=== PATIENT | female | born 1960 | race Caucasian/White ===

== ENCOUNTER 2016-05-20 11:42 | Emergency (ER) | payer OTHER ==
[~2016-05-20 11:42] MED LIST: ADVAIR DISKUS1 UNIT INH; ALBUTEROL0.09 MG/A1 PO; AMARYL1 MG PO; ASPIRIN EC81 M1 PO; AUGMENTIN 875 M1 TAB PO; AUGMENTIN 875-1 EACH PO; AUGMENTIN 875875 MG PO; BRILINTA90 M1 PO; CIPRO500 M1 PO; CLONAZEPAM0.5 M2 PO; COZAAR50 M1 PO; CRESTOR20 MG PO; CRESTOR40 M2 PO; DIABETIC TUSSI118 ML PO; FLEXERIL10 MG PO; GLIMEPIRIDE4 MG PO; GLUCOPHAGE1000 MG PO; GOOD SENSE ASPI81 M1 PO; GUAIFENESIN ER600 MG PO; HEPARIN-1/25000 UNI1 IV; IMDUR30 MG PO; ISOSORBIDE MONO30 M1 PO; KEFLEX500 M1 PO; KLONOPIN0.5 MG PO; LANTUS100 U/ML SC; LASIX20 MG PO; LEVAQUIN500 MG PO; LEVEMIR100 UNIT/1 SC; METOPROLOL TART25 M1 PO; NITROSTAT0.3 M1 SL; NORVASC 5MG TAB5 MG PO; NORVASC10 M1 PO; NOVOLOG100 U/ML SC; NOVOLOG100 UNIT/2 SC; OMEPRAZOLE20 M2 PO; PERCOCET 325 MG1 TA2 PO; PLAVIX 75MG TAB75 MG PO; PREDNISONE 20MG20 MG PO; PREDNISONE10 M2 PO; PREDNISONE10 MG PO; PROTONIX 40MG T40 MG PO; PROTONIX40 M3 PO; ROBITUSSIN W/CO10 ML PO; TRAMADOL HCL50 M1 PO; TRILIPIX135 M1 PO; ZITHROMAX Z-PA250 M1 PO
[2016-05-20 12:45] LABS: ABSOLUTE BASOPHIL COUNT 0 /CUMM (0.0-0.2); ABSOLUTE EOSINOPHIL COUNT 0.4 /CUMM (0.0-0.7); ABSOLUTE GRANULOCYTE CT 7.3 /CUMM (1.4-6.5); ABSOLUTE LYMPH COUNT 1.8 /CUMM (1.2-3.4); ABSOLUTE MONOCYTE COUNT 0.7 /CUMM (0.10-0.60); BASOPHIL % 0 % (0.0-2.0); GRANULOCYTE % 72.1 % (42.2-75.2); HEMATOCRIT 35.7 % (37-47); MEAN CORPUSCULAR HGB 27.9 PG (27.0-31.0); MEAN CORPUSCULAR HGB CONC 33.6 G/DL (33.0-37.0); MEAN CORPUSCULAR VOLUME 82.9 FL (81.0-99.0); MEAN PLATELET VOLUME 9.8 FL (7.4-10.4); PLATELET COUNT 238 /CUMM (130-400); RBC DISTRIBUTION WIDTH 13.9 % (11.5-14.5); RED BLOOD CELL CT 4.31 /CUMM (4.20-5.40); WHITE BLOOD CELL COUNT 10.2 /CUMM (4.8-10.8)
--- NOTE | 2016-05-20 12:50 | RADIOLOGY REPORT ---
EXAMINATION: XR CHEST CLINICAL INFORMATION: Cough COMPARISON: 05/05/2016 TECHNIQUE: PA and lateral views of the chest were obtained. FINDINGS: The cardiomediastinal silhouette is within normal limits. There is no focal consolidation. Hazy airspace disease is noted within the medial right base, unchanged compared to 05/05/2016. No pleural effusions or pneumothorax. Osseous structures are intact. IMPRESSION: Hazy airspace opacity in the medial right lung base is not significantly changed and likely represents atelectasis/scarring. Clinical correlation is recommended to exclude pneumonia. No focal consolidation.
--- NOTE | 2016-05-20 13:09 | ED DYSPNEA/ASTHMA COMPLAINT ---
History of Present Illness General Chief Complaint: Dyspnea (COPD, CHF, Other) Stated Complaint: SIB MD MONTES FOR SOB/COUGH Source: patient, old records Exam Limitations: no limitations Vital Signs & Intake/Output Vital Signs & Intake/Output Vital Signs Date Time Temp Pulse Resp B/P Pulse O2 O2 Flow FiO2 Ox Delivery Rate 05/20 1352 94 05/20 1343 96 05/20 1338 98.3 66 20 121/58 93 Room Air 05/20 1147 97.3 72 18 135/59 94 Room Air Allergies Coded Allergies: No Known Allergies (02/07/16) Reconcile Medications Albuterol Sulfate (Albuterol Sulfate Hfa) 0.09 MG/Actuation LUIZ 2 PUF PO Q4 HRS NEEDED PRN ASTHMA Amlodipine Besylate (Norvasc) 10 MG TABLET 10 MG PO DAILY HIGH BLOOD PRESSURE Aspirin (Ecotrin) 81 MG ECT 1 TAB PO DAILY HEART/BLOOD (Reported) Clonazepam 0.5 MG TAB 1 TAB PO DAILY PRN ANXIETY (Reported) FENOFIBRIC ACID (CHOLINE) (Trilipix) 45 MG CAPSULE.DR 1 TAB PO AT NIGHT HIGH CHOLESTEROL (Reported) Fluconazole (Diflucan) 150 MG TABLET 1 TAB PO ONCE CANDIDIASIS Fluticasone-Salmeterol (Advair 500-50 Diskus) 1 UNIT UNIT 1 PUF INH BID COPD Guaifenesin (Guaifenesin ER) 600 MG TAB.ER.12H 600 MG PO BID COUGH Insulin Aspart (Novolog) 100 UNIT/1 ML VIAL 0 UNITS SC TIDAC/HS DIABETES MELLITUS BEFORE MEALS Blood Insulin Sugar Units <80 0 81-150 20 151-200 22 201-250 24 251-300 26 301-350 28 351-400 30 >400 32 units and Call Doctor AT BEDTIME Blood Insulin Sugar Units <80 0 81-100 0 101-200 0 201-250 0 251-300 4 301-350 5 351-400 6 >400 Call Doctor Insulin Glargine,Hum.rec.anlog (Lantus Solostar) 100 UNIT/ML (3 ML) INSULN.PEN 80 UNIT SC BID DIABETES (Reported) Isosorbide Mononitrate (Imdur) [address] 1 TAB PO DAILY HEART (Reported) Levofloxacin (Levaquin) 750 MG TABLET 1 TAB PO DAILY BRONCIHTIS Losartan (Cozaar) 50 MG TAB 1 TAB PO DAILY HTN (Reported) Methylprednisolone. (Medrol) 4 MG TAB.DS.PK 1 DP PO AD BRONCHITIS 6 on day 1 then reduce by one tablet daily until gone Metoprolol Tartrate (Lopressor) 25 MG TABLET 1 TAB PO BID BP (Reported) Nitroglycerin (Nitrostat) 0.3 MG TAB.SUBL 0.4 MG SL Q 5 MINUTES X 3 DOSE PRN CHEST PAIN Omeprazole 20 MG CAPSULE.DR 40 MG PO BID GERD OXYCODONE HCL/ACETAMINOPHEN (Percocet 5-325 MG Tablet) 325 MG/5 MG TAB 1 TAB PO 4XDP PRN PAIN (Reported) Pantoprazole Sodium (Protonix) 40 MG TAB 40 MG PO BID GI (Reported) Robitussin AC (Guaifenesin-Codeine Syrup) 200 MG-20 MG/10 ML LIQUID 10 ML PO Q6HR PRN COUGH Rosuvastatin Calcium (Crestor) 40 MG TAB 40 MG PO DAILY HIGH CHOLESTEROL ( Reported) Ticagrelor (Brilinta) 90 MG TABLET 1 TAB PO BID HEART ATTACK (Reported) Triage Note: SENT IN BY DR. ISBELL FOR YELLOW PRODUCTIVE COUGH GOING. +WHEEZING ON 2 WEEKS. PT STATES 4 DAYS OF PAIN WITH URINATION AND CONSTANT BACK PAIN. Triage Nurses Notes Reviewed? yes Onset: Gradual Duration: week(s): (2), constant Timing: recent history Severity: mild, moderate Prior Episodes/Possible Cause: occasional episodes Associated Symptoms: cough, URINARY FREQUENCY HPI: 55-year-old female with history of COPD diabetes presents to emergency room complaining of a productive cough yellow sputum and shortness of breath wheezing for the past 2 weeks. She denies recent antibiotic or prednisone use. No fever no chills S pain she is also complaining of urinary urgency frequency and believes she has a UTI. She states that she tried using a nebulizer machine for the first time at home however states it made her nauseous she's been using her breathing treatments otherwise without improvement. 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 No abdominal pain nausea vomiting or diarrhea Past History Travel History Traveled to [place] past 21 day No Medical History Any Pertinent Medical History? 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 No Review of Systems Review of Systems Constitutional: Reports: see HPI. All Other Systems: Reviewed and Negative Comments Review of systems: See HPI, All other systems negative. Constitutional, no chills no fever, no malaise HEENT: No visual changes no sore throat no congestion Cardiovascular: No chest pain , no palpitation Skin, no jaundice no rashes, no change in skin Respiratory: dyspnea cough sputum no hemoptysis GI: No nausea no vomiting, no diarrhea, : dysuria No hematuria, frequency, Muscle skeletal: No joint pain, no back pain, no neck pain, Neurologic: No numbness no headache Psych: No stress Heme/endocrine: No bruising no bleeding Immunology: No lymphadenopathy, Physical Exam Physical Exam General Appearance: well developed/nourished, alert, awake Respiratory: chest non-tender, wheezing Comments: Well-developed well-nourished person in no acute distress HEENT: Normal EENT exam; PERRL, EOMI, . HEAD is atraumatic. moist mucous membranes. Neck: Supple, no lymphadenopathy, normal range of motion without pain or tenderness Back: Nontender, no CVA tenderness. Full range of motion Cardiovascular: Regular rate and rhythms no murmurs rubs or gallops Respiratory: Chest nontender.There were no bony deformities, no asymmetry. No respiratory distress. Patient speaking in full complete sentences. Wheezing bilaterally no rhonchi no rales Abdomen: Soft, nontender nondistended, no appreciable organomegaly. Normal bowel sounds. No rebound/guarding, No appreciable enlargement of the abdominal aorta, No ascites. Extremity: No edema, full range of motion of extremities Neuro: Alert oriented x3, motor sensory normal, There were no obvious focal neurologic abnormalities. Skin: No appreciable rash on exposed skin, skin is warm and dry. Psych: Mood and affect is normal, memory and judgment is normal. Core Measures ACS in differential dx? No Severe Sepsis Present: No Septic Shock Present: No Progress Differential Diagnosis: asthma, AMI, bronchitis, costochondritis, CHF, musculoskeletal pain, pericarditis, pulmonary embolism, pneumonia, pneumothorax, unstable angina, UTI, DKA, HHS Plan of Care: Orders Procedure Date/time Status Add-on Test (ER Only) 05/20 1346 Active CULTURE,URINE 05/20 1330 Active URINALYSIS 05/20 1326 Complete Add-on Test (ER Only) 05/20 1308 Active SERUM OSMOLALITY 05/20 1238 Complete ACETONE 05/20 1238 Complete COMPREHENSIVE METABOLIC PANEL 05/20 1203 Complete CBC WITHOUT DIFFERENTIAL 05/20 1203 Complete Laboratory Tests 05/20/16 1330: Urine Color YEL, Urine Clarity HAZY H, Urine pH 6.0, Ur Specific [place] >= 1.030, Urine Protein 100 H, Urine Ketones NEG, Urine Nitrite NEG, Urine Bilirubin NEG, Urine Urobilinogen 0.2, Ur Leukocyte Esterase SMALL H, Ur Microscopic SEDIMENT EXAMINED, Urine RBC 5-10 H, Urine WBC 15-25 H, Ur Epithelial Cells PACKD H, Urine Mucus MOD H, Urine Hemoglobin SMALL H, Urine Glucose >=1000 H 05/20/16 1238: Anion Gap 16, Estimated GFR 36 L, BUN/Creatinine Ratio 21.3, Glucose 407 H, Serum Osmolality 315 H, Calcium 9.2, Total Bilirubin 0.4, AST 24, ALT 28, Alkaline Phosphatase 74, Total Protein 6.7, Albumin 3.7, Globulin 3.0, Albumin/ Globulin Ratio 1.2, CBC w Diff NO MAN DIFF REQ, RBC 4.31, MCV 82.9, MCH 27.9, RDW 13.9, MPV 9.8, Gran % 72.1, Lymphocytes % 17.5 L, Monocytes % 6.4, Eosinophils % 4.0, Basophils % 0 L, Absolute Granulocytes 7.3 H, Absolute Lymphocytes 1.8, Absolute Monocytes 0.7 H, Absolute Eosinophils 0.4, Absolute Basophils 0, PUBS MCHC 33.6, Acetone Level NEGATIVE Microbiology 05/20 1330 URINE ROUT: Urine Culture - RECD I discussed the patient at length all of her lab results x-ray findings that were ordered in triage. The patient states that she just ate breakfast old records reviewed show the patient's blood sugars chronically elevated in the 300s to 400s at baseline which I discussed with her the harms and risks of. The patient states she's been compliant with taking her NovoLog and Lantus at home. Breathing treatment ordered patient ID with azithromycin 500 and prednisone here we'll continue to monitor Patient ambulatory 93-94%. Patient feels improved after breathing treatment. I discussed with her need for For close follow-up with her primary care physician this week and to return if symptoms worsen. I answered all of her questions she feels comfortable with plan I discussed with the patient at length all of their results, need for close follow up with their primary care physician. This week. I answered all of their questions, they feel comfortable with the plan and follow-up care. I discussed the medications that they will receive with the patient. I gave them signs and symptoms that could indicate an adverse reaction. I have advised them to limit their activities until they can see how they respond to the medication. (LONA TROY) Diagnostic Imaging: Viewed by Me: Radiology Read. Discussed w/RAD: Radiology Read. Radiology Impression: PATIENT: EDUARD ALBERT PRESENT AGE: 55 PATIENT ACCOUNT NO: [id number] : 60 LOCATION: [facility] ORDERING PHYSICIAN: CHITO BETANCUR DO SERVICE DATE: 05/20/16 EXAM TYPE: RAD - XRY-CHEST XRAY, PA AND LATERAL EXAMINATION: XR CHEST CLINICAL INFORMATION: Cough COMPARISON: 05/05/2016 TECHNIQUE: PA and lateral views of the chest were obtained. FINDINGS: The cardiomediastinal silhouette is within normal limits. There is no focal consolidation. Hazy airspace disease is noted within the medial right base, unchanged compared to 05/05/2016. No pleural effusions or pneumothorax. Osseous structures are intact. IMPRESSION: Hazy airspace opacity in the medial right lung base is not significantly changed and likely represents atelectasis/scarring. Clinical correlation is recommended to exclude pneumonia. No focal consolidation. DICTATED BY: ASHLYN QIU DO DATE/TIME DICTATED:04/24 SLAB LIFTING ENGINEER:HELGA DATE/TIME TRANSCRIBED:05/20/161241 CONFIDENTIAL, DO NOT COPY WITHOUT APPROPRIATE AUTHORIZATION. <Electronically signed in Other Vendor System> SIGNED BY: ASHLYN QIU DO 05/20/16 1250 Initial ED EKG: none Departure Departure Time of Disposition: 1413 Disposition: HOME OR SELF CARE Condition: Stable Clinical Impression Primary Impression: Bronchitis Secondary Impressions: Hyperglycemia, UTI (urinary tract infection) Referrals: XIOMY KAT (PCP/Family) Additional Instructions: Follow-up with your primary care physician this week. Levaquin as directed. Medrol Dosepak Robitussin with codeine for cough use caution as this may make you drowsy no driving while taking. Diflucan as directed these prescriptions were sent to your pharmacy As discussed her blood sugars were elevated today continue to check them regularly at home and take your insulin as directed however return immediately if they are persistently elevated despite taking your insulin Continue using her breathing treatments at home Return at anytime sooner if symptoms worsen or you have any other concerns Departure Forms: Customer Survey General Discharge Information Prescriptions: Current Visit Scripts Levofloxacin (Levaquin) 1 TAB PO DAILY #7 TAB Methylprednisolone. (Medrol) 1 DP PO AD #1 DP 6 on day 1 then reduce by one tablet daily until gone Robitussin AC (Guaifenesin-Codeine Syrup) 10 ML PO Q6HR PRN COUGH #200 ML Fluconazole (Diflucan) 1 TAB PO ONCE #1 TAB Critical Care Note Critical Care Note Critical Care Time: non-applicable
[2016-05-20 13:38] VITALS: BP 121/58
[2016-05-20] MEDS ORDERED: LANTUS SOL100 UNIT/1 SC (14:04)
[2016-05-20] MEDS ORDERED: GUAIFENESIN-COD10 ML PO (14:16)
[2016-05-20] MEDS ORDERED: DIFLUCAN150 M1 PO (14:16)
[2016-05-20] MEDS ORDERED: LEVAQUIN750 M1 PO (14:16)
[2016-05-20] MEDS ORDERED: MEDROL4 M2 PO (14:16)
== END 2016-05-20 14:25 ==
LOC: ERH 11:42
PROVIDERS: Emergency Medicine
DX: J40 Bronchitis, not specified as acute or chronic (principal); N39.0 Urinary tract infection, site not specified; E11.65 Type 2 diabetes mellitus with hyperglycemia; Z87.891 Personal history of nicotine dependence; Z79.4 Long term (current) use of insulin
CPT/HCPCS: 1263; 81001; 87086

== ENCOUNTER 2016-08-07 10:33 | Emergency (ER) | payer OTHER ==
[~2016-08-07] VITALS: Ht 157.5 cm; Wt 104.3 kg
[~2016-08-07 10:33] MED LIST changes: +DIFLUCAN150 M1 PO; +GUAIFENESIN-COD10 ML PO; +LANTUS SOL100 UNIT/1 SC; +LEVAQUIN750 M1 PO; +MEDROL4 M2 PO
[2016-08-07 10:47] VITALS: BP 162/75
[2016-08-07] MEDS ORDERED: PROAIR HFA8.5 GM INH (11:41)
[2016-08-07] MEDS ORDERED: SYMBICORT 16010.2 GM INH (11:42)
[2016-08-07] MEDS ORDERED: IBUPROFEN600 M1 PO (12:01)
[2016-08-07] MEDS ORDERED: PERCOCET 5-3251 EACH PO (12:01)
--- NOTE | 2016-08-07 12:02 | ED UPPER/LOWER EXTREMITY COMPL ---
History of Present Illness General Chief Complaint: Lower Extremity Injury Stated Complaint: RT LEG PAIN Source: patient Exam Limitations: no limitations Vital Signs & Intake/Output Vital Signs & Intake/Output Vital Signs Date Time Temp Pulse Resp B/P Pulse O2 O2 Flow FiO2 Ox Delivery Rate 08/07 1047 98.1 75 18 162/75 95 Room Air Room Air Allergies Coded Allergies: No Known Allergies (02/07/16) Reconcile Medications Albuterol Sulfate (Proair Hfa) 90 MCG HFA.AER.AD 2 PUF INH Q4-6 PRN PRN ASTHMA (Reported) Amlodipine Besylate (Norvasc) 10 MG TABLET 10 MG PO DAILY HIGH BLOOD PRESSURE Aspirin (Ecotrin*) 81 MG TABLET.DR 1 TAB PO DAILY HEART HEALTH (Reported) Budesonide/Formoterol Fumarate (Symbicort 160-4.5 Mcg Inhaler) 160 MCG-4.5 MCG/ ACTUATION HFA.AER.AD 2 PUF INH BID BREATHING PROBLEMS (Reported) Clonazepam 0.5 MG TABLET 1 TAB PO QPM SLEEP (Reported) Fenofibric Acid (Trilipix) 135 MG CAPSULE.DR 1 CAP PO QPM CHOLESTEROL ( Reported) Ibuprofen 600 MG TABLET 1 TAB PO TID PRN calf pain with food Insulin Aspart (Novolog) 100 UNIT/1 ML VIAL 0 UNITS SC TIDAC/HS DIABETES MELLITUS BEFORE MEALS Blood Insulin Sugar Units <80 0 81-150 20 151-200 22 201-250 24 251-300 26 301-350 28 351-400 30 >400 32 units and Call Doctor AT BEDTIME Blood Insulin Sugar Units <80 0 81-100 0 101-200 0 201-250 0 251-300 4 301-350 5 351-400 6 >400 Call Doctor Insulin Glargine,Hum.rec.anlog (Lantus Solostar) 100 UNIT/ML (3 ML) INSULN.PEN 80 UNIT SC BID DIABETES (Reported) Isosorbide Mononitrate (Isosorbide Mononitrate ER) 30 MG TAB.ER.24H 1 TAB PO DAILY HEART (Reported) Losartan Potassium (Cozaar) 50 MG TABLET 1 TAB PO DAILY HTN (Reported) Metoprolol Tartrate 25 MG TABLET 1 TAB PO BID BP (Reported) Nitroglycerin (Nitrostat) 0.3 MG TAB.SUBL 0.4 MG SL Q 5 MINUTES X 3 DOSE PRN CHEST PAIN Oxycodone HCl/Acetaminophen (Percocet 5-325 MG Tablet) 5 MG-325 MG TABLET 1 TAB PO BID calf pain Pantoprazole Sodium (Protonix) 40 MG TABLET.DR 1 TAB PO BID GI (Reported) Rosuvastatin Calcium (Crestor) 40 MG TABLET 1 TAB PO DAILY CHOLESTEROL ( Reported) Ticagrelor (Brilinta) 90 MG TABLET 1 TAB PO BID HEART (Reported) Core Measure Meds Pre-Hospital Brilinta Triage Note: TRIAGE: 56 Y/O FEMALE PRESENTS WITH FAMILY C/O RIGHT LEG PAIN. WENT TO PCP ON TUESDAY TO RULE OUT A CLOT, WAS DIAGNOSED WITH A RUPTURED CYST. "I HAVE AN EXTREMELY LOT AMOUNT OF PAIN IN MY RIGHT LEG. IT FEELS LIKE MY LEG IS GOING TO BLOW UP." Triage Nurses Notes Reviewed? yes HPI: Ms. Mckoy is a 56-year-old female with past medical history of hypertension, diabetes, CAD w/ [address] on Brilinta, prev [place], sleep apnea, gastritis, and anxiety presenting to ED for R leg pain. Patient states the pain has been ongoing for the past month that has worsened over the past few days. She states the pain acutely worsened on and she called her primary care doctor who sent her in for bilateral lower extremity DVT ultrasound to assess for possible blood clot. Patient was then told she had a ruptured Mantilla's cyst. She was unsure what to do with it and the pain has since worsened. She feels that her leg weighs 100 pounds and she is dragging it when she ambulates. She has not taken anything at home for the pain including NSAIDs or Tylenol. (IVONE BARRIOS,JENNY) Past History Travel History Traveled to [place] past 21 day No Medical History Any Pertinent Medical History? 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 No (JENNY WISEMAN MD) Review of Systems Review of Systems Constitutional: Reports: no symptoms. EENTM: Reports: no symptoms. Respiratory: Reports: no symptoms. Cardiovascular: Reports: no symptoms. Gastrointestinal/Abdominal: Reports: no symptoms. Genitourinary: Reports: no symptoms. Musculoskeletal: Reports: muscle pain. Skin: Reports: no symptoms. Neurological/Psychological: Reports: no symptoms. Hematologic/Endocrine: Reports: no symptoms. Immunological: Reports: no symptoms. All Other Systems: Reviewed and Negative (JENNY WISEMAN MD) Physical Exam Physical Exam General Appearance: well developed/nourished, no apparent distress, alert, awake Head: atraumatic, normal appearance Eyes: Bilateral: normal appearance, PERRL, EOMI. Neck: normal inspection, supple, full range of motion Cardiovascular/Respiratory: normal breath sounds, normal peripheral pulses, regular rate/rhythm, no respiratory distress Gastrointestinal: soft, nontender Back: normal inspection, normal range of motion Shoulder Left: normal range of motion, normal inspection Shoulder Right: normal range of motion, normal inspection Leg Right: normal range of motion, normal inspection, pain, TTP when squeezing calf on R, TTP in posterior popliteal Neurologic/Tendon: normal sensation, normal motor functions, normal tendon functions, no pulse deficit, CN 2-12 intact. Normal sensation, motor function of bilateral lower extremities (JENNY WISEMAN MD) Progress Differential Diagnosis: cellulitis, compartment syndrome, DVT, gout, sprain, ruptured Mantilla's cyst Plan of Care: Patient is a well-appearing 56-year-old female multiple medical problems presenting to the emergency department for right lower extremity pain. Already had a bilateral DVT ultrasound performed on 08/04 the day the pain worsened significantly. Ultrasound was ordered by patient's primary care doctor. Ultrasound was negative for DVTs bilaterally. However, it did show a ruptured Mantilla's cyst on the right hand side. Patient states pain has been ongoing since. She is not using anything at home for the pain. There is no evidence of erythema, warmth or swelling to suggest an infectious process such as cellulitis. Bilateral compartments are soft therefore is unlikely that the patient has unilateral compartment syndrome from the Mantilla's cyst rupture. No traumatic injuries this just fracture or sprain. Printed copy of the patient's ultrasound which revealed the Mantilla's cyst rupture. The patient's right lower extremity is bandaged from mid calf to mid thigh with an Gigi wrap. Recommended the patient elevate rest and ice her leg over the next few days and use NSAIDs for pain relief. Prescriptions for motrin 800mg and percocet 5/325 #10 no refills for pain. Patient is able to ambulate from the emergency department without difficulty. Will follow up with her PMD. (JENNY WISEMAN MD) Departure Departure Time of Disposition: 1156 Disposition: HOME OR SELF CARE Condition: Stable Clinical Impression Primary Impression: Ruptured Bakers cyst Secondary Impressions: Right calf pain Referrals: XIOMY KAT (PCP/Family) Additional Instructions: Please make sure you rest elevate and ice her leg. You can take 600 mg of Motrin every 8 hours for the pain for the next 2-3 days. If breakthrough pain, and prescribed Percocet. I would recommend elevating her leg above the level of the heart as well as keeping it wrapped somewhat tightly an Gigi wrap to assist in bringing back the extra fluid that is causing her pain in the calf. If you have worsening pain, numbness tingling or unable to walk, please return to the emergency department for evaluation. Departure Forms: Customer Survey General Discharge Information Prescriptions: Current Visit Scripts Ibuprofen 1 TAB PO TID PRN calf pain #30 TAB with food Oxycodone HCl/Acetaminophen (Percocet 5-325 MG Tablet) 1 TAB PO BID #10 TAB (JENNY WISEMAN MD) PA/PROCESS CONTROL SUPERVISOR Co-Sign Statement Statement: ED Attending supervision documentation- [] I saw and evaluated the patient. I have also reviewed all the pertinent lab results and diagnostic results. I agree with the findings and the plan of care as documented in the PA's/PROCESS CONTROL SUPERVISOR's documentation. x I have reviewed the ED Record and agree with the PA's/PROCESS CONTROL SUPERVISOR's documentation. [] Additions or exceptions (if any) to the PAs/PROCESS CONTROL SUPERVISOR's note and plan are summarized below: [] (NAY BARRIOS,TIMOTHY)
== END 2016-08-07 11:57 ==
LOC: ERH 10:33
DX: M66.0 Rupture of popliteal cyst (principal)

== ENCOUNTER 2016-09-10 19:12 | Inpatient (IN) | payer OTHER ==
[~2016-09-10] VITALS: Ht 157.5 cm; Wt 101.2 kg
[~2016-09-10 19:12] MED LIST changes: +IBUPROFEN600 M1 PO; +PERCOCET 5-3251 EACH PO; +PROAIR HFA8.5 GM INH; +SYMBICORT 16010.2 GM INH
--- NOTE | 2016-09-10 19:31 | ED GENERAL ADULT ---
History of Present Illness General Chief Complaint: General Adult Stated Complaint: PT HAVING PROBLEM BREATHING AND FOOT PAIN LT 93 Source: patient Exam Limitations: no limitations Vital Signs & Intake/Output Vital Signs & Intake/Output Vital Signs Date Time Temp Pulse Resp B/P B/P Pulse O2 O2 Flow FiO2 Mean Ox Delivery Rate 09/11 0210 98.1 85 20 167/80 95 Room Air 09/11 0158 96 Nasal 2.0L Cannula 09/10 2343 86 20 176/80 95 Nasal 4.0L Cannula 09/10 2258 98.4 84 18 193/76 93 Nasal 4.0L Cannula 09/10 2124 98.2 09/10 2013 96 09/10 1920 98.4 90 20 184/76 92 Room Air ED Intake and Output 09/11 0000 09/10 1200 Intake Total Output Total Balance Patient 215 lb Weight Weight Reported by Patient Measurement Method Allergies Coded Allergies: tramadol (NAUSEA 09/10/16) Reconcile Medications Albuterol Sulfate (Proair Hfa) 90 MCG HFA.AER.AD 2 PUF INH Q4-6 PRN PRN ASTHMA (Reported) Amlodipine Besylate (Norvasc) 10 MG TABLET 10 MG PO DAILY HIGH BLOOD PRESSURE Aspirin (Ecotrin*) 81 MG TABLET.DR 1 TAB PO DAILY HEART HEALTH (Reported) Budesonide/Formoterol Fumarate (Symbicort 160-4.5 Mcg Inhaler) 160 MCG-4.5 MCG/ ACTUATION HFA.AER.AD 2 PUF INH BID BREATHING PROBLEMS (Reported) Clonazepam 0.5 MG TABLET 1 TAB PO QPM SLEEP (Reported) Fenofibric Acid (Trilipix) 135 MG CAPSULE.DR 1 CAP PO QPM CHOLESTEROL ( Reported) Insulin Regular, Human (Humulin R U-500 Kwikpen) 500/ML (3) INSULN.PEN 300 UNITS SC DAILY DM (Reported) Isosorbide Mononitrate (Isosorbide Mononitrate ER) 30 MG TAB.ER.24H 1 TAB PO DAILY HEART (Reported) Losartan Potassium (Cozaar) 50 MG TABLET 1 TAB PO DAILY HTN (Reported) Metoprolol Tartrate 25 MG TABLET 1 TAB PO BID BP (Reported) Nitroglycerin (Nitrostat) 0.3 MG TAB.SUBL 0.4 MG SL Q 5 MINUTES X 3 DOSE PRN CHEST PAIN Pantoprazole Sodium (Protonix) 40 MG TABLET.DR 1 TAB PO BID GI (Reported) Rosuvastatin Calcium (Crestor) 40 MG TABLET 1 TAB PO DAILY CHOLESTEROL ( Reported) Ticagrelor (Brilinta) 60 MG TABLET 1 TAB PO BID HEART/BLOOD (Reported) Triage Note: PT TO ED COMPLAINING OF "BREATHING ATTACKS" REPORTS SOB ON EXERTION STARTING YESTERDAY. DENIES CP, NO COUGH. +CHILLS, UNSURE OF FEVERS. PT ALSO C/O L FOOT PAIN "AFTER FALLING ON DECK OF CARDS." O2 SAT 92% ON RA IN TRIAGE, PT USED NEBULIZER AND "THE INHALERS" AT HOME AT 1330. Triage Nurses Notes Reviewed? yes Onset: Gradual Duration: day(s): Timing: recent history Injury Environment: home Severity: moderate Modifying Factors: Improves With: rest. Associated Symptoms: cough, wheeze HPI: 56-year-old woman with a history of diabetes and asthma/COPD presents with 2 day history of cough and wheeze. She states, "I can't even walk across the kitchen without getting short of breath." She notes wheezing that is not better with her albuterol nebulizer treatments. She has no sputum, fever, chest pain, nausea vomiting diarrhea. She also notes left foot pain after a fall several days ago. She also notes that she is on day 8 of Augmentin for a left ear infection Past History Travel History Traveled to [place] past 21 day No Medical History Any Pertinent Medical History? 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 No Review of Systems Review of Systems Constitutional: Reports: no symptoms. EENTM: Reports: no symptoms. Respiratory: Reports: no symptoms. Cardiovascular: Reports: no symptoms. GI: Reports: no symptoms. Genitourinary: Reports: no symptoms. Musculoskeletal: Reports: no symptoms. Skin: Reports: no symptoms. Neurological/Psychological: Reports: no symptoms. Hematologic/Endocrine: Reports: no symptoms. Immunologic/Allergic: Reports: no symptoms. All Other Systems: Reviewed and Negative Physical Exam Physical Exam General Appearance: well developed/nourished, mild distress Head: atraumatic Eyes: Bilateral: normal appearance. Ears, Nose, Throat: normal pharynx, LEFT tm IS DULL WITHOUT ERYTHEMA OR BULGING. Neck: normal inspection, supple, full range of motion Respiratory: normal breath sounds Cardiovascular: regular rate/rhythm Gastrointestinal: normal bowel sounds, soft, non-tender, no organomegaly Back: normal inspection Extremities: normal inspection Neurologic/Psych: no motor/sensory deficits, awake, alert, oriented x 3 Skin: intact, normal color, warm/dry Core Measures ACS in differential dx? No CVA/TIA Diagnosis: No Severe Sepsis Present: No Septic Shock Present: No Progress Differential Diagnoses I considered the following diagnoses in my evaluation of the patient: Asthma versus bronchitis versus pneumonia versus other Plan of Care: Orders Procedure Date/time Status Heart Healthy Diet 09/11 B Active URINALYSIS 09/11 0202 Active Vital Signs 09/11 156 Active Teach/Educate 09/11 156 Active Pain Treatment and Response 09/11 156 Active Nutritional Intake, Monitor 09/11 156 Active Isolation 09/11 156 Active Intake & Output 09/11 015 Active Patient Care Conference 09/11 156 Active Activity/Ambulation 09/11 156 Active Pathway - chart 09/11 015 Active House Staff 09/11 015 Active Patient Data 09/11 015 Active STREP PNEUMO URINARY ANTIGEN 09/11 015 Active LEGIONELLA URINARY ANTIGEN 09/11 015 Active Code Status 09/11 015 Active Intake & Output 09/11 0009 Active TRC EVALUATION (GEN) 09/11 UNK Active AEROSOL (GEN) 09/11 UNK Active VTE Mechanical Prophylaxis 09/11 UNK Active FingerStick- Glucose 09/11 UNK Active Patient Data 09/10 2333 Active Saline Lock 09/10 2252 Active Misc Message 09/10 2252 Active ED Holding Orders 09/10 2252 Active Admit to inpatient 09/10 2252 Active Vital Signs 09/10 2252 Active Code Status 09/10 2252 Complete BLOOD CULTURE 09/11 1951 Active TROPONIN LEVEL 09/10 1950 Complete D-DIMER 09/10 1950 Complete COMPREHENSIVE METABOLIC PANEL 09/10 1950 Complete CBC WITHOUT DIFFERENTIAL 09/10 1950 Complete B-TYPE NATRIURETIC PEP (BNP) 09/10 1950 Complete EKG 09/10 1950 Active Current Medications Sig/Rubin Start time Last Medication Dose Stop Time Status Admin Clonazepam 0.5 MG QPM 09/11 2200 AC (KlonoPIN) 09/18 2158 Atorvastatin Calcium 80 MG 1700 09/11 1700 AC (Lipitor) Amlodipine Besylate 10 MG DAILY 09/11 1000 AC (Norvasc) Aspirin Buffered 81 MG DAILY 09/11 1000 AC (Ecotrin) Azithromycin 500 MG DAILY 09/11 1000 AC (Zithromax) Sodium Chloride 250 ML (Normal Saline 0.9%) Budesonide/ 2 PUF BID 09/11 1000 AC Formoterol Fumarate (Symbicort) Ceftriaxone Sodium 1,000 MG DAILY 09/11 1000 AC (Rocephin) Fenofibrate 145 MG DAILY 09/11 1000 AC (Tricor) Isosorbide 30 MG DAILY 09/11 1000 AC Mononitrate (Imdur) Metoprolol Tartrate 25 MG BID 09/11 1000 AC (Lopressor) Ticagrelor 60 MG BID 09/11 1000 AC (BRILINTA) Insulin Aspart 0 TIDAC 09/11 0800 AC (NovoLOG) Heparin Sodium 5,000 UNIT Q8 09/11 0600 AC 09/11 (Porcine) 0541 Acetaminophen 650 MG Q6P PRN 09/11 0200 AC (Tylenol) Acetaminophen 1,000 MG Q12P PRN 09/11 0200 AC (Ofirmev) Albuterol Sulfate 2 PUF Q4-6 PRN PRN 09/11 0200 AC (Ventolin) Sodium Chloride 1,000 ML BOLUS ONE 09/10 224 CAN (Normal Saline 0.9%) 09/10 2344 Laboratory Tests 09/10/16 2030: Anion Gap 12, Estimated GFR 36 L, BUN/Creatinine Ratio 22.0, Glucose 108 H, Calcium 9.4, Total Bilirubin 0.5, AST 27, ALT 52, Alkaline Phosphatase 71, Troponin I < 0.01, Mca-F-Nbsypkflalz Pept 727 H, Total Protein 6.9, Albumin 4.0 , Globulin 2.9, Albumin/Globulin Ratio 1.4, D-Dimer 774 H, CBC w Diff NO MAN DIFF REQ, RBC 3.56 L, MCV 84.6, MCH 28.4, RDW 14.4, MPV 10.4, Gran % 63.7, Lymphocytes % 27.5, Monocytes % 5.4, Eosinophils % 2.9, Basophils % 0.5, Absolute Granulocytes 5.9, Absolute Lymphocytes 2.5, Absolute Monocytes 0.5, Absolute Eosinophils 0.3, Absolute Basophils 0, PUBS MCHC 33.6 Microbiology 09/12 155 URINE ROUT: Legionella Antigen - COLB 09/12 155 URINE ROUT: Streptococcus pneumoniae Antigen (M - COLB 09/11 2227 BLOOD: Blood Culture - RECD 09/10 2029 BLOOD: Blood Culture - RECD Diagnostic Imaging: Viewed by Me: Radiology Read. Discussed w/RAD: Radiology Read. Radiology Impression: left foot... no fx. CXR Impression: atelectasis vs early infection Initial ED EKG: normal axis, normal intervals, normal p-waves, normal QRS complex, normal sinus rhythm Comments: PATIENT: EDUARD ALBERT PRESENT AGE: 56 PATIENT ACCOUNT NO: [id number] : 60 LOCATION: [facility], [place] ORDERING PHYSICIAN: AMISH PACK MD SERVICE DATE: 09/10/16 EXAM TYPE: RAD - XRY-PORTABLE CHEST XRAY EXAMINATION: XR PORTABLE CHEST CLINICAL INFORMATION: Dyspnea. COMPARISON: Chest x-ray 05/20/2016. TECHNIQUE: Portable frontal view of the chest was obtained. FINDINGS: Limited exam secondary to patient body habitus and low lung volumes. Bibasilar opacities may reflect atelectasis. Superimposed infection cannot be excluded. Cardiomediastinal contours are stable. No large effusions or pneumothoraces. No acute osseous abnormality. No soft tissue abnormalities are identified. IMPRESSION: Significantly limited exam secondary to patient body habitus and low lung volumes. Bibasilar opacities may reflect subsegmental atelectasis although superimposed infection cannot be excluded in the appropriate clinical setting. Consider correlation with PA and lateral chest x-ray. DICTATED BY: CHANG KIMBALL MD DATE/TIME DICTATED:09/10/162025 WHIZZER HAND:HELGA DATE/TIME TRANSCRIBED:09/10/162025 CONFIDENTIAL, DO NOT COPY WITHOUT APPROPRIATE AUTHORIZATION. <Electronically signed in Other Vendor System> SIGNED BY: CHANG KIMBALL MD 09/10/162030 Departure Departure Disposition: HOME OR SELF CARE Condition: Stable Clinical Impression Primary Impression: Asthma exacerbation Referrals: XIOMY KAT (PCP/Family) Departure Forms: Customer Survey General Discharge Information Critical Care Note Critical Care Note Critical Care Time: non-applicable
[2016-09-10] MEDS ORDERED: HUMULIN R500 UNIT/2 SC (19:35)
[2016-09-10] MEDS ORDERED: BRILINTA60 MG PO (19:37)
--- NOTE | 2016-09-10 20:29 | RADIOLOGY REPORT ---
EXAMINATION: XR FOOT, LEFT CLINICAL INFORMATION: Left foot pain following fall. COMPARISON: None. TECHNIQUE: AP, lateral, and oblique views of the left foot. FINDINGS: The bones and soft tissues appear unremarkable. No acute fracture or dislocation of the left foot is identified. Joint spaces appear grossly preserved.. Alignment is anatomic. Joint spaces are maintained. IMPRESSION: No acute fracture or dislocation of the left foot
--- NOTE | 2016-09-10 20:31 | RADIOLOGY REPORT ---
EXAMINATION: XR PORTABLE CHEST CLINICAL INFORMATION: Dyspnea. COMPARISON: Chest x-ray 05/20/2016. TECHNIQUE: Portable frontal view of the chest was obtained. FINDINGS: Limited exam secondary to patient body habitus and low lung volumes. Bibasilar opacities may reflect atelectasis. Superimposed infection cannot be excluded. Cardiomediastinal contours are stable. No large effusions or pneumothoraces. No acute osseous abnormality. No soft tissue abnormalities are identified. IMPRESSION: Significantly limited exam secondary to patient body habitus and low lung volumes. Bibasilar opacities may reflect subsegmental atelectasis although superimposed infection cannot be excluded in the appropriate clinical setting. Consider correlation with PA and lateral chest x-ray.
[2016-09-10 21:07] LABS: ABSOLUTE BASOPHIL COUNT 0 /CUMM (0.0-0.2); ABSOLUTE EOSINOPHIL COUNT 0.3 /CUMM (0.0-0.7); ABSOLUTE GRANULOCYTE CT 5.9 /CUMM (1.4-6.5); ABSOLUTE LYMPH COUNT 2.5 /CUMM (1.2-3.4); ABSOLUTE MONOCYTE COUNT 0.5 /CUMM (0.10-0.60); BASOPHIL % 0.5 % (0.0-2.0); EOSINOPHIL % 2.9 % (0-5); GRANULOCYTE % 63.7 % (42.2-75.2); HEMATOCRIT 30.1 % (37-47); MEAN CORPUSCULAR HGB 28.4 PG (27.0-31.0); MEAN CORPUSCULAR HGB CONC 33.6 G/DL (33.0-37.0); MEAN CORPUSCULAR VOLUME 84.6 FL (81.0-99.0); MEAN PLATELET VOLUME 10.4 FL (7.4-10.4); PLATELET COUNT 232 /CUMM (130-400); RBC DISTRIBUTION WIDTH 14.4 % (11.5-14.5); RED BLOOD CELL CT 3.56 /CUMM (4.20-5.40); WHITE BLOOD CELL COUNT 9.3 /CUMM (4.8-10.8)
--- NOTE | 2016-09-10 22:56 | CT SCAN REPORT ---
EXAMINATION: CT ANGIOGRAM OF THE CHEST WITH AND WITHOUT CONTRAST (CT PULMONARY ANGIOGRAM FOR PE) CLINICAL INFORMATION: : dyspnea, +dimer
COMPARISON: Chest x-ray 09/10/2016. CT chest 06/22/2016 TECHNIQUE: Prior to contrast administration, noncontrast localization images were obtained. Subsequently, multidetector volumetric imaging was performed from the thoracic inlet to below the diaphragms following the administration of 95 mL Optiray 320 intravenous contrast. No contrast reaction reported. Sagittal, coronal, and MIP oblique sagittal reformatted images were obtained on the CT workstation, uploaded to PACS, and reviewed. Total exam dose-length product 510.24 mGy-cm. FINDINGS: QUALITY OF STUDY/CONTRAST BOLUS: Satisfactory PULMONARY ARTERIES: No central or segmental pulmonary emboli. THORACIC AORTA: No aneurysm or dissection. LUNG: Infiltrate at right lung base with air bronchograms. Patchy alveolar opacity and linear atelectasis at the left lung base. PLEURA: Bilateral pleural effusions. Small moderate in volume on the right and small on the left, both layering dependently MEDIASTINUM: Mediastinal and hilar lymphadenopathy. Enlarged lymph nodes in the subcarina, pretracheal retrovascular space and AP window and bilateral candido. Enlarged lymph nodes are new since the exam of 06/22/2016 and may be reactive to the airspace disease. CHEST WALL/AXILLA: No axillary or internal mammary lymphadenopathy. OSSEOUS STRUCTURES: Multilevel degenerative change of the spine with bridging osteophytes. UPPER ABDOMEN: Unremarkable. No reflux of contrast into the hepatic veins to suggest elevated right heart pressures. IMPRESSION: 1. No evidence of pulmonary embolism. 2. Right lower lobe infiltrate with patchy airspace disease left lung base and bilateral pleural effusions. 3. Mediastinal lymphadenopathy which could be reactive to the airspace disease. VTE: negative
--- NOTE | 2016-09-10 23:33 | History & Physical ---
CHRISTIN PALMER MD 09/10/16 2013: General Information and HPI MD Statement: I have seen and personally examined TESSA MCKOY and documented this H&P. The patient is a 56 year old F who presented with a patient stated chief complaint of shortness of breath. Source of Information: patient, old records Exam Limitations: poor historian History of Present Illness: Ms. Mckoy is a 56 year old female with PMH obstructive sleep apnea on CPAP, asthma, coronary artery diease status post RCA stenting x 2 (2010, 2014 ), peripheral vascular disease status post right lower extremity stenting, hypertension, hyperlipidemia, type two diabetes mellitus with retinopathy and chronic kidney disease stage III who presents to [place] with chief complaint of shortness of breath. This shortness of breath began yesterday, started abruptly and required the patient to use her nebulizer frequently before she felt comfortable. She was able to fall asleep comfortably with her CPAP, however when she woke up this morning she noted she was acutely short of breath. On ambulating from her bedroom to the kitchen, she became so dyspneic that she almost past out and her heart felt like it was "pounding out of her chest". Associated symptoms included chills for one week, wheezing, left foot pain after a mechanical fall and recent sinusitus/left ear infection for which she complete three 7-day courses of augmentin (she is on her last day of the third course). There is also note of slight discharge and patient believes she has vaginal candidiasis secondary to recent antibiotic usage. Patient denies fever, cough, sore throat, vision changes, chest pain, sputum production, abdominal pain, nausea, vomiting or diarrhea. Social history is negative for current tobacco, alcohol or illicit drug use. However, patient did have prior 40 year history of cigarette abuse. She lives at home with her daughter and her daughter's four children. Tessa follows with Dr. Holden MD in [place] for endocrinology, Dr. Adrianna MD for cardiology , Dr. Harpreet MD for ENT and Dr. Joseph/MD Randy for her asthma. Patient had pulmonary function testing done on July 19, 2008 that showed restrictive ventilatory defect and a superimposed obstructive component. Latest echo in February 07, 2016 showed normal ejection fracture >65, mild aortic stenosis and no pulmonary hypertension. Allergies/Medications Allergies: Coded Allergies: tramadol (NAUSEA 09/10/16) Home Med list Albuterol Sulfate (Proair Hfa) 90 MCG HFA.AER.AD 2 PUF INH Q4-6 PRN PRN ASTHMA (Reported) Amlodipine Besylate (Norvasc) 10 MG TABLET 10 MG PO DAILY HIGH BLOOD PRESSURE Aspirin (Ecotrin*) 81 MG TABLET.DR 1 TAB PO DAILY HEART HEALTH (Reported) Budesonide/Formoterol Fumarate (Symbicort 160-4.5 Mcg Inhaler) 160 MCG-4.5 MCG/ ACTUATION HFA.AER.AD 2 PUF INH BID BREATHING PROBLEMS (Reported) Clonazepam 0.5 MG TABLET 1 TAB PO QPM SLEEP (Reported) Fenofibric Acid (Trilipix) 135 MG CAPSULE.DR 1 CAP PO QPM CHOLESTEROL ( Reported) Insulin Regular, Human (Humulin R U-500 Kwikpen) 500/ML (3) INSULN.PEN 300 UNITS SC DAILY DM (Reported) Isosorbide Mononitrate (Isosorbide Mononitrate ER) 30 MG TAB.ER.24H 1 TAB PO DAILY HEART (Reported) Losartan Potassium (Cozaar) 50 MG TABLET 1 TAB PO DAILY HTN (Reported) Metoprolol Tartrate 25 MG TABLET 1 TAB PO BID BP (Reported) Nitroglycerin (Nitrostat) 0.3 MG TAB.SUBL 0.4 MG SL Q 5 MINUTES X 3 DOSE PRN CHEST PAIN Pantoprazole Sodium (Protonix) 40 MG TABLET.DR 1 TAB PO BID GI (Reported) Rosuvastatin Calcium (Crestor) 40 MG TABLET 1 TAB PO DAILY CHOLESTEROL ( Reported) Ticagrelor (Brilinta) 60 MG TABLET 1 TAB PO BID HEART/BLOOD (Reported) Compliance With Home Meds: FAIR Past History Travel History Traveled to [place] past 21 day No Medical History Neurological: NONE EENT: NONE Cardiovascular: CAD, hypertension, hyperlipidemia, myocardial infarction, ND W STENTS Respiratory: pneumonia, Sleep apnoea Gastrointestinal: MILD GASTRITIS Hepatic: NONE Renal: NONE Musculoskeletal: NONE Psychiatric: anxiety Endocrine: diabetes Blood Disorders: NONE Cancer(s): NONE 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 Home Who Do You Live With? child Services at Home: None Primary Language: Austrian Smoking Status: Former Smoker ETOH Use: denies use Illicit Drug Use: denies illicit drug use Functional Ability ADLs Independent: dressing, eating, toileting, bathing. Ambulation: independent IADLs Independent: shopping, housework, finances, food prep, telephone, transportation , medication admin. Sexual History Sexually Active No Review of Systems Review of Systems Constitutional: Reports: chills, malaise, weakness. Denies: fever. EENTM: Reports: see HPI. Denies: blurred vision, visual changes, hearing changes, nasal congestion, throat pain. Cardiovascular: Reports: palpitations. Denies: chest pain, syncope. Respiratory: Reports: short of breath, wheezing. Denies: cough, sputum production. GI: Denies: abdominal pain, bloating, nausea, vomiting. Genitourinary: Reports: see HPI, discharge. Musculoskeletal: Denies: back pain. Skin: Denies: lesions. Neurological/Psychological: Denies: confusion, headache, numbness. Hematologic/Endocrine: Denies: bruising. Immunologic/Allergic: Denies: splenectomy. All Other Systems: Reviewed and Negative Exam & Diagnostic Data Last 24 Hrs of Vital Signs/I&O Vital Signs Date Time Temp Pulse Resp B/P B/P Pulse O2 O2 Flow FiO2 Mean Ox Delivery Rate 09/11 0210 98.1 85 20 167/80 95 Room Air 09/11 0158 96 Nasal 2.0L Cannula 09/10 2343 86 20 176/80 95 Nasal 4.0L Cannula 09/10 2258 98.4 84 18 193/76 93 Nasal 4.0L Cannula 09/10 2124 98.2 09/10 2013 96 09/10 1920 98.4 90 20 184/76 92 Room Air Intake & Output 09/11 0800 09/11 0000 09/10 1600 Intake Total Output Total Balance Patient 215 lb 215 lb Weight Weight Reported by Patient Reported by Patient Measurement Method Physical Exam General Appearance Alert, Oriented X3, Cooperative, No Acute Distress Skin No Rashes, No Significant Lesion Skin Temp/Moisture Exam: Warm/Dry HEENT Atraumatic, PERRLA, EOMI, Mucous Membr. moist/pink Neck Supple Lymphatic Cervical nl Cardiovascular Regular Rate, Normal S1, Normal S2 Lungs Decreased breath sounds bilateral bases, no added sounds Abdomen Normal Bowel Sounds, Soft, No Tenderness Neurological Normal Speech, Strength at 5/5 X4 Ext, Normal Tone Extremities No Clubbing, No Cyanosis, No Edema, No Tenderness/Swelling Vascular Pulses Symmetrical Last 24 Hrs of Labs/Maximo: Laboratory Tests 09/10/16 2030: Anion Gap 12, Estimated GFR 36 L, BUN/Creatinine Ratio 22.0, Glucose 108 H, Calcium 9.4, Total Bilirubin 0.5, AST 27, ALT 52, Alkaline Phosphatase 71, Troponin I < 0.01, Nze-P-Hthrnbkotwh Pept 727 H, Total Protein 6.9, Albumin 4.0 , Globulin 2.9, Albumin/Globulin Ratio 1.4, D-Dimer 774 H, CBC w Diff NO MAN DIFF REQ, RBC 3.56 L, MCV 84.6, MCH 28.4, RDW 14.4, MPV 10.4, Gran % 63.7, Lymphocytes % 27.5, Monocytes % 5.4, Eosinophils % 2.9, Basophils % 0.5, Absolute Granulocytes 5.9, Absolute Lymphocytes 2.5, Absolute Monocytes 0.5, Absolute Eosinophils 0.3, Absolute Basophils 0, PUBS MCHC 33.6 Microbiology 09/12 155 URINE ROUT: Legionella Antigen - ORD 09/12 155 URINE ROUT: Streptococcus pneumoniae Antigen (M - ORD 09/108 BLOOD: Blood Culture - RECD 09/10 2029 BLOOD: Blood Culture - RECD Diagnostic Data EKG Results NSR, HR 83 bpm, QTC 447. CXR Results IMPRESSION: Significantly limited exam secondary to patient body habitus and low lung volumes. Bibasilar opacities may reflect subsegmental atelectasis although superimposed infection cannot be excluded in the appropriate clinical setting. Consider correlation with PA and lateral chest x-ray. Other Results Chest CTA: IMPRESSION: 1. No evidence of pulmonary embolism. 2. Right lower lobe infiltrate with patchy airspace disease left lung base and bilateral pleural effusions. 3. Mediastinal lymphadenopathy which could be reactive to the airspace disease. VTE: negative Foot XRay: IMPRESSION: No acute fracture or dislocation of the left foot Assessment/Plan Assessment: Ms. Mckoy is a 56 year old female with PMH HTN, HLD, GERD, T2DM with diabetic retinopathy, asthma, PATRICIA on CPAP, CAD sp RCA stenting x 2, peripheral vascular disease status post right lower extremity stenting and anxiety who presents with chief complaint of shortness of breath. This began suddenly yesterday, slightly improved with several nebulizer treatments, but worsened this morning upon waking. On ambulation from her bedroom to the kitchen, patient became so short of breath that she felt faint and almost passed out. Associated symptoms include wheezing, pounding chest, chills and recent sinus infection/ left otitis media for which she has been on augmentin for three 7-day courses. In the ED: Vital signs showed T 98.4, HR 90, RR 18, BP 184/76 and O2 saturation of 92% on room air. Labs were significant for WBC 9.3, H&H 10.1/30.1, MCN normal , Plt 232, Na 140, K 4.4, Cl 105, HCO3 23, BUN/cre 33/1.5, Glu 108, trop <0.01, proBNP 727 and DDimer 774. CXR showed biabilar opacities. Left foot Xray showed no fracture or dislocation. Chest CTA showed no pulmonary embolism, right lower lobe infiltrate, bilateral pleural effusions, left lung base patchy airspace disease and mediastinal lymphadenopathy. Patient is admitted to the general medicine floor and the following is the management: 1. Acute respiratory distress secondary to right lower lobe community acquired pneumonia * Patient given 125 mg IV solumedrol in the ED, willc urrently hold off steroids as no signs of wheezing on physical exam * IV ceftriaxone and azithromycin daily * Follow blood cultures, lower respiratory culture, UA, urine legionella/strep antigens * Continue supplemental O2 via nasal cannula with goal O2 >90-92% * TRC eval and nebs * Incentive spirometry * Continue symbicort 2 puf BID * Patient is requesting pulm consult with Dr. Randy MD in AM 2. Vaginal candidiasis * Oral diflucan 150 mg once 3. HTN, HLD, CAD s/p stenting * Monitor vital signs Q shift * Continue norvasc 10 mg PO daily, ASA 81 mg PO daily, tricor 145 mg PO daily, Imdur 30 mg PO daily, lopressor 25 mg PO BID, lipitor 80 mg PO 1700 and brilinta 60 mg PO BID 4. T2DM * Accuchecks TIDAC/HS * NSS TIDAC 5. PATRICIA * Continue CPAP at bedtime 6. Chronic renal insufficiency * Patient has received IV contrast for chest CTA * Consider IVF if BP trends down towards normal * Hold losartan for now FULL CODE DVTP: Heparin SC Heart Healthy Diet Mild pain pathway As Ranked By This Provider Problem List: 1. Asthma 2. Hyperlipidemia 3. Hypertension 4. Diabetes mellitus 5. GERD (gastroesophageal reflux disease) 6. PATRICIA (obstructive sleep apnea) 7. Chronic renal insufficiency 8. Accident due to mechanical fall without injury 9. Pneumonia Core Measures/Miscellaneous Acute Coronary Syndrome ACS Diagnosis: No Cerebrovascular Accident CVA/TIA Diagnosis: No Congestive Heart Failure CHF Diagnosis: No Venous Thromboembolism VTE Risk Factors: Acute medical illness, Age > 40, Obesity No [facility] VTE prophylaxis d/t: No contraindications No VTE Pharm Prophylaxis d/t: No contraindications VTE Diagnosis: No VTE Type: NONE VTE Confirmed by (Test): NONE Severe Sepsis Severe Sepsis Present: No Septic Shock Septic Shock Present: No Miscellaneous Documentation Attending Case Discussed With: MINDY CASILLAS MD Primary Care Physician: XIOMY KAT Patient sees these Specialists 1. Dr. Holden MD in [place] for endocrinology 2. Dr. Adrianna MD for cardiology 3. Dr. Harpreet MD for ENT 4. Dr. Joseph/MD Randy for her asthma Level of Patient Care: General Medicine TITO SHI 09/11/16 0102: Resident Review Statement Resident Statement: examined this patient, discussed with internet marketing intern, agreed with internet marketing intern Other Findings: Patient is 56 year old female with past medical history significant for coronary artery disease status post stent placement in 2010 and 2014, peripheral vascular disease status post right lower extremity stenting, insulin- dependent diabetes mellitus, diabetic retinopathy, obstructive sleep apnea on CPAP, hypertension, hyperlipidemia, CAD status 3, asthma and recent otitis media on Augmentin came with chief complaint of wheezing and shortness of breath since yesterday. She admits that her breathing was very labored and she was not able to walk. Steps without getting short of breath. Today when she was out for shopping she was very dizzy and felt like that she will pass out. She had mechanical fall/drip over in her living room today and hurt her left ankle. She denied cough, fever, chest pain, nausea, vomiting, diarrhea, any urinary complaints. Her vital signs on admission were temperature 98.4, pulse 90, respiratory rate 20, blood pressure 184/76 and she was saturating 92% on room air. Labs were significant for WBC count 9.3, hemoglobin 10.1, hematocrit 30.1, platelet count 232, sodium 140, potassium 4.4, creatinine 1.5, d-dimer 774 Foot x-ray was negative for any fracture CTA was done which is negative for any evidence of pulmonary embolism but showed right lower lobe infiltrate with patchy airspace disease left lung base and bilateral pleural effusions Physical examination Alert and oriented 3 in minimal respiratory distress Head atraumatic Neck supple Chest mild expiratory wheezes Heart S1-S2 normal with 2 x 6 systolic murmur Abdomen protuberant, soft with no organomegaly Extremities no cyanosis with trace edema no joint tenderness or erythema No neurological deficit noted Assessment and plan Patient is 60 old obese female with past medical history significant for CAD, asthma/COPD, obstructive sleep apnea, diabetes mellitus, hypertension and hyperlipidemia recently treated for otitis media came with worsening shortness of breath would be due to community-acquired pneumonia and pulmonary embolism was ruled out We will admit patient on general medical floor and will address following problems 1. Worsening shortness of breath. Be due to community-acquired pneumonia 2. History of CAD 3. History of hypertension 4. History of diabetes mellitus 5. History of hyperlipidemia on Plan We'll admit patient on general medical floor and we will provide her with supplemental oxygen to keep her oxygen saturation more than 90% We will start patient on ceftriaxone and azithromycin for community-acquired pneumonia We will watch patient off of steroids We will repeat basic electrolyte panel in a.m. Accu-Cheks 3 times a day/patches We will give patient insulin according to sliding scale We will continue all her medications except losartan as she had contrast and she had underlying CK D. We will watch creatinine TRC and nebulizations Patient is full code Pharmacological DVT prophylaxis Heart healthy diet SONJANIAJASPREET 09/11/16 0628: Attending MD Review Statement Attending Statement Attending MD Statement: examined this patient, discuss w/resident/PA/CONVEYOR LINE BAKERY WORKER, agreed w/resident/PA/CONVEYOR LINE BAKERY WORKER, reviewed EMR data (avail), reviewed images, amended to note Attending Assessment/Plan: Cc: Acute worsening of shortness of breath PMH: COPD/asthma, HTN, HLD, DM, GERD, CAD S/P stent, PATRICIA on CPAP, retinopathy Patient came to ER for 2 day history of acute worsening of shortness of breath associated with wheezing, denies any cough or expectoration, had chills at home but denies fever. When her dyspnea was worse that she could not even walk to the kitchen she came to ER. She also complains of foot pain after falling on the deck of cards. So far she is on her third course of Augmentin for her left ear infection and sinusitis. She also complains of burning in urination and called it "fungal" secondary to prolonged course of antibiotic asking for Diflucan. Vitals: Afebrile, HR 80s, RR 20s, blood pressure mildly hypertensive, saturating well on 4 L nasal cannula. On exam: A O 3, cooperative, no acute distress, neck supple, JVD normal, no lymphadenopathy, mucosa moist, no focal neurological deficit, no dependent edema , no obvious skin rashes or inflammation CVS: S1-S2, RRR. RS: Clear to auscultate bilaterally, no wheezing, no crackles. Abdomen: Soft, NT, ND, bowel sounds present. Labs: CBC unremarkable except anemia hemoglobin of 10.1, BUN 33, creatinine 1.5, bicarbonate 23, AG 12, LFT unremarkable, troponin less than 0.01, proBNP 727, d- dimer 774 CXR: Significantly limited exam secondary to patient body habitus and low lung volumes. Bibasilar opacities may reflect subsegmental atelectasis although superimposed infection cannot be excluded in the appropriate clinical setting. Consider correlation with PA and lateral chest x-ray. X-ray foot left No acute fracture or dislocation of the left foot CTA chest 1. No evidence of pulmonary embolism. 2. Right lower lobe infiltrate with patchy airspace disease left lung base and bilateral pleural effusions. 3. Mediastinal lymphadenopathy which could be reactive to the airspace disease. A and P Patient presents with worsening of shortness of breath, wheezing, chills, not improving with nebulization treatment at home, getting dyspneic even with minimal walking. Patient denied any fever, cough or expectoration. Does not have any significant leukocytosis but CT suggestive of pneumonia with mediastinal lymphadenopathy. Given her multiple comorbidities including diabetes, hypertension, COPD, CAD it is appropriate to treat with IV antibiotics for short duration. Does not have any active wheezing on auscultation and will not require IV steroids for now + Community-acquired pneumonia + Acute hypoxic respiratory failure secondary to pneumonia + CKD + Ruled out PE + COPD/asthma, HTN, HLD, DM, GERD, CAD S/P stent, PATRICIA on CPAP - Admit to general medicine - Continue O2 by nasal cannula, to maintain saturation around 90-94% gradually taper off oxygen - Scheduled and when necessary albuterol nebulization, TRC, incentive spirometry - IV ceftriaxone and azithromycin for 5 days - Urine Legionella and strep antigen - Continue nighttime CPAP - Hold her losartan - Watchful for kidney function as patient received contrast with elevated creatinine and cannot tolerated IV hydration secondary to high blood pressure - Adequate pain control, DVT prophylaxis, continue rest of her home medications except losartan.
[2016-09-11 02:10] VITALS: BP 167/80
--- NOTE | 2016-09-11 06:29 | Admission Certification ---
Admission Certification Certification Statement - As attending physician, I certify that at the time of - admission, based on clinical presentation, severity of - symptoms, need for further diagnostic testing and - therapeutic interventions, and risk of adverse outcomes - without in-hospital treatment, in my clinical assessment, - this patient requires an acute hospital stay for a minimum - of two nights or longer. I have also considered psychsocial - factors such as support system, advanced age, financial - issues, cognitive issues, and failed out-patient treatments, - past re-admission history, safety of patient, and lack of - compliance as applicable. Specific rationale supporting this admission is: acute respiratory failure secondary to community-acquired pneumonia
[2016-09-11 07:20] VITALS: BP 164/68
--- NOTE | 2016-09-11 07:37 | PN- Housestaff ---
TITO SHI 09/11/16 0736: Subjective Follow-up For: Community-acquired pneumonia Complaints: no complaints Subjective: She was seen and examined this morning. She was lying comfortably in bed without significant hypoxia/dyspnea. Her vital signs remained stable temperature 97.8, pulse 89, respiratory rate 20, blood pressure 164/68 and she is saturating 94% on room air Review of Systems Constitutional: Denies: chills, diaphoresis. Cardiovascular: Denies: chest pain. Respiratory: Reports: short of breath. Gastrointestinal: Denies: constipation, diarrhea. Genitourinary: Denies: dysuria, frequency. Objective Last 24 Hrs of Vital Signs/I&O Vital Signs Date Time Temp Pulse Resp B/P B/P Pulse O2 O2 Flow FiO2 Mean Ox Delivery Rate 09/11 07 97.8 89 20 164/68 94 Room Air 09/11 0210 98.1 85 20 167/80 95 Room Air 09/11 0158 96 Nasal 2.0L Cannula 09/10 2343 86 20 176/80 95 Nasal 4.0L Cannula 09/10 2258 98.4 84 18 193/76 93 Nasal 4.0L Cannula 09/10 2124 98.2 09/10 2013 96 05 1920 98.4 90 20 184/76 92 Room Air Intake & Output 09/11 1600 09/11 0800 09/11 0000 Intake Total 120 Output Total Balance 120 Intake, Oral 120 Patient 215 lb 215 lb Weight Weight Reported by Patient Reported by Patient Measurement Method Physical Exam General Appearance: Alert, Oriented X3, Cooperative Cardiovascular: Regular Rate, Normal S1, Normal S2 Lungs: bilateral mild expiratory wheezes Abdomen: Soft Current Medications: Current Medications Sig/Rubin Start time Last Medication Dose Route Stop Time Status Admin Acetaminophen 650 MG Q6P PRN 09/11 0200 AC PO Acetaminophen 1,000 MG Q12P PRN 09/11 0200 AC IV Albuterol Sulfate 3 ML Q6P PRN 09/11 0645 AC INH Albuterol Sulfate 2 PUF Q4-6 PRN PRN 09/11 0200 AC INH Albuterol Sulfate 0 .STK-MED ONE 09/11 2251 DC INH Albuterol Sulfate 3 ML ONCE ONE 09/11 1999 DC 09/10 INH 09/10 Amlodipine Besylate 10 MG DAILY 09/11 1000 AC PO Amoxicillin/ 0 .STK-MED ONE 09/11 2311 DC Clavulanate Potassium PO Amoxicillin/ 1,000 MG ONCE ONE 09/10 2144 DC 09/10 Clavulanate Potassium PO 09/10 Aspirin Buffered 81 MG DAILY 09/11 1000 AC PO Atorvastatin Calcium 80 MG 1700 09/11 1700 AC PO Azithromycin 500 MG DAILY 09/11 1000 AC Sodium Chloride 250 ML IV Budesonide/ 2 PUF BID 09/11 1000 AC Formoterol Fumarate INH Ceftriaxone Sodium 1,000 MG DAILY 09/11 1000 AC IV Clonazepam 0.5 MG QPM 09/11 2200 AC PO 09/18 215 Fenofibrate 145 MG DAILY 09/11 1000 AC PO Fluconazole 150 MG ONCE ONE 09/115 DC 09/11 PO 09/12 215 0540 Heparin Sodium 5,000 UNIT Q8 09/11 0600 AC 09/11 (Porcine) SC 0541 Insulin Aspart 0 TIDAC 09/11 0800 AC SC Ipratropium [place] 2.5 ML ONCE ONE 09/11 1999 DC 09/10 INH 09/10 Isosorbide 30 MG DAILY 09/11 1000 AC Mononitrate PO Lorazepam 0.5 MG ONE ONE 09/10 2314 DC 09/10 PO 09/11 2315 231 Lorazepam 0 .STK-MED ONE 09/10 2310 DC PO Methylprednisolone 0 .STK-MED ONE 09/11 2027 DC .ROUTE Methylprednisolone 125 MG ONCE ONE 09/11 1999 DC 09/10 IV 09/10 Metoprolol Tartrate 25 MG BID 09/11 1000 AC PO Sodium Chloride 1,000 ML BOLUS ONE 09/105 CAN IV 09/104 Ticagrelor 60 MG BID 09/11 1000 AC PO Last 24 Hrs of Lab/Maximo Results Last 24 Hrs of Labs/Mics: Laboratory Tests 09/10/16 2030: Anion Gap 12, Estimated GFR 36 L, BUN/Creatinine Ratio 22.0, Glucose 108 H, Calcium 9.4, Total Bilirubin 0.5, AST 27, ALT 52, Alkaline Phosphatase 71, Troponin I < 0.01, Jpf-A-Rufvgzxidit Pept 727 H, Total Protein 6.9, Albumin 4.0 , Globulin 2.9, Albumin/Globulin Ratio 1.4, D-Dimer 774 H, CBC w Diff NO MAN DIFF REQ, RBC 3.56 L, MCV 84.6, MCH 28.4, RDW 14.4, MPV 10.4, Gran % 63.7, Lymphocytes % 27.5, Monocytes % 5.4, Eosinophils % 2.9, Basophils % 0.5, Absolute Granulocytes 5.9, Absolute Lymphocytes 2.5, Absolute Monocytes 0.5, Absolute Eosinophils 0.3, Absolute Basophils 0, PUBS MCHC 33.6 Microbiology 09/12 155 URINE ROUT: Legionella Antigen - COLB 09/12 155 URINE ROUT: Streptococcus pneumoniae Antigen (M - COLB 09/11 2227 BLOOD: Blood Culture - RECD 09/10 2029 BLOOD: Blood Culture - RECD Assessment/Plan Assessment: Ms. Mckoy is a 56 year old female with PMH HTN, HLD, GERD, T2DM with diabetic retinopathy, asthma, PATRICIA on CPAP, CAD sp RCA stenting x 2, peripheral vascular disease status post right lower extremity stenting and anxiety who presents with chief complaint of shortness of breath. This began suddenly yesterday, slightly improved with several nebulizer treatments, but worsened this morning upon waking. On ambulation from her bedroom to the kitchen, patient became so short of breath that she felt faint and almost passed out. Associated symptoms include wheezing, pounding chest, chills and recent sinus infection/ left otitis media for which she has been on augmentin for three 7-day courses. In the ED: Vital signs showed T 98.4, HR 90, RR 18, BP 184/76 and O2 saturation of 92% on room air. Labs were significant for WBC 9.3, H&H 10.1/30.1, MCN normal , Plt 232, Na 140, K 4.4, Cl 105, HCO3 23, BUN/cre 33/1.5, Glu 108, trop <0.01, proBNP 727 and DDimer 774. CXR showed biabilar opacities. Left foot Xray showed no fracture or dislocation. Chest CTA showed no pulmonary embolism, right lower lobe infiltrate, bilateral pleural effusions, left lung base patchy airspace disease and mediastinal lymphadenopathy. Patient is admitted to the general medicine floor and the following is the management: 1. Acute respiratory distress secondary to right lower lobe community acquired pneumonia * Patient given 125 mg IV solumedrol in the ED, willc urrently hold off steroids as no signs of wheezing on physical exam * IV ceftriaxone and azithromycin daily * Follow blood cultures, lower respiratory culture, UA, urine legionella/strep antigens * Continue supplemental O2 via nasal cannula with goal O2 >90-92% * TRC eval and nebs * Incentive spirometry * Continue symbicort 2 puf BID * Patient is requesting pulm consult with Dr. Randy MD in AM 2. Vaginal candidiasis * Oral diflucan 150 mg once 3. HTN, HLD, CAD s/p stenting * Monitor vital signs Q shift * Continue norvasc 10 mg PO daily, ASA 81 mg PO daily, tricor 145 mg PO daily, Imdur 30 mg PO daily, lopressor 25 mg PO BID, lipitor 80 mg PO 1700 and brilinta 60 mg PO BID 4. T2DM * Accuchecks TIDAC/HS * NSS TIDAC 5. PATRICIA * Continue CPAP at bedtime 6. Chronic renal insufficiency * Patient has received IV contrast for chest CTA * Consider IVF if BP trends down towards normal * Hold losartan for now FULL CODE DVTP: Heparin SC Heart Healthy Diet Mild pain pathway Problem List: 1. Pneumonia Pain Ratin Pain Location: not applicable Pain Goal: Remain pain free Pain Plan: tylenol Tomorrow's Labs & Rationales: cbc bep CRISTHIAN BARRIOS,THOR 09/11/16 1314: Attending MD Review Statement Attending Statement Attending MD Statement: examined this patient, discuss w/resident/PA/RETAIL SPECIAL EVENT ASSOCIATE, agreed w/resident/PA/RETAIL SPECIAL EVENT ASSOCIATE, discussed with family, reviewed EMR data (avail), discussed with nursing, amended to note Attending Assessment/Plan: Patient seen and examined. Case discussed with family at bedside. Complains of shortness of breath. She reports progressive dyspnea on exertion going on for the past few months. Symptoms got worse following a fall 2 days ago. Denies chest pain. She does admit to palpitations when her dyspnea on exertion comes on. On examination she is not in acute respiratory distress. She is requiring oxygen supplementation at 2 L/m at present. She has no jugular venous distention. Heart sounds are regular. She she has no audible wheeze and breath sounds are diminished at the bases bilaterally with mild crepitus. She has no peripheral edema. Problems: 1. Progressive dyspnea on exertion 2. Bilateral pleural effusions with bilateral pulmonary infiltrates and mediastinal adenopathy. 3. Coronary artery disease status post non-ST elevation [place] last year. Patient reports having negative cardiac cath last year. 4. Obstructive sleep apnea. Plan: -Patient symptoms as well as physical exam findings and imaging raise concern for cardiac etiology to her symptoms. -She has no evidence of bronchospasm at present. -Continue bronchodilator neuro/Symbicort therapy for her baseline asthma. -No indication for systemic steroids at present. -Obtain echocardiogram and cardiology consultation. -Consider transfer to the telemetry service pending evaluation by the cardiology service. -Place order for CPAP therapy at nighttime while on admission. -Continue antibiotic therapy for now as recommended by the pulmonology service.
--- NOTE | 2016-09-11 09:27 | Cons- Pulmonary ---
General Information and HPI Consulting Request Date of Consult: 09/11/16 Requested By: corinne Reason for Consult: Shortness of breath History of Present Illness: Patient 56-year-old with history of diabetes coronary artery disease obstructive sleep apnea on CPAP obstructive lung disease admitted with increased shortness of breath. Of note her BNP was elevated and CAT scan shows bilateral effusions right greater than left with associated basilar density. She has been afebrile and has a normal white count. She has chronic kidney disease secondary to diabetes and was administered IV contrast to exclude pulmonary embolism. She has no sputum production denies hemoptysis Allergies/Medications Allergies: Coded Allergies: tramadol (NAUSEA 09/10/16) Home Med List: Albuterol Sulfate (Proair Hfa) 90 MCG HFA.AER.AD 2 PUF INH Q4-6 PRN PRN ASTHMA (Reported) Amlodipine Besylate (Norvasc) 10 MG TABLET 10 MG PO DAILY HIGH BLOOD PRESSURE Aspirin (Ecotrin*) 81 MG TABLET.DR 1 TAB PO DAILY HEART HEALTH (Reported) Budesonide/Formoterol Fumarate (Symbicort 160-4.5 Mcg Inhaler) 160 MCG-4.5 MCG/ ACTUATION HFA.AER.AD 2 PUF INH BID BREATHING PROBLEMS (Reported) Clonazepam 0.5 MG TABLET 1 TAB PO QPM SLEEP (Reported) Fenofibric Acid (Trilipix) 135 MG CAPSULE.DR 1 CAP PO QPM CHOLESTEROL ( Reported) Insulin Regular, Human (Humulin R U-500 Kwikpen) 500/ML (3) INSULN.PEN 300 UNITS SC DAILY DM (Reported) Isosorbide Mononitrate (Isosorbide Mononitrate ER) 30 MG TAB.ER.24H 1 TAB PO DAILY HEART (Reported) Losartan Potassium (Cozaar) 50 MG TABLET 1 TAB PO DAILY HTN (Reported) Metoprolol Tartrate 25 MG TABLET 1 TAB PO BID BP (Reported) Nitroglycerin (Nitrostat) 0.3 MG TAB.SUBL 0.4 MG SL Q 5 MINUTES X 3 DOSE PRN CHEST PAIN Pantoprazole Sodium (Protonix) 40 MG TABLET.DR 1 TAB PO BID GI (Reported) Rosuvastatin Calcium (Crestor) 40 MG TABLET 1 TAB PO DAILY CHOLESTEROL ( Reported) Ticagrelor (Brilinta) 60 MG TABLET 1 TAB PO BID HEART/BLOOD (Reported) Review of Systems Review of Systems Constitutional: Denies: chills, fever. Cardiovascular: Reports: chest pain. Respiratory: Reports: cough, orthopnea, short of breath. Denies: hemoptysis, sputum production. GI: Denies: abdominal pain, diarrhea, melena. 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 Home Who Do You Live With? child Services at Home: None Primary Language: Tajik Smoking Status: Former Smoker ETOH Use: denies use Illicit Drug Use: denies illicit drug use Functional Ability ADLs Independent: dressing, eating, toileting, bathing. Ambulation: independent IADLs Independent: shopping, housework, finances, food prep, telephone, transportation , medication admin. Exam & Diagnostic Data Last 24 Hrs of Vital Signs/I&O Vital Signs Date Time Temp Pulse Resp B/P B/P Pulse O2 O2 Flow FiO2 Mean Ox Delivery Rate 09/11 0720 97.8 89 20 164/68 94 Room Air 09/11 0210 98.1 85 20 167/80 95 Room Air 09/11 0158 96 Nasal 2.0L Cannula 09/10 2343 86 20 176/80 95 Nasal 4.0L Cannula 09/10 2258 98.4 84 18 193/76 93 Nasal 4.0L Cannula 09/10 2124 98.2 09/10 2013 96 09/10 1920 98.4 90 20 184/76 92 Room Air Intake & Output 09/11 1600 09/11 0800 05 0000 Intake Total 120 Output Total Balance 120 Intake, Oral 120 Patient 215 lb 215 lb Weight Weight Reported by Patient Reported by Patient Measurement Method Room oximetry 94% HEENT exam shows no adenopathy exam for chest shows decreased breath sounds at the bases and crackles there are no wheezes heard cardiac exam shows regular S1 and S2 abdomen is soft obese nontender there's no significant edema Last 48 Hrs of Labs/Maximo: Laboratory Tests 05/06/17 0900: Urine Color Pending, Urine Clarity Pending, Urine pH Pending, Ur Specific [place] Pending, Urine Protein Pending, Urine Ketones Pending, Urine Nitrite Pending, Urine Bilirubin Pending, Urine Urobilinogen Pending, Ur Leukocyte Esterase Pending, Ur Microscopic Pending, Urine Hemoglobin Pending, Urine Glucose Pending 09/10/16 2030: Anion Gap 12, Estimated GFR 36 L, BUN/Creatinine Ratio 22.0, Glucose 108 H, Calcium 9.4, Total Bilirubin 0.5, AST 27, ALT 52, Alkaline Phosphatase 71, Troponin I < 0.01, Mlc-M-Vfoavwmrzsf Pept 727 H, Total Protein 6.9, Albumin 4.0 , Globulin 2.9, Albumin/Globulin Ratio 1.4, D-Dimer 774 H, CBC w Diff NO MAN DIFF REQ, RBC 3.56 L, MCV 84.6, MCH 28.4, RDW 14.4, MPV 10.4, Gran % 63.7, Lymphocytes % 27.5, Monocytes % 5.4, Eosinophils % 2.9, Basophils % 0.5, Absolute Granulocytes 5.9, Absolute Lymphocytes 2.5, Absolute Monocytes 0.5, Absolute Eosinophils 0.3, Absolute Basophils 0, PUBS MCHC 33.6 Assessment/Plan Impression/Plan: 56-year-old with Complicated past medical history admitted with increased shortness of breath the finding of bilateral right greater than left pleural effusions elevated BNP worsening renal failure raises the spectrum that this is more a picture of congestive heart failure then community-acquired pneumonia in view of absent fever and normal white count. Recommendations: Closely monitor renal function after administered IV contrast. Cardiology evaluation for possible congestive heart failure. Can continue antibiotics until cardiac status has been clarified. Consult Acknowledgment - Thank you for your consult request.
[2016-09-11 15:22] VITALS: BP 160/70
--- NOTE | 2016-09-11 16:34 | Cons- Cardiology ---
General Information and HPI Consulting Request Date of Consult: 09/11/16 Requested By: MINDY CASILLAS MD Reason for Consult: Possible CHF History of Present Illness: 56-year-old female with history of CAD, obstructive sleep apnea, hypertension, peripheral arterial disease, followed in the office by Dr. Rodas. She presents with sudden onset of shortness of breath. Just notes recent cough and chills. No chest pain. No palpitations. No diaphoresis. No syncope. She is being treated for pneumonia. I am consulted for possible congestive heart failure. Allergies/Medications Allergies: Coded Allergies: tramadol (NAUSEA 09/10/16) Home Med List: Albuterol Sulfate (Proair Hfa) 90 MCG HFA.AER.AD 2 PUF INH Q4-6 PRN PRN ASTHMA (Reported) Amlodipine Besylate (Norvasc) 10 MG TABLET 10 MG PO DAILY HIGH BLOOD PRESSURE Apixaban (Eliquis) 5 MG TABLET 5 MG PO BID Afib Aspirin (Ecotrin*) 81 MG TABLET.DR 1 TAB PO DAILY HEART HEALTH (Reported) Azithromycin 250 MG TABLET 250 MG PO DAILY bronchitis Stop after last dose on 09/18/16. Budesonide/Formoterol Fumarate (Symbicort 160-4.5 Mcg Inhaler) 160 MCG-4.5 MCG/ ACTUATION HFA.AER.AD 2 PUF INH BID BREATHING PROBLEMS (Reported) Clonazepam 0.5 MG TABLET 1 TAB PO QPM SLEEP (Reported) Diltiazem HCl (Cardizem Cd) 240 MG CAP.ER.24H 180 MG PO DAILY HEART Fenofibric Acid (Trilipix) 135 MG CAPSULE.DR 1 CAP PO QPM CHOLESTEROL ( Reported) Furosemide (Lasix) 20 MG TABLET 1 TAB PO DAILY CHF Insulin Regular, Human (Humulin R U-500 Kwikpen) 500/ML (3) INSULN.PEN 300 UNITS SC DAILY DM (Reported) Isosorbide Mononitrate (Isosorbide Mononitrate ER) 30 MG TAB.ER.24H 1 TAB PO DAILY HEART (Reported) Losartan Potassium (Cozaar) 50 MG TABLET 1 TAB PO DAILY HTN (Reported) Metoprolol Tartrate 25 MG TABLET 1 TAB PO BID BP (Reported) Nitroglycerin (Nitrostat) 0.3 MG TAB.SUBL 0.4 MG SL Q 5 MINUTES X 3 DOSE PRN CHEST PAIN Pantoprazole Sodium (Protonix) 40 MG TABLET. 1 TAB PO BID GI (Reported) Rosuvastatin Calcium (Crestor) 40 MG TABLET 1 TAB PO DAILY CHOLESTEROL ( Reported) Ticagrelor (Brilinta) 60 MG TABLET 1 TAB PO BID HEART/BLOOD (Reported) Review of Systems Review of Systems: No tremor. No melena. No palpitations. All other systems were reviewed, and were noted to be negative. 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 Home Who Do You Live With? child Services at Home: None Primary Language: Polish Smoking Status: Former Smoker ETOH Use: denies use Illicit Drug Use: denies illicit drug use Functional Ability ADLs Independent: dressing, eating, toileting, bathing. Ambulation: independent IADLs Independent: shopping, housework, finances, food prep, telephone, transportation , medication admin. Exam & Diagnostic Data Vital Signs and I&O Vital Signs Date Time Temp Pulse Resp B/P B/P Pulse O2 O2 Flow FiO2 Mean Ox Delivery Rate 09/11 1522 98.4 74 18 160/70 94 Nasal 2.0L Cannula 09/11 1139 Nasal 2.0L Cannula 09/11 1130 95 Nasal 2.0L Cannula 09/11 0800 94 Nasal 2.0L Cannula 09/11 0720 97.8 89 20 164/68 94 Room Air 09/11 0210 98.1 85 20 167/80 95 Room Air 09/11 0158 96 Nasal 2.0L Cannula 09/10 2343 86 20 176/80 95 Nasal 4.0L Cannula 09/10 2258 98.4 84 18 193/76 93 Nasal 4.0L Cannula 09/10 2124 98.2 09/10 2013 96 09/10 1920 98.4 90 20 184/76 92 Room Air Intake & Output 09/11 1600 09/11 0800 09/11 0000 09/10 1600 09/10 0800 09/10 0000 Intake Total 1150 120 Output Total 550 Balance 600 120 Intake, IV 250 Intake, Oral 900 120 Number 0 Bowel Movements Output, Urine 550 Patient 215 lb 215 lb Weight Weight Reported by Patient Reported by Patient Measurement Method Physical Exam: Gen: The patient is in no acute distress HEENT: Normal nose, ears, and oropharynx. Pupils equal bilaterally. Conjunctiva normal. Neck: Supple with no JVD, no masses, and no thyromegaly Lungs: Decreased breath sounds with scattered rhonchi with normal respiratory effort Heart: RRR, S1, S2, 1/6 systolic murmur. No peripheral edema, 2+ pulses in the lower extremities bilaterally Abdomen: Soft, nontender, no masses. No hepatomegaly. No splenomegaly Extremities: No clubbing or cyanosis. Normal muscle strength in the upper and lower extremities Skin: Normal skin turgor with no skin ulcers or lesions noted. Neuro: Cranial nerves intact. Sensation intact Psych: Alert and oriented 3 with appropriate affect Labs/Maximo Results: Laboratory Tests 09/11 09/10 0900 2029 Chemistry Sodium (137 - 145 mmol/L) 140 Potassium (3.5 - 5.1 mmol/L) 4.4 Chloride (98 - 107 mmol/L) 105 Carbon Dioxide (22 - 30 mmol/L) 23 Anion Gap (5 - 16) 12 BUN (7 - 17 mg/dL) 33 H Creatinine (0.5 - 1.0 mg/dL) 1.5 H Estimated GFR (>60 ml/min) 36 L BUN/Creatinine Ratio (7 - 25 %) 22.0 Glucose (65 - 99 mg/dL) 108 H Calcium (8.4 - 10.2 mg/dL) 9.4 Total Bilirubin (0.2 - 1.3 mg/dL) 0.5 AST (14 - 36 U/L) 27 ALT (9 - 52 U/L) 52 Alkaline Phosphatase (<127 U/L) 71 Troponin I (< 0.11 ng/ml) < 0.01 Akr-W-Sloavqkbstq Pept (<125 pg/mL) 727 H Total Protein (6.3 - 8.2 g/dL) 6.9 Albumin (3.5 - 5.0 g/dL) 4.0 Globulin (1.9 - 4.2 gm/dL) 2.9 Albumin/Globulin Ratio (1.1 - 2.2 %) 1.4 Coagulation D-Dimer (70 - 232 ng/ml) 774 H Hematology CBC w Diff NO MAN DIFF REQ WBC (4.8 - 10.8 /CUMM) 9.3 RBC (4.20 - 5.40 /CUMM) 3.56 L Hgb (12.0 - 16.0 G/DL) 10.1 L Hct (37 - 47 %) 30.1 L MCV (81.0 - 99.0 FL) 84.6 MCH (27.0 - 31.0 PG) 28.4 RDW (11.5 - 14.5 %) 14.4 Plt Count (130 - 400 /CUMM) 232 MPV (7.4 - 10.4 FL) 10.4 Gran % (42.2 - 75.2 %) 63.7 Lymphocytes % (20.5 - 51.1 %) 27.5 Monocytes % (1.7 - 9.3 %) 5.4 Eosinophils % (0 - 5 %) 2.9 Basophils % (0.0 - 2.0 %) 0.5 Absolute Granulocytes (1.4 - 6.5 /CUMM) 5.9 Absolute Lymphocytes (1.2 - 3.4 /CUMM) 2.5 Absolute Monocytes (0.10 - 0.60 /CUMM) 0.5 Absolute Eosinophils (0.0 - 0.7 /CUMM) 0.3 Absolute Basophils (0.0 - 0.2 /CUMM) 0 PUBS MCHC (33.0 - 37.0 G/DL) 33.6 Urines Urine Color (YEL,AMB,STR) YEL Urine Clarity (CLEAR) HAZY H Urine pH (5.0 - 8.0) 5.5 Ur Specific [place] (1.001 - 1.035) 1.025 Urine Protein (NEG,<30 MG/DL) >=300 H Urine Ketones (NEG) NEG Urine Nitrite (NEG) NEG Urine Bilirubin (NEG) NEG Urine Urobilinogen (0.1 - 1.0 EU/dl) 0.2 Ur Leukocyte Esterase (NEG) SMALL H Ur Microscopic SEDIMENT EXAMINED Urine RBC (0 - 5 /HPF) RARE Urine WBC (0 - 2 /HPF) > 75 H Ur Epithelial Cells (NONE,FEW) MANY H Micro UA Comment BUDDING YEAST H Urine Hemoglobin (NEG) SMALL H Urine Glucose (N MG/DL) 500 H Diagnostic Data EKG Results EKG tracing is independently reviewed, and reveals normal sinus rhythm at [address] CXR Results Significantly limited exam secondary to patient body habitus and low lung volumes. Bibasilar opacities may reflect subsegmental atelectasis although superimposed infection cannot be excluded in the appropriate clinical setting. Consider correlation with PA and lateral chest x-ray. Assessment/Plan Assessment/Plan Assessment: 1. Community acquired pneumonia 2. Coronary artery disease 3. Possible acute diastolic heart failure 4. Chronic renal insufficiency Plan: * Would diurese with Lasix 20 mg IV every 12 hours * Monitor input and output with daily weights * Check basic metabolic profile daily * Check second troponin Consult Acknowledgment - Thank you for your consult request.
[2016-09-11 23:53] VITALS: BP 159/58
[2016-09-12 06:53] VITALS: BP 158/60
[2016-09-12 07:50] LABS: ABSOLUTE BASOPHIL COUNT 0 /CUMM (0.0-0.2); ABSOLUTE EOSINOPHIL COUNT 0 /CUMM (0.0-0.7); ABSOLUTE GRANULOCYTE CT 8.5 /CUMM (1.4-6.5); ABSOLUTE LYMPH COUNT 2.1 /CUMM (1.2-3.4); ABSOLUTE MONOCYTE COUNT 0.6 /CUMM (0.10-0.60); BASOPHIL % 0.2 % (0.0-2.0); EOSINOPHIL % 0.2 % (0-5); GRANULOCYTE % 75.4 % (42.2-75.2); HEMATOCRIT 30.1 % (37-47); MEAN CORPUSCULAR HGB 28.2 PG (27.0-31.0); MEAN CORPUSCULAR VOLUME 85.4 FL (81.0-99.0); PLATELET COUNT 216 /CUMM (130-400); RED BLOOD CELL CT 3.53 /CUMM (4.20-5.40); WHITE BLOOD CELL COUNT 11.3 /CUMM (4.8-10.8)
--- NOTE | 2016-09-12 09:15 | Event Note ---
Event Note Event Note: Around 9:15 am pt c/o 02/15 left sided chest pain. HR around 130, Sattin 90% on NC. She has significant coronary hx including stent placement. - Ordered Trop, EKG and resumed her home SL nitro. Gave her ASA and BB STAT. 9:30 am EKG showed significant EKG changes from previously including svt, and ST depressions in lateral leads and in I, II. 9:45 am Attending Yuval boswell and Dr. Syl chakraborty 10:00 am Pt is being transferred to [facility] for closer monitoring and possible Cardizem drip.
--- NOTE | 2016-09-12 10:13 | PN- Pulmonary ---
Subjective HPI/Critical Care Issues: Patient developed left-sided chest pain associated with marked EKG abnormalities indicative of suspected SVT with marked ST segment depressions. Of note patient is developed worsening acute kidney injury now with associated hyperkalemia. Objective Current Medications: Current Medications Sig/Rubin Start time Last Medication Dose Route Stop Time Status Admin Acetaminophen 650 MG Q6P PRN 09/11 0200 AC 09/12 PO 0235 Acetaminophen 1,000 MG Q12P PRN 09/11 0200 AC IV Albuterol Sulfate 3 ML BID 09/11 2200 AC 09/12 INH 0758 Albuterol Sulfate 3 ML Q6P PRN 09/11 0645 AC INH Albuterol Sulfate 2 PUF Q4-6 PRN PRN 09/11 0200 AC INH Amlodipine Besylate 10 MG DAILY 09/11 1000 AC 09/12 PO 0918 Aspirin Buffered 81 MG DAILY 09/11 1000 AC 09/12 PO 0918 Atorvastatin Calcium 80 MG 1700 / 1700 AC 09/11 PO 1735 Azithromycin 250 MG DAILY 09/12 1000 AC PO Azithromycin 500 MG DAILY 09/11 1000 DC 09/12 Sodium Chloride 250 ML IV 0919 Budesonide/ 2 PUF BID 09/11 1000 AC 09/12 Formoterol Fumarate INH 0919 Ceftriaxone Sodium 1,000 MG DAILY 09/11 1000 AC 09/12 IV 0919 Clonazepam 0.5 MG QPM 09/11 2200 AC 09/11 PO 09/18 Fenofibrate 145 MG DAILY 09/11 1000 AC 09/12 PO 0917 Furosemide 40 MG 7:30 AM, & 4:30 PM 09/12 1630 AC PO Furosemide 40 MG .STK-MED ONE 09/12 2027 DC IV 09/11 2028 Furosemide 20 MG Q12 09/11 1815 DC 09/12 IV 0918 Heparin Sodium 5,000 UNIT Q8 09/11 0600 AC 09/12 (Porcine) SC 0556 Insulin Aspart 0 TIDAC/HS 09/11 2154 AC 09/12 SC 0917 Insulin Aspart 0 TIDAC 09/11 0800 DC 09/11 SC 1735 Ipratropium [place] 2.5 ML BID 09/11 2200 AC 09/11 INH 1930 Isosorbide 30 MG DAILY 09/11 1000 AC 09/12 Mononitrate PO 0918 Melatonin 5 MG ONCE ONE 09/12 0015 DC 09/12 PO 09/12 0016 0023 Metoprolol Tartrate 25 MG BID 09/11 1000 AC 09/12 PO 0918 Morphine Sulfate 2 MG Q3P PRN 09/12 0945 AC 09/12 IV 0953 Nitroglycerin 0.4 MG Q 5 MINUTES X 3 DO.. 09/12 914 09/12 SL 0944 Patient Medication 1 UNIT ONE NR 09/11 1815 DC Teaching ED 09/11 1830 Ticagrelor 60 MG BID 09/11 1000 09/12 PO 0918 Vital Signs & I&O Last 24 Hrs of Vitals and I&O: Vital Signs Date Time Temp Pulse Resp B/P B/P Pulse O2 O2 Flow FiO2 Mean Ox Delivery Rate 09/12 917 158/60 09/12 917 158/60 09/12 917 158/60 09/12 08 90 Nasal 3.0L Cannula 09/12 0800 90 Nasal 2.0L Cannula 09/12 0653 99.0 85 20 158/60 91 Nasal 2.0L Cannula 09/12 0049 89 96 05/ 0000 94 CPAP 3.0L 09/11 2353 97.8 91 20 159/58 94 CPAP 09/11 2235 90 95 05/06 2228 74 160/70 05/06 1600 97 Nasal 2.0L Cannula 09/11 1522 98.4 74 18 160/70 94 Nasal 2.0L Cannula 09/11 1139 Nasal 2.0L Cannula 09/11 1130 95 Nasal 2.0L Cannula Intake & Output 09/12 1600 09/12 0800 05/ 0000 Intake Total 240 480 Output Total Balance 240 480 Intake, Oral 240 480 Oxygen saturation 3 L 90% exam for chest shows diminished breath sounds at the bases there are no wheezes cardiac exam shows a rapid regular S1 and S2 without murmurs or rubs., Exam is soft nontender Impression/Plan Impression/Plan Impression/Plan: 56-year-old with Complicated past medical history admitted with increased shortness of breath the finding of bilateral right greater than left pleural effusions elevated BNP worsening renal failure raises the spectrum that this is more a picture of congestive heart failure then community-acquired pneumonia in view of absent fever and normal white count. Patient appears to have SVT with marked ST segment depression and chest pain. Further decisions to be made by cardiology. Would continue current pulmonary regimen. Recommendations: Closely monitor renal function after administered IV contrast. We will obtain renal consult in view of worsening acute kidney injury in the setting of diabetes contrast administration and hyperkalemia Cardiology evaluation for management of chest pain ischemic changes on EKG and SVT.. Can continue antibiotics until cardiac status has been clarified. Maintain saturations of 92 % or greater repeat chest x-ray treatment of hyperkalemia to be addressed by primary care team
--- NOTE | 2016-09-12 10:31 | PN- Housestaff ---
See Addendum Subjective Follow-up For: CHEST PAIN SOB Subjective: saw pt at bedside this AM. She has received a nebulizer treatment. She complained of "20 out of 10 "chest pain. Her face was red. She had labored breathing. Stat vitals showed blood pressure elevated in the 180s systolic to diastolic of around 50, pulse ox 90 on 4 L O2, and heart rate around 140-150. Stat EKG, troponin, nitroglycerin, aspirin ordered. See event note for details. Patient transferred to telemetry for further monitoring Review of Systems Constitutional: Denies: chills, diaphoresis, malaise. EENTM: Denies: blurred vision, eye pain. Cardiovascular: Reports: chest pain, edema, orthopena, palpitations. Respiratory: Reports: orthopnea, short of breath, sputum production. Gastrointestinal: Reports: no symptoms. Genitourinary: Reports: no symptoms. Musculoskeletal: Reports: no symptoms. Skin: Reports: no symptoms. Objective Last 24 Hrs of Vital Signs/I&O Vital Signs Date Time Temp Pulse Resp B/P B/P Pulse O2 O2 Flow FiO2 Mean Ox Delivery Rate 09/12 0918 158/60 09/12 0918 158/60 09/12 0918 158/60 09/12 0800 90 Nasal 3.0L Cannula 09/12 0800 90 Nasal 2.0L Cannula 09/12 0653 99.0 85 20 158/60 91 Nasal 2.0L Cannula 09/12 0049 89 96 05/ 0000 94 CPAP 3.0L 09/11 2353 97.8 91 20 159/58 94 CPAP / 2235 90 95 / 2228 74 160/70 / 1600 97 Nasal 2.0L Cannula 09/11 1522 98.4 74 18 160/70 94 Nasal 2.0L Cannula 09/11 1139 Nasal 2.0L Cannula 09/11 1130 95 Nasal 2.0L Cannula Intake & Output 09/12 1600 09/12 0800 09/12 0000 Intake Total 240 480 Output Total Balance 240 480 Intake, Oral 240 480 Physical Exam General Appearance: Alert, Oriented X3, Moderate Distress HEENT: Atraumatic, PERRLA, EOMI Neck: Supple Cardiovascular: tachy up to 150; cannot appreciate or distinguish regarding regular or irregular Lungs: PT wheezing Abdomen: Soft, No Tenderness Neurological: Normal Speech Last 24 Hrs of Lab/Maximo Results Last 24 Hrs of Labs/Mics: Laboratory Tests 09/12/16 0936: Troponin I 0.04 09/12/16 0621: Anion Gap 11, Estimated GFR 33 L, BUN/Creatinine Ratio 25.6 H, CBC w Diff NO MAN DIFF REQ, RBC 3.53 L, MCV 85.4, MCH 28.2, RDW 15.0 H, MPV 11.0 H, Gran % 75.4 H, Lymphocytes % 18.7 L, Monocytes % 5.5, Eosinophils % 0.2, Basophils % 0.2, Absolute Granulocytes 8.5 H, Absolute Lymphocytes 2.1, Absolute Monocytes 0.6, Absolute Eosinophils 0, Absolute Basophils 0, PUBS MCHC 33.0 09/11/162020: Troponin I 0.02 Assessment/Plan Assessment: This is a 56-year-old female past medical history significant for hypertension, hyperlipidemia, GERD, type 2 diabetes with retinopathy, asthma, PATRICIA and CPAP, CAD status post RCA stenting 2 in 2010 and 2014, PVD status post right lower extremity stent, anxiety presents with chief complaint of SOB. Has been worked up for shortness of breath in context of pneumonia versus CHF. CXR showed biabilar opacities. Left foot Xray showed no fracture or dislocation. Chest CTA showed no pulmonary embolism, right lower lobe infiltrate, bilateral pleural effusions, left lung base patchy airspace disease and mediastinal lymphadenopathy. PLAN Chest pain: Patient had episode of "20 out of 10" chest pain this AM. She does have history of RCA stenting 2 and 2010 and 2014. Additionally, she has PVD with lower extremity stenting. This a.m. she was given her regular blood pressure medications and aspirin in addition to her home nitroglycerin. EKG revealed SVT with diffuse ST depressions in 1, 2, and lateral leads. Patient transferred to telemetry for further monitoring. the patient had received a nebulized albuterol treatment about 20 minutes prior to her chest pain. * Stat cardiology consult with Dr. Streeter * Follow-up EKG and troponin at 9 AM, 5 PM and subsequently 1 AM on 09/13/2016 * IV morphine 2mg Q3P chest pain. Change schedule accordingly. Acute respiratory distress: There is question regarding etiology of her hypoxic respiratory failure. Patient does have a PATRICIA on CPAP. However she says her symptoms acutely worsened. She described could be secondary to an infiltrate seen on CT versus new diagnosis of CHF. She does have elevated BNP, orthopnea, and bilateral pleural effusions. She is getting IV ceftriaxone and azithromycin for treatment of possible lower lobe pneumonia. * Patient given 125 mg IV solumedrol in the ED, will currently hold off steroids as no signs of wheezing on physical exam * IV ceftriaxone and PO azithromycin daily * Follow blood cultures, lower respiratory culture, UA, urine legionella/strep antigens * Continue supplemental O2 via nasal cannula with goal O2 >90-92% * TRC eval and nebs * Incentive spirometry * Continue symbicort 2 puf BID * Patient is requesting pulm consult with Dr. Randy MD in AM--Follow up Dr. Joseph note on 09/12/2016 * Holding her Lasix dose this a.m. given her acute episode of chest pain. We will likely have to restart it. However, note worsening renal function secondary to possible contrast-induced nephropathy in addition to her CK D stage III. * Patient's symptoms occurred after albuterol nebulizer treatment. Consider holding the nebs. Vaginal candidiasis * Oral diflucan 150 mg once HTN, HLD, CAD s/p stenting * Monitor vital signs Q shift * Continue norvasc 10 mg PO daily, ASA 81 mg PO daily, tricor 145 mg PO daily, Imdur 30 mg PO daily, lopressor 25 mg PO BID, lipitor 80 mg PO 1700 and brilinta 60 mg PO BID T2DM * Accuchecks TIDAC/HS * NSS TIDAC PATRICIA * Continue CPAP at bedtime Chronic renal insufficiency: This AM she has K 5.6 * Patient has received IV contrast for chest CTA, Cr 1.5. * Consider IVF if BP trends down towards normal * Holding losartan for now. * Holding her Lasix this AM. FULL CODE DVTP: Heparin SC Heart Healthy Diet Mild pain pathway Problem List: 1. Asthma 2. COPD 3. Chest pain 4. Diabetes mellitus Pain Ratin Pain Location: chest Pain Goal: Remain pain free Pain Plan: morphine Tomorrow's Labs & Rationales: cbc bep trop bnp
[2016-09-12 10:35] VITALS: BP 182/60
--- NOTE | 2016-09-12 10:48 | Event Note ---
Event Note Event Note: The patient was transferred from to [facility] because of tachycardia after Albuterol treatment, was found to be in 160s, posible SVT vs A fib. EKG showed ST depressions in lateral leads. She was placed on the monitor with heart rate in 140s. She was evaluated by Dr. Streeter and me on tele and found to be in A fib. Reported chest pain, sub sternal, 5/10, radiating to both shoulders. 5 mg of IV cardizem was pushed with the heart rate coming down to 120s and the chest pain getting better as well. Will be started on Cardizem drip at 5mg/hr and titrating up to heart rate of < 100. Trops were sent on floor, will follow. Will get a repat EKG once HR < 100. 1:30 PM: So far Ms. Mckoy has recieved a total of 4 IV pushes of 5 mg IV Cardizem, and is currently at 10 mg/hr of Cardizem drip with the heart rate in 110s now. Will go up to 15 mg/hr now and try to bring the heart rate < 100. Will also start IV heparin drip for anticoagulation. Guaiac negative. The patient is getting an ECHO right now, will follow.
[2016-09-12 13:00] VITALS: BP 160/70
--- NOTE | 2016-09-12 13:05 | PN- Cardiology ---
Subjective Subjective: Received an albuterol treatment this morning, and she subsequently developed a sensation of racing heart with chest tightness. EKG was performed which revealed atrial fibrillation with ventricular rate in the 160s. She was transferred to telemetry, and treated with boluses of IV diltiazem followed by a diltiazem drip. Her chest discomfort was 10 out of 10 at the time of the initial episode, and this discomfort has now resolved. No diaphoresis. No lightheadedness or dizziness. No nausea or vomiting. Objective Vital Signs and I&Os Vital Signs Date Time Temp Pulse Resp B/P B/P Pulse O2 O2 Flow FiO2 Mean Ox Delivery Rate 09/12 1216 111 09/12 1129 120 09/12 1041 125 182/60 09/12 1035 142 22 182/60 93 Nasal 4.0L Cannula 09/12 0918 158/60 09/12 0918 158/60 09/12 0918 158/60 09/12 0800 90 Nasal 3.0L Cannula 09/12 0800 90 Nasal 2.0L Cannula 09/12 0653 99.0 85 20 158/60 91 Nasal 2.0L Cannula 09/12 0049 89 96 05/07 0000 94 CPAP 3.0L / 2353 97.8 91 20 159/58 94 CPAP / 2235 90 95 05/06 2228 74 160/70 05/06 1600 97 Nasal 2.0L Cannula 09/11 1522 98.4 74 18 160/70 94 Nasal 2.0L Cannula Intake & Output 09/12 1600 / 0800 05/07 0000 05/ 1600 / 0800 05/06 0000 Intake Total 548 800 5008 120 Output Total 550 Balance 240 480 600 120 Intake, IV 250 Intake, Oral 240 480 900 120 Number 0 Bowel Movements Output, Urine 550 Patient 215 lb 215 lb Weight Weight Reported by Patient Reported by Patient Measurement Method Physical Exam: Gen: The patient is in no acute distress HEENT: Normal nose, ears, and oropharynx. Pupils equal bilaterally. Conjunctiva normal. Neck: Supple with no JVD, no masses, and no thyromegaly Lungs: Decreased breath sounds with scattered rhonchi with normal respiratory effort Heart: Irregularly irregular, S1, S2, 1/6 systolic murmur. No peripheral edema, 2+ pulses in the lower extremities bilaterally Abdomen: Soft, nontender, no masses. No hepatomegaly. No splenomegaly Extremities: No clubbing or cyanosis. Normal muscle strength in the upper and lower extremities Skin: Normal skin turgor with no skin ulcers or lesions noted. Neuro: Cranial nerves intact. Sensation intact Current Medications: Current Medications Sig/Rubin Start time Last Medication Dose Route Stop Time Status Admin Acetaminophen 650 MG .STK-MED ONE 09/12 0236 DC PO 09/12 0237 Acetaminophen 650 MG Q6P PRN 09/11 0200 AC 09/12 PO 1240 Acetaminophen 1,000 MG Q12P PRN 09/11 0200 AC IV Albuterol Sulfate 3 ML BID 09/11 2200 AC 09/12 INH 0758 Albuterol Sulfate 3 ML Q6P PRN 09/11 0645 AC INH Albuterol Sulfate 2 PUF Q4-6 PRN PRN 09/11 0200 AC INH Amlodipine Besylate 10 MG DAILY 09/11 1000 AC 09/12 PO 0918 Aspirin Buffered 81 MG DAILY 09/11 1000 AC 09/12 PO 0918 Atorvastatin Calcium 80 MG 1700 09/11 1700 AC 09/11 PO 1735 Azithromycin 250 MG DAILY 09/12 1000 AC PO Azithromycin 500 MG DAILY 09/11 1000 DC 09/11 Sodium Chloride 250 ML IV 1142 Budesonide/ 2 PUF BID 09/11 1000 AC 09/12 Formoterol Fumarate INH 0919 Ceftriaxone Sodium 1,000 MG DAILY 09/11 1000 AC 09/12 IV 0919 Clonazepam 0.5 MG QPM 09/11 2200 AC 09/11 PO 09/18 2158 2024 Diltiazem HCl 5 MG ONCE ONE 09/12 1300 AC IV PUSH 09/12 1301 Diltiazem HCl 5 MG ONCE ONE 09/12 1215 DC 09/12 IV PUSH 09/12 1216 1216 Diltiazem HCl 5 MG ONCE ONE 09/12 1100 DC 09/12 IV PUSH 09/12 1101 1129 Diltiazem HCl 125 MG Q24H 09/12 1045 AC 09/12 Sodium Chloride 100 ML IV 1048 Diltiazem HCl 125 MG Q8H 09/12 1030 DC Sodium Chloride 100 ML IV Diltiazem HCl 5 MG STAT STA 09/12 1027 DC 09/12 IV PUSH 09/12 1028 1041 Fenofibrate 145 MG DAILY 09/11 1000 AC 09/12 PO 0917 Furosemide 40 MG 7:30 AM, & 4:30 PM 09/12 1630 CAN PO Furosemide 40 MG .STK-MED ONE 09/12 2027 DC IV 09/11 2028 Furosemide 20 MG Q12 09/11 181 MI 09/11 IV 2027 Heparin Sodium 5,000 UNIT Q8 09/11 0600 09/12 (Porcine) SC 0556 Insulin Aspart 10 UNITS ONCE ONE 09/12 1245 DC 09/12 SC 09/12 1246 1253 Insulin Aspart 0 TIDAC/HS 09/11 2155 AC 09/12 SC 0917 Insulin Aspart 0 TIDAC 09/11 0800 DC 09/11 SC 1735 Ipratropium [place] 2.5 ML BID 09/11 2200 AC 09/11 INH 1930 Isosorbide 30 MG DAILY 09/11 1000 AC 09/12 Mononitrate PO 0918 Melatonin 5 MG ONCE ONE 09/12 0015 DC 09/12 PO 09/12 0016 0023 Metoprolol Tartrate 25 MG BID 09/11 1000 AC 09/12 PO 0918 Morphine Sulfate 2 MG Q3P PRN 09/12 0945 09/12 IV 0953 Nitroglycerin 0.4 MG Q 5 MINUTES X 3 DO.. 09/12 0915 09/12 SL 0944 Patient Medication 1 UNIT ONE NR 09/11 181 MI Teaching ED 09/11 1830 Ticagrelor 60 MG BID 09/11 1000 AC 09/12 PO 0918 Results Last 48 Hrs of Labs/Mics: Laboratory Tests 09/12/16 0936: Troponin I 0.04 09/12/16 0621: Anion Gap 11, Estimated GFR 33 L, BUN/Creatinine Ratio 25.6 H, CBC w Diff NO MAN DIFF REQ, RBC 3.53 L, MCV 85.4, MCH 28.2, RDW 15.0 H, MPV 11.0 H, Gran % 75.4 H, Lymphocytes % 18.7 L, Monocytes % 5.5, Eosinophils % 0.2, Basophils % 0.2, Absolute Granulocytes 8.5 H, Absolute Lymphocytes 2.1, Absolute Monocytes 0.6, Absolute Eosinophils 0, Absolute Basophils 0, PUBS MCHC 33.0 09/11/162020: Troponin I 0.02 09/11/16 0900: Urine Color YEL, Urine Clarity HAZY H, Urine pH 5.5, Ur Specific [place] 1.025, Urine Protein >=300 H, Urine Ketones NEG, Urine Nitrite NEG, Urine Bilirubin NEG, Urine Urobilinogen 0.2, Ur Leukocyte Esterase SMALL H, Ur Microscopic SEDIMENT EXAMINED, Urine RBC RARE, Urine WBC > 75 H, Ur Epithelial Cells MANY H, Micro UA Comment [place] H, Urine Hemoglobin SMALL H, Urine Glucose 500 H 09/10/16 2030: Anion Gap 12, Estimated GFR 36 L, BUN/Creatinine Ratio 22.0, Glucose 108 H, Calcium 9.4, Total Bilirubin 0.5, AST 27, ALT 52, Alkaline Phosphatase 71, Troponin I < 0.01, [id number] Pept 727 H, Total Protein 6.9, Albumin 4.0 , Globulin 2.9, Albumin/Globulin Ratio 1.4, D-Dimer 774 H, CBC w Diff NO MAN DIFF REQ, RBC 3.56 L, MCV 84.6, MCH 28.4, RDW 14.4, MPV 10.4, Gran % 63.7, Lymphocytes % 27.5, Monocytes % 5.4, Eosinophils % 2.9, Basophils % 0.5, Absolute Granulocytes 5.9, Absolute Lymphocytes 2.5, Absolute Monocytes 0.5, Absolute Eosinophils 0.3, Absolute Basophils 0, PUBS MCHC 33.6 Microbiology 09/11 899 URINE ROUT: Legionella Antigen - COMP 09/11 899 URINE ROUT: Streptococcus pneumoniae Antigen (M - COMP Recent Imaging Studies: EKG tracing reveals atrial fibrillation with rapid ventricular rate and ST depression Assessment/Plan Assessment/Plan 1. CAD 2. Hypertension 3. Continue acquired pneumonia 4. COPD exacerbation 5. Atrial fibrillation with rapid ventricular rate 6. Chest discomfort and ST depression, secondary to atrial fibrillation with rapid ventricular rate 7. Acute diastolic heart failure Plan: * Titrate diltiazem drip to ventricular rate less than 100 * IV heparin per protocol for new-onset atrial fibrillation * Echocardiogram * Continue IV Lasix * Monitor input and output with daily weights Continue telemetry? Yes
--- NOTE | 2016-09-12 14:20 | Event Note ---
Event Note Event Note: Guiac test done bfore starting IV Heparin was NEGATIVE.
--- NOTE | 2016-09-12 15:33 | RADIOLOGY REPORT ---
EXAMINATION: XR PORTABLE CHEST CLINICAL INFORMATION: Chest pain, pneumonia COMPARISON: Reason 2017 chest x-ray dated 09/10/2016 TECHNIQUE: Portable frontal view of the chest was obtained. FINDINGS: Enlargement of the cardiac silhouette. The mediastinal silhouette is normal. There is right paracardiac pulmonary airspace disease, which can correlate with the right lower lobe opacities seen on the comparison CT scan. Platelike atelectatic changes of the left mid lung also seen. Blunting of the left lateral costophrenic angle could correlate with the pleural effusions seen on the comparison CT scan. No pneumothorax. IMPRESSION: 1. Cardiomegaly. 2. Right lower lobe airspace disease, likely pneumonia. 3. Left upper lobe platelike atelectasis.
[2016-09-12 16:45] VITALS: BP 144/80
--- NOTE | 2016-09-12 19:53 | ECHOCARDIOGRAM REPORT ---
EDUARD ALBERT Age: 56 : 1960 Gender: F Exam Date: 09/12/2016 13:21 Exam Location: [place] Ht (in): 62 Wt (lb): 215 BSA: 2.12 BP: 158 / 60 Ordering Physician: NARESH PAEZ MD Referring Physician: Keon Rodas MD Technologist: Kerrie Carias [facility] Room Number: 180-01 Indications: AFIB/FLUTTER Rhythm: Sinus Technical Quality: Fair, Technically difficult study FINDINGS Left Ventricle Normal size left ventricle. No obvious regional wall motion abnormalities. Left ventricular wall thickness mildly increased. Normal left ventricular ejection fraction estimated at 55-60%. Right Ventricle Right ventricle not well visualized, grossly normal. Right Atrium Normal right atrial size. Left Atrium Mild left atrial dilatation. Mitral Valve Mitral valve thickened. Mild mitral regurgitation. Aortic Valve Trileaflet aortic valve. Diffuse thickening of the aortic valve cusps with reduced excursion. Mild aortic stenosis. Trace aortic regurgitation. Tricuspid Valve Tricuspid valve not well visualized, grossly normal. Mild-to- moderate tricuspid regurgitation. Right ventricular systolic pressure estimated at 26 mmHg. Pulmonic Valve Pulmonic valve not well visualized, grossly normal. Pericardium Small pericardial effusion. Great Vessels Normal size aortic root and proximal ascending aorta. CONCLUSIONS 1. This was a technically difficult examination. 2. Mild aortic stenosis is present with minimal aortic insufficiency. 3. Mitral leaflet thickening is present with mild mitral insufficiency and mild left atrial enlargement. 4. A very small pericardial effusion is present. 5. The left ventricular chamber size and systolic function appear normal with mild concentric hypertrophy present. 6. MIld to moderate tricuspid insufficiency is present with no evidence of pulmonary hypertension. Keon Rodas M.D. (Electronically Signed) Final Date: 12 Sep 2016 19:53 MEASUREMENTS (Male / Female) Normal Values 2D ECHO LV Diastolic Diameter PLAX 4.2 cm 4.2 - 5.9 / 3.9 - 5.3 cm LV Systolic Diameter PLAX 2.5 cm 2.1 - 4.0 cm LV Fractional Shortening PLAX 40.5 % 25 - 46 % LV Ejection Fraction 2D Teich 71.6 % IVS Diastolic Thickness 1.4 cm LVPW Diastolic Thickness 1.4 cm LV Relative Wall Thickness 0.7 RV Internal Dim ED PLAX 3.4 cm 1.9 - 3.8 cm LVOT Diameter 1.8 cm Aortic Root Diameter 2.3 cm LA Systolic Diameter LX 4.0 cm 3.0 - 4.0 / 2.7 - 3.8 cm LA Volume 43.0 cm 18 - 58 / 22 - 52 cm Ascending Aorta Diameter 2.8 cm DOPPLER AV Peak Velocity 238.0 cm/s AV Peak Gradient 22.7 mmHg AV Mean Velocity 163.0 cm/s AV Mean Gradient 12.0 mmHg AV Velocity Time Integral 48.7 cm LVOT Peak Velocity 122.0 cm/s LVOT Peak Gradient 6.0 mmHg LVOT Mean Velocity 86.7 cm/s LVOT Mean Gradient 3.0 mmHg LVOT Velocity Time Integral 24.5 cm LVOT Stroke Volume 62.3 cm AV Area Cont Eq vti 1.3 cm AV Area Cont Eq pk 1.3 cm MV Peak Velocity 163.0 cm/s MV Peak Gradient 10.6 mmHg MV Mean Velocity 66.9 cm/s MV Mean Gradient 3.0 mmHg Mitral E Point Velocity 125.0 cm/s MV PHT Velocity 167.0 cm/s MV Deceleration [place] 878.0 cm/s MV Pressure Half Time 57.1 ms MV Area PHT 3.9 cm MV Deceleration Time 190.0 ms TR Peak Velocity 265.0 cm/s TR Peak Gradient 28.1 mmHg Right Atrial Pressure 5.0 mmHg Pulmonary Artery Systolic Pressu 33.1 mmHg Right Ventricular Systolic Press 33.1 mmHg PV Peak Velocity 121.0 cm/s PV Peak Gradient 5.9 mmHg PV Mean Velocity 72.1 cm/s PV Mean Gradient 3.0 mmHg PV Velocity Time Integral 22.1 cm LV E' Lateral Velocity 12.6 cm/s Mitral E to LV E' Lateral Ratio 9.9 LV E' Septal Velocity 7.9 cm/s Mitral E to LV E' Septal Ratio 15.8
[2016-09-12 22:57] VITALS: BP 140/70
[2016-09-12 23:20] LABS: PTT 44 SEC (25-37)
--- NOTE | 2016-09-13 07:29 | PN- Housestaff ---
LOVE BARRIOS,EMY 09/13/16 0729: Subjective Follow-up For: Respiratory failure secondary to pneumonia, atrial fibrillation Complaints: no complaints Tele-Events Since Last Visit: Atrial fibrillation, heart rate ranging from 72-94. Subjective: Patient examined, followed up by me today. She is resting comfortably in bed, not in distress, still utilizing additional oxygen via nasal cannula, does not have any complaints, vitals stable, telemetry events noted as above, no overnight issues. Review of Systems Constitutional: Reports: no symptoms. Objective Last 24 Hrs of Vital Signs/I&O Vital Signs Date Time Temp Pulse Resp B/P B/P Pulse O2 O2 Flow FiO2 Mean Ox Delivery Rate 09/13 1904 93 Nasal 2.0L Cannula 09/13 1805 140/76 09/13 1751 97 Nasal 2.0L Cannula 09/13 1601 97.4 75 20 143/70 95 Nasal Cannula 09/13 1113 93 Room Air 09/13 0910 96 Nasal 2.0L Cannula 09/13 0759 97.6 95 20 146/60 92 09/13 0038 88 98 / 0000 95 Nasal 4.0L Cannula 09/12 2257 99.2 92 22 140/70 93 Nasal Cannula 09/12 2042 92 Nasal 2.0L Cannula Intake & Output 09/13 1600 08 0800 05/08 0000 Intake Total 1200 669.6 925 Output Total 800 425 Balance 400 669.6 500 Intake, IV 800 269.6 325 Intake, Oral 400 400 600 Output, Urine 800 425 Patient 105.404 kg 105.404 kg Weight Weight Standing Scale Measurement Method Physical Exam General Appearance: Alert, Oriented X3, Cooperative, No Acute Distress, using additional oxygen via nasal cannula Other Physical Findings: HEENT: Atraumatic, PERRLA, EOMI Neck: Supple Cardiovascular: Irregular heart rate around 70 Lungs: Bilateral diminished breath sounds with some wheezing Abdomen: Soft, No Tenderness Neurological: Normal Speech, grossly intact Current Medications: Current Medications Sig/Rubin Start time Last Medication Dose Route Stop Time Status Admin Acetaminophen 650 MG .STK-MED ONE 09/14 943 DC PO 09/13 944 Acetaminophen 650 MG .STK-MED ONE 09/12 2041 DC PO 09/12 2042 Acetaminophen 650 MG Q6P PRN 09/11 0200 AC 09/13 PO 43 Acetaminophen 1,000 MG Q12P PRN 09/11 0200 AC IV Albuterol Sulfate 3 ML BID 09/11 2200 AC 09/13 INH 1903 Albuterol Sulfate 3 ML Q6P PRN 09/11 0645 AC INH Albuterol Sulfate 2 PUF Q4-6 PRN PRN 09/11 0200 AC INH Amlodipine Besylate 10 MG DAILY 09/11 1000 AC 09/13 PO 0929 Aspirin Buffered 81 MG DAILY 09/11 1000 AC 09/13 PO 0929 Atorvastatin Calcium 80 MG 1700 05/06 1700 AC 09/13 PO 1651 Azithromycin 250 MG DAILY 09/12 1000 AC 09/13 PO 0929 Budesonide/ 2 PUF BID 09/11 1000 AC 09/13 Formoterol Fumarate INH 0933 Ceftriaxone Sodium 1,000 MG DAILY 09/11 1000 AC 09/13 IV 0928 Clonazepam 0.5 MG QPM 09/11 2200 AC 09/12 PO 09/18 2159 2311 Diltiazem HCl 60 MG Q6 09/13 1800 AC 09/13 PO 1805 Diltiazem HCl 125 MG Q10H 09/13 1530 DC Sodium Chloride 100 ML IV 09/13 1900 Diltiazem HCl 125 MG Q10H 09/13 0100 DC 09/13 Sodium Chloride 100 ML IV 09/13 1330 0640 Diltiazem HCl 125 MG Q24H / 1045 DC 09/12 Sodium Chloride 100 ML IV 2010 Fenofibrate 145 MG DAILY 09/11 1000 AC 09/13 PO 0929 Furosemide 20 MG Q12 / 1315 AC 09/13 IV 0929 Heparin Sodium 4,200 UNIT ONCE ONE 09/13 1104 DC 09/13 (Porcine) IV 09/13 1105 1236 Heparin Sodium 7,300 UNIT ONCE ONE 09/13 0000 DC 09/13 (Porcine) IV / 0001 0803 Heparin Sodium 25,000 UNIT Q24H / 1315 AC 09/13 (Porcine) IV 0800 Sodium Chloride 500 ML Insulin Aspart 0 TIDAC/HS 09/11 2155 AC 09/13 SC 1651 Ipratropium [place] 2.5 ML BID 09/11 2200 AC 09/13 INH 1903 Isosorbide 30 MG DAILY 09/11 1000 AC 09/13 Mononitrate PO 0929 Metoprolol Tartrate 25 MG BID 09/11 1000 AC 09/13 PO 0929 Morphine Sulfate 2 MG Q3P PRN 09/12 0845 09/12 IV 0953 Nitroglycerin 0.4 MG Q 5 MINUTES X 3 DO.. 09/12 0915 09/12 SL 0944 Ticagrelor 60 MG BID 09/11 1000 09/13 PO 0930 Last 24 Hrs of Lab/Maximo Results Last 24 Hrs of Labs/Mics: Laboratory Tests 09/13/16 1850: APTT 72 H 09/13/16 0700: Anion Gap 11, Estimated GFR 42 L, BUN/Creatinine Ratio 29.2 H, Troponin I 0.71 *H, Hhu-K-Lypbwybiklo Pept 2660 H 09/13/16 0700: Sodium Cancelled, Potassium Cancelled, Chloride Cancelled, Carbon Dioxide Cancelled, Anion Gap Cancelled, BUN Cancelled, Creatinine Cancelled, BUN/ Creatinine Ratio Cancelled, Rqv-E-Sejlwbnulfr Pept Cancelled, APTT 56 H, CBC w Diff NO MAN DIFF REQ, RBC 3.47 L, MCV 84.7, MCH 28.2, RDW 14.8 H, MPV 10.7 H, Gran % 68.5, Lymphocytes % 19.4 L, Monocytes % 6.6, Eosinophils % 5.1 H, Basophils % 0.4, Absolute Granulocytes 5.5, Absolute Lymphocytes 1.6, Absolute Monocytes 0.5, Absolute Eosinophils 0.4, Absolute Basophils 0, PUBS MCHC 33.2 09/13/16 0140: Troponin I 1.10 *H 09/12/16 2154: APTT 44 H Assessment/Plan Assessment: Ms Mckoy is a 56-year-old female past medical history significant for hypertension, hyperlipidemia, GERD, type 2 diabetes with retinopathy, asthma, PATRICIA and CPAP, CAD status post RCA stenting 2 in 2010 and 2014, PVD status post right lower extremity stent, anxiety who presented with chief complaint of SOB. CXR showed biabilar opacities. Left foot Xray showed no fracture or dislocation. Chest CTA showed no pulmonary embolism, right lower lobe infiltrate, bilateral pleural effusions, left lung base patchy airspace disease and mediastinal lymphadenopathy. She was initially being managed in the general medicine floor and later transferred to telemetry on Tuesday, currently for the following issues: #Atrial fibrillation with rapid ventricular rate, now controlled Patient's heart rate increased up to 170s on Tuesday, rapid response was called, was found to be in atrial fibrillation, transferred to telemetry floor, IV Cardizem boluses were given, and later IV Cardizem drip was initiated. Her heart rate was under control overnight, and Cardizem drip has thus been stopped per cardiology consult, and converted to oral Cardizem. Cardiology consult appreciated. -ACS ruled out with serial troponins and ECG -Anti-coagulation: On IV heparin currently. #Acute respiratory failure, secondary to pneumonia There is question regarding etiology of her hypoxic respiratory failure. Patient does have h/o PATRICIA on CPAP. However she says her symptoms have acutely worsened. She described could be secondary to an infiltrate seen on CT versus new diagnosis of CHF. She does have elevated BNP, orthopnea, and bilateral pleural effusions. She is getting IV ceftriaxone and azithromycin for treatment of possible lower lobe pneumonia. * Patient given 125 mg IV solumedrol in the ED, will currently hold off steroids as no signs of wheezing on physical exam * Pulm consult appreciated. * IV ceftriaxone and PO azithromycin daily, need to taper * Follow blood cultures, lower respiratory culture, (urine legionella/strep antigens negative) * Continue supplemental O2 via nasal cannula with goal O2 >90-92% * Continue TRC eval and nebs * Continue Incentive spirometry * Continue symbicort 2 puffs BID * Patient's symptoms occurred after albuterol nebulizer treatment. Consider holding the nebs. Asymptomatic pyuria * Patient does not have any symptoms of urinary tract infection although her urinalysis is suggestive of one. Will not pursue treating a symptomatic pyuria at this point of time. Right-sided ruptured Mantilla's cyst * Patient was supposed to follow up with orthopedics today if she was not admitted for ruptured Mantilla's cyst on the right side. * Orthopedic consultation has been placed for tomorrow as nonurgent follow-up for right-sided ruptured Mantilla's cyst. Vaginal candidiasis, treated with Oral diflucan 150 mg HTN, HLD, CAD s/p stenting * Monitor vital signs Q shift * Continue norvasc 10 mg PO daily, ASA 81 mg PO daily, tricor 145 mg PO daily, Imdur 30 mg PO daily, lopressor 25 mg PO BID, lipitor 80 mg PO 1700 and brilinta 60 mg PO BID T2DM * Accuchecks TIDAC/HS * NSS TIDAC PATRICIA * Continue CPAP at bedtime Chronic renal insufficiency: This AM she has K 4.7 * Patient has received IV contrast for chest CTA, Cr 1.3 (better today) * Consider IVF if BP trends down towards normal * Holding losartan for now. * Worsening renal function secondary to possible contrast-induced nephropathy in addition to her CK D stage III. FULL CODE DVTP: Heparin IV Heart Healthy Diet Mild pain pathway Problem List: 1. Atrial fibrillation 2. Acute respiratory failure 3. Ruptured Bakers cyst 4. HTN (hypertension) 5. HLD (hyperlipidemia) 6. CAD (coronary artery disease) 7. Diabetes mellitus 8. PATRICIA (obstructive sleep apnea) 9. CKD (chronic kidney disease) Pain Ratin Pain Location: - Pain Goal: Pain 4 or less Pain Plan: prn Tomorrow's Labs & Rationales: CBC, BEP to f/u on response to abx JULIUS ARCE MD 09/13/16 2227: Attending MD Review Statement Attending Statement Attending MD Statement: examined this patient, discuss w/resident/[facility], agreed w/resident/[facility], reviewed EMR data (avail), discussed with nursing, discussed with case mgmt, amended to note Attending Assessment/Plan: The patient was seen and discussed with house staff. Appreciate Cardiology and Pulmonary follow-up. Continue treatment as planned. Continue Cardizem.
[2016-09-13 07:55] LABS: ABSOLUTE BASOPHIL COUNT 0 /CUMM (0.0-0.2); ABSOLUTE EOSINOPHIL COUNT 0.4 /CUMM (0.0-0.7); ABSOLUTE GRANULOCYTE CT 5.5 /CUMM (1.4-6.5); ABSOLUTE LYMPH COUNT 1.6 /CUMM (1.2-3.4); ABSOLUTE MONOCYTE COUNT 0.5 /CUMM (0.10-0.60); BASOPHIL % 0.4 % (0.0-2.0); EOSINOPHIL % 5.1 % (0-5); GRANULOCYTE % 68.5 % (42.2-75.2); HEMATOCRIT 29.4 % (37-47); MEAN CORPUSCULAR HGB 28.2 PG (27.0-31.0); MEAN CORPUSCULAR HGB CONC 33.2 G/DL (33.0-37.0); MEAN CORPUSCULAR VOLUME 84.7 FL (81.0-99.0); MEAN PLATELET VOLUME 10.7 FL (7.4-10.4); PLATELET COUNT 190 /CUMM (130-400); RBC DISTRIBUTION WIDTH 14.8 % (11.5-14.5); RED BLOOD CELL CT 3.47 /CUMM (4.20-5.40)
[2016-09-13 07:59] VITALS: BP 146/60
[2016-09-13 08:16] LABS: PTT 56 SEC (25-37)
--- NOTE | 2016-09-13 10:55 | PN- Cardiology ---
Subjective Subjective: Shortness of breath is improving. She remains in atrial fibrillation with rate under control with Cardizem drip. Chest discomfort has resolved. No diaphoresis. No palpitations. No dizziness. Objective Vital Signs and I&Os Vital Signs Date Time Temp Pulse Resp B/P B/P Pulse O2 O2 Flow FiO2 Mean Ox Delivery Rate 09/13 0810 96 Nasal 2.0L Cannula 09/13 0759 97.6 95 20 146/60 92 09/13 0038 88 98 09/13 0000 95 Nasal 4.0L Cannula 09/12 2257 99.2 92 22 140/70 93 Nasal Cannula 09/12 2042 92 Nasal 2.0L Cannula 09/12 1645 99.0 100 22 144/80 92 Nasal 4.0L Cannula 09/12 1600 92 Nasal 4.0L Cannula 09/12 1300 102 160/70 09/12 1258 102 160/70 09/12 1216 111 09/12 1129 120 Intake & Output 09/13 1600 09/13 0800 05/ 0000 09/12 1600 09/12 0800 09/12 0000 Intake Total 669.6 925 430 240 480 Output Total 800 425 400 Balance -800 669.6 500 30 240 480 Intake, IV 269.6 325 30 Intake, Oral 400 600 400 240 480 Output, Urine 800 425 400 Patient 232 lb Weight Weight Standing Scale Measurement Method Physical Exam: Gen: The patient is in no acute distress HEENT: Normal nose, ears, and oropharynx. Pupils equal bilaterally. Conjunctiva normal. Neck: Supple with no JVD, no masses, and no thyromegaly Lungs: Decreased breath sounds with scattered rhonchi with normal respiratory effort Heart: Irregularly irregular, S1, S2, 1/6 systolic murmur. No peripheral edema, 2+ pulses in the lower extremities bilaterally Abdomen: Soft, nontender, no masses. No hepatomegaly. No splenomegaly Extremities: No clubbing or cyanosis. Normal muscle strength in the upper and lower extremities Skin: Normal skin turgor with no skin ulcers or lesions noted. Neuro: Cranial nerves intact. Sensation intact Current Medications: Current Medications Sig/Rubin Start time Last Medication Dose Route Stop Time Status Admin Acetaminophen 650 MG .STK-MED ONE 09/12 2041 DC PO 09/12 2042 Acetaminophen 650 MG .STK-MED ONE 09/12 1240 DC PO 09/12 1241 Acetaminophen 650 MG Q6P PRN 09/11 0200 AC 09/13 PO 0943 Acetaminophen 1,000 MG Q12P PRN 09/11 0200 AC IV Albuterol Sulfate 3 ML BID 09/11 2200 AC 09/12 INH 2036 Albuterol Sulfate 3 ML Q6P PRN 09/11 0645 AC INH Albuterol Sulfate 2 PUF Q4-6 PRN PRN 09/11 0200 AC INH Amlodipine Besylate 10 MG DAILY 09/11 1000 AC 09/13 PO 0929 Aspirin Buffered 81 MG DAILY 09/11 1000 AC 09/13 PO 0929 Atorvastatin Calcium 80 MG 1700 09/11 1700 AC 09/12 PO 1755 Azithromycin 250 MG DAILY 09/12 1000 AC 09/13 PO 0929 Budesonide/ 2 PUF BID 09/11 1000 AC 09/13 Formoterol Fumarate INH 0933 Ceftriaxone Sodium 1,000 MG DAILY 09/11 1000 AC 09/13 IV 0928 Clonazepam 0.5 MG QPM 09/11 2200 AC 09/12 PO 09/18 2159 2311 Diltiazem HCl 125 MG Q10H 09/13 0100 AC 09/13 Sodium Chloride 100 ML IV 0640 Diltiazem HCl 5 MG ONCE ONE 09/12 1300 DC 09/12 IV PUSH 09/12 1301 1258 Diltiazem HCl 5 MG ONCE ONE 09/12 1215 DC 09/12 IV PUSH 09/12 1216 1216 Diltiazem HCl 5 MG ONCE ONE 09/12 1100 DC 09/12 IV PUSH 09/12 1101 1129 Diltiazem HCl 125 MG Q24H 09/12 1045 DC 09/12 Sodium Chloride 100 ML IV 2010 Fenofibrate 145 MG DAILY 09/11 1000 AC 09/13 PO 0929 Furosemide 20 MG Q12 09/12 1315 AC 09/13 IV 0929 Heparin Sodium 7,300 UNIT ONCE ONE 09/13 0000 DC 09/13 (Porcine) IV 09/13 0001 0803 Heparin Sodium 25,000 UNIT Q24H / 1315 AC 09/13 (Porcine) IV 0800 Sodium Chloride 500 ML Heparin Sodium 5,000 UNIT Q8 / 0600 DC 09/12 (Porcine) SC 0556 Insulin Aspart 10 UNITS ONCE ONE 09/12 1245 DC 09/12 SC 09/12 1246 1253 Insulin Aspart 0 TIDAC/HS 09/11 2154 09/13 SC 0930 Ipratropium [place] 2.5 ML BID 09/11 2199 AC 09/12 INH 2037 Isosorbide 30 MG DAILY 09/11 999 AC 09/13 Mononitrate PO 09 Metoprolol Tartrate 25 MG BID 09/11 1000 09/13 PO 0929 Morphine Sulfate 2 MG Q3P PRN 09/12 0945 09/12 IV 0953 Nitroglycerin 0.4 MG Q 5 MINUTES X 3 DO.. 09/12 914 09/12 SL 0944 Sodium Polystyrene 60 ML ONCE ONE 09/12 1714 DC 09/12 Sulfonate PO 09/12 171 1809 Ticagrelor 60 MG BID 09/11 999 09/13 PO 0930 Results Last 48 Hrs of Labs/Mics: Laboratory Tests 09/13/16 0700: Anion Gap 11, Estimated GFR 42 L, BUN/Creatinine Ratio 29.2 H, Troponin I 0.71 *H, Skw-J-Bitotpxxvdk Pept 2660 H 09/13/16 0700: Sodium Cancelled, Potassium Cancelled, Chloride Cancelled, Carbon Dioxide Cancelled, Anion Gap Cancelled, BUN Cancelled, Creatinine Cancelled, BUN/ Creatinine Ratio Cancelled, Tgx-P-Tjsktmtsvdv Pept Cancelled, APTT 56 H, CBC w Diff NO MAN DIFF REQ, RBC 3.47 L, MCV 84.7, MCH 28.2, RDW 14.8 H, MPV 10.7 H, Gran % 68.5, Lymphocytes % 19.4 L, Monocytes % 6.6, Eosinophils % 5.1 H, Basophils % 0.4, Absolute Granulocytes 5.5, Absolute Lymphocytes 1.6, Absolute Monocytes 0.5, Absolute Eosinophils 0.4, Absolute Basophils 0, PUBS MCHC 33.2 09/13/16 0140: Troponin I 1.10 *H 09/12/164: APTT 44 H 09/12/16 0952: Troponin I Cancelled 09/12/16 0936: Troponin I 0.04 09/12/16 0621: Anion Gap 11, Estimated GFR 33 L, BUN/Creatinine Ratio 25.6 H, CBC w Diff NO MAN DIFF REQ, RBC 3.53 L, MCV 85.4, MCH 28.2, RDW 15.0 H, MPV 11.0 H, Gran % 75.4 H, Lymphocytes % 18.7 L, Monocytes % 5.5, Eosinophils % 0.2, Basophils % 0.2, Absolute Granulocytes 8.5 H, Absolute Lymphocytes 2.1, Absolute Monocytes 0.6, Absolute Eosinophils 0, Absolute Basophils 0, PUBS MCHC 33.0 09/11/162020: Troponin I 0.02 Recent Imaging Studies: Chest x-ray: 1. Cardiomegaly. 2. Right lower lobe airspace disease, likely pneumonia. 3. Left upper lobe platelike atelectasis. Assessment/Plan Assessment/Plan 1. CAD 2. Hypertension 3. Continue acquired pneumonia 4. COPD exacerbation 5. Atrial fibrillation with rapid ventricular rate 6. Chest discomfort and ST depression, secondary to atrial fibrillation with rapid ventricular rate 7. Acute diastolic heart failure 8. Positive troponin, likely secondary to tachycardia. Plan: * Continue IV Lasix * Start by mouth diltiazem 60 mg every 6 hours, and discontinue diltiazem drip one hour after initial oral dose * Continue IV heparin. We will plan on changing to Eliquis prior to discharge. * Nuclear stress test once stable for evaluation of positive troponin Continue telemetry? Yes
--- NOTE | 2016-09-13 11:16 | PN- Pulmonary ---
Subjective HPI/Critical Care Issues: pt seen and examined on tele doing much better from respiraotry perspective discomfort at known site of ruptured nuno's cyst Objective Current Medications: Current Medications Sig/Rubin Start time Last Medication Dose Route Stop Time Status Admin Acetaminophen 650 MG .STK-MED ONE 09/122 DC PO 09/12 204 Acetaminophen 650 MG .STK-MED ONE 09/12 1240 DC PO 09/12 1241 Acetaminophen 650 MG Q6P PRN 09/11 0200 AC 09/13 PO 0943 Acetaminophen 1,000 MG Q12P PRN 09/11 0200 AC IV Albuterol Sulfate 3 ML BID 09/11 2200 AC 09/13 INH 1106 Albuterol Sulfate 3 ML Q6P PRN 09/11 0645 AC INH Albuterol Sulfate 2 PUF Q4-6 PRN PRN 09/11 0200 AC INH Amlodipine Besylate 10 MG DAILY 09/11 1000 AC 09/13 PO 0929 Aspirin Buffered 81 MG DAILY 09/11 1000 AC 09/13 PO 0929 Atorvastatin Calcium 80 MG 1700 09/11 1700 AC 09/12 PO 1755 Azithromycin 250 MG DAILY 09/12 1000 AC 09/13 PO 0929 Budesonide/ 2 PUF BID 09/11 1000 AC 09/13 Formoterol Fumarate INH 0933 Ceftriaxone Sodium 1,000 MG DAILY 09/11 1000 AC 09/13 IV 0928 Clonazepam 0.5 MG QPM 09/11 2200 AC 09/12 PO 09/18 2159 2311 Diltiazem HCl 125 MG Q10H 09/13 0100 r 09/13 Sodium Chloride 100 ML IV 09/13 1330 0640 Diltiazem HCl 5 MG ONCE ONE 09/12 1300 DC 09/12 IV PUSH 09/12 1301 1258 Diltiazem HCl 5 MG ONCE ONE 09/12 1215 DC 09/12 IV PUSH 09/12 1216 1216 Diltiazem HCl 125 MG Q24H 09/12 1045 DC 09/12 Sodium Chloride 100 ML IV 2009 Fenofibrate 145 MG DAILY 09/11 1000 AC 09/13 PO 0929 Furosemide 20 MG Q12 09/12 1315 AC 09/13 IV 0929 Heparin Sodium 7,300 UNIT ONCE ONE 09/13 0000 DC 09/13 (Porcine) IV 09/13 0001 0803 Heparin Sodium 25,000 UNIT Q24H 05/07 1315 AC 09/13 (Porcine) IV 0800 Sodium Chloride 500 ML Heparin Sodium 5,000 UNIT Q8 09/11 0600 DC 09/12 (Porcine) SC 0556 Insulin Aspart 10 UNITS ONCE ONE 09/12 1245 DC 09/12 SC 09/12 1246 1253 Insulin Aspart 0 TIDAC/HS 09/11 2155 AC 09/13 SC 0930 Ipratropium [place] 2.5 ML BID 09/11 2200 AC 09/13 INH 1106 Isosorbide 30 MG DAILY 09/11 1000 09/13 Mononitrate PO 0929 Metoprolol Tartrate 25 MG BID 09/11 1000 AC 09/13 PO 0929 Morphine Sulfate 2 MG Q3P PRN 09/12 0945 09/12 IV 0953 Nitroglycerin 0.4 MG Q 5 MINUTES X 3 DO.. 09/12 0915 09/12 SL 0944 Sodium Polystyrene 60 ML ONCE ONE 09/12 1715 DC 09/12 Sulfonate PO 09/12 1716 1809 Ticagrelor 60 MG BID 09/11 1000 09/13 PO 0930 Vital Signs & I&O Last 24 Hrs of Vitals and I&O: Vital Signs Date Time Temp Pulse Resp B/P B/P Pulse O2 O2 Flow FiO2 Mean Ox Delivery Rate 09/13 0910 96 Nasal 2.0L Cannula 09/13 0759 97.6 95 20 146/60 92 09/13 0038 88 98 09/13 0000 95 Nasal 4.0L Cannula 09/12 2257 99.2 92 22 140/70 93 Nasal Cannula 09/12 2042 92 Nasal 2.0L Cannula 09/12 1645 99.0 100 22 144/80 92 Nasal 4.0L Cannula 09/12 1600 92 Nasal 4.0L Cannula 09/12 1300 102 160/70 09/12 1258 102 160/70 09/12 1216 111 09/12 1129 120 Intake & Output 09/13 1600 09/13 0800 09/13 0000 Intake Total 669.6 925 Output Total 800 425 Balance -800 669.6 500 Intake, IV 269.6 325 Intake, Oral 400 600 Output, Urine 800 425 Patient 232 lb Weight Weight Standing Scale Measurement Method Exam Other Physical Findings: gen awake and alert heent ncat cvs s1, s2 lungs rare rhonchi abd soft bs+ ext without edema Results Last 24 Hrs of Lab Results: Laboratory Tests 09/13/16 0700: Anion Gap 11, Estimated GFR 42 L, BUN/Creatinine Ratio 29.2 H, Troponin I 0.71 *H, Hwt-B-Sdkdbkkrryy Pept 2660 H 09/13/16 0700: Sodium Cancelled, Potassium Cancelled, Chloride Cancelled, Carbon Dioxide Cancelled, Anion Gap Cancelled, BUN Cancelled, Creatinine Cancelled, BUN/ Creatinine Ratio Cancelled, Vwr-J-Svdxsnomzle Pept Cancelled, APTT 56 H, CBC w Diff NO MAN DIFF REQ, RBC 3.47 L, MCV 84.7, MCH 28.2, RDW 14.8 H, MPV 10.7 H, Gran % 68.5, Lymphocytes % 19.4 L, Monocytes % 6.6, Eosinophils % 5.1 H, Basophils % 0.4, Absolute Granulocytes 5.5, Absolute Lymphocytes 1.6, Absolute Monocytes 0.5, Absolute Eosinophils 0.4, Absolute Basophils 0, PUBS MCHC 33.2 09/13/16 0140: Troponin I 1.10 *H 09/12/16 2154: APTT 44 H Impression/Plan Impression/Plan Impression/Plan: Impression 56 year old woman * community acquired RLL pneumonia * a.fib with RVR - acute diastolic heart failure * ruptured nuno's cyst Plan - complete course of abx - cardiology f/u - rate control - anti-coagulation - trc/nebs - orthopedics consultation (pt had apt today) for her ruptured bakers cyst that is causing pain
[2016-09-13 16:01] VITALS: BP 143/70
[2016-09-13 19:15] LABS: PTT 72 SEC (25-37)
--- NOTE | 2016-09-14 05:55 | PN- Housestaff ---
See Addendum Subjective Follow-up For: Respiratory failure secondary to pneumonia, atrial fibrillation Tele-Events Since Last Visit: NSR-SB with HR 59-75 Subjective: Patient seen and examined at bedside. Resting comfortably in bed with no new complaints. She reports improvement in her breathing. Would like to be seen by ortho for the ruptured bakers cyst but currently has no pain or limitation with ROM. Denies any chest pain, palpitations, lightheadedness, dizziness, abdominal pain, n/v/c/d. No acute events reported overnight. Review of Systems Constitutional: Reports: see HPI. Objective Last 24 Hrs of Vital Signs/I&O Vital Signs Date Time Temp Pulse Resp B/P B/P Pulse O2 O2 Flow FiO2 Mean Ox Delivery Rate 09/14 0652 67 144/64 09/14 0049 65 94 09/14 0048 99.1 78 20 93 Nasal Cannula 09/14 0000 Nasal 2.0L Cannula 09/13 2329 77 152/60 09/13 2208 88 158/68 09/13 1904 93 Nasal 2.0L Cannula 09/13 1805 140/76 09/13 1751 97 Nasal 2.0L Cannula 09/13 1601 97.4 75 20 143/70 95 Nasal Cannula 09/13 1113 93 Room Air 09/13 0910 96 Nasal 2.0L Cannula 09/13 0759 97.6 95 20 146/60 92 Intake & Output 09/14 0800 / 0000 09/13 1600 Intake Total 903.2 1200 Output Total 300 800 Balance 603.2 400 Intake, IV 303.2 800 Intake, Oral 600 400 Output, Urine 300 800 Patient 105.404 kg Weight Physical Exam General Appearance: Alert, Cooperative, No Acute Distress Other Physical Findings: HEENT: Atraumatic, PERRLA, EOMI Neck: Supple Cardiovascular: Irregular heart rate around 70 Lungs: Bilateral diminished breath sounds with some wheezing Abdomen: Soft, No Tenderness Neurological: Normal Speech, grossly intact Current Medications: Current Medications Sig/Rubin Start time Last Medication Dose Route Stop Time Status Admin Acetaminophen 650 MG .STK-MED ONE 09/14 943 DC PO 09/13 944 Acetaminophen 650 MG Q6P PRN 09/11 199 AC 09/13 PO 232 Acetaminophen 1,000 MG Q12P PRN 09/11 199 AC IV Albuterol Sulfate 3 ML BID 09/11 2199 AC 09/13 INH 1903 Albuterol Sulfate 3 ML Q6P PRN 09/11 0645 AC INH Albuterol Sulfate 2 PUF Q4-6 PRN PRN 09/11 0200 AC INH Amlodipine Besylate 10 MG DAILY 09/11 1000 AC 09/13 PO 0929 Aspirin Buffered 81 MG DAILY 09/11 1000 AC 09/13 PO 0929 Atorvastatin Calcium 80 MG 1700 05/ 1700 AC 09/13 PO 1651 Azithromycin 250 MG DAILY 09/12 1000 AC 09/13 PO 0929 Budesonide/ 2 PUF BID 09/11 1000 AC 09/13 Formoterol Fumarate INH 2207 Ceftriaxone Sodium 1,000 MG DAILY 09/11 1000 AC 09/13 IV 0928 Clonazepam 0.5 MG QPM 09/11 2200 AC 09/13 PO 09/18 215 2208 Diltiazem HCl 60 MG Q6 09/13 1800 AC 09/14 PO 0652 Diltiazem HCl 125 MG Q10H 09/13 1530 DC Sodium Chloride 100 ML IV 09/13 1900 Diltiazem HCl 125 MG Q10H 09/13 0100 DC 08 Sodium Chloride 100 ML IV 09/13 1330 0640 Fenofibrate 145 MG DAILY 09/11 1000 AC 09/13 PO 0929 Furosemide 20 MG Q12 09/12 1315 AC 09/13 IV 2207 Heparin Sodium 4,200 UNIT ONCE ONE 09/13 1104 DC 09/13 (Porcine) IV 09/13 1105 1236 Heparin Sodium 25,000 UNIT Q24H 09/12 1315 AC 09/13 (Porcine) IV 0800 Sodium Chloride 500 ML Insulin Aspart 6 UNITS ONCE ONE 09/14 0415 DC 09/14 ME 09/14 0416 0425 Insulin Aspart 6 UNITS ONCE ONE 09/14 0045 DC 09/14 SC 09/14 0046 0116 Insulin Aspart 0 TIDAC/HS 09/11 2155 AC 09/13 SC 2208 Ipratropium [place] 2.5 ML BID 09/11 2200 AC 09/13 INH 1903 Isosorbide 30 MG DAILY 09/11 1000 AC 09/13 Mononitrate PO 0929 Metoprolol Tartrate 25 MG BID 09/11 1000 AC 09/13 PO 2208 Morphine Sulfate 2 MG Q3P PRN 09/12 0945 AC 05 IV 0953 Nitroglycerin 0.4 MG Q 5 MINUTES X 3 DO.. 09/12 0915 AC 09/12 SL 0944 Ticagrelor 60 MG BID 09/11 1000 AC 09/13 PO 2208 Last 24 Hrs of Lab/Maximo Results Last 24 Hrs of Labs/Mics: Laboratory Tests 09/13/16 1850: APTT 72 H Assessment/Plan Assessment: Ms Mckoy is a 56-year-old female past medical history significant for hypertension, hyperlipidemia, GERD, type 2 diabetes with retinopathy, asthma, PATRICIA and CPAP, CAD status post RCA stenting 2 in 2010 and 2014, PVD status post right lower extremity stent, anxiety who presented with chief complaint of SOB. CXR showed biabilar opacities. Left foot Xray showed no fracture or dislocation. Chest CTA showed no pulmonary embolism, right lower lobe infiltrate, bilateral pleural effusions, left lung base patchy airspace disease and mediastinal lymphadenopathy. She was initially being managed in the general medicine floor and later transferred to telemetry on Tuesday, currently for the following issues: #Atrial fibrillation with rapid ventricular rate, now controlled * Start Eliquis 5 mg PO BID (Discontinue heparin) * Change diltiazem to Cardizem CD 240 mg daily (hold until after nuclear stress test tomorrow) #Acute respiratory failure, secondary to pneumonia There is question regarding etiology of her hypoxic respiratory failure. Patient does have h/o PATRICIA on CPAP. However she says her symptoms have acutely worsened. She described could be secondary to an infiltrate seen on CT versus new diagnosis of CHF. She does have elevated BNP, orthopnea, and bilateral pleural effusions. She is getting IV ceftriaxone and azithromycin for treatment of possible lower lobe pneumonia. * IV ceftriaxone and PO azithromycin daily * Switch IV Lasix to 20mg to PO BID (decrease to 20mg PO QD on discharge) * Follow blood cultures, lower respiratory culture, (urine legionella/strep antigens negative) * Continue supplemental O2 via nasal cannula with goal O2 >90-92% * Continue TRC eval and nebs * Continue Incentive spirometry * Continue symbicort 2 puffs BID * Patient's symptoms occurred after albuterol nebulizer treatment. Consider holding the nebs. # Asymptomatic pyuria * Patient does not have any symptoms of urinary tract infection although her urinalysis is suggestive of one. Will not pursue treating a symptomatic pyuria at this point of time. # Right-sided ruptured Mantilla's cyst * Patient was supposed to follow up with orthopedics today if she was not admitted for ruptured Mantilla's cyst on the right side. * Orthopedic consultation has been placed for right-sided ruptured Mantilla's cyst - recommended outpatient follow-up as pt is currently asx # Vaginal candidiasis, treated with Oral diflucan 150 mg # HTN, HLD, CAD s/p stenting * Monitor vital signs Q shift * Continue norvasc 10 mg PO daily, ASA 81 mg PO daily, tricor 145 mg PO daily, Imdur 30 mg PO daily, lopressor 25 mg PO BID, lipitor 80 mg PO 1700 and brilinta 60 mg PO BID * Lasix as above # T2DM * Accuchecks TIDAC/HS * NSS TIDAC # PATRICIA * Continue CPAP at bedtime # Chronic renal insufficiency: Worsening renal function secondary to possible contrast-induced nephropathy in addition to her CK D stage III. * Check BEP daily, trend Cr * Holding losartan for now. FULL CODE DVTP: Heparin IV Heart Healthy Diet Mild pain pathway Problem List: 1. Depression 2. COPD 3. Asthma 4. Diabetes mellitus 5. PATRICIA (obstructive sleep apnea) 6. CKD (chronic kidney disease) 7. CAD (coronary artery disease) 8. HLD (hyperlipidemia) 9. HTN (hypertension) 10. Ruptured Bakers cyst 11. Acute respiratory failure 12. Atrial fibrillation Pain Ratin Pain Location: 0 Pain Goal: Remain pain free Pain Plan: Mild pathway Tomorrow's Labs & Rationales: CBC, BEP to f/u on response to abx Pain Plan: Mild pathway Tomorrow's Labs & Rationales: CBC, BEP to f/u on response to abx
[2016-09-14 08:00] VITALS: BP 138/64
[2016-09-14 09:24] LABS: ABSOLUTE BASOPHIL COUNT 0 /CUMM (0.0-0.2); ABSOLUTE EOSINOPHIL COUNT 0.6 /CUMM (0.0-0.7); ABSOLUTE GRANULOCYTE CT 6.1 /CUMM (1.4-6.5); ABSOLUTE LYMPH COUNT 1.5 /CUMM (1.2-3.4); ABSOLUTE MONOCYTE COUNT 0.5 /CUMM (0.10-0.60); BASOPHIL % 0.4 % (0.0-2.0); EOSINOPHIL % 6.6 % (0-5); GRANULOCYTE % 69.9 % (42.2-75.2); HEMATOCRIT 30.4 % (37-47); MEAN CORPUSCULAR HGB CONC 33.3 G/DL (33.0-37.0); MEAN CORPUSCULAR VOLUME 83.9 FL (81.0-99.0); MEAN PLATELET VOLUME 10.2 FL (7.4-10.4); PLATELET COUNT 208 /CUMM (130-400); RBC DISTRIBUTION WIDTH 14.1 % (11.5-14.5); RED BLOOD CELL CT 3.62 /CUMM (4.20-5.40); WHITE BLOOD CELL COUNT 8.7 /CUMM (4.8-10.8)
[2016-09-14 09:37] LABS: PTT 57 SEC (25-37)
--- NOTE | 2016-09-14 10:25 | PN- Pulmonary ---
Subjective HPI/Critical Care Issues: pt seen and examined doing better from respiratory perspective awaiting ortho evaluation comfortable has not been out of bed yet Objective Current Medications: Current Medications Sig/Rubin Start time Last Medication Dose Route Stop Time Status Admin Acetaminophen 650 MG .STK-MED ONE 09/13 2327 DC PO 09/13 2328 Acetaminophen 650 MG Q6P PRN / 0200 AC 05 PO 2329 Acetaminophen 1,000 MG Q12P PRN 09/11 0200 AC IV Albuterol Sulfate 3 ML BID 09/11 2200 AC 09/14 INH 0907 Albuterol Sulfate 3 ML Q6P PRN / 0645 AC INH Albuterol Sulfate 2 PUF Q4-6 PRN PRN 09/11 0200 AC INH Amlodipine Besylate 10 MG DAILY 09/11 1000 AC 09/14 PO 0917 Aspirin Buffered 81 MG DAILY / 1000 AC 09/14 PO 0917 Atorvastatin Calcium 80 MG 1700 05/06 1700 AC 05 PO 1651 Azithromycin 250 MG DAILY 09/12 1000 AC 09/14 PO 0917 Budesonide/ 2 PUF BID 09/11 1000 AC 09/14 Formoterol Fumarate INH 0917 Ceftriaxone Sodium 1,000 MG DAILY / 1000 AC 09/14 IV 0917 Clonazepam 0.5 MG QPM / 2200 AC 09/13 PO 09/18 2159 2208 Diltiazem HCl 60 MG Q6 / 1800 AC 09/14 PO 0652 Diltiazem HCl 125 MG Q10H / 1530 DC Sodium Chloride 100 ML IV 09/13 1900 Diltiazem HCl 125 MG Q10H / 0100 DC / Sodium Chloride 100 ML IV 09/13 1330 0640 Fenofibrate 145 MG DAILY / 1000 AC 05/ PO 0917 Furosemide 20 MG Q12 / 1315 AC 05 IV 0919 Heparin Sodium 4,200 UNIT ONCE ONE 09/13 1104 DC 09/13 (Porcine) IV 09/13 1105 1236 Heparin Sodium 25,000 UNIT Q24H / 1315 AC 05 (Porcine) IV 0800 Sodium Chloride 500 ML Insulin Aspart 6 UNITS ONCE ONE 09/14 0415 DC 09/14 SC 09/14 0416 0425 Insulin Aspart 6 UNITS ONCE ONE 09/14 0045 DC 09/14 NH 09/14 0046 0116 Insulin Aspart 0 TIDAC/HS 09/11 2155 09/14 SC 0914 Ipratropium [place] 2.5 ML BID 09/11 2200 09/14 INH 0907 Isosorbide 30 MG DAILY 09/11 1000 09/14 Mononitrate PO 09 Metoprolol Tartrate 25 MG BID 09/11 1000 09/14 PO 0918 Morphine Sulfate 2 MG Q3P PRN 09/12 944 09/12 IV 0953 Nitroglycerin 0.4 MG Q 5 MINUTES X 3 DO.. 09/12 914 09/12 SL 0944 Ticagrelor 60 MG BID 09/11 999 09/14 PO 0917 Vital Signs & I&O Last 24 Hrs of Vitals and I&O: Vital Signs Date Time Temp Pulse Resp B/P B/P Pulse O2 O2 Flow FiO2 Mean Ox Delivery Rate 09/14 917 98.4 74 20 138/64 09/14 916 98.4 74 20 138/64 09/14 916 98.4 74 20 138/64 09/14 0807 94 Room Air Room Air 09/14 08 98.4 74 20 138/64 91 Room Air 09/14 0652 67 144/64 09/14 0049 65 94 09/14 0048 99.1 78 20 93 Nasal Cannula 09/14 0000 Nasal 2.0L Cannula 09/13 2329 77 152/60 09/13 2208 88 158/68 09/13 1904 93 Nasal 2.0L Cannula 09/13 1805 140/76 09/13 1751 97 Nasal 2.0L Cannula 09/13 1601 97.4 75 20 143/70 95 Nasal Cannula 09/13 1113 93 Room Air Intake & Output 09/14 1600 09/14 0800 09/14 0000 Intake Total 543.2 903.2 Output Total 300 Balance 543.2 603.2 Intake, IV 303.2 303.2 Intake, Oral 240 600 Output, Urine 300 Exam Other Physical Findings: gen awake and alert heent ncat cvs s1, s2 lungs rare rhonchi abd soft bs+ ext without edema Results Last 24 Hrs of Lab Results: Laboratory Tests 09/14/16913: Anion Gap 12, Estimated GFR 39 L, BUN/Creatinine Ratio 27.1 H, APTT 57 H, CBC w Diff NO MAN DIFF REQ, RBC 3.62 L, MCV 83.9, MCH 28.0, RDW 14.1, MPV 10.2, Gran % 69.9, Lymphocytes % 17.4 L, Monocytes % 5.7, Eosinophils % 6.6 H, Basophils % 0.4, Absolute Granulocytes 6.1, Absolute Lymphocytes 1.5, Absolute Monocytes 0.5, Absolute Eosinophils 0.6, Absolute Basophils 0, PUBS MCHC 33.3 09/13/16 1850: APTT 72 H Impression/Plan Impression/Plan Impression/Plan: Impression 56 year old woman * community acquired RLL pneumonia * a.fib with RVR - acute diastolic heart failure * ruptured nuno's cyst Plan - complete course of abx - cardiology f/u - rate control - anti-coagulation - trc/nebs - orthopedics consultation for her ruptured bakers cyst that is causing pain - oob as tolerated, ambulated, consider PT
--- NOTE | 2016-09-14 12:34 | PN- Cardiology ---
Subjective Subjective: Feeling well. No chest pain. No shortness of breath. No diaphoresis. She converted to sinus rhythm overnight. No palpitations. No diaphoresis. Objective Vital Signs and I&Os Vital Signs Date Time Temp Pulse Resp B/P B/P Pulse O2 O2 Flow FiO2 Mean Ox Delivery Rate 09/14 1213 98.4 74 20 160/60 / 0918 98.4 74 20 138/64 / 0917 98.4 74 20 138/64 09/14 0917 98.4 74 20 138/64 09/14 0907 94 Room Air Room Air 09/14 0800 98.4 74 20 138/64 91 Room Air 09/14 0652 67 144/64 09/14 0049 65 94 09/14 0048 99.1 78 20 93 Nasal Cannula 09/14 0000 Nasal 2.0L Cannula 09/13 2329 77 152/60 09/13 2208 88 158/68 09/13 1904 93 Nasal 2.0L Cannula 09/13 1805 140/76 09/13 1751 97 Nasal 2.0L Cannula 09/13 1601 97.4 75 20 143/70 95 Nasal Cannula Intake & Output 09/14 1600 / 0800 / 0000 05/ 1600 / 0800 05/ 0000 Intake Total 543.2 903.2 1200 669.6 925 Output Total 300 800 425 Balance 543.2 603.2 400 669.6 500 Intake, IV 303.2 303.2 800 269.6 325 Intake, Oral 240 600 400 400 600 Output, Urine 300 800 425 Patient 232 lb 232 lb Weight Weight Standing Scale Measurement Method Physical Exam: Gen: The patient is in no acute distress HEENT: Normal nose, ears, and oropharynx. Pupils equal bilaterally. Conjunctiva normal. Neck: Supple with no JVD, no masses, and no thyromegaly Lungs: Decreased breath sounds with scattered rhonchi with normal respiratory effort Heart: Irregularly irregular, S1, S2, 1/6 systolic murmur. No peripheral edema, 2+ pulses in the lower extremities bilaterally Abdomen: Soft, nontender, no masses. No hepatomegaly. No splenomegaly Extremities: No clubbing or cyanosis. Normal muscle strength in the upper and lower extremities Skin: Normal skin turgor with no skin ulcers or lesions noted. Current Medications: Current Medications Sig/Rubin Start time Last Medication Dose Route Stop Time Status Admin Acetaminophen 650 MG .STK-MED ONE 09/13 232 DC PO 09/13 2328 Acetaminophen 650 MG Q6P PRN 09/11 0200 AC 09/13 PO 2329 Acetaminophen 1,000 MG Q12P PRN 09/11 0200 AC IV Albuterol Sulfate 3 ML BID 09/11 2200 AC 09/14 INH 0907 Albuterol Sulfate 3 ML Q6P PRN 09/11 0645 AC INH Albuterol Sulfate 2 PUF Q4-6 PRN PRN 09/11 0200 AC INH Amlodipine Besylate 10 MG DAILY 09/11 1000 AC 09/14 PO 0917 Aspirin Buffered 81 MG DAILY 09/11 1000 AC 09/14 PO 0917 Atorvastatin Calcium 80 MG 1700 09/11 1700 AC 09/13 PO 1651 Azithromycin 250 MG DAILY 09/12 1000 AC 09/14 PO 0917 Budesonide/ 2 PUF BID 09/11 1000 AC 09/14 Formoterol Fumarate INH 0917 Ceftriaxone Sodium 1,000 MG DAILY 09/11 1000 AC 09/14 IV 0917 Clonazepam 0.5 MG QPM 09/11 2200 AC 09/13 PO 09/18 2159 2208 Diltiazem HCl 60 MG Q6 / 1800 AC 09/14 PO 1213 Diltiazem HCl 125 MG Q10H 09/13 1530 DC Sodium Chloride 100 ML IV 09/13 1900 Diltiazem HCl 125 MG Q10H / 0100 DC /08 Sodium Chloride 100 ML IV / 1330 0640 Fenofibrate 145 MG DAILY 09/11 1000 AC 09/14 PO 0917 Furosemide 20 MG Q12 09/12 1315 AC 05 IV 0919 Heparin Sodium 25,000 UNIT Q24H / 1315 AC 09/13 (Porcine) IV 0800 Sodium Chloride 500 ML Insulin Aspart 6 UNITS ONCE ONE 09/14 0415 DC 09/14 SC 09/14 0416 0425 Insulin Aspart 6 UNITS ONCE ONE 09/14 0045 DC 09/14 SC 09/14 0046 0116 Insulin Aspart 0 TIDAC/HS 09/11 2155 AC 09/14 SC 1208 Ipratropium [place] 2.5 ML BID 09/11 2200 AC 09/14 INH 0907 Isosorbide 30 MG DAILY 09/11 1000 AC 09/14 Mononitrate PO 0917 Metoprolol Tartrate 25 MG BID 09/11 1000 09/14 PO 0918 Morphine Sulfate 2 MG Q3P PRN 09/12 944 09/12 IV 0953 Nitroglycerin 0.4 MG Q 5 MINUTES X 3 DO.. 09/12 914 09/12 SL 0944 Ticagrelor 60 MG BID 09/11 999 09/14 PO 0917 Results Last 48 Hrs of Labs/Mics: Laboratory Tests 09/14/16 0914: Anion Gap 12, Estimated GFR 39 L, BUN/Creatinine Ratio 27.1 H, APTT 57 H, CBC w Diff NO MAN DIFF REQ, RBC 3.62 L, MCV 83.9, MCH 28.0, RDW 14.1, MPV 10.2, Gran % 69.9, Lymphocytes % 17.4 L, Monocytes % 5.7, Eosinophils % 6.6 H, Basophils % 0.4, Absolute Granulocytes 6.1, Absolute Lymphocytes 1.5, Absolute Monocytes 0.5, Absolute Eosinophils 0.6, Absolute Basophils 0, PUBS MCHC 33.3 09/13/16 1850: APTT 72 H 09/13/16 0700: Anion Gap 11, Estimated GFR 42 L, BUN/Creatinine Ratio 29.2 H, Troponin I 0.71 *H, [id number] Pept 2660 H 09/13/16 0700: Sodium Cancelled, Potassium Cancelled, Chloride Cancelled, Carbon Dioxide Cancelled, Anion Gap Cancelled, BUN Cancelled, Creatinine Cancelled, BUN/ Creatinine Ratio Cancelled, [id number] Pept Cancelled, APTT 56 H, CBC w Diff NO MAN DIFF REQ, RBC 3.47 L, MCV 84.7, MCH 28.2, RDW 14.8 H, MPV 10.7 H, Gran % 68.5, Lymphocytes % 19.4 L, Monocytes % 6.6, Eosinophils % 5.1 H, Basophils % 0.4, Absolute Granulocytes 5.5, Absolute Lymphocytes 1.6, Absolute Monocytes 0.5, Absolute Eosinophils 0.4, Absolute Basophils 0, PUBS MCHC 33.2 09/13/16 0140: Troponin I 1.10 *H 09/12/16 2154: APTT 44 H Assessment/Plan Assessment/Plan 1. CAD 2. Hypertension 3. Continue acquired pneumonia 4. COPD exacerbation 5. Atrial fibrillation with rapid ventricular rate 6. Chest discomfort and ST depression, secondary to atrial fibrillation with rapid ventricular rate 7. Acute diastolic heart failure 8. Positive troponin, likely secondary to tachycardia. Plan: * Start Eliquis 5 mg by mouth twice a day * Discontinue heparin when first dose of Eliquis is given * Change Lasix to 20 mg by mouth twice a day in the hospital, and decreased to 20 mg by mouth daily on discharge * Change diltiazem to Cardizem CD 240 mg daily * Nuclear stress test tomorrow for evaluation of positive troponin. * Hold tomorrow's dose of diltiazem CD until after stress test * If significant ischemia seen on stress test, then cardiac catheterization may need to be considered. * If no ischemia on stress test, will consider stopping Brilinta while on Eliquis Continue telemetry? Yes
[2016-09-14 15:49] VITALS: BP 130/50
[2016-09-14 22:00] VITALS: BP 140/60
--- NOTE | 2016-09-15 05:57 | PN- Housestaff ---
CHRISTOS BARRIOS,RYAN 09/15/16 0557: Subjective Follow-up For: Respiratory failure secondary to pneumonia Atrial fibrillation Tele-Events Since Last Visit: NSR with HR 56-69 1 episode of bradycardia at 44 @ 0355AM Subjective: Patient seen and examined at bedside. She demands to be seen by ortho for the ruptured mantilla's cyst in her RLE although she currently has no pain or issues with ambulation. She is otherwise clinically stable with O2 sat in a normal range on RA this morning. Denies any dyspnea, chest pain, palpitations, lightheadedness, dizziness, abdominal pain, n/v/c/d. No acute events reported overnight. Review of Systems Constitutional: Reports: see HPI. Objective Last 24 Hrs of Vital Signs/I&O Vital Signs Date Time Temp Pulse Resp B/P B/P Pulse O2 O2 Flow FiO2 Mean Ox Delivery Rate 09/15 0133 65 95 09/15 0000 CPAP 09/14 2200 97.6 62 20 140/60 95 CPAP 09/14 2139 72 140/60 09/14 1549 98.5 72 18 130/50 93 Room Air 09/14 1213 98.4 74 20 160/60 09/14 0918 98.4 74 20 138/64 09/14 0917 98.4 74 20 138/64 09/14 0917 98.4 74 20 138/64 09/14 0907 94 Room Air Room Air 09/14 0800 95 Nasal 2.0L Cannula 09/14 08 98.4 74 20 138/64 91 Room Air Intake & Output 09/15 0800 09/15 0000 09/14 1600 Intake Total 200 710 Output Total Balance 200 710 Intake, IV 210 Intake, Oral 200 500 Patient 102.285 kg Weight Weight Chair scale Measurement Method Physical Exam General Appearance: Alert, Oriented X3, Cooperative, No Acute Distress Other Physical Findings: HEENT: Atraumatic, PERRLA, EOMI Neck: Supple Cardiovascular: Irregular heart rate around 70 Lungs: Bilateral diminished breath sounds with some wheezing Abdomen: Soft, No Tenderness Neurological: Normal Speech, grossly intact Current Medications: Current Medications Sig/Rubin Start time Last Medication Dose Route Stop Time Status Admin Acetaminophen 650 MG .STK-MED ONE 09/14 2156 DC PO 09/14 2157 Acetaminophen 650 MG Q6P PRN 09/110 AC 09/14 PO 2200 Acetaminophen 1,000 MG Q12P PRN 09/11 0200 AC IV Albuterol Sulfate 3 ML BID 09/11 2200 AC 09/14 INH 2028 Albuterol Sulfate 3 ML Q6P PRN 09/11 0645 AC INH Albuterol Sulfate 2 PUF Q4-6 PRN PRN 09/11 0200 AC INH Amlodipine Besylate 10 MG DAILY 09/11 1000 AC 09/14 PO 0917 Apixaban 5 MG BID 09/14 1247 AC 09/14 PO 2139 Aspirin Buffered 81 MG DAILY 09/11 1000 AC 09/14 PO 0917 Atorvastatin Calcium 80 MG 1700 09/11 1700 AC 09/14 PO 1753 Azithromycin 250 MG DAILY 09/12 1000 AC 09/14 PO 0917 Budesonide/ 2 PUF BID 09/11 1000 AC 09/14 Formoterol Fumarate INH 2139 Ceftriaxone Sodium 1,000 MG DAILY 09/11 1000 AC 09/14 IV 0917 Clonazepam 0.5 MG QPM 09/11 2200 AC 09/14 PO 09/18 215 2138 Diltiazem HCl 240 MG DAILY 09/16 1000 AC PO Diltiazem HCl 240 MG 1300 09/15 1300 AC PO 09/15 1301 Diltiazem HCl 120 MG ONCE ONE 09/14 1300 DC 09/14 PO 09/14 1301 1420 Diltiazem HCl 60 MG Q6 09/13 1800 DC 09/14 PO 1213 Fenofibrate 145 MG DAILY 09/11 1000 AC 09/14 PO 0917 Furosemide 40 MG .STK-MED ONE 09/14 1751 DC IV 09/14 1752 Furosemide 20 MG 7:30 AM, & 4:30 PM 09/14 1630 AC 09/14 PO 1753 Furosemide 20 MG Q12 09/12 1315 DC 05 IV 0919 Heparin Sodium 25,000 UNIT Q24H 09/12 1315 DC 09/14 (Porcine) IV 1243 Sodium Chloride 500 ML Insulin Aspart 0 TIDAC/HS 09/115 AC 09/14 SC 2200 Insulin Detemir 6 UNITS BID 09/14 2199 AC 09/14 SC 2236 Insulin Detemir 20 UNITS DAILY 09/14 1545 DC SC Ipratropium [place] 2.5 ML BID 09/11 2200 AC 09/14 INH 2028 Isosorbide 30 MG DAILY 09/11 1000 AC 09/14 Mononitrate PO 09 Metoprolol Tartrate 25 MG BID 09/11 1000 09/14 PO 2139 Morphine Sulfate 2 MG Q3P PRN 09/12 0945 09/12 IV 0953 Nitroglycerin 0.4 MG Q 5 MINUTES X 3 DO.. 09/12 0815 09/12 SL 0944 Patient Medication 1 ED .STK-MED ONE 09/14 1359 [place] Teaching ED 09/14 1400 Ticagrelor 60 MG BID 09/11 1000 09/14 PO 2140 Last 24 Hrs of Lab/Maximo Results Last 24 Hrs of Labs/Mics: Laboratory Tests 09/15/16 0710: CBC w Diff Pending, WBC Pending, RBC Pending, Hgb Pending, Hct Pending, MCV Pending, MCH Pending, RDW Pending, Plt Count Pending, MPV Pending, PUBS MCHC Pending 09/14/16 0914: Anion Gap 12, Estimated GFR 39 L, BUN/Creatinine Ratio 27.1 H, APTT 57 H, CBC w Diff NO MAN DIFF REQ, RBC 3.62 L, MCV 83.9, MCH 28.0, RDW 14.1, MPV 10.2, Gran % 69.9, Lymphocytes % 17.4 L, Monocytes % 5.7, Eosinophils % 6.6 H, Basophils % 0.4, Absolute Granulocytes 6.1, Absolute Lymphocytes 1.5, Absolute Monocytes 0.5, Absolute Eosinophils 0.6, Absolute Basophils 0, PUBS MCHC 33.3 Assessment/Plan Assessment: Ms Mckoy is a 56-year-old female past medical history significant for hypertension, hyperlipidemia, GERD, type 2 diabetes with retinopathy, asthma, PATRICIA and CPAP, CAD status post RCA stenting 2 in 2010 and 2014, PVD status post right lower extremity stent, anxiety who presented with chief complaint of SOB. #Atrial fibrillation with rapid ventricular rate, now controlled * Cont Eliquis 5 mg PO BID (Discontinue heparin) * Cont Cardizem CD 240 mg daily (hold until after nuclear stress test today) #Acute respiratory failure Most likely secondary to pneumonia * Continue TRC eval and nebs * Continue supplemental O2 via nasal cannula with goal O2 >90-92% * Continue incentive spirometry * PO Lasix as below * Continue symbicort 2 puffs BID * Appreciate pulm recs * Note patient's symptoms occurred after albuterol nebulizer treatment. Consider holding the nebs. # Community acquired PNA * Vitals per protocol * Cont IV ceftriaxone and PO azithromycin daily * Follow blood cultures, lower respiratory culture - NGTD # Right-sided ruptured Mantilla's cyst * Orthopedic consultation has been placed for right-sided ruptured Mantilla's cyst - recommended outpatient follow-up as pt is currently asx # History of HTN, HLD, CAD s/p stenting * Monitor vital signs Q shift * Cont Lasix 20mg PO BID (decrease to 20mg PO QD on discharge) * Continue norvasc 10 mg PO daily, ASA 81 mg PO daily, tricor 145 mg PO daily, Imdur 30 mg PO daily, lopressor 25 mg PO BID, lipitor 80 mg PO 1700 and brilinta 60 mg PO BID * Awaiting nuclear stress test today # T2DM * Accuchecks TIDAC/HS * NSS TIDAC # PATRICIA * Continue CPAP at bedtime # Chronic renal insufficiency: Worsening renal function secondary to possible contrast-induced nephropathy in addition to her CK D stage III. * Check BEP daily, trend Cr * Holding losartan for now. FULL CODE DVTP: Heparin IV Heart Healthy Diet Mild pain pathway Problem List: 1. Asthma 2. COPD 3. Depression 4. Diabetes mellitus 5. Hypercholesterolemia 6. DVT prophylaxis 7. Full code status 8. CKD (chronic kidney disease) 9. PATRICIA (obstructive sleep apnea) 10. Diabetes mellitus 11. CAD (coronary artery disease) 12. HTN (hypertension) 13. Ruptured Bakers cyst 14. Acute respiratory failure 15. Atrial fibrillation 16. Chronic renal insufficiency Pain Ratin Pain Location: Left sided abdomen Pain Goal: Pain 4 or less Pain Plan: Mild pathway Tomorrow's Labs & Rationales: CBC, BEP to f/u on response to abx JULIUS ARCE MD 09/15/16 1615: Attending MD Review Statement Attending Statement Attending MD Statement: examined this patient, discuss w/resident/PA/SYNTHETIC [employer]OTH B[employer]ING CUTTER, agreed w/resident/PA/SYNTHET[employer] CLOTH B[employer]ING CUTTER, reviewed EMR data (avail), discussed with nursing, discussed with case mgmt, amended to note Attending Assessment/Plan: The patient was seen and discussed with house staff. Agree with the plan of care as outlined. Unable to perform stress test as per Dr. Rodas's note. Plan is for OP Lexiscan study (pharm stress) once discharged. Mild pathway Tomorrow's Labs & Rationales: CBC, BEP to f/u on response to abx
[2016-09-15 07:50] LABS: ABSOLUTE BASOPHIL COUNT 0 /CUMM (0.0-0.2); ABSOLUTE EOSINOPHIL COUNT 0.4 /CUMM (0.0-0.7); ABSOLUTE GRANULOCYTE CT 3.4 /CUMM (1.4-6.5); ABSOLUTE LYMPH COUNT 1.5 /CUMM (1.2-3.4); ABSOLUTE MONOCYTE COUNT 0.5 /CUMM (0.10-0.60); BASOPHIL % 0.6 % (0.0-2.0); EOSINOPHIL % 7.5 % (0-5); HEMATOCRIT 30.2 % (37-47); MEAN CORPUSCULAR HGB CONC 33.4 G/DL (33.0-37.0); MEAN CORPUSCULAR VOLUME 83.8 FL (81.0-99.0); MEAN PLATELET VOLUME 10.1 FL (7.4-10.4); PLATELET COUNT 204 /CUMM (130-400); WHITE BLOOD CELL COUNT 5.8 /CUMM (4.8-10.8)
[2016-09-15 08:03] VITALS: BP 146/70
--- NOTE | 2016-09-15 09:46 | PN- Cardiology ---
Subjective Subjective: Clinically stable. No chest discomfort acute. Continues to be significantly dyspneic. Objective Vital Signs and I&Os Vital Signs Date Time Temp Pulse Resp B/P B/P Pulse O2 O2 Flow FiO2 Mean Ox Delivery Rate 09/15 912 98.2 62 20 160/48 09/15 0813 62 160/48 09/15 0803 98.2 62 20 146/70 95 05/ 0133 65 95 05/ 0000 CPAP 09/14 2200 97.6 62 20 140/60 95 CPAP 09/14 2139 72 140/60 09/14 1549 98.5 72 18 130/50 93 Room Air 09/14 1213 98.4 74 20 160/60 Intake & Output 09/15 0809/15 0000 09/14 1600 09/14 0000 Intake Total 200 710 543.2 903.2 Output Total 500 300 Balance -500 200 710 543.2 603.2 Intake, IV 210 303.2 303.2 Intake, Oral 200 500 240 600 Output, Urine 500 300 Patient 226 lb Weight Weight Chair scale Measurement Method Current Medications: Current Medications Sig/Rubin Start time Last Medication Dose Route Stop Time Status Admin Acetaminophen 650 MG .STK-MED ONE 09/14 2156 DC PO 09/14 2157 Acetaminophen 650 MG Q6P PRN 09/11 0200 AC 09/14 PO 220 Acetaminophen 1,000 MG Q12P PRN 09/11 0200 AC IV Albuterol Sulfate 3 ML BID 09/11 2199 AC 09/14 INH 2028 Albuterol Sulfate 3 ML Q6P PRN 09/11 0645 AC INH Albuterol Sulfate 2 PUF Q4-6 PRN PRN 09/11 0200 AC INH Amlodipine Besylate 10 MG DAILY 09/11 1000 AC 09/15 PO 912 Apixaban 5 MG BID 09/14 1247 AC 09/15 PO 09 Aspirin Buffered 81 MG DAILY 09/11 1000 AC 09/15 PO 09 Atorvastatin Calcium 80 MG 1700 05/ 1700 AC 09/14 PO 1753 Azithromycin 250 MG DAILY 09/12 1000 AC 09/15 PO 09 Budesonide/ 2 PUF BID / 1000 AC 09/15 Formoterol Fumarate INH 09 Ceftriaxone Sodium 1,000 MG DAILY 09/11 1000 AC 0510 IV 0914 Clonazepam 0.5 MG QPM 09/11 2200 AC 09/14 PO 09/18 2159 2138 Diltiazem HCl 240 MG DAILY 09/16 1000 AC PO Diltiazem HCl 240 MG 1300 09/15 1300 AC PO 09/15 1301 Diltiazem HCl 120 MG ONCE ONE 09/14 1300 DC 09/14 PO 09/14 1301 1420 Diltiazem HCl 60 MG Q6 09/13 1800 DC 09/14 PO 1213 Fenofibrate 145 MG DAILY 09/11 1000 AC 09/15 PO 0913 Furosemide 40 MG .STK-MED ONE 09/14 1751 DC IV 09/14 175 Furosemide 20 MG 7:30 AM, & 4:30 PM 09/14 1630 AC 09/15 PO 09 Furosemide 20 MG Q12 09/12 1315 DC 09/14 IV 0919 Heparin Sodium 25,000 UNIT Q24H 09/12 1315 DC 09/14 (Porcine) IV 1243 Sodium Chloride 500 ML Insulin Aspart 0 TIDAC/HS 09/11 2154 DC 09/14 SC 2200 Insulin Detemir 6 UNITS BID 09/14 2199 AC 09/14 SC 2236 Insulin Detemir 20 UNITS DAILY 09/14 1545 DC SC Insulin Human Regular 0 Q6 09/15 0803 AC 09/15 SC 0807 Ipratropium [place] 2.5 ML BID 09/11 2199 AC 09/14 INH 2028 Isosorbide 30 MG DAILY 09/11 1000 AC 09/15 Mononitrate PO 09 Metoprolol Tartrate 25 MG BID 09/11 1000 AC 09/14 PO 2139 Morphine Sulfate 2 MG Q3P PRN 09/12 0945 09/12 IV 0953 Nitroglycerin 0.4 MG Q 5 MINUTES X 3 DO.. 09/12 0815 09/12 SL 0944 Patient Medication 1 ED .STK-MED ONE 09/14 1359 DC Teaching ED 09/14 1400 Ticagrelor 60 MG BID 09/11 1000 AC 09/15 PO 0913 Results Last 48 Hrs of Labs/Mics: Laboratory Tests 09/15/16 0815: Anion Gap 14, Estimated GFR 39 L, BUN/Creatinine Ratio 24.3 09/15/16 0710: CBC w Diff NO MAN DIFF REQ, RBC 3.60 L, MCV 83.8, MCH 28.0, RDW 14.0, MPV 10.1, Gran % 58.0, Lymphocytes % 25.5, Monocytes % 8.4, Eosinophils % 7.5 H, Basophils % 0.6, Absolute Granulocytes 3.4, Absolute Lymphocytes 1.5, Absolute Monocytes 0.5, Absolute Eosinophils 0.4, Absolute Basophils 0, PUBS MCHC 33.4 09/14/16 0914: Anion Gap 12, Estimated GFR 39 L, BUN/Creatinine Ratio 27.1 H, APTT 57 H, CBC w Diff NO MAN DIFF REQ, RBC 3.62 L, MCV 83.9, MCH 28.0, RDW 14.1, MPV 10.2, Gran % 69.9, Lymphocytes % 17.4 L, Monocytes % 5.7, Eosinophils % 6.6 H, Basophils % 0.4, Absolute Granulocytes 6.1, Absolute Lymphocytes 1.5, Absolute Monocytes 0.5, Absolute Eosinophils 0.6, Absolute Basophils 0, PUBS MCHC 33.3 09/13/16 1850: APTT 72 H Assessment/Plan Assessment/Plan Assessment/Plan 1. CAD 2. Hypertension 3. Continue acquired pneumonia 4. COPD exacerbation 5. Atrial fibrillation with rapid ventricular rate 6. Chest discomfort and ST depression, secondary to atrial fibrillation with rapid ventricular rate 7. Acute diastolic heart failure 8. Positive troponin, likely secondary to tachycardia. Recommendations: -The patient continues to be markedly dyspneic, especially with exertion. I suspect that this is multifactorial. A nuclear stress test was attempted this morning. The patient was unable to negotiate the treadmill and only remained on the treadmill for 1-1/2 minutes. The test was stopped due to severe dyspnea. No significant ECG changes were noted. The nuclear images were not obtained due to the patient's of optimal performance on the treadmill. -I discussed the situation in detail with Dr. Padilla. -For now, I would recommend continuing the patient's current pulmonary treatment and completing the course of antibiotics. I will arrange for the patient to have a Lexiscan nuclear stress test performed as an outpatient in a few weeks. -The patient did have a cardiac catheterization performed about 5 months ago. That last cardiac catheterization showed that the right coronary artery stents were all patent. The patient had a 30% stenosis in her left main coronary artery. A 50% mid LAD lesion was noted. It was also a 40% diagonal branch lesion noted and an ostial 80% lesion in a third diagonal branch which was a very tiny vessel. A 40% proximal circumflex lesion was also present. No interventions were recommended at that time. It is possible that the patient's levator troponin might be related to the 80% third diagonal branch lesion. At the time of the cath this was felt not to be amenable to intervention. -Follow-up with me as outpatient for further plans. -Continue current medications for now- -For now, with respect to the patient's anticoagulation and antiplatelet medications, in view of her multiple overlapping stents in the right coronary artery, the recommendation would be to continue Brilinta 60 mg twice a day and aspirin 81 mg daily.
--- NOTE | 2016-09-15 09:50 | PN- Pulmonary ---
Subjective HPI/Critical Care Issues: pt seen and examined off o2 feels well no cp, dyspnea at baseline Objective Current Medications: Current Medications Sig/Rubin Start time Last Medication Dose Route Stop Time Status Admin Acetaminophen 650 MG .STK-MED ONE 09/14 2156 DC PO 09/14 2157 Acetaminophen 650 MG Q6P PRN 09/11 0200 AC 09/14 PO 220 Acetaminophen 1,000 MG Q12P PRN 09/11 0200 AC IV Albuterol Sulfate 3 ML BID 09/11 2200 AC 09/14 INH 2028 Albuterol Sulfate 3 ML Q6P PRN 09/11 0645 AC INH Albuterol Sulfate 2 PUF Q4-6 PRN PRN 09/11 0200 AC INH Amlodipine Besylate 10 MG DAILY 09/11 1000 AC 09/15 PO 09 Apixaban 5 MG BID 09/14 1247 AC 09/15 PO 09 Aspirin Buffered 81 MG DAILY 09/11 1000 AC 09/15 PO 0913 Atorvastatin Calcium 80 MG 1700 09/11 1700 AC 09/14 PO 1753 Azithromycin 250 MG DAILY 09/12 1000 AC 09/15 PO 0913 Budesonide/ 2 PUF BID 09/11 1000 AC 09/15 Formoterol Fumarate INH 09 Ceftriaxone Sodium 1,000 MG DAILY 09/11 1000 AC 09/15 IV 0914 Clonazepam 0.5 MG QPM 09/11 2200 AC 09/14 PO 09/18 215 2138 Diltiazem HCl 240 MG DAILY 09/16 1000 AC PO Diltiazem HCl 240 MG 1300 09/15 1300 AC PO 09/15 1301 Diltiazem HCl 120 MG ONCE ONE 09/14 1300 DC 09/14 PO 09/14 1301 1420 Diltiazem HCl 60 MG Q6 09/13 1800 DC 09/14 PO 1213 Fenofibrate 145 MG DAILY 09/11 1000 AC 09/15 PO 0913 Furosemide 40 MG .STK-MED ONE 09/14 1750 DC IV 09/14 175 Furosemide 20 MG 7:30 AM, & 4:30 PM 09/14 1630 AC 05 PO 0913 Furosemide 20 MG Q12 09/12 1315 DC 05 IV 0919 Heparin Sodium 25,000 UNIT Q24H 09/12 1315 DC 09/14 (Porcine) IV 1243 Sodium Chloride 500 ML Insulin Aspart 0 TIDAC/HS 09/11 2154 DC 09/14 DE 0 Insulin Detemir 6 UNITS BID 09/14 2199 09/14 DE 2236 Insulin Detemir 20 UNITS DAILY 09/14 1545 [facility] Insulin Human Regular 0 Q6 09/15 802 09/15 SC 0807 Ipratropium [place] 2.5 ML BID 09/11 2199 09/14 INH 2028 Isosorbide 30 MG DAILY 09/11 1000 09/15 Mononitrate PO 09 Metoprolol Tartrate 25 MG BID 09/11 1000 AC 09/14 PO 2139 Morphine Sulfate 2 MG Q3P PRN 09/12 0845 09/12 IV 0953 Nitroglycerin 0.4 MG Q 5 MINUTES X 3 DO.. 09/12 914 09/12 SL 0944 Patient Medication 1 ED .STK-MED ONE 09/14 1359 [place] Teaching ED 09/14 1400 Ticagrelor 60 MG BID 09/11 999 09/15 PO 0913 Vital Signs & I&O Last 24 Hrs of Vitals and I&O: Vital Signs Date Time Temp Pulse Resp B/P B/P Pulse O2 O2 Flow FiO2 Mean Ox Delivery Rate 09/15 912 98.2 62 20 160/48 09/15 912 62 160/48 09/16 0703 98.2 62 20 146/70 95 09/15 0133 65 95 09/15 0000 CPAP 09/14 2199 97.6 62 20 140/60 95 CPAP 09/149 72 140/60 09/14 1549 98.5 72 18 130/50 93 Room Air 09/14 1213 98.4 74 20 160/60 Intake & Output 09/15 1600 09/15 0800 09/15 0000 Intake Total 200 Output Total 500 Balance -500 200 Intake, Oral 200 Output, Urine 500 Patient 226 lb Weight Weight Chair scale Measurement Method Exam Other Physical Findings: gen awake and alert heent ncat cvs s1, s2 lungs rare rhonchi abd soft bs+ ext without edema Results Last 24 Hrs of Lab Results: Laboratory Tests 09/15/1615: Anion Gap 14, Estimated GFR 39 L, BUN/Creatinine Ratio 24.3 09/15/16 0710: CBC w Diff NO MAN DIFF REQ, RBC 3.60 L, MCV 83.8, MCH 28.0, RDW 14.0, MPV 10.1, Gran % 58.0, Lymphocytes % 25.5, Monocytes % 8.4, Eosinophils % 7.5 H, Basophils % 0.6, Absolute Granulocytes 3.4, Absolute Lymphocytes 1.5, Absolute Monocytes 0.5, Absolute Eosinophils 0.4, Absolute Basophils 0, PUBS MCHC 33.4 Impression/Plan Impression/Plan Impression/Plan: Impression 56 year old woman * community acquired RLL pneumonia * a.fib with RVR - acute diastolic heart failure * ruptured nuno's cyst * PATRICIA Plan - complete course of abx - cardiology f/u, further cardiac workup per cardiology - rate control - anti-coagulation - trc/nebs - orthopedics consultation per ortho on an outpatient basis - ambulate, oob - cont nocturnal cpap tx with o2 bleed in DVT prophylaxis at all times
[2016-09-15] MEDS ORDERED: ELIQUIS5 M1 PO (14:37)
[2016-09-15] MEDS ORDERED: LASIX20 M1 PO (14:39)
[2016-09-15] MEDS ORDERED: AZITHROMYCIN250 M1 PO ×2 (14:46→15:19)
[2016-09-15] MEDS ORDERED: CARDIZEM CD240 M1 PO (15:25)
--- NOTE | 2016-09-15 15:28 | Patient Discharge Instructions ---
Discharge Instructions General Discharge Information You were seen/treated for: Pneumonia Atrial fibrillation with rapid ventricular rate Special Instructions: 1. Please follow up with Dr. Rodas within a week of discharge. You will need Lexiscan nuclear stress test outpatient. 2. Please follow up with Dr. Padilla within a week of discharge. 3. Please follow up with your primary care physician in 1-2 weeks. 4. Please follow up with an orthopedist within 2 weeks of discharge for your Mantilla's cyst. Diet Continue normal diet: Yes Recommended Diet: Diabetic Activity Full Activity/No Limits: Yes (as tolerated) Acute Coronary Syndrome Inclusion Criteria At DC or during hospital stay patient has or had the following: ACS DIAGNOSIS No Discharge Core Measures Meds if any: Prescribed or Continued at Discharge Meds if any: NOT Prescribed or Continued at Discharge Congestive Heart Failure Inclusion Criteria At DC or during hospital stay patient has or had the following: CHF DIAGNOSIS No Discharge Core Measures Meds if any: Prescribed or Continued at Discharge Meds if any: NOT Prescribed or Continued at Discharge Cerebrovascular accident Inclusion Criteria At DC or during hospital stay patient has or had the following: CVA/TIA Diagnosis No Discharge Core Measures Meds if any: Prescribed or Continued at Discharge Meds if any: NOT Prescribed or Continued at Discharge Venous thromboembolism Inclusion Criteria VTE Diagnosis No VTE Type NONE VTE Confirmed by (Test) NONE Discharge Core Measures - Per Current guidelines, there needs to be overlap - treatment for the first 5 days of Warfarin therapy. - If discharged on Warfarin prior to 5 days of - overlap therapy, the patient will need to be - assessed for post discharge needs including - *Post discharge parental anticoagulation - *Warfarin and/or parental anticoagulation education - *Follow up date to check INR post discharge At least 5 days overlap therapy as Inpatient No Meds if any: Prescribed or Continued at Discharge Note: Overlap Therapy is Warfarin and Anticoagulant Meds if any: NOT Prescribed or Continued at Discharge
[2016-09-15 16:29] VITALS: BP 122/52
[2016-09-15 23:00] VITALS: BP 146/62
--- NOTE | 2016-09-16 06:09 | PN- Housestaff ---
Assessment/Plan Assessment: Ms Mckoy is a 56-year-old female past medical history significant for hypertension, hyperlipidemia, GERD, type 2 diabetes with retinopathy, asthma, PATRICIA and CPAP, CAD status post RCA stenting 2 in 2010 and 2014, PVD status post right lower extremity stent, anxiety who presented with chief complaint of SOB. #Atrial fibrillation with rapid ventricular rate, now controlled * Cont Eliquis 5 mg PO BID (Discontinue heparin) * Cont Cardizem CD 240 mg daily (hold until after nuclear stress test today) #Acute respiratory failure Most likely secondary to pneumonia * Continue TRC eval and nebs * Continue supplemental O2 via nasal cannula with goal O2 >90-92% * Continue incentive spirometry * PO Lasix as below * Continue symbicort 2 puffs BID * Appreciate pulm recs * Note patient's symptoms occurred after albuterol nebulizer treatment. Consider holding the nebs. # Community acquired PNA * Vitals per protocol * Cont IV ceftriaxone and PO azithromycin daily * Follow blood cultures, lower respiratory culture - NGTD # Right-sided ruptured Mantilla's cyst * Orthopedic consultation has been placed for right-sided ruptured Mantilla's cyst - recommended outpatient follow-up as pt is currently asx # History of HTN, HLD, CAD s/p stenting * Monitor vital signs Q shift * Cont Lasix 20mg PO BID (decrease to 20mg PO QD on discharge) * Continue norvasc 10 mg PO daily, ASA 81 mg PO daily, tricor 145 mg PO daily, Imdur 30 mg PO daily, lopressor 25 mg PO BID, lipitor 80 mg PO 1700 and brilinta 60 mg PO BID * Awaiting nuclear stress test today # T2DM * Accuchecks TIDAC/HS * NSS TIDAC # PATRICIA * Continue CPAP at bedtime # Chronic renal insufficiency: Worsening renal function secondary to possible contrast-induced nephropathy in addition to her CK D stage III. * Check BEP daily, trend Cr * Holding losartan for now. FULL CODE DVTP: Heparin IV Heart Healthy Diet Mild pain pathway
--- NOTE | 2016-09-16 06:09 | PN- Housestaff ---
Subjective Follow-up For: Respiratory failure secondary to pneumonia Atrial fibrillation Tele-Events Since Last Visit: SB-NSR with HR 55-63 Bradycardia at 45 @ 4AM Subjective: Patient seen and examined at bedside. Patient complains of upset stomach and would like to take Pepto. Reports slightly loose stools last night. Denies any dyspnea, chest pain, palpitations, lightheadedness, dizziness, abdominal pain, n /v/c/d. No acute events reported overnight. Review of Systems Constitutional: Reports: see HPI. Objective Last 24 Hrs of Vital Signs/I&O Vital Signs Date Time Temp Pulse Resp B/P B/P Pulse O2 O2 Flow FiO2 Mean Ox Delivery Rate 09/16 0828 140/60 09/16 0822 146/62 09/16 0822 146/62 09/16 0820 146/62 09/16 0135 60 97 09/16 0000 Room Air 09/15 2300 97.8 60 18 146/62 95 Room Air 09/15 2224 78 95 09/15 2128 69 146/62 09/15 2045 94 Room Air 09/15 1629 98.2 65 16 122/52 92 Room Air 09/15 1600 95 Room Air 09/15 1250 98.2 72 20 160/48 10 1130 95 Room Air 09/15 0913 98.2 62 20 160/48 09/15 0913 62 160/48 Intake & Output 09/16 1600 09/16 0800 09/16 0000 Intake Total 250 1010 Output Total Balance 250 1010 Intake, IV 0 0 Intake, Oral 250 1010 Number 0 0 Bowel Movements Patient 101.151 kg Weight Weight Chair scale Measurement Method Physical Exam General Appearance: Alert, Oriented X3, Cooperative, No Acute Distress Other Physical Findings: HEENT: Atraumatic, PERRLA, EOMI Neck: Supple Cardiovascular: Irregular heart rate Lungs: Bilateral diminished breath sounds with no wheezing Abdomen: Soft, No Tenderness Neurological: Normal Speech, grossly intact Current Medications: Current Medications Sig/Rubin Start time Last Medication Dose Route Stop Time Status Admin Acetaminophen 650 MG Q6P PRN 09/11 0200 AC 09/14 PO 220 Acetaminophen 1,000 MG Q12P PRN 09/11 0200 AC IV Albuterol Sulfate 3 ML BID 09/11 2199 AC 09/15 INH 204 Albuterol Sulfate 3 ML Q6P PRN 05/06 0645 AC INH Albuterol Sulfate 2 PUF Q4-6 PRN PRN 09/11 0200 AC INH Amlodipine Besylate 10 MG DAILY 09/11 1000 AC 09/16 PO 0822 Apixaban 5 MG BID 09/14 1247 AC 09/16 PO 0821 Aspirin Buffered 81 MG DAILY 09/11 1000 AC 09/16 PO 0821 Atorvastatin Calcium 80 MG 1700 05 1700 AC 05 PO 1600 Azithromycin 250 MG DAILY 09/12 1000 AC 09/16 PO 0822 Bismuth Subsalicylate 30 ML PCHS PRN 09/16 0830 AC PO Budesonide/ 2 PUF BID 09/11 1000 AC 09/16 Formoterol Fumarate INH 0822 Ceftriaxone Sodium 1,000 MG DAILY 09/11 1000 DC 09/15 IV 0914 Clonazepam 0.5 MG QPM 09/11 2200 AC 09/15 PO 09/18 2159 2129 Diltiazem HCl 240 MG DAILY 09/16 1000 AC 09/16 PO 0821 Diltiazem HCl 240 MG 1300 09/15 1300 DC 09/15 PO 09/15 1301 1249 Fenofibrate 145 MG DAILY 09/11 1000 AC 09/16 PO 0822 Furosemide 20 MG 7:30 AM, & 4:30 PM 09/14 1630 AC 09/16 PO 0820 Insulin Aspart 0 TIDAC/HS 09/15 1200 AC 09/16 SC 0819 Insulin Detemir 10 UNITS BID 09/15 2200 AC 09/16 SC 0820 Insulin Detemir 6 UNITS BID 09/14 2200 DC 09/15 SC 1151 Insulin Human Regular 0 Q6 09/15 0803 DC 09/15 SC 0807 Ipratropium [place] 2.5 ML BID 09/11 2200 AC 09/15 INH 2045 Isosorbide 30 MG DAILY 09/11 1000 AC 09/16 Mononitrate PO 0820 Melatonin 5 MG AT BEDTIME NEED.. 09/16 0200 AC 09/16 PO 0200 Metoprolol Tartrate 25 MG BID 09/11 1000 AC 09/16 PO 0822 Morphine Sulfate 2 MG Q3P PRN 09/12 0945 AC 09/12 IV 0953 Nitroglycerin 0.4 MG Q 5 MINUTES X 3 DO.. 09/12 0915 AC 09/12 SL 0944 Ticagrelor 60 MG BID 09/11 1000 AC 09/16 PO 0821 Assessment/Plan Assessment: Ms Mckoy is a 56-year-old female past medical history significant for hypertension, hyperlipidemia, GERD, type 2 diabetes with retinopathy, asthma, PATRICIA and CPAP, CAD status post RCA stenting 2 in 2010 and 2014, PVD status post right lower extremity stent, anxiety who presented with chief complaint of SOB. #Atrial fibrillation with rapid ventricular rate, now controlled * Cont Eliquis 5 mg PO BID * Cont Cardizem CD 240 mg daily, consider decreasing the dose as patient has been slightly bradycardic #Acute respiratory failure Most likely secondary to pneumonia * Continue TRC eval and nebs * Continue supplemental O2 via nasal cannula with goal O2 >90-92% * Continue incentive spirometry * PO Lasix as below * Continue symbicort 2 puffs BID * Appreciate pulm recs * Note patient's symptoms occurred after albuterol nebulizer treatment. Consider holding the nebs. # Community acquired PNA * Vitals per protocol * Discont IV ceftriaxone * Cont PO azithromycin 250mg daily - course to be finished on 09/18 * Follow blood cultures, lower respiratory culture - NGTD # Right-sided ruptured Mantilla's cyst * Orthopedic consultation has been placed for right-sided ruptured Mantilla's cyst - recommended outpatient follow-up as pt is currently asx # History of HTN, HLD, CAD s/p stenting * Monitor vital signs Q shift * Cont Lasix 20mg PO BID (decrease to 20mg PO QD on discharge) * Continue norvasc 10 mg PO daily, ASA 81 mg PO daily, tricor 145 mg PO daily, Imdur 30 mg PO daily, lopressor 25 mg PO BID, lipitor 80 mg PO 1700 and brilinta 60 mg PO BID * Arrange Lexiscan nuclear stress test with Dr. Rodas outpatient # T2DM * Accuchecks TIDAC/HS * NSS TIDAC # PATRICIA * Continue CPAP at bedtime # Chronic renal insufficiency: Worsening renal function secondary to possible contrast-induced nephropathy in addition to her CK D stage III. * Check BEP daily, trend Cr * Holding losartan for now. FULL CODE DVTP: Heparin IV Heart Healthy Diet Mild pain pathway Problem List: 1. Asthma 2. COPD 3. CKD (chronic kidney disease) 4. PATRICIA (obstructive sleep apnea) 5. Diabetes mellitus 6. CAD (coronary artery disease) 7. HLD (hyperlipidemia) 8. HTN (hypertension) 9. Ruptured Bakers cyst 10. Acute respiratory failure 11. Atrial fibrillation 12. Pneumonia Pain Ratin Pain Location: 0 Pain Goal: Remain pain free Pain Plan: Mild pathway Tomorrow's Labs & Rationales: None
[2016-09-16 08:28] VITALS: BP 140/60
[2016-09-16 08:52] VITALS: BP 120/60
--- NOTE | 2016-09-16 09:29 | PN- Pulmonary ---
Subjective HPI/Critical Care Issues: pt seen and examined afebrile hemodynamically stable 96% on room air deconditioning Objective Current Medications: Current Medications Sig/Rubin Start time Last Medication Dose Route Stop Time Status Admin Acetaminophen 650 MG Q6P PRN 09/11 0200 AC 09/14 PO 2201 Acetaminophen 1,000 MG Q12P PRN 09/11 0200 AC IV Albuterol Sulfate 3 ML BID 09/11 2200 AC 09/15 INH 2045 Albuterol Sulfate 3 ML Q6P PRN 09/11 0645 AC INH Albuterol Sulfate 2 PUF Q4-6 PRN PRN 09/11 0200 AC INH Amlodipine Besylate 10 MG DAILY 09/11 1000 AC 09/16 PO 0822 Apixaban 5 MG BID 09/14 1247 AC 09/16 PO 0821 Aspirin Buffered 81 MG DAILY 09/11 1000 AC 09/16 PO 0821 Atorvastatin Calcium 80 MG 1700 / 1700 AC 05 PO 1600 Azithromycin 250 MG DAILY 09/12 1000 AC 09/16 PO 0822 Bismuth Subsalicylate 30 ML PCHS PRN 09/16 0830 AC PO Budesonide/ 2 PUF BID 09/11 1000 AC 09/16 Formoterol Fumarate INH 0822 Ceftriaxone Sodium 1,000 MG DAILY 09/11 1000 DC 09/15 IV 0914 Clonazepam 0.5 MG QPM 09/11 2200 AC 09/15 PO 09/18 2159 2129 Diltiazem HCl 240 MG DAILY 09/16 1000 AC 09/16 PO 0821 Diltiazem HCl 240 MG 1300 05 1300 DC 09/15 PO 09/15 1301 1249 Fenofibrate 145 MG DAILY 09/11 1000 AC 09/16 PO 0822 Furosemide 20 MG 7:30 AM, & 4:30 PM 09/14 1630 AC 09/16 PO 0820 Insulin Aspart 0 TIDAC/HS 09/15 1200 AC 09/16 SC 0819 Insulin Detemir 10 UNITS BID 09/15 2200 AC 09/16 SC 0820 Insulin Detemir 6 UNITS BID 09/14 2200 DC 05 SC 1151 Insulin Human Regular 0 Q6 09/15 0803 DC 05 SC 0807 Ipratropium [place] 2.5 ML BID 09/11 2200 AC 09/15 INH 2045 Isosorbide 30 MG DAILY 09/11 1000 AC 09/16 Mononitrate PO 0820 Melatonin 5 MG AT BEDTIME NEED.. 09/16 0200 09/16 PO 0200 Metoprolol Tartrate 25 MG BID 09/11 1000 09/16 PO 0822 Morphine Sulfate 2 MG Q3P PRN 09/12 0945 09/12 IV 0953 Nitroglycerin 0.4 MG Q 5 MINUTES X 3 DO.. 09/12 0915 09/12 SL 0944 Ticagrelor 60 MG BID 09/11 1000 09/16 PO 0821 Vital Signs & I&O Last 24 Hrs of Vitals and I&O: Vital Signs Date Time Temp Pulse Resp B/P B/P Pulse O2 O2 Flow FiO2 Mean Ox Delivery Rate 09/16 0852 97.9 66 20 120/60 96 Room Air 09/16 0828 140/60 09/16 0822 146/62 09/16 0822 146/62 09/16 0820 146/62 09/16 0135 60 97 09/16 0000 Room Air 09/15 2300 97.8 60 18 146/62 95 Room Air 09/15 2224 78 95 09/15 2128 69 146/62 09/15 2045 94 Room Air 09/15 1629 98.2 65 16 122/52 92 Room Air 09/15 1600 95 Room Air 09/15 1250 98.2 72 20 160/48 09/15 1130 95 Room Air Intake & Output 09/16 1600 09/16 0800 09/16 0000 Intake Total 250 1010 Output Total Balance 250 1010 Intake, IV 0 0 Intake, Oral 250 1010 Number 0 0 Bowel Movements Patient 223 lb Weight Weight Chair scale Measurement Method Exam Other Physical Findings: gen awake and alert heent ncat cvs s1, s2 lungs rare rhonchi abd soft bs+ ext without edema Impression/Plan Impression/Plan Impression/Plan: Impression 56 year old woman * community acquired RLL pneumonia * a.fib with RVR - acute diastolic heart failure * ruptured nuno's cyst * PATRICIA * likely underlying deconditioning Plan - complete course of abx - cardiology f/u, further cardiac workup per cardiology - rate control - anti-coagulation - trc/nebs - orthopedics consultation per ortho on an outpatient basis - ambulate, oob - cont nocturnal cpap tx with o2 bleed in DVT prophylaxis at all times Consider rehab if patient has signficant limiting deconditioning
[2016-09-16] MEDS ORDERED: CARDIZEM CD240 M1 PO (11:16)
--- NOTE | 2016-09-17 15:51 | Discharge Summary ---
Visit Information Visit Dates Admission Date: 09/10/16 Discharge Date: 09/16/16 Hospital Course Course Attending Physician: JULIUS ARCE MD Primary Care Physician: XIOMY KAT [facility] Course: Ms. Mckoy is a 56 year old female with PMH obstructive sleep apnea on CPAP, asthma, coronary artery diease status post RCA stenting x 2 (2010, 2014), peripheral vascular disease status post right lower extremity stenting, hypertension, hyperlipidemia, type two diabetes mellitus with retinopathy and chronic kidney disease stage III who presented to [place] with chief complaint of shortness of breath secondary to community acquired pneumonia. The following problems were addressed and managed on telemetery unit: #Acute respiratory failure Most likely secondary to pneumonia * Continued TRC eval and nebs * Continued supplemental O2 via nasal cannula with goal O2 >90-92% * Continued incentive spirometry * Kept on PO Lasix 20mg daily * Continued symbicort 2 puffs BID * Pulmonology was on board and recommendations were appreciated. # Community acquired PNA Patient was placed on IV ceftriaxone which was switched to azithromycin 250mg daily. after 5 days. Patient was instructed to complete the 4-fhr-symmnu until . Blood and sputum cultures showed no growth. #Atrial fibrillation with rapid ventricular rate EKG on admission was consistent with afib with RVR. She continued to have rapid afib on tele monitor, requiring Cardizem drip which was tapered and discontinued with improvement. Patient was kept on Eliquis 5 mg PO BID and Cardizem CD 240 mg daily. Due to an intermitten episode of bradycardia toward the end of hospitalization, Cardizem CD was decreased to 180mg daily PO on discharge. # Right-sided ruptured Mantilla's cyst * Orthopedic consultation has been placed for right-sided ruptured Mantilla's cyst. Patient was recommended to follow-up outpatient as she was asymptomatic. # History of HTN, HLD, CAD s/p stenting * Patient was kept on Lasix 20mg PO BID while inpatient and then discharged on a Lasix 20mg PO QD. * Patient was kept on home meds norvasc 10 mg PO daily, ASA 81 mg PO daily, tricor 145 mg PO daily, Imdur 30 mg PO daily, lopressor 25 mg PO BID, lipitor 80 mg PO 1700 and brilinta 60 mg PO BID * Patient underwent nuclea stress test during the hospitalization but was unable to complete the test due to severe dyspnea. Per Dr. Rodas's recommendation, she was arranged for Lexiscan nuclear stress test outpatient. # T2DM * Accuchecks TIDAC/HS * NSS TIDAC # PATRICIA * Continued CPAP at bedtime # Chronic renal insufficiency: Worsening renal function secondary to possible contrast-induced nephropathy in addition to her CK D stage III. * Home med losartan was held during the hospitalization. FULL CODE DVTP: Heparin IV Heart Healthy Diet Mild pain pathway Allergies: Coded Allergies: tramadol (NAUSEA 09/10/16) Disposition Summary Disposition Principal Diagnosis: Community acquired pneumonia Additional Diagnosis: Afib with RVR Discharge Disposition: home health services Discharge Instructions General Discharge Information Code Status: Full Code Patient's Diet: Diabetic Patient's Activity: As tolerated Follow-Up Instructions/Appts: 1. Please follow up with Dr. Rodas within a week of discharge. You will need Lexiscan nuclear stress test outpatient. 2. Please follow up with Dr. Padilla within a week of discharge. 3. Please follow up with your primary care physician in 1-2 weeks. 4. Please follow up with an orthopedist within 2 weeks of discharge for your Mantilla's cyst. Medications at Discharge Discharge Medications: Continue taking these medications: Metoprolol Tartrate (Metoprolol Tartrate) 25 MG TABLET 1 Tablet ORAL TWICE DAILY Comments: given 09/16/16 @ 0820am Rosuvastatin Calcium (Crestor) 40 MG TABLET 1 Tablet ORAL DAILY Comments: given Lipitor on 09/06/16 @ 4pm Fenofibric Acid (Trilipix) 135 MG CAPSULE.DR 1 Capsule ORAL Every night Comments: given 09/16/16 2 0822am Losartan Potassium (Cozaar) 50 MG TABLET 1 Tablet ORAL DAILY Comments: not given Isosorbide Mononitrate (Isosorbide Mononitrate ER) 30 MG TAB.ER.24H 1 Tablet ORAL DAILY Comments: given 09/16/16 @ 0820am Pantoprazole Sodium (Protonix) 40 MG TABLET.DR 1 Tablet ORAL TWICE DAILY Comments: not given Clonazepam (Clonazepam) 0.5 MG TABLET 1 Tablet ORAL Every night Comments: given 09/15/16 @ 930pm Aspirin (Ecotrin*) 81 MG TABLET.DR 1 Tablet ORAL DAILY Comments: GIVEN 09/16/16 @ 0820AM Nitroglycerin (Nitrostat) 0.3 MG TAB.SUBL 0.4 Milligram SUBLINGUAL EVERY 5 MINUTES X 3 DOSES as needed for CHEST PAIN Days = 7 Comments: given 09/12/16 @ 0945 am Amlodipine Besylate (Norvasc) 10 MG TABLET 10 Milligram ORAL DAILY Days = 30 Comments: GIVEN 09/16/16 @ 0820AM Albuterol Sulfate (Proair Hfa) 90 MCG HFA.AER.AD 2 Puff Inhale through mouth EVERY 4-6 HOURS NEEDED as needed for ASTHMA Comments: GIVEN 09/16/16 @ 1030AM Budesonide/Formoterol Fumarate (Symbicort 160-4.5 Mcg Inhaler) 160 MCG-4.5 MCG/ ACTUATION HFA.AER.AD 2 Puff Inhale through mouth TWICE DAILY Qty = 10 Comments: given 09/16/16 @ 0820am Insulin Regular, Human (Humulin R U-500 Kwikpen) 500/ML (3) INSULN.PEN 300 Units Inject into fatty tissue DAILY Qty = 18 Comments: not given Ticagrelor (Brilinta) 60 MG TABLET 1 Tablet ORAL TWICE DAILY Qty = 60 Comments: given 09/16/16 @ 0820am Start taking the following new medications: Azithromycin (Azithromycin) 250 MG TABLET 250 Milligram ORAL DAILY Days = 30 No Refills Instructions: Stop after last dose on 09/18/16. Comments: given 09/16/16 @ 0820am Diltiazem HCl (Cardizem Cd) 240 MG CAP.ER.24H 180 Milligram ORAL DAILY Days = 30 No Refills Comments: given 09/16/16 @ 0820 am Apixaban (Eliquis) 5 MG TABLET 5 Milligram ORAL TWICE DAILY Qty = 30 No Refills Comments: given 09/16/16 @ 0820am Furosemide (Lasix) 20 MG TABLET 1 Tablet ORAL DAILY Qty = 30 No Refills Comments: given 09/16/16 @ 0820am Copies To: XIOMY KAT; SHANTHI BARRIOS,Kathy JOHN; MAMIE BARRIOS,GARDENIA Attending MD Review Statement Documenting Attending: JULIUS ARCE MD Other Findings: The patient was seen and agree with the plan of care upon discharge.
== END 2016-09-16 15:05 | DRG 133 ==
LOC: ERH 19:12 → 1NO 22:53 → ERHI 22:53 → ENRESERV 23:52 → 2NB 09-11 01:10 → 1NO 09-12 10:18 → ENPENDDIS 09-16 11:00 → 1NO 09-16 15:05
PROVIDERS: Emergency Medicine; Internal Medicine; Pediatrics; Student in an Organized Health Care Education/Training Program; ADMIT Internal Medicine
PROC: 3E033HZ Introduction of Radioactive Substance into Peripheral Vein, Percutaneous Approach (ICD-10-PCS; principal; 2016-09-12)
PROC: 4A02XM4 Measurement of Cardiac Total Activity, External Approach (ICD-10-PCS; principal; 2016-09-12)
DX: J96.01 Acute respiratory failure with hypoxia (principal); I50.31 Acute diastolic (congestive) heart failure; J18.9 Pneumonia, unspecified organism; I13.0 Hypertensive heart and chronic kidney disease with heart failure and stage 1 through stage 4 chronic kidney disease, or unspecified chronic kidney disease; N18.3 Chronic kidney disease, stage 3 (moderate); E11.319 Type 2 diabetes mellitus with unspecified diabetic retinopathy without macular edema; E66.9 Obesity, unspecified; Z68.39 Body mass index [BMI] 39.0-39.9, adult; G47.33 Obstructive sleep apnea (adult) (pediatric); J45.909 Unspecified asthma, uncomplicated; I48.91 Unspecified atrial fibrillation; I25.10 Atherosclerotic heart disease of native coronary artery without angina pectoris; Z95.5 Presence of coronary angioplasty implant and graft; I73.9 Peripheral vascular disease, unspecified; E78.5 Hyperlipidemia, unspecified; Z87.891 Personal history of nicotine dependence; B37.3 Candidiasis of vulva and vagina; K21.9 Gastro-esophageal reflux disease without esophagitis; M71.21 Synovial cyst of popliteal space [Baker], right knee; Z79.82 Long term (current) use of aspirin; Z79.4 Long term (current) use of insulin
CPT/HCPCS: 1NSP; 2NBSP; ERO; 36415; 73630-LT; 81001; 82436; 87040; 87449; 87450; 93005; 93010; 93306; 96374; 97116-GO; 97161-GP; J0456; J0696; J1644; J1815; J1940; J2270; J2930; J3490; J7040

== ENCOUNTER 2016-09-28 10:21 | Emergency (ER) | payer OTHER ==
[~2016-09-28] VITALS: Ht 157.5 cm; Wt 94.8 kg
[~2016-09-28 10:21] MED LIST changes: +AZITHROMYCIN250 M1 PO; +BRILINTA60 MG PO; +CARDIZEM CD240 M1 PO; +ELIQUIS5 M1 PO; +HUMULIN R500 UNIT/2 SC; +LASIX20 M1 PO
--- NOTE | 2016-09-28 11:17 | ED DYSPNEA/ASTHMA COMPLAINT ---
History of Present Illness General Chief Complaint: Dyspnea (COPD, CHF, Other) Stated Complaint: SOB Allergies Coded Allergies: tramadol (NAUSEA 09/10/16) Triage Note: PT STATES THAT SHE WAS RELEASED FROM THE HOSPITAL 1 WEEK AGO AND THAT SHE HAS BEEN HAVING INCREASED SOB X 2 DAYS. COMPLAINS OF SOB ON EXERTION, DENIES COUGH, STTAES THAT SHE CALLED HER MD AND THEY TOLD HER TO GO TO THE [facility] IN THE ER FOR STEROIDS. PT MADE AWARE THAT THERE IS NO LONGER A [facility]. O2 SAT 94 % ON RA, PT ABLE TO SPEAK IN FULL SENTENCES (NEIL BARRIOS,EDWAR) General Source: patient, old records Exam Limitations: no limitations Vital Signs & Intake/Output Vital Signs & Intake/Output Vital Signs Date Time Temp Pulse Resp B/P B/P Pulse O2 O2 Flow FiO2 Mean Ox Delivery Rate 09/28 1448 98.0 68 28 191/70 94 Room Air 09/28 1353 97.8 80 26 172/72 98 Room Air 09/28 1345 97 Room Air ED Intake and Output 09/29 0000 09/28 1200 Intake Total Output Total Balance Patient 209 lb Weight Reconcile Medications Albuterol Sulfate (Proair Hfa) 90 MCG HFA.AER.AD 2 PUF INH Q4-6 PRN PRN ASTHMA (Reported) Amlodipine Besylate (Norvasc) 10 MG TABLET 10 MG PO DAILY HIGH BLOOD PRESSURE Apixaban (Eliquis) 5 MG TABLET 5 MG PO BID Afib Aspirin (Ecotrin*) 81 MG TABLET.DR 1 TAB PO DAILY HEART HEALTH (Reported) Budesonide/Formoterol Fumarate (Symbicort 160-4.5 Mcg Inhaler) 160 MCG-4.5 MCG/ ACTUATION HFA.AER.AD 2 PUF INH BID BREATHING PROBLEMS (Reported) Clonazepam 0.5 MG TABLET 1 TAB PO QPM SLEEP (Reported) Clonazepam (Klonopin) 0.5 MG TABLET 1 TAB PO DAILY Insomnia/Anxiety Diltiazem HCl (Diltiazem 24HR ER) 180 MG CAP.ER.24H 1 CAP PO DAILY HEART ( Reported) Fenofibric Acid (Trilipix) 135 MG CAPSULE.DR 1 CAP PO QPM CHOLESTEROL ( Reported) Furosemide (Lasix) 20 MG TABLET 1 TAB PO DAILY CHF Insulin Regular, Human (Humulin R U-500 Kwikpen) 500/ML (3) INSULN.PEN 300 UNITS SC DAILY DM (Reported) Isosorbide Mononitrate (Isosorbide Mononitrate ER) 30 MG TAB.ER.24H 1 TAB PO DAILY HEART (Reported) Losartan Potassium (Cozaar) 50 MG TABLET 1 TAB PO DAILY HTN (Reported) Methylprednisolone. (Medrol) 4 MG TAB.DS.PK 1 DP PO AD SOB 6 on day 1 then reduce by one tablet daily until gone Metoprolol Tartrate 25 MG TABLET 1 TAB PO BID BP (Reported) Nitroglycerin (Nitrostat) 0.3 MG TAB.SUBL 0.4 MG SL Q 5 MINUTES X 3 DOSE PRN CHEST PAIN Pantoprazole Sodium (Protonix) 40 MG TABLET.DR 1 TAB PO BID GI (Reported) Rosuvastatin Calcium (Crestor) 40 MG TABLET 1 TAB PO DAILY CHOLESTEROL ( Reported) Ticagrelor (Brilinta) 60 MG TABLET 1 TAB PO BID HEART/BLOOD (Reported) Triage Nurses Notes Reviewed? yes HPI: Ms. Mckoy is a 56 year old female with PMH obstructive sleep apnea on CPAP, asthma, coronary artery diease status post RCA stenting x 2 (2010, 2014), peripheral vascular disease status post right lower extremity stenting, hypertension, hyperlipidemia, type two diabetes mellitus with retinopathy and chronic kidney disease stage III who presented to the emergency department [facility] complaining of dyspnea and dyspnea on exertion. Patient states her symptoms began on Tuesday09/27/2016 at approximatly 4 pm in the afternoon. She subsequently felt that overnight she has continued to express worsening dyspnea and dyspnea on exertion. Patient also endorses 2 episodes of loose stools which she attributes to her supper last night consisting of hot dogs and beans. This morning she appears anxious and concerned that she still cannot catch her breath. She appears to have feeling of impending doom. She denies any fever, chills, nausea, vomiting. She was recently discharged from hospital on September 17 where she had received care for community acquired pneumonia and was sent home on antibiotics. Patient's daughter who presented at the end of the clinical encounter did state that since the patient has been discharged from [facility] she feels that her symptoms have not adequately resolved and the patient has continued to be dyspneic and continues to experience significant dyspnea on exertion. 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 see below for history Family History Hx Contributory? No (NICOLLE BARRIOS,STAN) Review of Systems Review of Systems Constitutional: Denies: chills, diaphoresis, fever, malaise, weakness. Respiratory: Reports: short of breath. Denies: cough, hemoptysis, orthopnea, sputum production, stridor, wheezing. Cardiovascular: Denies: see HPI, chest pain, edema, orthopena, palpitations. GI: Reports: diarrhea. Denies: abdominal pain, bloating, constipation, distention, bowel incontinence, melena, nausea, bloody stool, changes in stool. Genitourinary: Denies: discharge, dysuria, frequency, hematuria, hesitation. Musculoskeletal: Denies: back pain, gout, joint pain, joint swelling, muscle pain. Skin: Denies: change in skin color, change in hair/nails, dryness, erythema, jaundice. (NICOLLE BARRIOS,STAN) Physical Exam Physical Exam General Appearance: well developed/nourished, no apparent distress, alert, awake , anxious, Left Supraclavicular Tenderness. Head: atraumatic, normal appearance, active bleeding Eyes: Bilateral: PERRL, EOMI. Ears, Nose, Throat: normal pharynx, normal ENT inspection Neck: normal inspection Respiratory: normal breath sounds, chest non-tender, no respiratory distress Cardiovascular: regular rate/rhythm Gastrointestinal: normal bowel sounds, soft, non-tender Extremities: normal inspection, normal capillary refill, Edema 1+. RL>LL Neurologic/Psych: no motor/sensory deficits, awake, alert Core Measures ACS in differential dx? No Severe Sepsis Present: No Septic Shock Present: No (STAN VALVERDE MD) Progress Differential Diagnosis: musculoskeletal pain, pneumonia, pneumothorax Plan of Care: Orders Procedure Date/time Status Add-on Test (ER Only) 09/28 1351 Active B-TYPE NATRIURETIC PEP (BNP) 09/28 1211 Complete Initial ED EKG: none (STAN VALVERDE MD) Departure Departure Condition: Stable Referrals: XIOMY KAT (PCP/Family) Resident Co-Sign Statement Statement: ED Attending supervision documentation- [X] I saw and evaluated the patient. I have also reviewed all the pertinent lab results and diagnostic results. I agree with the findings and the plan of care as documented in the Resident's documentation. [X] I have reviewed the ED Record and agree with the Resident's documentation. [] Additions or exceptions (if any) to the Resident's note and plan are summarized below: [] (NEIL BARRIOS,EDWAR) Departure Disposition: HOME OR SELF CARE Clinical Impression Primary Impression: COPD exacerbation Additional Instructions: Please inform your primary care physician of this visit to the emergency department today. Inform your PCP of medication administered to you. Follow-up with your machine pack assembler Dr. Padilla this appointment should be done on 09/29/2016. Please follow-up with central scheduling to ensure that you have an appointment. If you experience any weakness, shortness breath, shortness of breath on exertion, chest pain or chest discomfort, please come back to the ED for an additional workup. Departure Forms: Customer Survey General Discharge Information Prescriptions: Current Visit Scripts Methylprednisolone. (Medrol) 1 DP PO AD #1 DP 6 on day 1 then reduce by one tablet daily until gone Clonazepam (Klonopin) 1 TAB PO DAILY #5 TAB (STAN VALVERDE MD) Critical Care Note Critical Care Note Critical Care Time: non-applicable (STAN VALVERDE MD) (STAN VALVERDE MD) Critical Care Note Critical Care Note Critical Care Time: non-applicable (STAN VALVERDE MD)
[2016-09-28 12:24] LABS: ABSOLUTE BASOPHIL COUNT 0.1 /CUMM (0.0-0.2); ABSOLUTE EOSINOPHIL COUNT 0.3 /CUMM (0.0-0.7); ABSOLUTE GRANULOCYTE CT 4.8 /CUMM (1.4-6.5); ABSOLUTE LYMPH COUNT 1.5 /CUMM (1.2-3.4); ABSOLUTE MONOCYTE COUNT 0.4 /CUMM (0.10-0.60); BASOPHIL % 0.9 % (0.0-2.0); EOSINOPHIL % 3.8 % (0-5); GRANULOCYTE % 67.9 % (42.2-75.2); HEMATOCRIT 31.4 % (37-47); MEAN CORPUSCULAR HGB 27.8 PG (27.0-31.0); MEAN CORPUSCULAR VOLUME 84.3 FL (81.0-99.0); MEAN PLATELET VOLUME 10.1 FL (7.4-10.4); PLATELET COUNT 222 /CUMM (130-400); RBC DISTRIBUTION WIDTH 14.8 % (11.5-14.5); RED BLOOD CELL CT 3.72 /CUMM (4.20-5.40)
[2016-09-28] MEDS ORDERED: DILTIAZEM 24HR180 MG PO (12:30)
--- NOTE | 2016-09-28 13:26 | RADIOLOGY REPORT ---
EXAMINATION: XR CHEST CLINICAL INFORMATION: Dyspnea on exertion. COMPARISON: 09/10/2016 TECHNIQUE: 2 views of the chest were obtained. FINDINGS: Heart remains enlarged. There is mild increased interstitial markings which appears increased compared with the previous examinations some of which may be technical. Certainly no focal infiltrate is identified to suggest pneumonia right infrahilar opacity appears somewhat improved, follow-up PA and lateral films when possible is recommended. A trace left pleural effusion is suggested. There is a stable focus of discoid atelectasis in the left lateral lung field. IMPRESSION: Mild pulmonary vascular congestion is questioned, improving right sided infiltrate is suggested.
[2016-09-28 14:48] VITALS: BP 191/70
[2016-09-28] MEDS ORDERED: MEDROL4 M2 PO (15:07)
[2016-09-28] MEDS ORDERED: KLONOPIN0.5 M1 PO (15:07)
[2016-09-29] MEDS ORDERED: AMLODIPINE BESY10 M1 PO (22:29)
== END 2016-09-28 15:23 ==
LOC: ERH 10:21
PROVIDERS: Student in an Organized Health Care Education/Training Program
DX: J44.1 Chronic obstructive pulmonary disease with (acute) exacerbation (principal)
CPT/HCPCS: 1263; 36415; 96374; J2930

== ENCOUNTER 2016-09-29 15:48 | Observation (INO) | payer OTHER ==
[~2016-09-29] VITALS: Ht 160 cm; Wt 101.6 kg
[~2016-09-29 15:48] MED LIST changes: +DILTIAZEM 24HR180 MG PO; +KLONOPIN0.5 M1 PO
--- NOTE | 2016-09-29 16:03 | NUR ---
PT CAME IN WITH C/O CHEST PAIN WAS SEEN YESTERDAY FOR SAME AND STATES SHE LEFT FOR TWO HOURS AND HER PAIN RETURNED. PT STATES SHE HAD A PULMONARY FUNCTION TEST AND STATES SHE WILL GET THE RESULTS TOMORROW AND SHE STATES SHE CAN'T TAKE IT ANYMORE. PT STATES THEY CALLED DR. MAKI AND HE TOLD HER TO COME BACK TO ED. PT REPORTS TAKING 3 SL NITRO TODAY FOR THE PAIN. PT STATES SHE CAN'T TAKE A FEW STEPS BEFORE GETTING SOB.
--- NOTE | 2016-09-29 16:33 | NUR ---
APPRECIATE TRIAGE NOTE, PT STATES PAIN IS WORSE TODAY. PLACED ON MONITOR, SINUS RHYTHM.
--- NOTE | 2016-09-29 16:38 | ED CARDIAC/CP/PALPITATIONS ---
History of Present Illness General Chief Complaint: Chest Pain Stated Complaint: C/P SEEN HERE FOR SAME YESTERDAY Source: patient, old records Exam Limitations: no limitations Vital Signs & Intake/Output Vital Signs & Intake/Output Vital Signs Date Time Temp Pulse Resp B/P B/P Pulse O2 O2 Flow FiO2 Mean Ox Delivery Rate 09/29 2050 97.2 72 18 135/63 93 09/29 1825 97.2 73 19 185/76 96 Room Air 09/29 1603 97.9 77 20 181/81 95 Room Air Allergies Coded Allergies: tramadol (NAUSEA 09/10/16) Reconcile Medications Albuterol Sulfate (Proair Hfa) 90 MCG HFA.AER.AD 2 PUF INH Q4-6 PRN PRN ASTHMA (Reported) Amlodipine Besylate (Norvasc) 10 MG TABLET 10 MG PO DAILY HIGH BLOOD PRESSURE Apixaban (Eliquis) 5 MG TABLET 5 MG PO BID Afib Aspirin (Ecotrin*) 81 MG TABLET.DR 1 TAB PO DAILY HEART HEALTH (Reported) Budesonide/Formoterol Fumarate (Symbicort 160-4.5 Mcg Inhaler) 160 MCG-4.5 MCG/ ACTUATION HFA.AER.AD 2 PUF INH BID BREATHING PROBLEMS (Reported) Clonazepam 0.5 MG TABLET 1 TAB PO QPM SLEEP (Reported) Clonazepam (Klonopin) 0.5 MG TABLET 1 TAB PO DAILY Insomnia/Anxiety Diltiazem HCl (Diltiazem 24HR ER) 180 MG CAP.ER.24H 1 CAP PO DAILY HEART ( Reported) Fenofibric Acid (Trilipix) 135 MG CAPSULE.DR 1 CAP PO QPM CHOLESTEROL ( Reported) Furosemide (Lasix) 20 MG TABLET 1 TAB PO DAILY CHF Insulin Regular, Human (Humulin R U-500 Kwikpen) 500/ML (3) INSULN.PEN 300 UNITS SC DAILY DM (Reported) Isosorbide Mononitrate (Isosorbide Mononitrate ER) 30 MG TAB.ER.24H 1 TAB PO DAILY HEART (Reported) Losartan Potassium (Cozaar) 50 MG TABLET 1 TAB PO DAILY HTN (Reported) Methylprednisolone. (Medrol) 4 MG TAB.DS.PK 1 DP PO AD SOB 6 on day 1 then reduce by one tablet daily until gone Metoprolol Tartrate 25 MG TABLET 1 TAB PO BID BP (Reported) Nitroglycerin (Nitrostat) 0.3 MG TAB.SUBL 0.4 MG SL Q 5 MINUTES X 3 DOSE PRN CHEST PAIN Pantoprazole Sodium (Protonix) 40 MG TABLET.DR 1 TAB PO BID GI (Reported) Rosuvastatin Calcium (Crestor) 40 MG TABLET 1 TAB PO DAILY CHOLESTEROL ( Reported) Ticagrelor (Brilinta) 60 MG TABLET 1 TAB PO BID HEART/BLOOD (Reported) Triage Note: PT CAME IN WITH C/O CHEST PAIN WAS SEEN YESTERDAY FOR SAME AND STATES SHE LEFT FOR TWO HOURS AND HER PAIN RETURNED. PT STATES SHE HAD A PULMONARY FUNCTION TEST AND STATES SHE WILL GET THE RESULTS TOMORROW AND SHE STATES SHE CAN'T TAKE IT ANYMORE. PT STATES THEY CALLED DR. MAKI AND HE TOLD HER TO COME BACK TO ED. PT REPORTS TAKING 3 SL NITRO TODAY FOR THE PAIN. Triage Nurses Notes Reviewed? yes Onset: Abrupt Duration: week(s): (1), constant, getting worse Timing: recent history Quality/Severity: moderate, tightness Location: l sided Radiation: no radiation Activities at Onset: activity Prior Chest Pain/Card Workup: similar sx Nitro Today/Relief: 0.4 mg x 3 Aspirin Today: 81 mg x 1 Associated Symptoms: dyspnea, weight gain HPI: 56 Year old female PMH obstructive sleep apnea on CPAP, asthma, coronary artery diease status post RCA stenting x 2 (2010, 2014), peripheral vascular disease status post right lower extremity stenting on elliquis, hypertension, hyperlipidemia, type two diabetes mellitus with retinopathy and chronic kidney disease stage III presents to the ER for evaluation complaining of progressively worsening shortness of breath left-sided chest pain radiate to her left shoulder that is present with exertion and better at rest and nitroglycerin. The patient called her studio assistant Dr. Maki who advised her to come to the ER on arrival resting in the bed the patient is without any complaints. She is scheduled to have a stress test performed on October 08. She denies any abdominal pain nausea vomiting fever chills cough hemoptysis or pain with inspiration. The patient states that she's gained 30 pounds since she was discharged on September 17 for COPD exacerbation. She is not currently on prednisone she does not smoke (CHIKIS FITZPATRICK,LONA) Past History Travel History Traveled to [place] past 21 day No Medical History Any Pertinent Medical History? see below for history Neurological: NONE EENT: NONE Cardiovascular: CAD, hypertension, hyperlipidemia, myocardial infarction, [place] W STENTS Respiratory: obstructive sleep apnea, pneumonia Gastrointestinal: MILD GASTRITIS Hepatic: NONE Renal: NONE Musculoskeletal: NONE Psychiatric: anxiety Endocrine: diabetes Blood Disorders: NONE Cancer(s): NONE BANDER HAND/Reproductive: NONE Other Medical Hx: Diabetic retinopathy History of MRSA: No History of VRE: No History of CDIFF: No Surgical History Surgical History: CARDIAC STENTS Psychosocial History Who do you live with Patient/Self Services at Home None What is your primary language Mauritian Tobacco Use: Quit >30 days ago ETOH Use: denies use Illicit Drug Use: denies illicit drug use Family History Family History, If Any: MOTHER Relation not specified for: FH: hypertension Hx Contributory? No (LONA TROY) Review of Systems Review of Systems Constitutional: Reports: see HPI. All Other Systems: Reviewed and Negative Comments Review of systems: See HPI, All other systems negative. Constitutional, no chills no fever, no malaise HEENT: No visual changes no sore throat no congestion, Cardiovascular: chest pain , no palpitation , orthopnea Skin: no rashes, no change in skin Respiratory: dyspnea no cough no sputum no hemoptysis GI: No nausea no vomiting, no diarrhea, no bloating/constipation : No dysuria No hematuria, no frequency Muscle skeletal: No joint pain, no back pain, no neck pain, Neurologic: No numbnessno headache Psych: No stress Heme/endocrine: No bruising Immunology: No lymphadenopathy (LONA TROY) Physical Exam Physical Exam General Appearance: well developed/nourished, alert, awake Cardiovascular: regular rate/rhythm Comments: Well-developed well-nourished person in no acute distress HEENT: Normal EENT exam; PERRL, EOMI, no nystagmus. HEAD is atraumatic. moist mucous membranes. Neck: Supple, normal range of motion Back: Nontender, no CVA tenderness. Full range of motion Cardiovascular: Regular rate and rhythms no murmurs rubs or gallops, normal JVP Respiratory: Chest nontender.There were no bony deformities, no asymmetry. No respiratory distress. Patient speaking in full complete sentences. Breath sounds clear to auscultation bilaterally: NO W/R/R Abdomen: Soft, nontender nondistended, no appreciable organomegaly. Normal bowel sounds. No rebound/guarding, No ascites. Extremity: 1+ b/l edema, full range of motion of extremities, normal and equal pulses bilaterally, 5 out of 5 strength noted to bilateral upper and lower extremities Neuro: Alert oriented x3, motor sensory normal,. There were no obvious focal neurologic abnormalities. Skin: No appreciable rash on exposed skin, skin is warm and dry. Psych: Mood and affect is normal, memory and judgment is normal. Core Measures ACS in differential dx? Yes Severe Sepsis Present: No Septic Shock Present: No (CHIKIS FITZPATRICK,LONA) Progress Differential Diagnosis: AMI, aortic dissection, CHF/pulm edema, costochondritis, musculoskeletal pain, myocarditis, pancreatitis, pericarditis, pneumonia, pneumothorax, PSVT, pulmonary embolism, respiratory failure, unstable angina, V- fib/V-Tach, WPW syndrome Plan of Care: Orders Procedure Date/time Status Regular Diet 09/30 B Active OXYGEN SETUP (GEN) 09/29 1906 Active Saline Lock 09/29 1906 Active Misc Message 09/29 1906 Active ED Holding Orders 09/29 190 Active Vital Signs 09/29 190 Active Activity/Ambulation 09/29 190 Active Code Status 09/29 190 Active Patient Data 09/[address] in observation 09/29 1756 Active Intake & Output 09/29 1629 Active Telemetry/Senior Technical Architect 09/29 1628 Active TROPONIN LEVEL 09/29 1627 Complete PROTHROMBIN TIME 09/29 1627 Complete MAGNESIUM 09/29 1627 Complete COMPREHENSIVE METABOLIC PANEL 09/29 1627 Complete CBC WITHOUT DIFFERENTIAL 09/29 1627 Complete B-TYPE NATRIURETIC PEP (BNP) 09/29 162 Complete EKG 09/29 1550 Active Laboratory Tests 09/29/ 1638: Anion Gap 12, Estimated GFR 39 L, BUN/Creatinine Ratio 25.0, Glucose 385 H, Calcium 9.5, Magnesium 1.7, Total Bilirubin 0.5, AST 16, ALT 32, Alkaline Phosphatase 57, Troponin I 0.04, Ixp-[id number]-Cfslxmlnoej Pept 2410 H, Total Protein 7.0, Albumin 4.1, Globulin 2.9, Albumin/Globulin Ratio 1.4, PT 14.3 H, INR 1.37 H, CBC w Diff NO MAN DIFF REQ, RBC 3.58 L, MCV 84.0, MCH 28.0, RDW 15.0 H, MPV 10.0, Gran % 82.7 H, Lymphocytes % 10.7 L, Monocytes % 6.1, Eosinophils % 0.1, Basophils % 0.4, Absolute Granulocytes 9.1 H, Absolute Lymphocytes 1.2, Absolute Monocytes 0.7 H, Absolute Eosinophils 0, Absolute Basophils 0, PUBS MCHC 33.3 Labs ordered old records reviewed patient placed on 2 L oxygen at home for 94% on 2 L old records including her x-ray which was performed less than 24 hours ago. Lasix 20 IV nitroglycerin patch applied case discussed with Dr. Mckay who agrees with the plan case discussed with Dr. Maki the patient's studio assistant he will consult agrees with plan case is discussed with Dr. blackmon will place on tele IMPRESSION: Mild pulmonary vascular congestion is questioned, improving right sided infiltrate is suggested. DICTATED BY: BRITTANIE MAHARAJ MD DATE/TIME DICTATED:09/28/161319 ZIPPER JOINER:HELGA DATE/TIME TRANSCRIBED:09/28/161319 (LONA TROY) Initial ED EKG: normal p-waves, normal QRS complex, normal sinus rhythm (80) Prior EKG: unchanged Rhythm Strip: normal sinus rhythm (LONA TROY) Departure Departure Time of Disposition: 1741 Disposition: STILL A PATIENT Condition: Stable Clinical Impression Primary Impression: CHF (congestive heart failure) Secondary Impressions: Chest pain, COPD (chronic obstructive pulmonary disease), Hyperglycemia Referrals: XIOMY KAT (PCP/Family) Departure Forms: Customer Survey General Discharge Information Observation Note Spoke With: HELEN BLACKMON MD Physician Advisor Notified: JYOTI BARRIOS,GWYN Hickey Place Patient In: Non-ED OBS Care Area Rationale for Observation: My rational for observation is as follows patient with exertional dyspnea chest pain will require stress test cardiology pulmonology consult, pain has been improved with nitroglycerin IV diuresis given 30 pound weight gain premature discharge would BE medically harmful. (LONA TROY) PA/PIPELINE ENGINEER Co-Sign Statement Statement: ED Attending supervision documentation- [X] I saw and evaluated the patient. I have also reviewed all the pertinent lab results and diagnostic results. I agree with the findings and the plan of care as documented in the PA's/PIPELINE ENGINEER's documentation. [X] I have reviewed the ED Record and agree with the PA's/PIPELINE ENGINEER's documentation. [] Additions or exceptions (if any) to the PAs/PIPELINE ENGINEER's note and plan are summarized below: [] (NOEMY BARRIOS,TUAN Hickey) Critical Care Note Critical Care Note Critical Care Time: non-applicable (CHIKIS FITZPATRICK,LONA)
--- NOTE | 2016-09-29 16:40 | NUR ---
BLOOD DRAWN AND SENT TO LAB. SST,LAV,BLUE,LUDWIG
[2016-09-29 16:44] LABS: ABSOLUTE BASOPHIL COUNT 0 /CUMM (0.0-0.2); ABSOLUTE EOSINOPHIL COUNT 0 /CUMM (0.0-0.7); ABSOLUTE GRANULOCYTE CT 9.1 /CUMM (1.4-6.5); ABSOLUTE LYMPH COUNT 1.2 /CUMM (1.2-3.4); ABSOLUTE MONOCYTE COUNT 0.7 /CUMM (0.10-0.60); BASOPHIL % 0.4 % (0.0-2.0); EOSINOPHIL % 0.1 % (0-5); GRANULOCYTE % 82.7 % (42.2-75.2); MEAN CORPUSCULAR HGB CONC 33.3 G/DL (33.0-37.0); PLATELET COUNT 229 /CUMM (130-400); RED BLOOD CELL CT 3.58 /CUMM (4.20-5.40)
[2016-09-29 16:58] LABS: PT 14.3 SEC (9.4-12.5)
--- NOTE | 2016-09-29 17:15 | NUR ---
PT HAS A NITRO TO LEFT CHEST WALL AND REMAINS ON MONITOR
--- NOTE | 2016-09-29 18:24 | NUR ---
PT MEDICATED ORDERED AND DENIES ANY PAIN AT PRESENT
--- NOTE | 2016-09-29 18:25 | NUR ---
MEAL TRAY OFFERED
--- NOTE | 2016-09-29 19:13 | NUR ---
EDU[facility]BERT Nurse Note by: MAURICIO DOMINIQUE I agree with the BILL CLERK findings/evaluation of this patient's condition. Entered by: MAURICIO DOMINIQUE Date: 09/29/16 Time: 1913
--- NOTE | 2016-09-29 19:30 | NUR ---
ASSUMED CARE FROM ANIA GARCIA
--- NOTE | 2016-09-29 20:03 | NUR ---
PT ATE DINNER. TOLERTED WELL. PT TO BEDSIDE COMMODE. 700 ML OUTPUT
--- NOTE | 2016-09-29 20:04 | NUR ---
PT A/O X4. RESP UNLABORED. SKIN WARM AND DRY. NSR ON THE MONITOR. NO APPARENT DISTRESS. FAMILY AT BEDSIDE
--- NOTE | 2016-09-29 20:20 | History & Physical ---
CARLA BARRIOS,BECKI 09/29/16 2020: General Information and HPI MD Statement: I have seen and personally examined EDUARD ALBERT and documented this H&P. The patient is a 56 year old F who presented with a patient stated chief complaint of [Chest pain]. Source of Information: patient, old records Exam Limitations: no limitations History of Present Illness: This is a 56-year-old female with past medical history of PATRICIA on CPAP, asthma, CAD status post RCA stenting in 2010 and 2014, PVD on Eliquis, hypertension, hyperlipidemia, diabetes with retinopathy and CK D stage III, who comes in for chief complaint of shortness of breath and left-sided chest pain. Notably, patient presented to ED with similar symptoms yesterday and was sent home after a round of duoneb, solumedrol, and Z-jahaira. Pt found no relief to her symptoms, in fact she says they worsened, so she returned today. Pt states that she has a chest pressure sensation which radiates to her l. shoulder and at its worst rates a 10/10. Walking or minor exertion makes pain worse, nitrates and rest make the pain better. With nitrate pain is 6/10/ There is some SOB is associated with pain. Both SOB and CP are worsened with laying down. Pt was D/C September 17 from . During that admisison she was treated for acute respiratory failure 2/2 CAP, and new onset afib with RVR. Pt denies any fever, N/V/D, endorses some subjective chills, decreased exercise tolerance, and worsening chest pain. In addition she has a 13 lb weight gain from her previous admission and she states that she has more swelling in her legs. She endorses vague complaints of orthopnea and inability to sleep flat but has two pillow orthopnea which is at her baseline. Last ECHO done on September shows EF of 55-60% and no evidence of pulmonary hypertension. At that time she did have a small pericardial effusion noted. Patient sees Dr. Rodas for cardiology. She is scheduled for a stress test on October 08 on outpatient basis. Allergies/Medications Allergies: Coded Allergies: tramadol (NAUSEA 09/10/16) Home Med list Albuterol Sulfate (Proair Hfa) 90 MCG HFA.AER.AD 2 PUF INH Q4-6 PRN PRN ASTHMA (Reported) Amlodipine Besylate 10 MG TABLET 1 TAB PO DAILY CHF (Reported) Apixaban (Eliquis) 5 MG TABLET 5 MG PO BID Afib Aspirin (Ecotrin*) 81 MG TABLET.DR 1 TAB PO DAILY HEART HEALTH (Reported) Budesonide/Formoterol Fumarate (Symbicort 160-4.5 Mcg Inhaler) 160 MCG-4.5 MCG/ ACTUATION HFA.AER.AD 2 PUF INH BID BREATHING PROBLEMS (Reported) Clonazepam (Klonopin) 0.5 MG TABLET 1 TAB PO DAILY Insomnia/Anxiety Diltiazem HCl (Diltiazem 24HR ER) 180 MG CAP.ER.24H 1 CAP PO DAILY HEART ( Reported) Fenofibric Acid (Trilipix) 135 MG CAPSULE.DR 1 CAP PO QPM CHOLESTEROL ( Reported) Furosemide (Lasix) 20 MG TABLET 1 TAB PO DAILY CHF Insulin Regular, Human (Humulin R U-500 Kwikpen) 500/ML (3) INSULN.PEN 300 UNITS SC DAILY DM (Reported) Isosorbide Mononitrate (Isosorbide Mononitrate ER) 30 MG TAB.ER.24H 1 TAB PO DAILY HEART (Reported) Losartan Potassium (Cozaar) 50 MG TABLET 1 TAB PO DAILY HTN (Reported) Methylprednisolone. (Medrol) 4 MG TAB.DS.PK 1 DP PO AD SOB 6 on day 1 then reduce by one tablet daily until gone Metoprolol Tartrate 25 MG TABLET 1 TAB PO BID BP (Reported) Nitroglycerin (Nitrostat) 0.3 MG TAB.SUBL 0.4 MG SL Q 5 MINUTES X 3 DOSE PRN CHEST PAIN Pantoprazole Sodium (Protonix) 40 MG TABLET.DR 1 TAB PO BID GI (Reported) Rosuvastatin Calcium (Crestor) 40 MG TABLET 1 TAB PO DAILY CHOLESTEROL ( Reported) Ticagrelor (Brilinta) 60 MG TABLET 1 TAB PO BID HEART/BLOOD (Reported) Compliance With Home Meds: GOOD Past History Travel History Traveled to [place] past 21 day No Medical History Neurological: NONE EENT: NONE Cardiovascular: CAD, hypertension, hyperlipidemia, myocardial infarction, [place] W STENTS Respiratory: obstructive sleep apnea, pneumonia Gastrointestinal: MILD GASTRITIS Hepatic: NONE Renal: NONE Musculoskeletal: NONE Psychiatric: anxiety Endocrine: diabetes Blood Disorders: NONE Cancer(s): NONE 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 child Services at Home: None Primary Language: Upper Sorbian ETOH Use: denies use Illicit Drug Use: denies illicit drug use Functional Ability ADLs Independent: dressing, eating, toileting, bathing. Ambulation: independent IADLs Independent: shopping, housework, finances, food prep, telephone, transportation , medication admin. Review of Systems Review of Systems Constitutional: Reports: chills, weakness. Denies: fever, malaise, unexplained weight loss. EENTM: Denies: blurred vision, double vision, visual changes. Cardiovascular: Reports: chest pain, edema, orthopena, palpitations. Denies: syncope. Respiratory: Reports: orthopnea, short of breath. Denies: cough, hemoptysis, sputum production, stridor, wheezing. Genitourinary: Denies: discharge, dysuria, frequency, hematuria, hesitation, pain, urgency. Musculoskeletal: Reports: no symptoms. Skin: Reports: no symptoms. Neurological/Psychological: Reports: anxiety. Exam & Diagnostic Data Last 24 Hrs of Vital Signs/I&O Vital Signs Date Time Temp Pulse Resp B/P B/P Pulse O2 O2 Flow FiO2 Mean Ox Delivery Rate 09/29 2051 97.2 72 18 135/63 93 09/29 1825 97.2 73 19 185/76 96 Room Air 09/29 1603 97.9 77 20 181/81 95 Room Air Physical Exam General Appearance Alert, Oriented X3, Cooperative, No Acute Distress Skin No Rashes, No Significant Lesion HEENT Atraumatic, PERRLA, EOMI Cardiovascular Regular Rate, Normal S1, Normal S2 Lungs crackles at bases. No wheezes Abdomen Soft, No Tenderness Neurological Normal Speech, Cranial Nerves 3-12 NL Extremities 2+ pitting edema in bilat LE Last 24 Hrs of Labs/Maximo: Laboratory Tests 09/29/16 1638: Anion Gap 12, Estimated GFR 39 L, BUN/Creatinine Ratio 25.0, Glucose 385 H, Calcium 9.5, Magnesium 1.7, Total Bilirubin 0.5, AST 16, ALT 32, Alkaline Phosphatase 57, Troponin I 0.04, Xiq-Z-Olulqprzrgh Pept 2410 H, Total Protein 7.0, Albumin 4.1, Globulin 2.9, Albumin/Globulin Ratio 1.4, PT 14.3 H, INR 1.37 H, CBC w Diff NO MAN DIFF REQ, RBC 3.58 L, MCV 84.0, MCH 28.0, RDW 15.0 H, MPV 10.0, Gran % 82.7 H, Lymphocytes % 10.7 L, Monocytes % 6.1, Eosinophils % 0.1, Basophils % 0.4, Absolute Granulocytes 9.1 H, Absolute Lymphocytes 1.2, Absolute Monocytes 0.7 H, Absolute Eosinophils 0, Absolute Basophils 0, PUBS MCHC 33.3 Assessment/Plan Assessment: This is a 56-year-old female with significant cardiac and pulmonary comorbidities who presents with a chief complaint of chest pain and shortness of breath. Given the exertional nature of chest pain which alleviates with nitroglycerin there is concern for worsening CAD. ED workup shows: Vitals 97.2, 73, 19, 185/76, 96% on room air. CBC shows: White count 11.0, hemoglobin 10.0, hematocrit 30, platelet 229. INR 1.37. BEP shows sodium 136, BUN 35, creatinine 1.4. Glucose 385. BNP 2410. EKG shows: Normal sinus rhythm with QTc 459. Patient does have some ST depressions from V3 to V6. Its present in her previous EKG but they seem more prominent at this time. PLAN Chest pain: Patient is having what sounds like typical anginal symptoms: Chest pressure that is substernal radiating to her right shoulder that is worsened with exertion and relieved by nitroglycerin. Per 's previous note, last cardiac catheterization about 6 months ago showed that all her RCA stents were patent. Left main coronary shows 30% stenosis, LAD has 50% lesion. She has a 40% diagonal branch lesion and an ostial 80% lesion in the diagonal branch. At time of catheterization they were was no indication for any intervention. Patient is scheduled for a stress test on October 08. Note that there is also concern for possible worsening heart failure causing dyspnea and chest pain in this patient. Her BNP at this time is 2410, she does endorse a 13 pound weight gain in less than half a month and she has some LE edema. However on review, her 09/13/2016 BNP was recorded at 2660. Last echo shows EF 55-60 with no evidence of pulmonary hypertension. No mention of diastolic dysfunction on last echo. Unsure of current etiology of chest pain. * Cont' metoprolol * Cont' crestor * Cont' fenofibrate * Cont' lasix * Cont' brillinta 60 * Con't nitrate * EKG and trops for ACS rule out * Restart Amlodipine- which was stopped by pharmacist after last discharge * IV lasix Paroxysmal A. fib: During previous admission patient had new onset atrial fibrillation. Currently in NSR. INR at 1.37 today. * Con't Eliquis * Con't Cardizem PATRICIA: Chronic and stable. On CPAP * albuterol * symbicort * Cont' CPAP Asthma: Chronic and stable * PRN nebs CKD 3: Her Cr is at 1.4 which is at baseline. Leukocytosis: at 11.0; likely 2/2 to solumedrol yesterday. Pt afebrile. * Monitor CBC Anemia: Hb 10.0 adn Hct 30. This is at her baseline. * Con't iron supplementation * Con't monitoring CBC full code diabetic diet chemical dvt ppx As Ranked By This Provider Problem List: 1. Chest pain 2. Asthma 3. COPD (chronic obstructive pulmonary disease) Core Measures/Miscellaneous Acute Coronary Syndrome ACS Diagnosis: No Cerebrovascular Accident CVA/TIA Diagnosis: No Congestive Heart Failure CHF Diagnosis: No Venous Thromboembolism VTE Risk Factors: Acute medical illness, Age > 40 No [facility] VTE prophylaxis d/t: No contraindications No VTE Pharm Prophylaxis d/t: No contraindications VTE Diagnosis: No VTE Type: NONE VTE Confirmed by (Test): NONE Severe Sepsis Severe Sepsis Present: No Septic Shock Septic Shock Present: No Miscellaneous Documentation Attending Case Discussed With: NEYMAR BARRIOSTIBURCIO Primary Care Physician: XIOMY KAT Patient sees these Specialists Dr. Rodas Level of Patient Care: Telemetry Consults Needed: Consulting Specialty: Pulmonary Disease GERDA ARROYO MD,MARE 09/29/16 4052: Resident Review Statement Resident Statement: examined this patient, discussed with internal control manager, discussed with family, reviewed EMR data (avail) Other Findings: 56 years old woman with past medical history of coronary artery disease status post stent placement 2014, atrial fibrillation, asthma, obstructive sleep apnea, diabetes type 2, chronic kidney disease came to emergency department with chief complaint of chest pain and shortness of breath. Pain is pressure-like, 10/10, radiates to left shoulder, worse on exertion and lying down. Vitals in emergency department patient afebrile, no tachypnea or tachycardia, systolic blood pressure in the range of 1 8125 and diastolic 76-81, oxygen saturation of 95% on room air. Current labs leukocytosis white count 11, hemoglobin 10 and hematocrit 30, mild hyponatremia 136, BUN 35 and creatinine of 1.4. EKG showed NE interval of 14 to DC 459, no axis deviation, depression V4 5 and 6. Patient was admitted on telemetry to for the management of following problems -Most likely acute CHF exacerbation vs rule out [place] vs non compliance with medications and CPAP -No acute EKG ST changes and negative troponin 0.01, Pro BNP 2410 - Hemodynamically stable, 1+ve B/L Lower extremity edema - Admit to telemetry - Vitals q Shift - Monitor I/O - Daily weight - Cardio consult with - Last Echo showed ejection fraction of 55-60% - Continue home medications, recently amlodipine was stopped by the pharmacist and PCP will, resume amlodipine for now - Give Furosemide 20mg IV BID - Continue Metoprololo 50 mg PO Daily - Continue Eliquis for atrial fibrillation - Give dinner (Diabetic Diet) Patient is on pain pathway Patient is on Eliquis for DVT prophylaxis Patient is on diabetic diet Patient is full code Patient is under Obsveration IVON BARRIOS, [facility] 09/30/16 0447: Attending Review Statement Attending Statement Attending Statement: examined this patient, discuss w/resident/PA/COMBINATION MAN, agreed w/resident/PA/COMBINATION MAN, discussed with family Attending Assessment/Plan: 56 yo morbidly obese F with h/o CAD s/p stent, Afib on Eliquis, HTN, PATRICIA on CPAP , T2DM, COPD/asthma, CKD stage 3B, discharged from [place] on September 17 after being treated for pneumonia, subsequently seen in ER on September 28 for worsening LIMA that was treated as COPD exacerbation. She was sent home on medrol dose pack which she did not use. Since Tuesday, she reports exertional dyspnea associated with chest pressure that resolves with nitro. Weight gain of ~ 30 lbs since discharge, but on review of records patient was 223 on September 16 and weighs 242 today so about 19 lb weight gain. She has been taking lasix 20 BID (advised once daily upon discharge), reports compliance with meds, but has not been urinating much. She was probably advised CHF wellness clinic, but she refused. Noncompliant with CPAP at night, reports makes her breathing worse. She is scheduled to get a nuclear stress test on October [address] Rodas. She also had a PFT this AM, and is awaiting results from Dr. Padilla. VSS. Chest bibasilar crackles, no wheeze or rhonchi. LE: trace to 1+ edema (R>L) . Labs: WBC 11, H/H 10/30, INR 1.37, bicarb 21, BUN 35, creat 1.4 (baseline), glucose 385, trop 0.04, proBNP 2410. CXR (09/28/16): mild pulmonary vascular congestion, improving right sided infiltrate. Echo (September 2016): EF 55-60%, mild aortic stenosis, no pulmonary hypertension. EKG: SR. 1. Exertional dyspnea likely multifactorial. Tele 23 Obs, daily weights, strict I/O's, will treat for exacerbation of diastolic heart failure, IV lasix 20 BID, serial EKG and troponin, no need for repeat echo, Cardio consult (Dr. Rodas). Ct. Imdur, aspirin, metoprolol, brilinta and statin. Await nuclear stress test scheduled for October 08. Ensure compliance with CPAP at night. Consult Pulm (Dr. Padilla), obtain PFT results. I don't think she has a COPD exacerbation, will continue nebs and symbicort. 2. Essential hypertension. Patient stopped taking amlodipine as per her pharmacist who reported ?interaction with Eliquis. Will resume amlodipine, continue losartan. DVT ppx Eliquis. Full code.
--- NOTE | 2016-09-29 21:43 | NUR ---
PT IS GOING TO 182-1
--- NOTE | 2016-09-29 22:04 | NUR ---
PT A/O X4. RESP UNLABORED. NSR ON THE MONITOR. PT DENIES CP AND SOB. APPEARS COMFORTABLE.
[2016-09-29] MEDS ORDERED: AMLODIPINE BESY10 M1 PO (22:29)
[2016-09-29 23:30] VITALS: BP 168/70
[2016-09-30 08:17] VITALS: BP 144/70
--- NOTE | 2016-09-30 09:43 | Cons- Pulmonary ---
See Addendum General Information and HPI Consulting Request Date of Consult: 09/30/16 Requested By: Dr. Vazquez Reason for Consult: dyspnea Source of Information: patient Exam Limitations: no limitations History of Present Illness: 56 year old woman, hx of patricia, a.fib, cad, on eliquis, cpap. Recent admit for CAP. At home claims to have gained about 30 pounds. Awaiting stress test. Had some chest pain. PFTs performed last week - awaiting results. Singificant dyspnea and CP. No fever, no n/v/d/c. ECHO showed 60% EF, no ph evidence. Small pericardial effusion. Sees Dr. Rodas. Was schedule for office f/u today. Allergies/Medications Allergies: Coded Allergies: tramadol (NAUSEA 09/10/16) Home Med List: Albuterol Sulfate (Proair Hfa) 90 MCG HFA.AER.AD 2 PUF INH Q4-6 PRN PRN ASTHMA (Reported) Amlodipine Besylate 10 MG TABLET 1 TAB PO DAILY CHF (Reported) Apixaban (Eliquis) 5 MG TABLET 5 MG PO BID Afib Aspirin (Ecotrin*) 81 MG TABLET.DR 1 TAB PO DAILY HEART HEALTH (Reported) Budesonide/Formoterol Fumarate (Symbicort 160-4.5 Mcg Inhaler) 160 MCG-4.5 MCG/ ACTUATION HFA.AER.AD 2 PUF INH BID BREATHING PROBLEMS (Reported) Clonazepam (Klonopin) 0.5 MG TABLET 1 TAB PO DAILY Insomnia/Anxiety Diltiazem HCl (Diltiazem 24HR ER) 180 MG CAP.ER.24H 1 CAP PO DAILY HEART ( Reported) Fenofibric Acid (Trilipix) 135 MG CAPSULE.DR 1 CAP PO QPM CHOLESTEROL ( Reported) Furosemide (Lasix) 20 MG TABLET 1 TAB PO DAILY CHF Insulin Regular, Human (Humulin R U-500 Kwikpen) 500/ML (3) INSULN.PEN 300 UNITS SC DAILY DM (Reported) Isosorbide Mononitrate (Isosorbide Mononitrate ER) 30 MG TAB.ER.24H 1 TAB PO DAILY HEART (Reported) Losartan Potassium (Cozaar) 50 MG TABLET 1 TAB PO DAILY HTN (Reported) Methylprednisolone. (Medrol) 4 MG TAB.DS.PK 1 DP PO AD SOB 6 on day 1 then reduce by one tablet daily until gone Metoprolol Tartrate 25 MG TABLET 1 TAB PO BID BP (Reported) Nitroglycerin (Nitrostat) 0.3 MG TAB.SUBL 0.4 MG SL Q 5 MINUTES X 3 DOSE PRN CHEST PAIN Pantoprazole Sodium (Protonix) 40 MG TABLET.DR 1 TAB PO BID GI (Reported) Rosuvastatin Calcium (Crestor) 40 MG TABLET 1 TAB PO DAILY CHOLESTEROL ( Reported) Ticagrelor (Brilinta) 60 MG TABLET 1 TAB PO BID HEART/BLOOD (Reported) Current Medications: Current Medications Sig/Rubin Start time Last Medication Dose Route Stop Time Status Admin Albuterol Sulfate 2 PUF Q4-6 PRN PRN 09/29 2215 AC INH Amlodipine Besylate 10 MG DAILY 09/30 1000 AC PO Apixaban 5 MG BID 09/29 2210 AC 09/29 PO 2304 Aspirin Buffered 81 MG DAILY 09/30 1000 AC PO Atorvastatin Calcium 80 MG 1700 09/30 1700 AC PO Budesonide/ 2 PUF BID 09/29 2211 AC 09/29 Formoterol Fumarate INH 2230 Clonazepam 0.5 MG AT BEDTIME 09/30 2200 AC PO 10/07 2159 Clonazepam 0.5 MG DAILY 09/30 1000 DC 09/29 PO 10/07 0959 2359 Clonazepam 0.5 MG .STK-MED ONE 09/29 2355 DC PO 09/29 2356 Diltiazem HCl 180 MG DAILY 09/30 1000 AC PO Furosemide 20 MG 7:30 AM, & 4:30 PM 09/30 0730 AC 09/30 IV 0659 Furosemide 0 .STK-MED ONE 09/29 1750 DC IV Furosemide 20 MG ONCE ONE 09/29 1730 DC 09/29 IV 09/29 1731 1825 Insulin Aspart 0 TIDAC 09/30 0800 AC SC Insulin Detemir 10 UNITS BID 09/29 2227 AC 09/29 SC 2249 Isosorbide 30 MG DAILY 09/30 1000 AC Mononitrate PO Losartan Potassium 50 MG DAILY 09/30 1000 AC PO Metoprolol Tartrate 25 MG BID 09/30 1000 AC PO Morphine Sulfate 2 MG Q8P PRN 09/29 2230 AC IV Nitroglycerin 0 .STK-MED ONE 09/29 1715 DC TOP Nitroglycerin 0.1 MG ONCE ONE 09/29 1700 DC 09/29 TOP 09/29 1701 1715 Oxycodone HCl 5 MG Q8P PRN 09/29 2230 AC PO Polyethylene Glycol 17 GM AT BEDTIME 09/30 2199 AC PO Ticagrelor 60 MG BID 09/29 2215 AC 09/29 PO 2304 Review of Systems Comments 18 pt ros reviewed pertinent positives and negatives in chart Past History Travel History Traveled to [place] past 21 day No Medical History Neurological: NONE EENT: NONE Cardiovascular: CAD, hypertension, hyperlipidemia, myocardial infarction, [place] W STENTS Respiratory: obstructive sleep apnea, pneumonia Gastrointestinal: MILD GASTRITIS Hepatic: NONE Renal: NONE Musculoskeletal: NONE Psychiatric: anxiety Endocrine: diabetes Blood Disorders: NONE Cancer(s): NONE 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 child Services at Home: None Primary Language: Azerbaijani Smoking Status: Unknown If Ever Smoked ETOH Use: denies use Illicit Drug Use: denies illicit drug use Functional Ability ADLs Independent: dressing, eating, toileting, bathing. Ambulation: independent IADLs Independent: shopping, housework, finances, food prep, telephone, transportation , medication admin. Exam & Diagnostic Data Last 24 Hrs of Vital Signs/I&O Vital Signs Date Time Temp Pulse Resp B/P B/P Pulse O2 O2 Flow FiO2 Mean Ox Delivery Rate 09/30 0817 97.7 60 22 144/70 97 Room Air 09/30 0339 73 96 09/30 0021 66 97 09/29 2330 98.3 80 24 168/70 95 09/29 2305 97.2 70 20 140/74 95 Room Air 09/29 2051 97.2 72 18 135/63 93 09/29 1825 97.2 73 19 185/76 96 Room Air 09/29 1603 97.9 77 20 181/81 95 Room Air Intake & Output 09/30 1600 09/30 0800 09/30 0000 Intake Total 200 0 Output Total 1100 1300 Balance -900 -1300 Intake, Oral 200 0 Output, Urine 1100 1300 Patient 233 lb 242 lb Weight Weight Chair scale Reported by Patient Measurement Method Physical Exam Other Physical Findings: gen awake and alert heent ncat cvs s1, s2 lungs rare rhonchi abd soft bs+ ext without edema Last 48 Hrs of Labs/Maximo: Laboratory Tests 09/30/16 0630: CBC w Diff Pending, WBC Pending, RBC Pending, Hgb Pending, Hct Pending, MCV Pending, MCH Pending, RDW Pending, Plt Count Pending, MPV Pending, PUBS MCHC Pending 09/30/16 0600: Anion Gap 11, Estimated GFR 39 L, BUN/Creatinine Ratio 28.6 H, Troponin I 0.06 09/29/16 2251: Troponin I 0.05 09/29/16 1638: Anion Gap 12, Estimated GFR 39 L, BUN/Creatinine Ratio 25.0, Glucose 385 H, Calcium 9.5, Magnesium 1.7, Total Bilirubin 0.5, AST 16, ALT 32, Alkaline Phosphatase 57, Troponin I 0.04, Aiy-B-Fjufpaowyjf Pept 2410 H, Total Protein 7.0, Albumin 4.1, Globulin 2.9, Albumin/Globulin Ratio 1.4, PT 14.3 H, INR 1.37 H, CBC w Diff NO MAN DIFF REQ, RBC 3.58 L, MCV 84.0, MCH 28.0, RDW 15.0 H, MPV 10.0, Gran % 82.7 H, Lymphocytes % 10.7 L, Monocytes % 6.1, Eosinophils % 0.1, Basophils % 0.4, Absolute Granulocytes 9.1 H, Absolute Lymphocytes 1.2, Absolute Monocytes 0.7 H, Absolute Eosinophils 0, Absolute Basophils 0, PUBS MCHC 33.3 Assessment/Plan Impression/Plan: Impression 56 year old woman * a.fib and diastolic heart failure * PATRICIA * likely underlying deconditioning Plan - cardiology f/u, further cardiac workup per cardiology, plan for stress testing - anti-coagulation with eliquis - trc/nebs - cont nocturnal cpap tx with o2 bleed in DVT prophylaxis at all times Consult Acknowledgment - Thank you for your consult request.
[2016-09-30 09:48] LABS: ABSOLUTE BASOPHIL COUNT 0 /CUMM (0.0-0.2); ABSOLUTE EOSINOPHIL COUNT 0.1 /CUMM (0.0-0.7); ABSOLUTE GRANULOCYTE CT 5.4 /CUMM (1.4-6.5); ABSOLUTE MONOCYTE COUNT 0.7 /CUMM (0.10-0.60); BASOPHIL % 0.5 % (0.0-2.0); EOSINOPHIL % 1.1 % (0-5); GRANULOCYTE % 58.5 % (42.2-75.2); HEMATOCRIT 30.1 % (37-47); MEAN CORPUSCULAR HGB 27.9 PG (27.0-31.0); MEAN CORPUSCULAR HGB CONC 33.2 G/DL (33.0-37.0); MEAN CORPUSCULAR VOLUME 84.3 FL (81.0-99.0); MEAN PLATELET VOLUME 10.4 FL (7.4-10.4); PLATELET COUNT 223 /CUMM (130-400); RBC DISTRIBUTION WIDTH 14.8 % (11.5-14.5); RED BLOOD CELL CT 3.57 /CUMM (4.20-5.40); WHITE BLOOD CELL COUNT 9.2 /CUMM (4.8-10.8)
--- NOTE | 2016-09-30 10:09 | PN- Housestaff ---
CELIA GRANT 09/30/16 0949: Subjective Follow-up For: Exertional dyspnea Chest discomfort Subjective: Patient states improved breathing and resolved chest pain since yesterday. It seemed patient's chest pain was positional, pleuritic and exertional, lasting several hours, intermittent and relieved by Nitro. She is currently chest pain free. Admits to weight gain from 209 to 242 in last few weeks. Weighs 233 this morning. Negative fluid balance. States compliance with medications, no dietary indiscretions, per patient. Review of Systems Constitutional: Reports: see HPI. Objective Last 24 Hrs of Vital Signs/I&O Vital Signs Date Time Temp Pulse Resp B/P B/P Pulse O2 O2 Flow FiO2 Mean Ox Delivery Rate 09/30 0817 97.7 60 22 144/70 97 Room Air 09/30 0339 73 96 09/30 0021 66 97 09/29 2330 98.3 80 24 168/70 95 09/29 2305 97.2 70 20 140/74 95 Room Air 09/29 2051 97.2 72 18 135/63 93 09/29 1825 97.2 73 19 185/76 96 Room Air 09/29 1603 97.9 77 20 181/81 95 Room Air Intake & Output 09/30 1600 09/30 0800 09/30 0000 Intake Total 200 0 Output Total 1100 1300 Balance -900 -1300 Intake, Oral 200 0 Output, Urine 1100 1300 Patient 233 lb 242 lb Weight Weight Chair scale Reported by Patient Measurement Method Physical Exam General Appearance: Alert, Oriented X3, Cooperative Neck: Supple, No JVD Cardiovascular: Regular Rate, Normal S1, Normal S2 Lungs: Clear to Auscultation, Normal Air Movement Abdomen: Normal Bowel Sounds, Soft, No Tenderness Extremities: No Clubbing, No Cyanosis, 1+ pitting edema bilaterally Vascular: Normal Pulses, Pulses Symmetrical Current Medications: Current Medications Sig/Rubin Start time Last Medication Dose Route Stop Time Status Admin Albuterol Sulfate 2 PUF Q4-6 PRN PRN 09/29 2214 AC INH Amlodipine Besylate 10 MG DAILY 09/30 1000 AC PO Apixaban 5 MG BID 09/29 2209 AC 09/29 PO 2304 Aspirin Buffered 81 MG DAILY 09/30 1000 AC PO Atorvastatin Calcium 80 MG 1700 09/30 1700 AC PO Budesonide/ 2 PUF BID 09/29 2210 AC 09/29 Formoterol Fumarate INH 2230 Clonazepam 0.5 MG AT BEDTIME 09/30 2200 AC PO 10/07 2159 Clonazepam 0.5 MG DAILY 09/30 1000 DC 09/29 PO 10/07 0959 2359 Clonazepam 0.5 MG .STK-MED ONE 09/29 2355 DC PO 09/29 2356 Diltiazem HCl 180 MG DAILY 09/30 1000 AC PO Furosemide 20 MG 7:30 AM, & 4:30 PM 09/30 0730 AC 09/30 IV 0659 Furosemide 0 .STK-MED ONE 09/29 1750 DC IV Furosemide 20 MG ONCE ONE 09/29 1730 DC 09/29 IV 09/29 1731 1825 Insulin Aspart 0 TIDAC 09/30 0800 AC SC Insulin Detemir 10 UNITS BID 09/29 2227 AC 09/29 SC 2249 Isosorbide 30 MG DAILY 09/30 1000 AC Mononitrate PO Losartan Potassium 50 MG DAILY 09/30 1000 AC PO Metoprolol Tartrate 25 MG BID 09/30 1000 AC PO Morphine Sulfate 2 MG Q8P PRN 09/29 2230 AC IV Nitroglycerin 0 .STK-MED ONE 09/29 1715 DC TOP Nitroglycerin 0.1 MG ONCE ONE 09/29 1700 DC 09/29 TOP 09/29 1701 1715 Oxycodone HCl 5 MG Q8P PRN 09/29 2230 AC PO Polyethylene Glycol 17 GM AT BEDTIME 09/30 2200 AC PO Ticagrelor 60 MG BID 09/29 2215 AC 09/29 PO 2304 Last 24 Hrs of Lab/Maximo Results Last 24 Hrs of Labs/Mics: Laboratory Tests 09/30/16 0630: CBC w Diff Pending, WBC Pending, RBC Pending, Hgb Pending, Hct Pending, MCV Pending, MCH Pending, RDW Pending, Plt Count Pending, MPV Pending, PUBS MCHC Pending 09/30/16 0600: Anion Gap 11, Estimated GFR 39 L, BUN/Creatinine Ratio 28.6 H, Troponin I 0.06 09/29/16 2251: Troponin I 0.05 09/29/16 1638: Anion Gap 12, Estimated GFR 39 L, BUN/Creatinine Ratio 25.0, Glucose 385 H, Calcium 9.5, Magnesium 1.7, Total Bilirubin 0.5, AST 16, ALT 32, Alkaline Phosphatase 57, Troponin I 0.04, Dtd-B-Moofsshncad Pept 2410 H, Total Protein 7.0, Albumin 4.1, Globulin 2.9, Albumin/Globulin Ratio 1.4, PT 14.3 H, INR 1.37 H, CBC w Diff NO MAN DIFF REQ, RBC 3.58 L, MCV 84.0, MCH 28.0, RDW 15.0 H, MPV 10.0, Gran % 82.7 H, Lymphocytes % 10.7 L, Monocytes % 6.1, Eosinophils % 0.1, Basophils % 0.4, Absolute Granulocytes 9.1 H, Absolute Lymphocytes 1.2, Absolute Monocytes 0.7 H, Absolute Eosinophils 0, Absolute Basophils 0, PUBS MCHC 33.3 Assessment/Plan Assessment: 56 year old woman with atypical exertional, positional as well as pleuritic chest pain with normal EKGs and two sets of troponins, here for evaluation of her symptoms. 1. Chest pain: This patient does have a THEO score of 4, and at 20% risk at 14 days of all-cause mortality, new or recurrent MD, or severe recurrent ischemia requiring urgent revascularization. Continue telemetry. Cardiology eval. Scheduled for dipyridamole stress testing with nuclear imaging for tomorrow morning. Trend troponins and follow EKG at noon. 2. Exertional dyspnea: No signs of fluid retention, no JVD, clear lungs, trace leg welling, does have higher proBNP than baseline and good response to IV Lasix. Last echo, september 2016, normal LVEF. Stress test in am. Strict Is and Os. Daily weights, continued follow with CHF clinic upon discharge. Awiat PFT results from pulmonary. 3. Continue other medications. Heart healthy diet DVT proph addressed by Ashley. Full code. Problem List: 1. Chest pain Pain Ratin Pain Location: Chest Pain Goal: Remain pain free Pain Plan: IV morphine Tomorrow's Labs & Rationales: Not needed Consulting Request: Consulting Specialty: Pulmonary Disease ATIYA GROSS MD 09/30/16 1343: Attending MD Review Statement Attending Statement Attending MD Statement: examined this patient, discuss w/resident/PA/[employer], agreed w/resident/PA/[employer], reviewed EMR data (avail), discussed with nursing, discussed with case mgmt, reviewed images, amended to note Attending Assessment/Plan: Patient seen and examined, chest pain is resolved. Breathing is improved but not back to baseline yet. Vital Signs Date Time Temp Pulse Resp B/P B/P Pulse O2 O2 Flow FiO2 Mean Ox Delivery Rate 09/30 1109 Room Air Room Air 09/30 1108 95 Room Air Room Air 09/30 1007 66 140/70 09/30 1006 66 140/70 09/30 1006 66 140/70 09/30 1005 66 140/70 09/30 0817 97.7 60 22 144/70 97 Room Air 09/30 0800 98 Room Air 09/30 0339 73 96 09/30 0021 66 97 09/29 2330 98.3 80 24 168/70 95 09/29 2305 97.2 70 20 140/74 95 Room Air 09/29 2051 97.2 72 18 135/63 93 09/29 1825 97.2 73 19 185/76 96 Room Air 09/29 1603 97.9 77 20 181/81 95 Room Air on exam; aox3, nad. cv; s1,s2, rrr resp; clear abd; soft, nt, bs+ ext; no edema. Laboratory Tests 09/30 09/30 09/29 0630 0600 2251 Chemistry Sodium (137 - 145 mmol/L) 142 Potassium (3.5 - 5.1 mmol/L) 4.4 Chloride (98 - 107 mmol/L) 107 Carbon Dioxide (22 - 30 mmol/L) 24 Anion Gap (5 - 16) 11 BUN (7 - 17 mg/dL) 40 H Creatinine (0.5 - 1.0 mg/dL) 1.4 H Estimated GFR (>60 ml/min) 39 L BUN/Creatinine Ratio (7 - 25 %) 28.6 H Troponin I (< 0.11 ng/ml) 0.06 0.05 Hematology CBC w Diff NO MAN DIFF REQ WBC (4.8 - 10.8 /CUMM) 9.2 RBC (4.20 - 5.40 /CUMM) 3.57 L Hgb (12.0 - 16.0 G/DL) 10.0 L Hct (37 - 47 %) 30.1 L MCV (81.0 - 99.0 FL) 84.3 MCH (27.0 - 31.0 PG) 27.9 RDW (11.5 - 14.5 %) 14.8 H Plt Count (130 - 400 /CUMM) 223 MPV (7.4 - 10.4 FL) 10.4 Gran % (42.2 - 75.2 %) 58.5 Lymphocytes % (20.5 - 51.1 %) 32.6 Monocytes % (1.7 - 9.3 %) 7.3 Eosinophils % (0 - 5 %) 1.1 Basophils % (0.0 - 2.0 %) 0.5 Absolute Granulocytes (1.4 - 6.5 /CUMM) 5.4 Absolute Lymphocytes (1.2 - 3.4 /CUMM) 3.0 Absolute Monocytes (0.10 - 0.60 /CUMM) 0.7 H Absolute Eosinophils (0.0 - 0.7 /CUMM) 0.1 Absolute Basophils (0.0 - 0.2 /CUMM) 0 PUBS MCHC (33.0 - 37.0 G/DL) 33.2 05/ 1638 Chemistry Sodium (137 - 145 mmol/L) 136 L Potassium (3.5 - 5.1 mmol/L) 4.5 Chloride (98 - 107 mmol/L) 103 Carbon Dioxide (22 - 30 mmol/L) 21 L Anion Gap (5 - 16) 12 BUN (7 - 17 mg/dL) 35 H Creatinine (0.5 - 1.0 mg/dL) 1.4 H Estimated GFR (>60 ml/min) 39 L BUN/Creatinine Ratio (7 - 25 %) 25.0 Glucose (65 - 99 mg/dL) 385 H Calcium (8.4 - 10.2 mg/dL) 9.5 Magnesium (1.6 - 2.3 mg/dL) 1.7 Total Bilirubin (0.2 - 1.3 mg/dL) 0.5 AST (14 - 36 U/L) 16 ALT (9 - 52 U/L) 32 Alkaline Phosphatase (<127 U/L) 57 Troponin I (< 0.11 ng/ml) 0.04 Azu-X-Zoasjatfztq Pept (<125 pg/mL) 2410 H Total Protein (6.3 - 8.2 g/dL) 7.0 Albumin (3.5 - 5.0 g/dL) 4.1 Globulin (1.9 - 4.2 gm/dL) 2.9 Albumin/Globulin Ratio (1.1 - 2.2 %) 1.4 Coagulation PT (9.4 - 12.5 SEC) 14.3 H INR (0.90 - 1.19) 1.37 H Hematology CBC w Diff NO MAN DIFF REQ WBC (4.8 - 10.8 /CUMM) 11.0 H RBC (4.20 - 5.40 /CUMM) 3.58 L Hgb (12.0 - 16.0 G/DL) 10.0 L Hct (37 - 47 %) 30.0 L MCV (81.0 - 99.0 FL) 84.0 MCH (27.0 - 31.0 PG) 28.0 RDW (11.5 - 14.5 %) 15.0 H Plt Count (130 - 400 /CUMM) 229 MPV (7.4 - 10.4 FL) 10.0 Gran % (42.2 - 75.2 %) 82.7 H Lymphocytes % (20.5 - 51.1 %) 10.7 L Monocytes % (1.7 - 9.3 %) 6.1 Eosinophils % (0 - 5 %) 0.1 Basophils % (0.0 - 2.0 %) 0.4 Absolute Granulocytes (1.4 - 6.5 /CUMM) 9.1 H Absolute Lymphocytes (1.2 - 3.4 /CUMM) 1.2 Absolute Monocytes (0.10 - 0.60 /CUMM) 0.7 H Absolute Eosinophils (0.0 - 0.7 /CUMM) 0 Absolute Basophils (0.0 - 0.2 /CUMM) 0 PUBS MCHC (33.0 - 37.0 G/DL) 33.3 A/P; 56 y/o F with pmh sig for PATRICIA on CPAP, asthma, CAD status post RCA stenting in 2010 and 2014, PVD on Eliquis, hypertension, hyperlipidemia, diabetes with retinopathy and CKD stage III who is placed on tele obs with chest pain, acute CHF which is likley diatolic. Troponins negative, patient has diuresed almost 2 L of urine since yesterday. She is not reporting any oxygen. She has been kept on her extensive cardiac regimen. Patient has been seen by cardiology and Persantine stress test was recommended for tomorrow. DVT prophylaxis: Eliquis.
[2016-09-30 15:30] VITALS: BP 122/80
--- NOTE | 2016-09-30 18:56 | Cons- Cardiology ---
General Information and HPI Consulting Request Date of Consult: 09/30/16 Requested By: HELEN BLACKMON MD Reason for Consult: chest pain Source of Information: patient, old records History of Present Illness: This is a 56-year-old female with past medical history of PATRICIA on CPAP, asthma, CAD status post RCA stenting in 2010 and 2014, PVD on Eliquis, hypertension, hyperlipidemia, diabetes with retinopathy and CK D stage III, who comes in for chief complaint of shortness of breath and left-sided chest pain. Notably, patient presented to ED with similar symptoms yesterday and was sent home after a round of duoneb, solumedrol, and Z-jahaira. Pt found no relief to her symptoms, in fact she says they worsened, so she returned today. Allergies/Medications Allergies: Coded Allergies: tramadol (NAUSEA 09/10/16) Home Med List: Albuterol Sulfate (Proair Hfa) 90 MCG HFA.AER.AD 2 PUF INH Q4-6 PRN PRN ASTHMA (Reported) Amlodipine Besylate 10 MG TABLET 1 TAB PO DAILY CHF (Reported) Apixaban (Eliquis) 5 MG TABLET 5 MG PO BID Afib Aspirin (Ecotrin*) 81 MG TABLET.DR 1 TAB PO DAILY HEART HEALTH (Reported) Budesonide/Formoterol Fumarate (Symbicort 160-4.5 Mcg Inhaler) 160 MCG-4.5 MCG/ ACTUATION HFA.AER.AD 2 PUF INH BID BREATHING PROBLEMS (Reported) Clonazepam (Klonopin) 0.5 MG TABLET 1 TAB PO DAILY Insomnia/Anxiety Diltiazem HCl (Diltiazem 24HR ER) 180 MG CAP.ER.24H 1 CAP PO DAILY HEART ( Reported) Fenofibric Acid (Trilipix) 135 MG CAPSULE.DR 1 CAP PO QPM CHOLESTEROL ( Reported) Furosemide (Lasix) 20 MG TABLET 1 TAB PO DAILY CHF Insulin Regular, Human (Humulin R U-500 Kwikpen) 500/ML (3) INSULN.PEN 300 UNITS SC DAILY DM (Reported) Isosorbide Mononitrate (Isosorbide Mononitrate ER) 30 MG TAB.ER.24H 1 TAB PO DAILY HEART (Reported) Losartan Potassium (Cozaar) 50 MG TABLET 1 TAB PO DAILY HTN (Reported) Methylprednisolone. (Medrol) 4 MG TAB.DS.PK 1 DP PO AD SOB 6 on day 1 then reduce by one tablet daily until gone Metoprolol Tartrate 25 MG TABLET 1 TAB PO BID BP (Reported) Nitroglycerin (Nitrostat) 0.3 MG TAB.SUBL 0.4 MG SL Q 5 MINUTES X 3 DOSE PRN CHEST PAIN Pantoprazole Sodium (Protonix) 40 MG TABLET.DR 1 TAB PO BID GI (Reported) Rosuvastatin Calcium (Crestor) 40 MG TABLET 1 TAB PO DAILY CHOLESTEROL ( Reported) Ticagrelor (Brilinta) 60 MG TABLET 1 TAB PO BID HEART/BLOOD (Reported) Current Medications: Current Medications Sig/Rubin Start time Last Medication Dose Route Stop Time Status Admin Albuterol Sulfate 3 ML BID 09/30 1100 AC 09/30 INH 1840 Albuterol Sulfate 2 PUF Q4-6 PRN PRN 09/29 2214 AC INH Amlodipine Besylate 10 MG DAILY 09/30 1000 AC 09/30 PO 1007 Apixaban 5 MG BID 09/29 221 AC 09/30 PO 1006 Aspirin Buffered 81 MG DAILY 09/30 1000 AC 09/30 PO 1006 Atorvastatin Calcium 80 MG 1700 09/30 1700 AC 09/30 PO 1727 Budesonide/ 2 PUF BID 09/29 2211 AC 09/30 Formoterol Fumarate INH 1007 Clonazepam 0.5 MG AT BEDTIME 09/30 2200 AC PO 10/07 2159 Clonazepam 0.5 MG DAILY 09/30 1000 DC 09/29 PO 10/07 0959 2359 Clonazepam 0.5 MG .STK-MED ONE 09/29 2355 DC PO 09/29 2356 Diltiazem HCl 180 MG DAILY 09/30 1000 AC 09/30 PO 1005 Dipyridamole 60 MG ONE ONE 10/01 1000 AC Dextrose/Water 28 ML IV 10/01 1001 Furosemide 20 MG 7:30 AM, & 4:30 PM 09/30 0730 AC 09/30 IV 1640 Insulin Aspart 0 TIDAC 09/30 0800 AC 09/30 SC 1727 Insulin Detemir 10 UNITS BID 09/29 2227 AC 09/30 SC 1011 Ipratropium [place] 2.5 ML BID 09/30 1100 DC 09/30 INH 1058 Isosorbide 30 MG DAILY 09/30 1000 AC 09/30 Mononitrate PO 1005 Losartan Potassium 50 MG DAILY 09/30 1000 AC 09/30 PO 1006 Metoprolol Tartrate 25 MG BID 09/30 1000 AC 09/30 PO 1006 Morphine Sulfate 2 MG Q8P PRN 09/29 2230 AC IV Oxycodone HCl 5 MG Q8P PRN 09/29 2229 AC 09/30 PO 1013 Patient Medication 1 ED .STK-MED ONE 09/30 1347 DC Teaching ED 09/30 1348 Polyethylene Glycol 17 GM AT BEDTIME 09/30 2200 AC PO Ticagrelor 60 MG BID 09/29 2215 AC 09/30 PO 1005 Tiotropium [place] 2 PUF DAILY 10/01 1000 AC INH Tiotropium [place] 1 PUF BID 09/30 1130 DC INH Past History Travel History Traveled to [place] past 21 day No Medical History Neurological: NONE EENT: NONE Cardiovascular: CAD, hypertension, hyperlipidemia, myocardial infarction, [place] W STENTS Respiratory: obstructive sleep apnea, pneumonia Gastrointestinal: MILD GASTRITIS Hepatic: NONE Renal: NONE Musculoskeletal: NONE Psychiatric: anxiety Endocrine: diabetes Blood Disorders: NONE Cancer(s): NONE 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 child Services at Home: None Primary Language: Tristanian Smoking Status: Former Smoker ETOH Use: denies use Illicit Drug Use: denies illicit drug use Functional Ability ADLs Independent: dressing, eating, toileting, bathing. Ambulation: independent IADLs Independent: shopping, housework, finances, food prep, telephone, transportation , medication admin. Exam & Diagnostic Data Vital Signs and I&O Vital Signs Date Time Temp Pulse Resp B/P B/P Pulse O2 O2 Flow FiO2 Mean Ox Delivery Rate 09/30 1840 96 Room Air 09/30 1600 98 Room Air 09/30 1530 97.6 63 16 122/80 98 Room Air 09/30 1109 Room Air Room Air 09/30 1108 95 Room Air Room Air 09/30 1007 66 140/70 09/30 1006 66 140/70 09/30 1006 66 140/70 09/30 1005 66 140/70 09/30 0817 97.7 60 22 144/70 97 Room Air 09/30 0800 98 Room Air 09/30 0339 73 96 09/30 0021 66 97 09/29 2330 98.3 80 24 168/70 95 09/29 2305 97.2 70 20 140/74 95 Room Air 09/29 2050 97.2 72 18 135/63 93 Intake & Output 09/30 0809/30 0000 09/29 0809/29 0000 Intake Total 640 200 0 Output Total 150 1100 1300 Balance 490 -900 -1300 Intake, Oral 640 200 0 Output, Urine 150 1100 1300 Patient 233 lb 242 lb 242 lb Weight Weight Chair scale Reported by Patient Measurement Method Labs/Maximo Results: Laboratory Tests 09/30 09/30 09/29 0630 0600 2251 Chemistry Sodium (137 - 145 mmol/L) 142 Potassium (3.5 - 5.1 mmol/L) 4.4 Chloride (98 - 107 mmol/L) 107 Carbon Dioxide (22 - 30 mmol/L) 24 Anion Gap (5 - 16) 11 BUN (7 - 17 mg/dL) 40 H Creatinine (0.5 - 1.0 mg/dL) 1.4 H Estimated GFR (>60 ml/min) 39 L BUN/Creatinine Ratio (7 - 25 %) 28.6 H Troponin I (< 0.11 ng/ml) 0.06 0.05 Hematology CBC w Diff NO MAN DIFF REQ WBC (4.8 - 10.8 /CUMM) 9.2 RBC (4.20 - 5.40 /CUMM) 3.57 L Hgb (12.0 - 16.0 G/DL) 10.0 L Hct (37 - 47 %) 30.1 L MCV (81.0 - 99.0 FL) 84.3 MCH (27.0 - 31.0 PG) 27.9 RDW (11.5 - 14.5 %) 14.8 H Plt Count (130 - 400 /CUMM) 223 MPV (7.4 - 10.4 FL) 10.4 Gran % (42.2 - 75.2 %) 58.5 Lymphocytes % (20.5 - 51.1 %) 32.6 Monocytes % (1.7 - 9.3 %) 7.3 Eosinophils % (0 - 5 %) 1.1 Basophils % (0.0 - 2.0 %) 0.5 Absolute Granulocytes (1.4 - 6.5 /CUMM) 5.4 Absolute Lymphocytes (1.2 - 3.4 /CUMM) 3.0 Absolute Monocytes (0.10 - 0.60 /CUMM) 0.7 H Absolute Eosinophils (0.0 - 0.7 /CUMM) 0.1 Absolute Basophils (0.0 - 0.2 /CUMM) 0 PUBS MCHC (33.0 - 37.0 G/DL) 33.2 09/29 1638 Chemistry Sodium (137 - 145 mmol/L) 136 L Potassium (3.5 - 5.1 mmol/L) 4.5 Chloride (98 - 107 mmol/L) 103 Carbon Dioxide (22 - 30 mmol/L) 21 L Anion Gap (5 - 16) 12 BUN (7 - 17 mg/dL) 35 H Creatinine (0.5 - 1.0 mg/dL) 1.4 H Estimated GFR (>60 ml/min) 39 L BUN/Creatinine Ratio (7 - 25 %) 25.0 Glucose (65 - 99 mg/dL) 385 H Calcium (8.4 - 10.2 mg/dL) 9.5 Magnesium (1.6 - 2.3 mg/dL) 1.7 Total Bilirubin (0.2 - 1.3 mg/dL) 0.5 AST (14 - 36 U/L) 16 ALT (9 - 52 U/L) 32 Alkaline Phosphatase (<127 U/L) 57 Troponin I (< 0.11 ng/ml) 0.04 Ezg-Y-Orytcedfjrm Pept (<125 pg/mL) 2410 H Total Protein (6.3 - 8.2 g/dL) 7.0 Albumin (3.5 - 5.0 g/dL) 4.1 Globulin (1.9 - 4.2 gm/dL) 2.9 Albumin/Globulin Ratio (1.1 - 2.2 %) 1.4 Coagulation PT (9.4 - 12.5 SEC) 14.3 H INR (0.90 - 1.19) 1.37 H Hematology CBC w Diff NO MAN DIFF REQ WBC (4.8 - 10.8 /CUMM) 11.0 H RBC (4.20 - 5.40 /CUMM) 3.58 L Hgb (12.0 - 16.0 G/DL) 10.0 L Hct (37 - 47 %) 30.0 L MCV (81.0 - 99.0 FL) 84.0 MCH (27.0 - 31.0 PG) 28.0 RDW (11.5 - 14.5 %) 15.0 H Plt Count (130 - 400 /CUMM) 229 MPV (7.4 - 10.4 FL) 10.0 Gran % (42.2 - 75.2 %) 82.7 H Lymphocytes % (20.5 - 51.1 %) 10.7 L Monocytes % (1.7 - 9.3 %) 6.1 Eosinophils % (0 - 5 %) 0.1 Basophils % (0.0 - 2.0 %) 0.4 Absolute Granulocytes (1.4 - 6.5 /CUMM) 9.1 H Absolute Lymphocytes (1.2 - 3.4 /CUMM) 1.2 Absolute Monocytes (0.10 - 0.60 /CUMM) 0.7 H Absolute Eosinophils (0.0 - 0.7 /CUMM) 0 Absolute Basophils (0.0 - 0.2 /CUMM) 0 PUBS MCHC (33.0 - 37.0 G/DL) 33.3 Assessment/Plan Assessment/Plan Assessment: 1. Chest pain syndrome 2. PAF 3. PATRICIA 4. COPD 5. CAD with history of stenting Recommendations: - COntinue regular medication - Await pulmonary input and results of PFTs - NPO after midnight - PTN nuclear stress test in AM - Further plans after the results are available Consult Acknowledgment - Thank you for your consult request.
[2016-09-30 20:07] VITALS: BP 158/58
[2016-09-30 21:40] VITALS: BP 170/66
[2016-10-01 00:01] VITALS: BP 172/68
[2016-10-01 08:26] VITALS: BP 152/58
--- NOTE | 2016-10-01 09:13 | PN- Pulmonary ---
Subjective HPI/Critical Care Issues: pt seen and examined awaiting stress test today able to ambulate Objective Current Medications: Current Medications Sig/Rubin Start time Last Medication Dose Route Stop Time Status Admin Albuterol Sulfate 3 ML BID 09/30 1100 AC 10/01 INH 0818 Albuterol Sulfate 2 PUF Q4-6 PRN PRN 09/29 221 AC INH Amlodipine Besylate 10 MG DAILY 09/30 1000 AC 09/30 PO 1007 Apixaban 5 MG BID 09/29 2210 AC 09/30 PO 2133 Aspirin Buffered 81 MG DAILY 09/30 1000 AC 09/30 PO 1006 Atorvastatin Calcium 80 MG 1700 09/30 1700 AC 09/30 PO 1727 Budesonide/ 2 PUF BID 09/29 221 AC 09/30 Formoterol Fumarate INH 2143 Clonazepam 0.5 MG AT BEDTIME 09/30 2200 AC 09/30 PO 10/07 215 2132 Clonazepam 0.5 MG DAILY 09/30 1000 DC 09/29 PO 10/07 0959 2359 Diltiazem HCl 180 MG DAILY 09/30 1000 AC 09/30 PO 1005 Dipyridamole 60 MG ONE ONE 10/01 1000 AC Dextrose/Water 28 ML IV 10/01 1001 Furosemide 20 MG 7:30 AM, & 4:30 PM 09/30 0730 AC 10/01 IV 0825 Insulin Aspart 0 TIDAC/HS 10/01 0800 DC 09/30 IA 2213 Insulin Aspart 0 TIDAC 09/30 0800 DC 09/30 SC 1727 Insulin Detemir 10 UNITS BID 09/29 2227 10/01 IA 0825 Insulin Human Regular 0 Q6 10/01 0819 CAN SC Insulin Human Regular 0 Q6 10/01 0803 AC 10/01 SC 0824 Ipratropium [place] 2.5 ML BID 09/30 1100 DC 09/30 INH 1058 Isosorbide 30 MG DAILY 09/30 1000 AC 09/30 Mononitrate PO 1005 Losartan Potassium 50 MG DAILY 09/30 1000 AC 09/30 PO 1006 Metoprolol Tartrate 25 MG BID 09/30 1000 AC 09/30 PO 2133 Morphine Sulfate 2 MG Q8P PRN 09/29 2230 AC IV Nitroglycerin 0.1 MG ONCE ONE 09/30 2014 DC 09/30 TOP 09/30 Oxycodone HCl 5 MG Q8P PRN 09/29 2230 AC 09/30 PO 1013 Patient Medication 1 ED .STK-MED ONE 09/30 1347 DC Teaching ED 09/30 1348 Polyethylene Glycol 17 GM AT BEDTIME 09/30 2200 AC PO Ticagrelor 60 MG BID 09/29 2215 AC 09/30 PO 2132 Tiotropium [place] 2 PUF DAILY 10/01 1000 AC INH Tiotropium [place] 1 PUF BID 09/30 1130 DC INH Vital Signs & I&O Last 24 Hrs of Vitals and I&O: Vital Signs Date Time Temp Pulse Resp B/P B/P Pulse O2 O2 Flow FiO2 Mean Ox Delivery Rate 10/01 0830 94 Room Air 10/01 0826 97.5 58 20 152/58 95 Room Air 10/01 0039 69 96 10/01 0001 98.4 69 20 172/68 95 CPAP 10/01 0000 CPAP 09/30 2140 72 170/66 09/30 2133 69 170/66 09/30 2007 70 158/58 09/30 1840 96 Room Air 09/30 1600 98 Room Air 09/30 1530 97.6 63 16 122/80 98 Room Air 09/30 1109 Room Air Room Air 09/30 1108 95 Room Air Room Air 09/30 1007 66 140/70 09/30 1006 66 140/70 09/30 1006 66 140/70 09/30 1005 66 140/70 Intake & Output 10/01 1600 10/01 0800 10/01 0000 Intake Total 0 560 Output Total 1100 800 Balance -1100 -240 Intake, IV 0 Intake, Oral 0 560 Number 0 Bowel Movements Output, Urine 1100 800 Patient 227 lb Weight Weight Chair scale Measurement Method Exam Other Physical Findings: gen awake and alert heent ncat cvs s1, s2 lungs rare rhonchi abd soft bs+ ext without edema Impression/Plan Impression/Plan Impression/Plan: Impression 56 year old woman * a.fib and diastolic heart failure * PATRICIA * likely underlying deconditioning * COPD/asthma overlap and restriction on PFTs Plan - cardiology f/u, further cardiac workup per cardiology, plan for stress testing - anti-coagulation with eliquis - trc/nebs - cont nocturnal cpap tx with o2 bleed in - spiriva added, ipratropirium d/c - will follow DVT prophylaxis at all times
--- NOTE | 2016-10-01 10:33 | PN- Housestaff ---
CELIA GRANT 10/01/16 1021: Subjective Follow-up For: Exertional dyspnea Chest discomfort Subjective: Improved breathing. Currently chest pain free. Scheduled for a stress test later today. States decreased compliance with CPAP machine at home, as she doesn't like it . Review of Systems Constitutional: Reports: see HPI. Objective Last 24 Hrs of Vital Signs/I&O Vital Signs Date Time Temp Pulse Resp B/P B/P Pulse O2 O2 Flow FiO2 Mean Ox Delivery Rate 10/01 0945 148/64 10/01 0945 148/64 10/01 0945 148/64 10/01 0830 94 Room Air 10/01 0826 97.5 58 20 152/58 95 Room Air 10/01 0039 69 96 10/01 0001 98.4 69 20 172/68 95 CPAP 10/01 0000 CPAP 09/30 2140 72 170/66 09/30 2133 69 170/66 09/30 2007 70 158/58 09/30 1840 96 Room Air 09/30 1600 98 Room Air 09/30 1530 97.6 63 16 122/80 98 Room Air 09/30 1109 Room Air Room Air 09/30 1108 95 Room Air Room Air Intake & Output 10/01 1600 10/01 0800 10/01 0000 Intake Total 0 560 Output Total 1100 800 Balance -1100 -240 Intake, IV 0 Intake, Oral 0 560 Number 0 Bowel Movements Output, Urine 1100 800 Patient 227 lb Weight Weight Chair scale Measurement Method Physical Exam General Appearance: Alert, Oriented X3, Cooperative HEENT: Atraumatic Cardiovascular: Regular Rate, Normal S1, Normal S2 Lungs: Clear to Auscultation, Normal Air Movement Abdomen: Normal Bowel Sounds, Soft, No Tenderness Extremities: No Clubbing, No Cyanosis, 1+ bilateral edema Current Medications: Current Medications Sig/Rubin Start time Last Medication Dose Route Stop Time Status Admin Albuterol Sulfate 3 ML BID 09/30 1100 AC 10/01 INH 0818 Albuterol Sulfate 2 PUF Q4-6 PRN PRN 09/29 2214 AC INH Amlodipine Besylate 10 MG DAILY 09/30 1000 AC 10/01 PO 0945 Apixaban 5 MG BID 09/29 2210 AC 10/01 PO 0945 Aspirin Buffered 81 MG DAILY 09/30 1000 AC 10/01 PO 0945 Atorvastatin Calcium 80 MG 1700 09/30 1700 AC 09/30 PO 1727 Budesonide/ 2 PUF BID 09/29 2211 AC 10/01 Formoterol Fumarate INH 0945 Clonazepam 0.5 MG AT BEDTIME 09/30 2200 AC 09/30 PO 10/07 215 2132 Diltiazem HCl 180 MG DAILY 09/30 1000 AC 10/01 PO 0945 Dipyridamole 60 MG ONE ONE 10/01 1000 DC Dextrose/Water 28 ML IV 10/01 1001 Furosemide 20 MG 7:30 AM, & 4:30 PM 09/30 0730 AC 10/01 IV 0825 Insulin Aspart 0 TIDAC/HS 10/01 0800 DC 09/30 SC 2213 Insulin Aspart 0 TIDAC 09/30 0800 DC 09/30 SC 1727 Insulin Detemir 10 UNITS BID 09/29 2227 AC 10/01 SC 0825 Insulin Human Regular 0 Q6 10/01 0819 CAN SC Insulin Human Regular 0 Q6 10/01 0803 AC 10/01 SC 0824 Ipratropium [place] 2.5 ML BID 09/30 1100 DC 09/30 INH 1058 Isosorbide 30 MG DAILY 09/30 1000 AC 10/01 Mononitrate PO 0945 Losartan Potassium 50 MG DAILY 09/30 1000 AC 10/01 PO 0945 Metoprolol Tartrate 25 MG BID 09/30 1000 AC 09/30 PO 2133 Morphine Sulfate 2 MG Q8P PRN 09/29 2230 AC IV Nitroglycerin 0.1 MG ONCE ONE 09/30 2014 DC 09/30 TOP 09/30 Oxycodone HCl 5 MG Q8P PRN 09/29 2230 AC 09/30 PO 1013 Patient Medication 1 ED .STK-MED ONE 09/30 1347 DC Teaching ED 09/30 1348 Polyethylene Glycol 17 GM AT BEDTIME 09/30 2200 AC PO Ticagrelor 60 MG BID 09/29 2215 AC 10/01 PO 0944 Tiotropium [place] 2 PUF DAILY 10/01 1000 AC 10/01 INH 0947 Tiotropium [place] 1 PUF BID 09/30 1130 DC INH Assessment/Plan Assessment: 56 year old woman with atypical exertional, positional as well as pleuritic chest pain with normal EKGs and two sets of troponins, here for evaluation of her symptoms. 1. Chest pain: Scheduled for dipyridamole stress testing with nuclear imaging for tomorrow morning. ACS ruled out. 2. Exertional dyspnea: No signs of fluid retention, no JVD, clear lungs, trace leg welling, does have higher proBNP than baseline and good response to IV Lasix. Last echo, september 2016, normal LVEF. Stress test in am. Strict Is and Os. Daily weights, continued follow with CHF clinic upon discharge. Patient has COPD asthma overlap sx as suggetsed by PFTs. 3. Essential HTN: Multifactorial, poor CPAP compliance, morbid obesity, questionable compliace. Continue current BP meds for now, patient will follow up with Dr. Rodas as an outrpatient for her BP. Heart healthy diet DVT proph addressed by Ashley. Full code. Problem List: 1. COPD Pain Ratin Pain Location: Chest Pain Goal: Remain pain free Pain Plan: Morphine PRN Tomorrow's Labs & Rationales: Not needed. Consulting Request: Consulting Specialty: Pulmonary Disease GINNY BARRIOS,[facility] 10/01/16 1048: Attending MD Review Statement Attending Statement Attending MD Statement: examined this patient, discuss w/resident/PA/[employer], agreed w/resident/PA/[employer], reviewed EMR data (avail), discussed with nursing, discussed with case mgmt, reviewed images, amended to note Attending Assessment/Plan: Patient seen and examined, feels well. Denies any further chest pain that she has a nitroglycerin patch on daily denies any shortness of breath. Her vital signs are stable. She is scheduled for stress test today which would be a Persantine stress test. Pending results, if normal she will go home, if there is a huge defect then we will discuss further options with Dr. Siegel. We will continue her on her current medications. Follow up on the results of the stress test later in the day.
[2016-10-01] MEDS ORDERED: SPIRIVA18 MCG INH (11:29)
--- NOTE | 2016-10-01 11:32 | Patient Discharge Instructions ---
Discharge Instructions General Discharge Information You were seen/treated for: Breathing difficulty Watch for these problems: Worsening breathing symptoms Worsening leg swelling. Special Instructions: Please use CPAP as prescribed. Please follow up with Dr. Padilla and Dr. Rodas as an outpatient. Diet Continue normal diet: No Recommended Diet: Diabetic Activity Full Activity/No Limits: Yes Acute Coronary Syndrome Inclusion Criteria At DC or during hospital stay patient has or had the following: ACS DIAGNOSIS No Discharge Core Measures Meds if any: Prescribed or Continued at Discharge Meds if any: NOT Prescribed or Continued at Discharge Congestive Heart Failure Inclusion Criteria At DC or during hospital stay patient has or had the following: CHF DIAGNOSIS Yes Discharge Core Measures Meds if any: Prescribed or Continued at Discharge SLOAN/ARB for EF <40% Yes Meds if any: NOT Prescribed or Continued at Discharge Cerebrovascular accident Inclusion Criteria At DC or during hospital stay patient has or had the following: CVA/TIA Diagnosis No Discharge Core Measures Meds if any: Prescribed or Continued at Discharge Meds if any: NOT Prescribed or Continued at Discharge Venous thromboembolism Inclusion Criteria VTE Diagnosis No VTE Type NONE VTE Confirmed by (Test) NONE Discharge Core Measures - Per Current guidelines, there needs to be overlap - treatment for the first 5 days of Warfarin therapy. - If discharged on Warfarin prior to 5 days of - overlap therapy, the patient will need to be - assessed for post discharge needs including - *Post discharge parental anticoagulation - *Warfarin and/or parental anticoagulation education - *Follow up date to check INR post discharge At least 5 days overlap therapy as Inpatient No Meds if any: Prescribed or Continued at Discharge Note: Overlap Therapy is Warfarin and Anticoagulant Meds if any: NOT Prescribed or Continued at Discharge
--- NOTE | 2016-10-01 13:23 | PN- Cardiology ---
Subjective Subjective: Clinically, the patient appears be doing well. No other significant chest discomfort or cardiac symptoms noted. Stress test pending Objective Vital Signs and I&Os Vital Signs Date Time Temp Pulse Resp B/P B/P Pulse O2 O2 Flow FiO2 Mean Ox Delivery Rate 10/01 1257 140/60 10/01 0945 148/64 10/01 0945 148/64 10/01 0945 148/64 10/01 0830 94 Room Air 10/01 0826 97.5 58 20 152/58 95 Room Air 10/01 0039 69 96 10/01 0001 98.4 69 20 172/68 95 CPAP 10/01 0000 CPAP 09/30 2140 72 170/66 09/30 2133 69 170/66 09/30 2007 70 158/58 09/30 1840 96 Room Air 09/30 1600 98 Room Air 09/30 1530 97.6 63 16 122/80 98 Room Air Intake & Output 10/01 1600 10/01 0800 10/01 0000 09/30 1600 09/30 0800 09/30 0000 Intake Total 0 560 640 200 0 Output Total 1100 392 179 7028 1300 Balance -1100 -240 490 -900 -1300 Intake, IV 0 Intake, Oral 0 560 640 200 0 Number 0 Bowel Movements Output, Urine 1100 841 889 5062 1300 Patient 227 lb 233 lb 242 lb Weight Weight Chair scale Chair scale Reported by Patient Measurement Method Current Medications: Current Medications Sig/Rubin Start time Last Medication Dose Route Stop Time Status Admin Albuterol Sulfate 3 ML BID 09/30 1100 AC 10/01 INH 0818 Albuterol Sulfate 2 PUF Q4-6 PRN PRN 09/29 2214 AC INH Aminophylline 125 MG .STK-MED ONE 10/01 1135 DC IV 10/01 1136 Amlodipine Besylate 10 MG DAILY 09/30 1000 AC 10/01 PO 0945 Apixaban 5 MG BID 09/29 2210 AC 10/01 PO 0945 Aspirin Buffered 81 MG DAILY 09/30 1000 AC 10/01 PO 0945 Atorvastatin Calcium 80 MG 1700 09/30 1700 AC 09/30 PO 1727 Budesonide/ 2 PUF BID 09/29 221 AC 10/01 Formoterol Fumarate INH 0945 Clonazepam 0.5 MG AT BEDTIME 09/300 AC 09/30 PO 10/07 Diltiazem HCl 180 MG DAILY 09/30 1000 AC 10/01 PO 0945 Dipyridamole 60 MG ONE ONE 10/01 1000 DC Dextrose/Water 28 ML IV 10/01 1001 Furosemide 20 MG 7:30 AM, & 4:30 PM 09/30 0730 AC 10/01 IV 0825 Insulin Aspart 0 TIDAC/HS 10/01 0800 DC 09/30 UT 2213 Insulin Aspart 0 TIDAC 09/30 0800 DC 09/30 SC 1727 Insulin Detemir 10 UNITS BID 09/29 2227 AC 10/01 SC 0825 Insulin Human Regular 0 Q6 10/01 0819 CAN SC Insulin Human Regular 0 Q6 10/01 0803 AC 10/01 SC 0824 Isosorbide 30 MG DAILY 09/30 1000 AC 10/01 Mononitrate PO 0945 Losartan Potassium 50 MG DAILY 09/30 1000 AC 10/01 PO 0945 Metoprolol Tartrate 25 MG BID 09/30 1000 AC 10/01 PO 1257 Morphine Sulfate 2 MG Q8P PRN 09/29 2230 AC IV Nitroglycerin 0.1 MG ONCE ONE 09/30 2014 DC 09/30 TOP 09/30 Oxycodone HCl 5 MG Q8P PRN 09/29 2230 AC 09/30 PO 1013 Patient Medication 1 ED .STK-MED ONE 09/30 1347 DC Teaching ED 09/30 1348 Polyethylene Glycol 17 GM AT BEDTIME 09/30 2200 AC PO Ticagrelor 60 MG BID 09/29 2215 AC 10/01 PO 0944 Tiotropium [place] 2 PUF DAILY 10/01 1000 AC 10/01 INH 0947 Results Last 48 Hrs of Labs/Mics: Laboratory Tests 09/30/16 0630: CBC w Diff NO MAN DIFF REQ, RBC 3.57 L, MCV 84.3, MCH 27.9, RDW 14.8 H, MPV 10.4, Gran % 58.5, Lymphocytes % 32.6, Monocytes % 7.3, Eosinophils % 1.1, Basophils % 0.5, Absolute Granulocytes 5.4, Absolute Lymphocytes 3.0, Absolute Monocytes 0.7 H, Absolute Eosinophils 0.1, Absolute Basophils 0, PUBS MCHC 33.2 09/30/16 0600: Anion Gap 11, Estimated GFR 39 L, BUN/Creatinine Ratio 28.6 H, Troponin I 0.06 09/29/16 2251: Troponin I 0.05 09/29/16 1638: Anion Gap 12, Estimated GFR 39 L, BUN/Creatinine Ratio 25.0, Glucose 385 H, Calcium 9.5, Magnesium 1.7, Total Bilirubin 0.5, AST 16, ALT 32, Alkaline Phosphatase 57, Troponin I 0.04, Muu-T-Nteecbdoxvj Pept 2410 H, Total Protein 7.0, Albumin 4.1, Globulin 2.9, Albumin/Globulin Ratio 1.4, PT 14.3 H, INR 1.37 H, CBC w Diff NO MAN DIFF REQ, RBC 3.58 L, MCV 84.0, MCH 28.0, RDW 15.0 H, MPV 10.0, Gran % 82.7 H, Lymphocytes % 10.7 L, Monocytes % 6.1, Eosinophils % 0.1, Basophils % 0.4, Absolute Granulocytes 9.1 H, Absolute Lymphocytes 1.2, Absolute Monocytes 0.7 H, Absolute Eosinophils 0, Absolute Basophils 0, PUBS MCHC 33.3 Assessment/Plan Assessment/Plan Assessment: 1. Chest pain syndrome-ruled out for myocardial infarction, stress test pending 2. PAF 3. PATRICIA 4. COPD 5. CAD with history of stenting Recommendations: - COntinue regular medication - Await further pulmonary input -Persantine nuclear stress test today. -Hopefully, the patient can be discharged later today if the results of the stress test are normal. Further plans at that time. -If discharged today, the patient should follow-up with me in the office within 2 weeks. Continue telemetry? Yes
[2016-10-01] MEDS ORDERED: HUMULIN R500 UNIT/2 SC (13:27)
--- NOTE | 2016-10-01 14:10 | Discharge Summary ---
See Addendum Visit Information Visit Dates Admission Date: 09/29/16 Discharge Date: 10/01 Hospital Course Course Attending Physician: HELEN BLACKMON MD Primary Care Physician: XIOMY KAT Consulting Request: Consulting Specialty: Pulmonary Disease Hospital Course: Ms. Mckoy is a 56-year-old woman with past medical history of OBSTRUCTIVE sleep apnea on CPAP, asthma, coronary artery disease status post right coronary artery stenting in 2010 and 2014, peripheral vascular disease on Eliquis, hypertension, hyperlipidemia, diabetes and chronic kidney disease who presented to [facility] ED with a chief complaints of shortness of breath and left-sided chest pain. Patient had presented to the ED with similar symptoms prior to admission, and was prescribed DuoNeb, Solu-Medrol and a Z-Kaleb with no symptom relief. After she found no relief with the ear forementioned treatments, patient was admitted to telemetry floor with a diagnosis of chest pain syndrome and possible congestive heart failure exacerbation. 1. Chest pain syndrome: The patient was ruled out for any acute coronary event with serial troponins and EKG. Serial EKGs showed no changes. Patient was continued on her home cardiac medications without any changes. Patient became chest pain-free by the second of admission. She underwent a stress test while inpatient, results of which are pending at this time. Patient will follow up with picker Dr. Rodas regarding results of her stress test. 2. Exertional dyspnea: Initially, patient was believed to have CHF exacerbation. Patient did lose upwards of 20 pounds during her stay with use of Lasix. Interestingly, patient did not show any signs of fluid overload-no JVD, clear lungs, no extremity swelling. No chest x-ray was obtained during the visit. Patient has had normal echocardiograms previously. Patient will be discharged on same dose of Lasix and follow up with picker Dr. Rodas as an outpatient. 3. Essential hypertension: This was thought to be multifactorial, owing to her obesity, CPAP noncompliance, kidney disease etc. Patient did have few readings of elevated blood pressure, which was attributed to stress and anxiety of being in the hospital and undergoing several tests. No changes to her medications were performed during the visit, and patient will follow-up with PCP and picker regarding the same. 4. Diabetes mellitus: Patient stated that she takes 180 units of Humulin R in the morning and 120 units of Humulin R at night. This was confirmed with [facility] as well. This does seem to be a much higher dose than usual, and the patient will follow-up with her teacher adult education Dr. Aguilar in [place] regarding the same. Patient hasn't followed up with the teacher adult education in last [address] Aguilar's office was called regarding the same, but unfortunately no response was noted during the visit. Further, patient was emphasized to lose weight, eat healthy exercise be compliant with diet and medications, CPAP and continue following up with consultants as advised. Allergies: Coded Allergies: tramadol (NAUSEA 09/10/16) Disposition Summary Disposition Principal Diagnosis: Chest pain syndrome Additional Diagnosis: Diabetes mellitus Discharge Disposition: home or self care Discharge Instructions General Discharge Information Code Status: Full Code Patient's Diet: Diabetic Patient's Activity: As tolerated Follow-Up Instructions/Appts: Please follow up with [facility] as an outpatient in 1-2 weeks. Please follow up with picker as an outpatient in 1-2 weeks. Please follow up with PCP as an outpatient in 1-2 weeks. Medications at Discharge Discharge Medications: Stop taking the following medications: Methylprednisolone. (Medrol) 4 MG TAB.DS.PK ORAL As Directed Qty = 1 Continue taking these medications: Metoprolol Tartrate (Metoprolol Tartrate) 25 MG TABLET 1 Tablet ORAL TWICE DAILY Comments: given 09/16/16 @ 0820am Rosuvastatin Calcium (Crestor) 40 MG TABLET 1 Tablet ORAL DAILY Comments: given Lipitor on 09/06/16 @ 4pm Fenofibric Acid (Trilipix) 135 MG CAPSULE. 1 Capsule ORAL Every night Comments: given 09/16/16 2 0822am Losartan Potassium (Cozaar) 50 MG TABLET 1 Tablet ORAL DAILY Comments: not given Isosorbide Mononitrate (Isosorbide Mononitrate ER) 30 MG TAB.ER.24H 1 Tablet ORAL DAILY Comments: given 09/16/16 @ 0820am Pantoprazole Sodium (Protonix) 40 MG TABLET.DR 1 Tablet ORAL TWICE DAILY Comments: not given Aspirin (Ecotrin*) 81 MG TABLET.DR 1 Tablet ORAL DAILY Comments: GIVEN 09/16/16 @ 0820AM Nitroglycerin (Nitrostat) 0.3 MG TAB.SUBL 0.4 Milligram SUBLINGUAL EVERY 5 MINUTES X 3 DOSES as needed for CHEST PAIN Days = 7 Comments: given 09/12/16 @ 0945 am Albuterol Sulfate (Proair Hfa) 90 MCG HFA.AER.AD 2 Puff Inhale through mouth EVERY 4-6 HOURS NEEDED as needed for ASTHMA Comments: GIVEN 09/16/16 @ 1030AM Budesonide/Formoterol Fumarate (Symbicort 160-4.5 Mcg Inhaler) 160 MCG-4.5 MCG/ ACTUATION HFA.AER.AD 2 Puff Inhale through mouth TWICE DAILY Qty = 10 Comments: given 09/16/16 @ 0820am Insulin Regular, Human (Humulin R U-500 Kwikpen) 500/ML (3) INSULN.PEN 180 Units Inject into fatty tissue Every Morning Qty = 18 Comments: not given Ticagrelor (Brilinta) 60 MG TABLET 1 Tablet ORAL TWICE DAILY Qty = 60 Comments: given 09/16/16 @ 0820am Apixaban (Eliquis) 5 MG TABLET 5 Milligram ORAL TWICE DAILY Qty = 30 Comments: given 09/16/16 @ 0820am Furosemide (Lasix) 20 MG TABLET 1 Tablet ORAL DAILY Qty = 30 Comments: given 09/16/16 @ 0820am Diltiazem HCl (Diltiazem 24HR ER) 180 MG CAP.ER.24H 1 Capsule ORAL DAILY Qty = 30 Clonazepam (Klonopin) 0.5 MG TABLET 1 Tablet ORAL DAILY Qty = 5 Amlodipine Besylate (Amlodipine Besylate) 10 MG TABLET 1 Tablet ORAL DAILY Insulin Regular, Human (Humulin R U-500 Kwikpen) 500/ML (3) INSULN.PEN 120 Units Inject into fatty tissue Every night Start taking the following new medications: Tiotropium [place] (Spiriva) 18 MCG CAP.W.DEV 2 Puff Inhale through mouth DAILY Days = 30 No Refills Copies To: KINDRA BARRIOS,VALERI; XIOMY KAT; SHANTHI BARRIOS,W DORA Attending MD Review Statement Documenting Attending: ATIYA GROSS MD
[2016-10-01] MEDS ORDERED: FUROSEMIDE40 M1 PO (14:39)
--- NOTE | 2016-10-01 14:52 | NUR ---
Pt will return to [place] address at discharge but, will cont to receive services from [facility]. Pt will need to use [employer] transportation with her Lidia lopez. MANUEL has completed "Closest Provider Certification " form, had Md sign it and faxed it to [email or web address] called [phone] and confirmed that "follow up" from hospital admit would be covered but, it would take 2 business days for authorization of certificate for other transportation. Pt does not have scheduled appointment at his time. .
[2016-10-01 15:30] VITALS: BP 140/58
--- NOTE | 2016-10-01 16:42 | NUCLEAR MEDICINE REPORT ---
PERSANTINE STRESS AND RESTING SPECT MYOCARDIAL PERFUSION IMAGING STUDY WITH GATED SPECT IMAGES: CLINICAL INDICATION: Atypical chest pain. PROCEDURE: Regional myocardial perfusion was assessed using a 1 day protocol. Stress images were obtained on 10/01/2016 following the intravenous administration of 25.0 mCi Tc 99m Myoview. Stress consisted of 60 mg Persantine given intravenously. Following the sestamibi injection, 125 mg aminophylline was given intravenously. Rest images were obtained 10/01/2016 following the intravenous administration of 42.9 mCi Technetium 99m Myoview. Single photon emission tomographic (SPECT) images were obtained. SPECT images were acquired in a 64 x 64 matrix of 64 projections over 180 degrees. These were reconstructed into standard short axis, horizontal and vertical long axis cardiac projections. FINDINGS: The post stress images show a small region of moderately decreased activity involving the apical anterior wall. Activity in the other reeves appears normal. The rest images show minimally decreased activity at the same site in the apical anterior wall. This abnormality appears significantly less severe on the rest images. The activity in the other reeves is unchanged in the post-rest images and appears normal. The images were obtained using a gated SPECT technique, which permits visualization of wall motion and calculation of the left ventricular ejection fraction. In the left ventricular chamber is normal in size. No left ventricular wall motion abnormalities are noted. The calculated left ventricular ejection fraction is 61% on the stress study. No previous study is available for comparison. IMPRESSION: A small region of reversible ischemia is present in the apical anterior wall. No other perfusion abnormalities are noted. Left ventricular wall motion and ejection fraction are normal.
--- NOTE | 2016-10-01 20:08 | Event Note ---
Event Note Event Note: Situation: Received a call from [facility] and spoke to Dr Banegas discussing stress test reults Brief Assesment Pt nuclear stree results was remarkable for small reversible ischemia at the apical anterior wall. No othe reperfusion abnormalities were noted, with left ventricle wall motion and EF normal. At present, patient is asymptomatic and is not complaining of any chest pain. Asssesment and Plan Notified Dr Rodas of the finding and the planis for patient to f/u with him early next week. Patient will be discharged tomorrow in the morning. Patient requested to take to Dr Rodas before she leaves.
[2016-10-01 23:00] VITALS: BP 158/78
[2016-10-02 08:26] VITALS: BP 170/74
[2016-10-02 09:04] VITALS: BP 170/74
--- NOTE | 2016-10-02 10:12 | PN- Housestaff ---
See Addendum Subjective Follow-up For: Exertional dyspnea Chest pain Subjective: Patient is seen and examined at bedside. Her vital signs stable. Patient is scheduled for discharge today, she was initially worried and wanted to inquire more about her stress test which she was informed about the results yesterday. She was informed that according to the shipper for stress test was not significantly remarkable and did not warrant immediate intervention right now. She does deny any chest pain, palpitation, shortness of breath, increase extremity swelling. No acute overnight event reported by nursing staff. Review of Systems Constitutional: Reports: see HPI. Objective Last 24 Hrs of Vital Signs/I&O Vital Signs Date Time Temp Pulse Resp B/P B/P Pulse O2 O2 Flow FiO2 Mean Ox Delivery Rate 10/02 09 17010/02 0904 170/10/02 0904 170/10/02 0904 170/74 10/02 0826 97.9 56 20 170/74 96 Room Air 10/02 0820 96 Room Air Room Air 10/02 0057 69 96 10/02 0000 95 CPAP 10/01 2309 63 162/80 10/01 2300 98.0 82 20 158/78 96 Room Air 10/01 1956 92 Room Air Intake & Output 10/02 1600 10/02 0800 10/02 0000 Intake Total 400 400 Output Total 900 1100 Balance -500 -700 Intake, Oral 400 400 Output, Urine 900 1100 Patient 101.605 kg Weight Weight Standing Scale Measurement Method Physical Exam General Appearance: Alert, Oriented X3, Cooperative Other Physical Findings: HEENT: Atraumatic Cardiovascular: Regular Rate, Normal S1, Normal S2 Lungs: Clear to Auscultation, Normal Air Movement Abdomen: Normal Bowel Sounds, Soft, No Tenderness Extremities: No Clubbing, No Cyanosis, 1+ bilateral edema Current Medications: Current Medications Sig/Rubin Start time Last Medication Dose Route Stop Time Status Admin Albuterol Sulfate 3 ML BID 09/30 1100 DCD 10/02 INH 0819 Albuterol Sulfate 2 PUF Q4-6 PRN PRN 09/29 2214 DCD INH Amlodipine Besylate 10 MG DAILY 09/30 1000 DCD 10/02 PO 0904 Apixaban 5 MG BID 09/29 2209 DCD 10/02 PO 09 Aspirin Buffered 81 MG DAILY 09/30 1000 DCD 10/02 PO 0904 Atorvastatin Calcium 80 MG 1700 09/30 1700 DCD 10/01 PO 1636 Budesonide/ 2 PUF BID 09/29 2211 DCD 10/02 Formoterol Fumarate INH 0905 Clonazepam 0.5 MG AT BEDTIME 09/30 2199 DCD 10/01 PO 10/07 2159 2309 Diltiazem HCl 180 MG DAILY 09/30 1000 DCD 10/02 PO 0905 Furosemide 20 MG 7:30 AM, & 4:30 PM 09/30 0730 DCD 10/02 IV 0650 Insulin Aspart 0 TIDAC 10/01 1700 DCD 10/02 SC 1221 Insulin Detemir 10 UNITS BID 09/29 2227 DCD 10/02 SC 0744 Isosorbide 30 MG DAILY 09/30 1000 DCD 10/02 Mononitrate PO 0904 Losartan Potassium 50 MG DAILY 09/30 1000 DCD 10/02 PO 0904 Metoprolol Tartrate 25 MG BID 09/30 1000 DCD 10/02 PO 0904 Morphine Sulfate 2 MG Q8P PRN 09/29 2229 DCD IV Oxycodone HCl 5 MG Q8P PRN 09/29 2230 DCD 10/01 PO 1612 Polyethylene Glycol 17 GM AT BEDTIME 09/30 2200 DCD 10/01 PO 1637 Ticagrelor 60 MG BID 09/29 221 DCD 10/02 PO 0905 Tiotropium Vanduser 2 PUF DAILY 10/01 1000 DCD 10/02 INH 0905 Assessment/Plan Assessment: 56 year old woman with atypical exertional, positional as well as pleuritic chest pain with normal EKGs and two sets of troponins, here for evaluation of her symptoms. 1. Chest pain: Currently resolved. Nuclear stress test was remarkable for some reversible ischemia at the anterior apical area, no other perfusion abnormality was noted with intact left ventricular ejection fraction. Neurology reviewed the test and patient is to follow-up for further management on an outpatient basis. 2. Exertional dyspnea: No signs of fluid retention, no JVD, clear lungs, trace leg welling, does have higher proBNP than baseline and good response to IV Lasix. Last echo, september 2016, normal LVEF. Stress test in am. Strict Is and Os. Daily weights, continued follow with CHF clinic upon discharge. Patient has COPD asthma overlap sx as suggetsed by PFTs. 3. Essential HTN: Multifactorial, poor CPAP compliance, morbid obesity, questionable compliace. Continue current BP meds for now, patient will follow up with Dr. Rodas as an outrpatient for her BP. Heart healthy diet DVT proph addressed by Ashley. Full code. Problem List: 1. Chest pain Pain Ratin Pain Location: none Pain Goal: Remain pain free Pain Plan: pain pathway Tomorrow's Labs & Rationales: none Consulting Request: Consulting Specialty: Pulmonary Disease
--- NOTE | 2016-10-02 14:18 | PN- Cardiology ---
Subjective Subjective: Clinical stable. No recurrence of any symptoms. Stress test results reviewed. Objective Vital Signs and I&Os Vital Signs Date Time Temp Pulse Resp B/P B/P Pulse O2 O2 Flow FiO2 Mean Ox Delivery Rate 10/02 0904 170/10/02 0904 170/10/02 0904 170/10/02 0904 170/74 10/02 0826 97.9 56 20 170/74 96 Room Air 10/02 0820 96 Room Air Room Air 10/02 0057 69 96 10/02 0000 95 CPAP 10/01 2309 63 162/80 10/01 2300 98.0 82 20 158/78 96 Room Air 10/01 1956 92 Room Air 10/01 1530 97.8 57 16 140/58 95 Room Air Intake & Output 10/02 1600 10/02 0810/02 0000 10/01 1600 10/01 0000 Intake Total 400 430 0 560 Output Total 1100 1999 1100 800 Balance -700 -1570 -1100 -240 Intake, IV 30 0 Intake, Oral 400 400 0 560 Number 0 Bowel Movements Output, Urine 1100 1999 1100 800 Patient 224 lb 227 lb Weight Weight Standing Scale Chair scale Measurement Method Current Medications: Current Medications Sig/Rubin Start time Last Medication Dose Route Stop Time Status Admin Albuterol Sulfate 3 ML BID 09/30 1100 AC 10/02 INH 0819 Albuterol Sulfate 2 PUF Q4-6 PRN PRN 09/29 2214 AC INH Amlodipine Besylate 10 MG DAILY 09/30 1000 AC 10/02 PO 0904 Apixaban 5 MG BID 09/29 221 AC 10/02 PO 0905 Aspirin Buffered 81 MG DAILY 09/30 1000 AC 10/02 PO 0904 Atorvastatin Calcium 80 MG 1700 09/30 1700 AC 10/01 PO 1636 Budesonide/ 2 PUF BID 09/29 221 AC 10/02 Formoterol Fumarate INH 0905 Clonazepam 0.5 MG AT BEDTIME 09/30 2199 AC 10/01 PO 10/07 Diltiazem HCl 180 MG DAILY 09/30 1000 AC 10/02 PO 0905 Furosemide 20 MG 7:30 AM, & 4:30 PM 09/30 0730 AC 10/02 IV 0650 Insulin Aspart 0 TIDAC 10/01 1700 AC 10/02 SC 1221 Insulin Detemir 10 UNITS BID 09/29 2226 AC 10/02 SC 0744 Isosorbide 30 MG DAILY 09/30 1000 AC 10/02 Mononitrate PO 09 Losartan Potassium 50 MG DAILY 09/30 1000 AC 10/02 PO 0904 Metoprolol Tartrate 25 MG BID 09/30 1000 AC 10/02 PO 0904 Morphine Sulfate 2 MG Q8P PRN 09/29 2230 AC IV Oxycodone HCl 5 MG Q8P PRN 09/29 2230 AC 10/01 PO 1612 Polyethylene Glycol 17 GM AT BEDTIME 09/30 2200 AC 10/01 PO 1637 Ticagrelor 60 MG BID 09/29 2215 AC 10/02 PO 0905 Tiotropium [place] 2 PUF DAILY 10/01 1000 AC 10/02 INH 0905 Assessment/Plan Assessment/Plan Assessment: 1. Chest pain syndrome-ruled out for myocardial infarction, stress test pending 2. PAF 3. PATRICIA 4. COPD 5. CAD with history of stenting Recommendations: - COntinue regular medication - I reviewed the patient's nuclear stress test results. The nuclear scans show a very tiny defect in the distal anterior wall which is of unclear significance. The patient has had multiple cardiac catheterizations which showed no evidence of any significant LAD disease. On the stress test images, there is no evidence of any significant abnormality in the distribution of the patient's prior stents. -I discussed the situation in detail with the patient. She is asymptomatic but remains concerned. For now, we have elected to keep her medications the same, follow-up in the office, and make further plans at that time. -In the absence of any definitive abnormalities, I am reluctant to pursue cardiac catheterization at this point. Continue telemetry? No
--- NOTE | 2016-10-05 11:13 | IV DIPYRIDAMOLE NUCLEAR STRESS ---
Clinical Diagnosis: Chest Pain, Coronary Artery Disease Focusing Machine Operator: Anant Easton IV DIPYRIDAMOLE INFUSED: 60 mg IV AMINOPHYLLINE INFUSED: 125 mg PATIENT WEIGHT: 233 lbs INTERPRETATION: The patient's baseline EKG showed normal sinus rhythm; diffuse ST-T changes at 60 BPM. Baseline B/P 170/60. The patient received 60 mg of dipyridamole infused intravenously over a 4 minute period. TC-99M or Myoview was injected after dipyridamole. The patient complained of mild chest pressure; headache. There were no significant EKG changes seen following pharmacologic infusion. Arrhythmias: None IMPRESSION: The test was supervised by the interpreting [employer] Inspector, who was in attendance during the entire test. No EKG evidence of stress induced myocardial ischemia. See separately dictated Nuclear Report.
== END 2016-10-02 15:04 | disposition home health service (06) ==
LOC: ERH 15:48 → 1NO 17:56 → ERHI 17:56 → ENRESERV 21:41 → 1NO 23:19 → ENPENDDIS 10-02 13:28 → 1NO 10-02 15:04
PROVIDERS: Physician Assistant Medical; Student in an Organized Health Care Education/Training Program; ADMIT Internal Medicine
DX: R07.9 Chest pain, unspecified (principal); E66.01 Morbid (severe) obesity due to excess calories; I25.10 Atherosclerotic heart disease of native coronary artery without angina pectoris; I48.0 Paroxysmal atrial fibrillation; Z79.01 Long term (current) use of anticoagulants; E11.22 Type 2 diabetes mellitus with diabetic chronic kidney disease; I12.9 Hypertensive chronic kidney disease with stage 1 through stage 4 chronic kidney disease, or unspecified chronic kidney disease; N18.3 Chronic kidney disease, stage 3 (moderate); G47.33 Obstructive sleep apnea (adult) (pediatric); D64.9 Anemia, unspecified; J44.9 Chronic obstructive pulmonary disease, unspecified; E78.5 Hyperlipidemia, unspecified; I25.2 Old myocardial infarction; E11.51 Type 2 diabetes mellitus with diabetic peripheral angiopathy without gangrene; Z79.4 Long term (current) use of insulin; E11.319 Type 2 diabetes mellitus with unspecified diabetic retinopathy without macular edema; F41.9 Anxiety disorder, unspecified; D72.829 Elevated white blood cell count, unspecified; R06.02 Shortness of breath
CPT/HCPCS: 1263; 1288; 78452; 82436; 93005; 93010; 93016; 93017; 96374; 96376; A9502; G0378; J1245; J1815; J1940; J3490

== ENCOUNTER 2017-05-30 10:59 | Inpatient (IN) | payer OTHER ==
[~2017-05-30] VITALS: Ht 157.5 cm; Wt 110.8 kg
[~2017-05-30 10:59] MED LIST changes: +AMLODIPINE BESY10 M1 PO; +FUROSEMIDE40 M1 PO; +SPIRIVA18 MCG INH
--- NOTE | 2017-05-30 12:02 | ED CARDIAC/CP/PALPITATIONS ---
History of Present Illness General Chief Complaint: General Adult Stated Complaint: SENT IN BY VISITING NURSE FOR"BP BEING OFF" Source: patient Exam Limitations: no limitations Vital Signs & Intake/Output Vital Signs & Intake/Output Vital Signs Date Time Temp Pulse Resp B/P B/P Pulse O2 O2 Flow FiO2 Mean Ox Delivery Rate 05/30 1428 97.9 70 17 132/56 96 Room Air 05/30 1234 97.5 68 18 134/58 97 Room Air 05/30 1106 97.0 69 22 155/71 97 Room Air Allergies Coded Allergies: tramadol (NAUSEA 09/10/16) Triage Note: 56F WITH HX CHF WAS SIB VN FOR ABNORMAL BP'S 150'S/50'S AND PALPITATIONS. NORMAL S1S2 APICAL SOUNDS. REPORTS FEELING WHEEZY, O2 SAT 97% RA. DENIES CP Triage Nurses Notes Reviewed? yes Onset: Gradual Duration: getting worse Timing: recent history Quality/Severity: moderate Location: substernal HPI: PT is a 56-year-old woman with past medical history of OBSTRUCTIVE sleep apnea on CPAP, asthma, coronary artery disease status post right coronary artery stenting in 2010 and 2014, peripheral vascular disease on Eliquis, hypertension, hyperlipidemia, diabetes and chronic kidney disease who presents to emergency room with multiple complaints patient states that for the past 3 weeks she's been feeling excessively tired and feeling as if she will pass out or "NOD off" Patient also states that last week she had an acute onset of substernal chest pain that she took nitroglycerin which relieved her symptoms patient states that today the visiting nurse arrived to her residence and stated that she looked "off" and the blood pressure was noted to be elevated words patient presents to the emergency room patient currently denies any fever chills chest pain or pain jaw pain blurred vision nausea vomiting leg swelling hemoptysis C/O PROGRESSIVELY WORSENING SHORTNESS OF BREATH X 1 WEEK (Fariha FITZPATRICK,Medardo) Reconcile Medications Albuterol Sulfate (Proair Hfa) 90 MCG HFA.AER.AD 2 PUF INH Q4-6 PRN PRN ASTHMA (Reported) Amlodipine Besylate 10 MG TABLET 1 TAB PO DAILY BP (Reported) Apixaban (Eliquis) 5 MG TABLET 5 MG PO BID Afib Aspirin (Ecotrin*) 81 MG TABLET.DR 1 TAB PO DAILY HEART HEALTH (Reported) Clonazepam (Klonopin) 0.5 MG TABLET 1 TAB PO DAILY Insomnia/Anxiety Diltiazem HCl (Diltiazem 24HR ER) 180 MG CAP.ER.24H 1 CAP PO DAILY HEART ( Reported) Fenofibric Acid (Trilipix) 135 MG CAPSULE.DR 1 CAP PO QPM CHOLESTEROL ( Reported) Furosemide 40 MG TABLET 1 TAB PO DAILY FLUID Insulin Regular, Human (Humulin R U-500 Kwikpen) 500/ML (3) INSULN.PEN 120 U SC QPM DM (Reported) Insulin Regular, Human (Humulin R U-500 Kwikpen) 500/ML (3) INSULN.PEN 180 UNITS SC QAM DM (Reported) Isosorbide Mononitrate (Isosorbide Mononitrate ER) 30 MG TAB.ER.24H 1 TAB PO DAILY HEART (Reported) Losartan Potassium (Cozaar) 50 MG TABLET 1 TAB PO DAILY HTN (Reported) Metoprolol Tartrate 25 MG TABLET 1 TAB PO BID BP (Reported) Nitroglycerin (Nitrostat) 0.3 MG TAB.SUBL 0.4 MG SL Q 5 MINUTES X 3 DOSE PRN CHEST PAIN Pantoprazole Sodium (Protonix) 40 MG TABLET.DR 1 TAB PO BID GI (Reported) Rosuvastatin Calcium (Crestor) 40 MG TABLET 1 TAB PO DAILY CHOLESTEROL ( Reported) Ticagrelor (Brilinta) 60 MG TABLET 1 TAB PO BID HEART/BLOOD (Reported) Tiotropium Grant (Spiriva) 18 MCG CAP.W.DEV 2 PUF INH DAILY Breathing (Hernandez BARRIOS,Navi) Past History Travel History Traveled to [place] past 21 day No Medical History Any Pertinent Medical History? see below for history Neurological: NONE EENT: NONE Cardiovascular: CAD, hypertension, hyperlipidemia, myocardial infarction, IA W STENTS Respiratory: obstructive sleep apnea, pneumonia Gastrointestinal: MILD GASTRITIS Hepatic: NONE Renal: NONE Musculoskeletal: NONE Psychiatric: anxiety Endocrine: diabetes Blood Disorders: NONE Cancer(s): NONE LEGAL CONTRACTS SPECIALIST/Reproductive: NONE Other Medical Hx: Diabetic retinopathy History of MRSA: No History of VRE: No History of CDIFF: No Surgical History Surgical History: CARDIAC STENTS Psychosocial History Who do you live with Patient/Self Services at Home None What is your primary language Bengali Tobacco Use: Quit >30 days ago Family History Family History, If Any: MOTHER Relation not specified for: FH: hypertension Hx Contributory? No (Medardo Howell) Review of Systems Review of Systems Constitutional: Reports: see HPI. EENTM: Reports: no symptoms. Respiratory: Reports: see HPI. Cardiovascular: Reports: see HPI. GI: Reports: no symptoms. Genitourinary: Reports: no symptoms. Musculoskeletal: Reports: no symptoms. Skin: Reports: no symptoms. Neurological/Psychological: Reports: no symptoms. Hematologic/Endocrine: Reports: no symptoms. Immunologic/Allergic: Reports: no symptoms. All Other Systems: Reviewed and Negative (Medardo Howell) Physical Exam Physical Exam General Appearance: no apparent distress, alert, comfortable, obese Head: atraumatic Eyes: Bilateral: normal appearance, PERRL. Ears, Nose, Throat: normal ENT inspection, hearing grossly normal Neck: normal inspection Respiratory: normal breath sounds, chest non-tender, no respiratory distress Cardiovascular: regular rate/rhythm Peripheral Pulses: 2+ radial (R), 2+ radial (L) Gastrointestinal: normal bowel sounds, soft, non-tender Extremities: normal inspection, normal capillary refill, normal range of motion, no edema Neurologic/Psych: no motor/sensory deficits, awake, alert, oriented x 3 Skin: intact, normal color, warm/dry Core Measures ACS in differential dx? No CVA/TIA Diagnosis No Sepsis Present: No Sepsis Focused Exam Completed? No (Medardo Howell) Progress Differential Diagnosis: AMI, aortic dissection, atrial fibrillation, cholecystitis, CHF/pulm edema, costochondritis, hyperkalemia, hypovolemia, hyperthyroid, hyperventilation, intracranial hemorrhage, musculoskeletal pain, myocarditis, pancreatitis, pericarditis, pneumonia, pneumothorax, PSVT, pulmonary embolism, PUD/GERD, PVCs/PACs, respiratory failure, rib fracture, sepsis, unstable angina, V-fib/V-Tach, WPW syndrome Plan of Care: Orders Procedure Date/time Status BASIC ELECTROLYTES PLUS BUN&CR 05/31 0600 Active Consistent Carbohydrate 3 05/30 D Active BASIC ELECTROLYTES PLUS BUN&CR 05/30 1800 Active FingerStick- Glucose 05/30 1416 Active Pathway - chart 05/30 1415 Active Pathway - chart 05/30 1413 Active House Staff 05/30 1413 Active Patient Data 05/30 1401 Active LACTIC ACID 05/30 1340 Complete B-TYPE NATRIURETIC PEP (BNP) 05/30 1340 Complete OXYGEN SETUP (GEN) 05/30 1339 Active Saline Lock 05/30 1339 Active Admit to inpatient 05/30 1339 Active Vital Signs 05/30 1339 Active Activity/Ambulation 05/30 1339 Active Code Status 05/30 1339 Active Add-on Test (ER Only) 05/30 1309 Active Add-on Test (ER Only) 05/30 1306 Active Telemetry/Wide Area Network Systems Administrator 05/30 1301 Active MAGNESIUM 05/30 1214 Complete ACETONE 05/30 1214 Complete THYROID STIMULATING HORMONE 05/30 1201 Complete TROPONIN LEVEL 05/30 1201 Complete FREE T4 05/30 1201 Complete COMPREHENSIVE METABOLIC PANEL 05/30 1201 Complete CBC WITHOUT DIFFERENTIAL 05/30 1201 Complete EKG 05/30 1101 Active VTE Mechanical Prophylaxis 05/30 UNK Active Vital Signs 05/30 UNK Active Intake & Output 05/30 UNK Active Current Medications Sig/Rubin Start time Last Medication Dose Stop Time Status Admin Diltiazem HCl 180 MG 1700 05/31 1700 UNVr (Cardizem CD) Fenofibrate 145 MG 1700 05/31 1700 UNVr (Tricor) Amlodipine Besylate 10 MG DAILY 05/31 1000 UNVr (Norvasc) Aspirin Buffered 81 MG DAILY 05/31 1000 UNVr (Ecotrin) Clonazepam 0.5 MG DAILY 05/31 1000 UNVr (KlonoPIN) 06/07 0959 Furosemide 40 MG DAILY 05/31 1000 UNVr (Lasix) Isosorbide 30 MG DAILY 05/31 1000 UNVr Mononitrate (Imdur) Losartan Potassium 50 MG DAILY 05/31 1000 UNVr (Cozaar) Tiotropium [place] 2 PUF DAILY 05/31 1000 UNVr (Spiriva) Insulin Human Regular 180 UNITS 0800 05/31 0800 UNVr (NovoLIN R) Omeprazole 40 MG DAILY AC 05/31 0700 UNVr (Prilosec) Apixaban 5 MG BID 05/30 2199 UNVr (Eliquis) Insulin Human Regular 120 UNITS 22005/30 2200 UNVr (NovoLIN R) Metoprolol Tartrate 25 MG BID 05/30 2199 UNVr (Lopressor) Atorvastatin Calcium 40 MG 1700 05/30 1700 UNVr (Lipitor) Oxycodone/ 1 TAB ONCE ONE 05/30 1530 UNVr Acetaminophen 05/30 1531 (Percocet) Nitroglycerin 0.4 MG DAILY NEEDED PRN 05/30 1515 UNVr (Transderm Nitro 10MG (0.4 MG/Hr) Patch) Non-Formulary 0 SEE ADMIN CRITERIA 05/30 1515 UNVr Medication (NON FORMULARY) Acetaminophen 650 MG Q6P PRN 05/30 1415 AC (Tylenol) Acetaminophen 1,000 MG Q6P PRN 05/30 1415 AC (Ofirmev) Polyethylene Glycol 17 GM AT BEDTIME PRN 05/30 1415 AC (Miralax) Senna/Docusate Sodium 1 TAB AT BEDTIME PRN 05/30 1415 AC (Senokot S) Laboratory Tests 05/30/17 1340: Lactic Acid 1.2, Lzv-W-Dbdgivzngbz Pept 528 H 05/30/17 1214: Anion Gap 18 H, Estimated GFR 42 L, BUN/Creatinine Ratio 30.0 H, Glucose 318 H, Calcium 10.0, Magnesium 1.7, Total Bilirubin 0.3, AST 27, ALT 35, Alkaline Phosphatase 56, Troponin I < 0.01, Total Protein 7.5, Albumin 4.3, Globulin 3.2, Albumin/Globulin Ratio 1.3, TSH 2.650, Free T4 0.99, CBC w Diff NO MAN DIFF REQ, RBC 3.47 L, MCV 84.8, MCH 28.5, RDW 14.2, MPV 9.1, Gran % 66.2, Lymphocytes % 22.9, Monocytes % 6.8, Eosinophils % 2.9, Basophils % 1.2, Absolute Granulocytes 4.6, Absolute Lymphocytes 1.6, Absolute Monocytes 0.5, Absolute Eosinophils 0.2, Absolute Basophils 0.1, PUBS MCHC 33.6, Acetone Level NEGATIVE Patient on initial examination was resting complex bedside and has unremarkable physical exam hour patient does have critical findings of hyperkalemia and noted subtle T-wave peaked abnormalities on EKG from previous one in November. Discussed patient with Dr. Rodas was aware patient will be admitted to hospital service to telemetry calcium gluconate and insulin was administered Discussed disposition plan of admission with patient was aware Patient also has been complaining of one-week history of progressively worsening shortness breath or chest x-ray does show suspicion of worsening CHF Diagnostic Imaging: Viewed by Me: Radiology Read. Initial ED EK BPM,NSR, NOTED PEAKED TWAVES, ELEVATION OF TWAVE UNCHANGED Comments: PATIENT: EDUARD ALBERT PRESENT AGE: 56 PATIENT ACCOUNT NO: [id number] : 60 LOCATION: [facility] ORDERING PHYSICIAN: Medardo FITZPATRICK SERVICE DATE: 05/30/173 EXAM TYPE: RAD - XRY-CHEST XRAY, TWO VIEWS EXAMINATION: CR CHEST CLINICAL INFORMATION: Shortness of breath. COMPARISON: Several prior chest x-rays, most recent of which is dated 11/04/2016. CT scan of the chest dated 09/10/2016. TECHNIQUE: 2 views of the chest were obtained. FINDINGS: The cardiomediastinal silhouette is enlarged, unchanged from prior exams. There is persistent soft tissue fullness in the right lower paratracheal and right perihilar regions, suspicious for adenopathy as was seen on the CT scan from 09/10/2016. Enlargement of the central pulmonary vessels is seen with streaky perihilar opacities, suspicious for mild pulmonary edema. Superimposed linear subsegmental atelectasis is seen in the left midlung. There may be a trace left-sided pleural effusion versus more likely pleural thickening and atelectasis. No focal dense consolidation is noted. No pneumothorax is seen. Prominent marginal spur formation seen throughout the thoracic spine, unchanged. IMPRESSION: 1. Enlarged cardiac silhouette and central vascular congestion and perihilar opacities are seen, consistent with congestive heart failure. Clinical correlation requested. 2. Superimposed right hilar and lower paratracheal adenopathy is suspected as was seen on prior CT scan from 09/10/2016. 3. Linear subsegmental atelectasis in the left mid and lower lung. DICTATED BY: Brenda Covarrubias MD. DATE/TIME DICTATED:05/30/17 / [id number] (Fariha FITZPATRICK,Medardo) Departure Departure Disposition: STILL A PATIENT Condition: Stable Clinical Impression Primary Impression: Hyperkalemia Secondary Impressions: Abnormal finding on EKG, CHF (congestive heart failure), Hyperglycemia Referrals: Lorie Glaser APRN (PCP/Family) Departure Forms: Customer Survey General Discharge Information Admission Note Spoke With: Chetan Purvis MD Documentation of Exam: Documentation of any treatments & extenuating circumstances including Concerns Regarding Discharge (functional status, medication knowledge or non-compliance, living conditions, etc.) that warrant an admission rather than observation: [ Patient requires cardiology consultation, repeat labs, telemetry monitoring, IV calcium gluconate IV insulin glucose monitoring] (Medardo Howell) PA/MOBILITY ARCHITECT MANAGER Co-Sign Statement Statement: ED Attending supervision documentation- I saw and evaluated the patient. I have also reviewed all the pertinent lab results and diagnostic results. I agree with the findings and the plan of care as documented in the PA's/MOBILITY ARCHITECT MANAGER's documentation. x I have reviewed the ED Record and agree with the PA's/MOBILITY ARCHITECT MANAGER's documentation. [] Additions or exceptions (if any) to the PAs/MOBILITY ARCHITECT MANAGER's note and plan are summarized below: [] (Hernandez BARRIOS,Navi) Critical Care Note Critical Care Note Critical Care Time: 30-74 min (Medardo Howell)
[2017-05-30 12:21] LABS: ABSOLUTE BASOPHIL COUNT 0.1 /CUMM (0.0-0.2); ABSOLUTE EOSINOPHIL COUNT 0.2 /CUMM (0.0-0.7); ABSOLUTE GRANULOCYTE CT 4.6 /CUMM (1.4-6.5); ABSOLUTE LYMPH COUNT 1.6 /CUMM (1.2-3.4); ABSOLUTE MONOCYTE COUNT 0.5 /CUMM (0.10-0.60); BASOPHIL % 1.2 % (0.0-2.0); EOSINOPHIL % 2.9 % (0-5); GRANULOCYTE % 66.2 % (42.2-75.2); HEMATOCRIT 29.4 % (37-47); MEAN CORPUSCULAR HGB 28.5 PG (27.0-31.0); MEAN CORPUSCULAR HGB CONC 33.6 G/DL (33.0-37.0); MEAN CORPUSCULAR VOLUME 84.8 FL (81.0-99.0); MEAN PLATELET VOLUME 9.1 FL (7.4-10.4); PLATELET COUNT 246 /CUMM (130-400); RBC DISTRIBUTION WIDTH 14.2 % (11.5-14.5); RED BLOOD CELL CT 3.47 /CUMM (4.20-5.40); WHITE BLOOD CELL COUNT 6.9 /CUMM (4.8-10.8)
--- NOTE | 2017-05-30 14:04 | RADIOLOGY REPORT ---
EXAMINATION: CR CHEST CLINICAL INFORMATION: Shortness of breath. COMPARISON: Several prior chest x-rays, most recent of which is dated 11/04/2016. CT scan of the chest dated 09/10/2016. TECHNIQUE: 2 views of the chest were obtained. FINDINGS: The cardiomediastinal silhouette is enlarged, unchanged from prior exams. There is persistent soft tissue fullness in the right lower paratracheal and right perihilar regions, suspicious for adenopathy as was seen on the CT scan from 09/10/2016. Enlargement of the central pulmonary vessels is seen with streaky perihilar opacities, suspicious for mild pulmonary edema. Superimposed linear subsegmental atelectasis is seen in the left midlung. There may be a trace left-sided pleural effusion versus more likely pleural thickening and atelectasis. No focal dense consolidation is noted. No pneumothorax is seen. Prominent marginal spur formation seen throughout the thoracic spine, unchanged. IMPRESSION: 1. Enlarged cardiac silhouette and central vascular congestion and perihilar opacities are seen, consistent with congestive heart failure. Clinical correlation requested. 2. Superimposed right hilar and lower paratracheal adenopathy is suspected as was seen on prior CT scan from 09/10/2016. 3. Linear subsegmental atelectasis in the left mid and lower lung.
--- NOTE | 2017-05-30 14:07 | History & Physical ---
Guanaco BARRIOS,[facility] 05/30/17 1406: General Information and HPI MD Statement: I have seen and personally examined EDUARD ALBERT and documented this H&P. The patient is a 56 year old F who presented with a patient stated chief complaint of [palpitation]. Source of Information: patient Exam Limitations: no limitations History of Present Illness: Patient is a 54-year-old woman with possible history of CAD, hypertension, hyperlipidemia, myocardial infarction, [place] W STENTS (hx of CAD s/p cardiac stents in 2010 at [facility]), repeat FL at Dec 2014 went to [facility], PVD status post right lower extremity stenting , diabetes, atrial fibrillation, chronic kidney disease, obstructive sleep apnea on CPAP was sent to [facility] by her nurse with a blood pressure recording of 140/40. Apparently patient was in usual state of health until 2 days ago, following which she had 10 x 10 chest pain with no radiation relieved by 3 nitroglycerin. Patient also complains of palpitation on and off for the past 3 weeks. She denies chest pain, chest pressure, fever, chills, nausea, vomiting, abdominal pain, decreased urine output, pedal edema, hematuria, bloody bowel movement. Hospital patient was admitted in [facility] in September 2016 for chest pain syndrome and was evaluated by Dr. Rodas. She had an echo which showed an ejection fraction of 55-60%, underwent a nuclear stress test which was normal. She denies any recent admission in other hospitals. Had a flu shot. She has never had mammograms/colonoscopy in the past. Her last visit to her silk finisher was in February 2017. Allergies/Medications Allergies: Coded Allergies: tramadol (NAUSEA 09/10/16) Home Med list Albuterol Sulfate (Proair Hfa) 90 MCG HFA.AER.AD 2 PUF INH Q4-6 PRN PRN ASTHMA (Reported) Amlodipine Besylate 10 MG TABLET 1 TAB PO DAILY BP (Reported) Apixaban (Eliquis) 5 MG TABLET 5 MG PO BID Afib Aspirin (Ecotrin*) 81 MG TABLET.DR 1 TAB PO DAILY HEART HEALTH (Reported) Clonazepam (Klonopin) 0.5 MG TABLET 1 TAB PO DAILY Insomnia/Anxiety Diltiazem HCl (Diltiazem 24HR ER) 180 MG CAP.ER.24H 1 CAP PO DAILY HEART ( Reported) Fenofibric Acid (Trilipix) 135 MG CAPSULE.DR 1 CAP PO QPM CHOLESTEROL ( Reported) Furosemide 40 MG TABLET 1 TAB PO DAILY FLUID Insulin Regular, Human (Humulin R U-500 Kwikpen) 500/ML (3) INSULN.PEN 120 U SC QPM DM (Reported) Insulin Regular, Human (Humulin R U-500 Kwikpen) 500/ML (3) INSULN.PEN 180 UNITS SC QAM DM (Reported) Isosorbide Mononitrate (Isosorbide Mononitrate ER) 30 MG TAB.ER.24H 1 TAB PO DAILY HEART (Reported) Losartan Potassium (Cozaar) 50 MG TABLET 1 TAB PO DAILY HTN (Reported) Metoprolol Tartrate 25 MG TABLET 1 TAB PO BID BP (Reported) Nitroglycerin (Nitrostat) 0.3 MG TAB.SUBL 0.4 MG SL Q 5 MINUTES X 3 DOSE PRN CHEST PAIN Pantoprazole Sodium (Protonix) 40 MG TABLET.DR 1 TAB PO BID GI (Reported) Rosuvastatin Calcium (Crestor) 40 MG TABLET 1 TAB PO DAILY CHOLESTEROL ( Reported) Ticagrelor (Brilinta) 60 MG TABLET 1 TAB PO BID HEART/BLOOD (Reported) Tiotropium [place] (Spiriva) 18 MCG CAP.W.DEV 2 PUF INH DAILY Breathing Compliance With Home Meds: GOOD Past History Travel History Traveled to [place] past 21 day No Medical History Neurological: NONE EENT: NONE Cardiovascular: CAD, hypertension, hyperlipidemia, myocardial infarction, [place] W STENTS Respiratory: obstructive sleep apnea, pneumonia Gastrointestinal: MILD GASTRITIS Hepatic: NONE Renal: NONE Musculoskeletal: NONE Psychiatric: anxiety Endocrine: diabetes Blood Disorders: NONE Cancer(s): NONE WEED CONTROL INSPECTOR/Reproductive: NONE Other Medical Hx: Diabetic retinopathy History of MRSA: No History of VRE: No History of CDIFF: No Surgical History Surgical History: CARDIAC STENTS ECHO Results (as available) EF% 55 Past Family/Social History Family History Relations & Conditions if any MOTHER Relation not specified for: FH: hypertension Psychosocial History Who Do You Live With? child Services at Home: None Primary Language: Sammarinese Smoking Status: Former Smoker ETOH Use: occasional use Functional Ability ADLs Independent: dressing, eating, toileting, bathing. Ambulation: independent IADLs Independent: shopping, housework, finances, food prep, telephone, transportation , medication admin. Review of Systems Review of Systems Constitutional: Reports: no symptoms. Cardiovascular: Reports: no symptoms. Respiratory: Reports: no symptoms. GI: Reports: no symptoms. Genitourinary: Reports: no symptoms. Musculoskeletal: Reports: no symptoms. Skin: Reports: no symptoms. Exam & Diagnostic Data Last 24 Hrs of Vital Signs/I&O Vital Signs Date Time Temp Pulse Resp B/P B/P Pulse O2 O2 Flow FiO2 Mean Ox Delivery Rate 05/30 1428 97.9 70 17 132/56 96 Room Air 05/30 1234 97.5 68 18 134/58 97 Room Air 05/30 1106 97.0 69 22 155/71 97 Room Air Intake & Output 05/30 1600 05/30 0800 05/30 0000 Intake Total Output Total Balance Patient 230 lb Weight Weight Reported by Patient Measurement Method Physical Exam General Appearance Alert, Oriented X3, Cooperative, No Acute Distress Skin No Rashes HEENT Atraumatic Neck Supple, No JVD Cardiovascular Regular Rate, Normal S1, Normal S2, No Murmurs Lungs Clear to Auscultation Abdomen Soft, No Tenderness, No Hepatospenomegaly Neurological Normal Speech, Strength at 5/5 X4 Ext, Normal Tone, Sensation Intact Last 24 Hrs of Labs/Maximo: Laboratory Tests 05/30/17 1340: Lactic Acid 1.2, Rjk-P-Smhsnjdsehb Pept 528 H 05/30/17 1214: Anion Gap 18 H, Estimated GFR 42 L, BUN/Creatinine Ratio 30.0 H, Glucose 318 H, Calcium 10.0, Magnesium 1.7, Total Bilirubin 0.3, AST 27, ALT 35, Alkaline Phosphatase 56, Troponin I < 0.01, Total Protein 7.5, Albumin 4.3, Globulin 3.2, Albumin/Globulin Ratio 1.3, TSH 2.650, Free T4 0.99, CBC w Diff NO MAN DIFF REQ, RBC 3.47 L, MCV 84.8, MCH 28.5, RDW 14.2, MPV 9.1, Gran % 66.2, Lymphocytes % 22.9, Monocytes % 6.8, Eosinophils % 2.9, Basophils % 1.2, Absolute Granulocytes 4.6, Absolute Lymphocytes 1.6, Absolute Monocytes 0.5, Absolute Eosinophils 0.2, Absolute Basophils 0.1, PUBS MCHC 33.6, Acetone Level NEGATIVE Diagnostic Data EKG Results Normal sinus rhythm heart rate [address] segment changes. CXR Results 1. Enlarged cardiac silhouette and central vascular congestion and perihilar opacities are seen, consistent with congestive heart failure. Clinical correlation requested. 2. Superimposed right hilar and lower paratracheal adenopathy is suspected as was seen on prior CT scan from 09/10/2016. 3. Linear subsegmental atelectasis in the left mid and lower lung. Assessment/Plan Assessment: Patient is a 54-year-old woman with possible history of CAD, hypertension, hyperlipidemia, myocardial infarction, [place] W STENTS (hx of CAD s/p cardiac stents in 2010 at [facility]), repeat [place] at Dec 2014 went to [facility], PVD status post right lower extremity stenting , diabetes, atrial fibrillation, chronic kidney disease, obstructive sleep apnea on CPAP was sent to [facility] by her nurse with a blood pressure recording of 140/40. Assessment and plan 1.Hyperkalemia 2. COPD 3. Coronary artery disease 4. Peripheral vascular disease 5. Diabetes/hypertension/hyperlipidemia 6. Atrial fibrillation 7. Chronic kidney disease 1. Hyperkalemia Patient had a potassium level of 6.1 upon admission. Treated with insulin and calcium gluconate. We will repeat electrolytes at present there is no EKG changes. we will discontinue losartan which might be causing her hyperkalemia. 2. COPD She is not in exacerbation. He should quit smoking a year ago. We will continue albuterol and Symbicort. 3. Coronary artery disease Patient denies chest pain, shortness of breath, chest pressure, palpitation. We will do troponins and EKG to rule out ACS. First set of troponins negative. 4. Diabetes Patient is on regular insulin 120 units in the morning and 1-2 units in the evening. We will get endocrinology consult to guide us with the insulin regimen. Diabetic diet, Accu-Chek, HbA1c. 5. Atrial fibrillation Patient is on Eliquis. Patient is in sinus rhythm now. We will continue the same. 6. Peripheral vascular disease Patient is taking Lyrica 25 mg twice a day, pentoxifylline ER 400 mg twice a day and Percocet 325 every 6 when necessary. Patient said she has an appointment with the pain management clinic in [facility]. We will continue the same medication. Diet-diabetic diet Code-full code As Ranked By This Provider Problem List: 1. COPD 2. Diabetes mellitus 3. Hypercholesterolemia 4. Hypertension 5. PATRICIA (obstructive sleep apnea) 6. CHF (congestive heart failure) 7. Hyperkalemia Core Measures/Misc (01/23) Acute Coronary Syndrome ACS Diagnosis: No Congestive Heart Failure Congestive Heart Failure Diagnosis No Cerebrovascular Accident CVA/TIA Diagnosis: No VTE (View Protocol) VTE Risk Factors Age>40 No Mechanical VTE Prophylaxis d/t Other No VTE Pharm Prophylaxis d/t Other Sepsis (View protocol) Sepsis Present: No Daniel Delvalle MD 05/30/17 1407: Resident Review Statement Resident Statement: examined this patient, discussed with grinder set up operator internal, agreed with grinder set up operator internal, reviewed EMR data (avail), discussed with nursing, discussed with case mgmt, reviewed images, amended to note Other Findings: 56 yo F with pmh of CAD s/p stenting (2010, 2014), ?atrial fibrillation, HTN, mild , minimal AI,mild MR with mild LA enlargement, HLD, PVD on Eliquis, PATRICIA on CPAP, asthma, DM, CKD, last admission at on 09/22 was refered to the ED by her nurse who noted her BP to be 140/40 and 150/50 on repeating it. She has had palpitations since last three weeks, and also was having chest pain last Sat that lasted only 15 min, which was releived by 3 tabs of nitro. She visited her Geophysical Laboratory Chief four months ago and also had a stress test in 2017 showing small area of reversible ischemia. She is regular on her meds, but had missed on isosorbide for few days recently. She visits CHF clinic on alternate weeks. She was found to have hyperkalemia of potassium 6.1 and was given insulin and calcium gluconate in the ED. She is being admitted in the telemetry floor for the management of the following issues: # Hyperkalemia She is not in cardiac failure currently, does not have chest pain, dizziness, her EKG does not show bradycardia, or tall T waves, also compared with her old EKG. She received Insulin and deepa gluconate in the ED. But she will require further monitoring. * Admit to tele floor * Watch for changes in rate and rhythm * Monitor vitals, I/O regularly * Received deepa gluconate and insulin already, will check repeat values of potassium at 6 PM today and 6 AM tomorrow morning * awaiting cardiology consultation #Uncontrolled diabetes mellitus * Her blood sugar is not under control, as evident by HbA1c of, Done on, So endocrinology consultation has been placed, and for the time being she is on insulin as she mentioned to us. * Repeat HbA1c * Diabetic diet, insulin, and regular Accu-Cheks ordered. #Will continue rest of her home medications. Medications confirmed with her pharmacy: - Breo 1 puff daily - Percocet (5/325) q6PRN - gabapentin 100 mg TID <has not been treating her neuropathy> - lyrica 25 mg BID <has not been treating her neuropathy> - niacin ER 750 mg daily - Pentoxifylline ER 400 mg BID #Diet: Diabetic diet #DVT ppx: Eliquis #Code status: Full code Of note, PCP: Lorie Glaser [facility] Chief: Dr Kei Rodas Pulm: Dr Miller Padilla Pain Mx: pain Management clininc at [facility] Yuval BARRIOS,[facility] 05/30/17 1640: Attending MD Review Statement Attending Statement Attending MD Statement: examined this patient, discuss w/resident/PA/FIRE INSPECTOR, agreed w/resident/PA/FIRE INSPECTOR, reviewed EMR data (avail), discussed with nursing, amended to note Attending Assessment/Plan: Patient seen and examined. She is a very pleasant 56-year-old female who was sent in by her visiting nurse on account of an elevated blood pressure. Emergency room she was found to have hyperkalemia with subtle EKG changes. She has been admitted for further management. She is currently resting comfortably not in acute distress. Denies chest pain or shortness of breath. Denies palpitations. She complains of daytime somnolence. She reports compliance with CPAP therapy but admits that she only uses it for 3 hours of the night. She reports that she is awake for the most part of the rest of the night. In the ER patient is found to be hyperglycemic with glucose in the 300s. She reports that her baseline her glucose levels are usually in the 120s. She admits eating frosted cereal this morning at 4 AM. She complained of chest pain 2 days ago which resolved with nitroglycerin. She denies any further chest pain at present. Gen. appearance: Obese, not in any acute distress Heart: S1-S2 regular Lungs: Good entry bilaterally, clear to auscultation Abdomen: Obese, soft, nontender with normal bowel sounds Patient: Trace pedal edema. Skin: Intact with no rashes. Problems: 1. Hyperkalemia; query medication induced. She has had intermittent hyperkalemia in the past. 2. Hypertension 3. Diabetes mellitus; blood glucose elevated today. 4. Chronic kidney disease stage III. 5. History of coronary artery disease. 6. Chest pain. Plan: -Admit to the inpatient medical service. -Telemetry monitoring on account of her hyperkalemia. -She has been medicated in the emergency room. Repeat serum chemistry. -Discontinue losartan as this may be the cause of her hyperkalemia. -Continue her other antihypertensive medications. Monitor blood pressure closely. -Patient he gave report of chest pain earlier on which is now resolved. It is noted that her nuclear stress test last year showed small area of reversible disease. WIll follow-up with the cardiology service. Cardiac enzymes are currently negative. She is currently pain-free. EKG shows no ischemic changes are present.
[2017-05-30 19:00] VITALS: BP 162/68
--- NOTE | 2017-05-30 19:07 | Cons- Cardiology ---
General Information and HPI Consulting Request Date of Consult: 05/30/17 Requested By: Yuval BARRIOS,Mina Reason for Consult: Hyperkalemia, abnormal EKG, CAD History of Present Illness: The patient is a 56-year-old female with history of CAD, obstructive sleep apnea , peripheral arterial disease, and hypertension who is followed in the office by Dr. Rodas. She had an episode of chest pain one week ago which she describes as an 8 out of 10 tightness in the left side of her chest which lasted 10 minutes before resolving after 3 sublingual nitroglycerin.. This morning she had palpitations which are generally in the morning and continued intermittently throughout the day. The palpitations have been intermittent over the past few weeks. She reports feeling better at this time. In the emergency department she was noted to have hyperkalemia, hyperglycemia, and EKG changes. No shortness of breath. No diaphoresis. No syncope. No orthopnea. No lightheadedness or dizziness. No nausea or vomiting Allergies/Medications Allergies: Coded Allergies: tramadol (NAUSEA 09/10/16) Home Med List: Albuterol Sulfate (Proair Hfa) 90 MCG HFA.AER.AD 2 PUF INH Q4-6 PRN PRN ASTHMA (Reported) Amlodipine Besylate 10 MG TABLET 1 TAB PO DAILY BP (Reported) Apixaban (Eliquis) 5 MG TABLET 5 MG PO BID Afib Clonazepam (Klonopin) 0.5 MG TABLET 1 TAB PO DAILY Insomnia/Anxiety Clopidogrel Bisulfate (Plavix) 75 MG TABLET 75 MG PO DAILY heart . Diltiazem HCl (Diltiazem 24HR ER) 180 MG CAP.ER.24H 1 CAP PO DAILY HEART ( Reported) Fenofibric Acid (Trilipix) 135 MG CAPSULE.DR 1 CAP PO QPM CHOLESTEROL ( Reported) Furosemide 40 MG TABLET 1 TAB PO DAILY FLUID Insulin Regular, Human (Humulin R U-500 Kwikpen) 500/ML (3) INSULN.PEN 120 U SC QPM DM (Reported) Insulin Regular, Human (Humulin R U-500 Kwikpen) 500/ML (3) INSULN.PEN 120 UNITS SC QAM DM Isosorbide Mononitrate (Isosorbide Mononitrate ER) 30 MG TAB.ER.24H 1 TAB PO DAILY HEART (Reported) Metoprolol Tartrate 25 MG TABLET 1 TAB PO BID BP (Reported) Nitroglycerin (Nitrostat) 0.3 MG TAB.SUBL 0.4 MG SL Q 5 MINUTES X 3 DOSE PRN CHEST PAIN Pantoprazole Sodium (Protonix) 40 MG TABLET.DR 1 TAB PO BID GI (Reported) Rosuvastatin Calcium (Crestor) 40 MG TABLET 1 TAB PO DAILY CHOLESTEROL ( Reported) Tiotropium [place] (Spiriva) 18 MCG CAP.W.DEV 2 PUF INH DAILY Breathing Current Medications: Current Medications Sig/Rubin Start time Last Medication Dose Route Stop Time Status Admin Acetaminophen 650 MG Q6P PRN 05/30 1415 AC PO Acetaminophen 1,000 MG Q6P PRN 05/30 1415 AC IV Amlodipine Besylate 10 MG DAILY 05/31 1000 AC PO Apixaban 5 MG BID 05/300 AC PO Aspirin Buffered 81 MG DAILY 05/31 1000 AC PO Atorvastatin Calcium 40 MG 1700 05/30 1700 AC 05/30 PO 1614 Budesonide/ 2 PUF BID 05/30 2200 AC Formoterol Fumarate INH Calcium Gluconate 0 .STK-MED ONE 05/30 1324 DC IV Calcium Gluconate 1 GM ONCE ONE 05/30 1300 DC 05/30 Sodium Chloride 100 ML IV 05/30 1359 1410 Clonazepam 0.5 MG DAILY 05/31 1000 AC PO 06/07 0959 Diltiazem HCl 180 MG 17005/31 1700 AC PO Fenofibrate 145 MG 1700 05/31 1700 AC PO Furosemide 40 MG DAILY 05/31 1000 AC PO Gabapentin 200 MG Q8 05/30 1616 AC 05/30 PO 1703 Insulin Aspart 0 TIDAC/HS 05/30 1700 AC 05/30 SC 1729 Insulin Detemir 60 UNITS BID 05/30 2200 AC SC Insulin Human Regular 180 UNITS 0800 05/31 0800 CAN SC Insulin Human Regular 120 UNITS 22005/30 2200 CAN SC Insulin Human Regular 10 UNITS ONCE ONE 05/30 1315 DC 05/30 SC 05/30 1316 1410 Isosorbide 30 MG DAILY 05/31 1000 AC Mononitrate PO Losartan Potassium 50 MG DAILY 05/31 1000 CAN PO Metoprolol Tartrate 25 MG BID 05/30 2200 AC PO Nicotinic Acid 750 MG DAILY 05/31 1000 AC PO Nitroglycerin 0.4 MG DAILY NEEDED PRN 05/30 1515 AC TOP Omeprazole 40 MG DAILY AC 05/31 0700 AC PO Oxycodone/ 1 TAB Q6P PRN 05/30 1615 AC Acetaminophen PO Oxycodone/ 1 TAB ONCE ONE 05/30 1530 DC 05/30 Acetaminophen PO 05/30 1531 1522 Oxycodone/ 0 .STK-MED ONE 05/30 1525 DC Acetaminophen PO Pentoxifylline 400 MG BID 05/30 2200 AC PO Polyethylene Glycol 17 GM AT BEDTIME PRN 05/30 1415 AC PO Pregabalin 25 MG BID 05/30 2200 AC PO Senna/Docusate Sodium 1 TAB AT BEDTIME PRN 05/30 1415 AC PO Ticagrelor 60 MG BID 05/30 1515 AC 05/30 PO 1614 Tiotropium [place] 2 PUF DAILY 05/31 1000 CAN INH Review of Systems Review of Systems: No rash. No tremor. No melena. No diaphoresis. All other systems were reviewed, and were noted to be negative. 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 child Services at Home: None Primary Language: Upper Sorbian Smoking Status: Former Smoker ETOH Use: occasional use Functional Ability ADLs Independent: dressing, eating, toileting, bathing. Ambulation: independent IADLs Independent: shopping, housework, finances, food prep, telephone, transportation , medication admin. ECHO Results (as available) EF% 55 Exam & Diagnostic Data Vital Signs and I&O Vital Signs Date Time Temp Pulse Resp B/P B/P Pulse O2 O2 Flow FiO2 Mean Ox Delivery Rate 05/30 1900 97.7 70 18 162/68 96 Room Air 05/30 1829 98.5 68 18 168/66 98 Room Air 05/30 1621 98.1 70 18 174/60 97 Room Air 05/30 1428 97.9 70 17 132/56 96 Room Air 05/30 1234 97.5 68 18 134/58 97 Room Air 05/30 1106 97.0 69 22 155/71 97 Room Air Intake & Output 05/30 1600 05/30 0800 05/30 0000 05/29 1600 05/29 0800 05/29 0000 Intake Total Output Total Balance Patient 230 lb Weight Weight Reported by Patient Measurement Method Physical Exam: Gen: The patient is in no acute distress HEENT: Normal nose, ears, and oropharynx. Pupils equal bilaterally. Conjunctiva normal. Neck: Supple with no JVD, no masses, and no thyromegaly Lungs: Clear to auscultation with normal respiratory effort Heart: RRR, S1, S2, 1/6 systolic murmur. No peripheral edema, 2+ pulses in the lower extremities bilaterally Abdomen: Soft, nontender, no masses. No hepatomegaly. No splenomegaly Extremities: No clubbing or cyanosis. Normal muscle strength in the upper and lower extremities Skin: Normal skin turgor with no skin ulcers or lesions noted. Neuro: Cranial nerves intact. Sensation intact Psych: Alert and oriented 3 with appropriate affect Labs/Maximo Results: Laboratory Tests 05/30 05/30 05/30 1758 1340 1214 Chemistry Sodium (137 - 145 mmol/L) 146 H 145 Potassium (3.5 - 5.1 mmol/L) 5.4 H 6.1 *H Chloride (98 - 107 mmol/L) 111 H 112 H Carbon Dioxide (22 - 30 mmol/L) 18 L 16 L Anion Gap (5 - 16) 17 H 18 H BUN (7 - 17 mg/dL) 35 H 39 H Creatinine (0.5 - 1.0 mg/dL) 1.5 H 1.3 H Estimated GFR (>60 ml/min) 36 L 42 L BUN/Creatinine Ratio (7 - 25 %) 23.3 30.0 H Glucose (65 - 99 mg/dL) 318 H Hemoglobin A1c (4.2 - 5.8 %) Pending Lactic Acid (0.7 - 2.1 mmol/L) 1.2 Calcium (8.4 - 10.2 mg/dL) 10.0 Magnesium (1.6 - 2.3 mg/dL) 1.7 Total Bilirubin (0.2 - 1.3 mg/dL) 0.3 AST (14 - 36 U/L) 27 ALT (9 - 52 U/L) 35 Alkaline Phosphatase (<127 U/L) 56 Troponin I (< 0.11 ng/ml) < 0.01 < 0.01 Frn-R-Uzktutighil Pept (<125 pg/mL) 528 H Total Protein (6.3 - 8.2 g/dL) 7.5 Albumin (3.5 - 5.0 g/dL) 4.3 Globulin (1.9 - 4.2 gm/dL) 3.2 Albumin/Globulin Ratio (1.1 - 2.2 %) 1.3 TSH (0.270 - 4.200 uIU/mL) 2.650 Free T4 (0.64 - 1.79 ng/dL) 0.99 Hematology CBC w Diff NO MAN DIFF REQ WBC (4.8 - 10.8 /CUMM) 6.9 RBC (4.20 - 5.40 /CUMM) 3.47 L Hgb (12.0 - 16.0 G/DL) 9.9 L Hct (37 - 47 %) 29.4 L MCV (81.0 - 99.0 FL) 84.8 MCH (27.0 - 31.0 PG) 28.5 RDW (11.5 - 14.5 %) 14.2 Plt Count (130 - 400 /CUMM) 246 MPV (7.4 - 10.4 FL) 9.1 Gran % (42.2 - 75.2 %) 66.2 Lymphocytes % (20.5 - 51.1 %) 22.9 Monocytes % (1.7 - 9.3 %) 6.8 Eosinophils % (0 - 5 %) 2.9 Basophils % (0.0 - 2.0 %) 1.2 Absolute Granulocytes (1.4 - 6.5 /CUMM) 4.6 Absolute Lymphocytes (1.2 - 3.4 /CUMM) 1.6 Absolute Monocytes (0.10 - 0.60 /CUMM) 0.5 Absolute Eosinophils (0.0 - 0.7 /CUMM) 0.2 Absolute Basophils (0.0 - 0.2 /CUMM) 0.1 PUBS MCHC (33.0 - 37.0 G/DL) 33.6 Toxicology Acetone Level (NEGATIVE) NEGATIVE Diagnostic Data EKG Results EKG tracing is independently reviewed, and reveals normal sinus rhythm at [address]-T abnormality CXR Results 1. Enlarged cardiac silhouette and central vascular congestion and perihilar opacities are seen, consistent with congestive heart failure. Clinical correlation requested. 2. Superimposed right hilar and lower paratracheal adenopathy is suspected as was seen on prior CT scan from 09/10/2016. 3. Linear subsegmental atelectasis in the left mid and lower lung. Other Results Echocardiogram 09/12/16: 1. This was a technically difficult examination. 2. Mild aortic stenosis is present with minimal aortic insufficiency. 3. Mitral leaflet thickening is present with mild mitral insufficiency and mild left atrial enlargement. 4. A very small pericardial effusion is present. 5. The left ventricular chamber size and systolic function appear normal with mild concentric hypertrophy present. 6. MIld to moderate tricuspid insufficiency is present with no evidence of pulmonary hypertension. Nuclear stress test 10/01/16: A small region of reversible ischemia is present in the apical anterior wall. No other perfusion abnormalities are noted. Left ventricular wall motion and ejection fraction are normal. CT of the abdomen with runoff 03/08/17: 1. No evidence of significant aortoiliac inflow disease. 2. Mild distal superficial femoral artery disease bilaterally. Patent popliteal arteries bilaterally. 3. Bilateral tibial artery disease as described above, more advanced on the right side compared to the left. Cardiac catheterization 11/17/16: Heavily calcified coronaries. 30-40% left main. 10-20% ostial LAD. 40% ostial left circumflex. 40% PDA. Assessment/Plan Assessment/Plan The patient is a 56-year-old female with history of CAD status post stents, peripheral arterial disease, and obstructive sleep apnea presenting with recent chest discomfort week ago and recurrent palpitations. She is noted to have hyperkalemia, which was treated in the emergency department. EKG is mildly abnormal. Her most recent cardiac catheterization in November no reveal any obstructive disease. She is noted to have hyperglycemia. Recommendations: * Monitor on telemetry * Insulin, Kayexalate, calcium gluconate given the emergency department. * Check serial troponin * Continue Lasix, Eliquis, and amlodipine. * Losartan on hold for hyperkalemia * Repeat basic metabolic profile in the morning Consult Acknowledgment - Thank you for your consult request.
--- NOTE | 2017-05-30 19:11 | Cons- Endocrinology ---
General Information and HPI Consulting Request Date of Consult: 05/30/17 Requested By: Medical team Reason for Consult: managmenet of diabetes type 2 Source of Information: patient, old records Exam Limitations: no limitations History of Present Illness: Patient is a 54-year-old woman with history of diabetes type 2, hypertension, hyperlipidemia, myocardial infarction with STENTS placement, PVD status post right lower extremity stenting , atrial fibrillation, chronic kidney disease, obstructive sleep apnea on CPAP, was sent to [place] [facility] after she had chest pain. Patient also complains of palpitation on and off for the past 3 weeks. with regards to diabetes, she has been on Humulin R U500 pen 180 units in the morning and 120 units at bedtime. Her HbA1c is 8.1%. Allergies/Medications Allergies: Coded Allergies: tramadol (NAUSEA 09/10/16) Home Med List: Albuterol Sulfate (Proair Hfa) 90 MCG HFA.AER.AD 2 PUF INH Q4-6 PRN PRN ASTHMA (Reported) Amlodipine Besylate 10 MG TABLET 1 TAB PO DAILY BP (Reported) Apixaban (Eliquis) 5 MG TABLET 5 MG PO BID Afib Aspirin (Ecotrin*) 81 MG TABLET.DR 1 TAB PO DAILY HEART HEALTH (Reported) Clonazepam (Klonopin) 0.5 MG TABLET 1 TAB PO DAILY Insomnia/Anxiety Diltiazem HCl (Diltiazem 24HR ER) 180 MG CAP.ER.24H 1 CAP PO DAILY HEART ( Reported) Fenofibric Acid (Trilipix) 135 MG CAPSULE.DR 1 CAP PO QPM CHOLESTEROL ( Reported) Furosemide 40 MG TABLET 1 TAB PO DAILY FLUID Insulin Regular, Human (Humulin R U-500 Kwikpen) 500/ML (3) INSULN.PEN 120 U SC QPM DM (Reported) Insulin Regular, Human (Humulin R U-500 Kwikpen) 500/ML (3) INSULN.PEN 180 UNITS SC QAM DM (Reported) Isosorbide Mononitrate (Isosorbide Mononitrate ER) 30 MG TAB.ER.24H 1 TAB PO DAILY HEART (Reported) Losartan Potassium (Cozaar) 50 MG TABLET 1 TAB PO DAILY HTN (Reported) Metoprolol Tartrate 25 MG TABLET 1 TAB PO BID BP (Reported) Nitroglycerin (Nitrostat) 0.3 MG TAB.SUBL 0.4 MG SL Q 5 MINUTES X 3 DOSE PRN CHEST PAIN Pantoprazole Sodium (Protonix) 40 MG TABLET.DR 1 TAB PO BID GI (Reported) Rosuvastatin Calcium (Crestor) 40 MG TABLET 1 TAB PO DAILY CHOLESTEROL ( Reported) Ticagrelor (Brilinta) 60 MG TABLET 1 TAB PO BID HEART/BLOOD (Reported) Tiotropium [place] (Spiriva) 18 MCG CAP.W.DEV 2 PUF INH DAILY Breathing Review of Systems Review of Systems Constitutional: Reports: see HPI. Cardiovascular: Reports: chest pain. Respiratory: Denies: short of breath. GI: Denies: abdominal pain. Musculoskeletal: Denies: back pain. Neurological/Psychological: Reports: no symptoms. Hematologic/Endocrine: Denies: polyuria, polydipsia. 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 child Services at Home: None Primary Language: Malaysian Smoking Status: Former Smoker ETOH Use: occasional use Functional Ability ADLs Independent: dressing, eating, toileting, bathing. Ambulation: independent IADLs Independent: shopping, housework, finances, food prep, telephone, transportation , medication admin. ECHO Results (as available) EF% 55 Exam & Diagnostic Data Last 24 Hrs of Vital Signs/I&O Vital Signs Date Time Temp Pulse Resp B/P B/P Pulse O2 O2 Flow FiO2 Mean Ox Delivery Rate 05/30 1900 97.7 70 18 162/68 96 Room Air 05/30 1829 98.5 68 18 168/66 98 Room Air 05/30 1621 98.1 70 18 174/60 97 Room Air 05/30 1428 97.9 70 17 132/56 96 Room Air 05/30 1234 97.5 68 18 134/58 97 Room Air 05/30 1106 97.0 69 22 155/71 97 Room Air Intake & Output 05/30 1600 05/30 0800 05/30 0000 Intake Total Output Total Balance Patient 230 lb Weight Weight Reported by Patient Measurement Method Physical Exam General Appearance: no apparent distress Neck: normal inspection Cardiovascular: regular rate/rhythm Gastrointestinal: soft, non-tender Extremities: no edema Labs/Maximo Results: Laboratory Tests 05/30 05/30 05/30 1758 1340 1214 Chemistry Sodium (137 - 145 mmol/L) 146 H 145 Potassium (3.5 - 5.1 mmol/L) 5.4 H 6.1 *H Chloride (98 - 107 mmol/L) 111 H 112 H Carbon Dioxide (22 - 30 mmol/L) 18 L 16 L Anion Gap (5 - 16) 17 H 18 H BUN (7 - 17 mg/dL) 35 H 39 H Creatinine (0.5 - 1.0 mg/dL) 1.5 H 1.3 H Estimated GFR (>60 ml/min) 36 L 42 L BUN/Creatinine Ratio (7 - 25 %) 23.3 30.0 H Glucose (65 - 99 mg/dL) 318 H Hemoglobin A1c (4.2 - 5.8 %) Pending Lactic Acid (0.7 - 2.1 mmol/L) 1.2 Calcium (8.4 - 10.2 mg/dL) 10.0 Magnesium (1.6 - 2.3 mg/dL) 1.7 Total Bilirubin (0.2 - 1.3 mg/dL) 0.3 AST (14 - 36 U/L) 27 ALT (9 - 52 U/L) 35 Alkaline Phosphatase (<127 U/L) 56 Troponin I (< 0.11 ng/ml) < 0.01 < 0.01 [id number] Pept (<125 pg/mL) 528 H Total Protein (6.3 - 8.2 g/dL) 7.5 Albumin (3.5 - 5.0 g/dL) 4.3 Globulin (1.9 - 4.2 gm/dL) 3.2 Albumin/Globulin Ratio (1.1 - 2.2 %) 1.3 TSH (0.270 - 4.200 uIU/mL) 2.650 Free T4 (0.64 - 1.79 ng/dL) 0.99 Hematology CBC w Diff NO MAN DIFF REQ WBC (4.8 - 10.8 /CUMM) 6.9 RBC (4.20 - 5.40 /CUMM) 3.47 L Hgb (12.0 - 16.0 G/DL) 9.9 L Hct (37 - 47 %) 29.4 L MCV (81.0 - 99.0 FL) 84.8 MCH (27.0 - 31.0 PG) 28.5 RDW (11.5 - 14.5 %) 14.2 Plt Count (130 - 400 /CUMM) 246 MPV (7.4 - 10.4 FL) 9.1 Gran % (42.2 - 75.2 %) 66.2 Lymphocytes % (20.5 - 51.1 %) 22.9 Monocytes % (1.7 - 9.3 %) 6.8 Eosinophils % (0 - 5 %) 2.9 Basophils % (0.0 - 2.0 %) 1.2 Absolute Granulocytes (1.4 - 6.5 /CUMM) 4.6 Absolute Lymphocytes (1.2 - 3.4 /CUMM) 1.6 Absolute Monocytes (0.10 - 0.60 /CUMM) 0.5 Absolute Eosinophils (0.0 - 0.7 /CUMM) 0.2 Absolute Basophils (0.0 - 0.2 /CUMM) 0.1 PUBS MCHC (33.0 - 37.0 G/DL) 33.6 Toxicology Acetone Level (NEGATIVE) NEGATIVE Assessment/Plan Assessment/Plan Patient is a 54-year-old woman with history of diabetes type 2, hypertension, hyperlipidemia, myocardial infarction with STENTS placement, PVD status post right lower extremity stenting , atrial fibrillation, chronic kidney disease, obstructive sleep apnea on CPAP, was sent to [place] ER after she had chest pain. Patient also complains of palpitation on and off for the past 3 weeks. with regards to diabetes, she has been on Humulin R U500 pen 180 units in the morning and 120 units at bedtime at home. Her HbA1c is 8.1%. In hospital, I have recommended: 1. stop regular insulin; 2. start Levemir 60 units twice a day; 3. start Novolog coverage before meals and Novolog coverage at bedtime; detail see the inpatient DM orders; 4. monitor FSGs. will follow Inpatient Diabetes Orders Before Each Meal: Bolus Insulin: Novolog < 80 mg/dl: 12 units 80-100 mg/dl: 12 units 101-120 mg/dl: 12 units 121-150 mg/dl: 12 units 151-200 mg/dl: 15 units 201-250 mg/dl: 18 units 251-300 mg/dl: 21 units 301-350 mg/dl: 24 units 351-400 mg/dl: 27 units > 400 mg/dl: 30 units Bedtime: Bolus Insulin: Novolog < 80 mg/dl: no coverage 80-100 mg/dl: no coverage 101-120 mg/dl: no coverage 121-150 mg/dl: no coverage 151-200 mg/dl: no coverage 201-250 mg/dl: no coverage 251-300 mg/dl: 3 units 301-350 mg/dl: 5 units 351-400 mg/dl: 7 units > 400 mg/dl: 9 units Consult Acknowledgment - Thank you for your consult request.
[2017-05-30 22:00] VITALS: BP 162/68
--- NOTE | 2017-05-31 06:49 | PN- Housestaff ---
Guanaco BARRISO,Beverly 05/31/17 0648: Subjective Follow-up For: Hyperkalemia, diabetes Complaints: no complaints Tele-Events Since Last Visit: Normal sinus rhythm heart rate 60 Subjective: Patient was seen and examined by me at bedside today. No overnight events. She complains of 2 loose bowel movements. She denies chest pain, chest pressure, nausea, vomiting, abdominal pain, cough, fever. Review of Systems Constitutional: Reports: no symptoms. Cardiovascular: Reports: no symptoms. Respiratory: Reports: no symptoms. Gastrointestinal: Reports: no symptoms. Genitourinary: Reports: no symptoms. Musculoskeletal: Reports: no symptoms. Skin: Reports: no symptoms. Objective Last 24 Hrs of Vital Signs/I&O Vital Signs Date Time Temp Pulse Resp B/P B/P Pulse O2 O2 Flow FiO2 Mean Ox Delivery Rate 05/31 0815 67 126/56 05/31 0739 97.6 67 18 126/56 96 Room Air 05/31 0035 59 95 05/31 0000 CPAP 05/30 2301 74 97 05/30 2200 97.7 70 18 162/68 96 Room Air 05/30 2138 80 168/50 05/30 1902 Room Air 05/30 1900 97.7 70 18 162/68 96 Room Air 05/30 1829 98.5 68 18 168/66 98 Room Air 05/30 1621 98.1 70 18 174/60 97 Room Air 05/30 1428 97.9 70 17 132/56 96 Room Air Intake & Output 05/31 1600 05/31 0800 05/31 0000 Intake Total 360 Output Total Balance 360 Intake, IV 10 Intake, Oral 350 Number 1 0 Bowel Movements Patient 244 lb Weight Weight Bed scale Measurement Method Physical Exam General Appearance: Alert, Oriented X3, Cooperative Skin: No Breakdown Cardiovascular: Regular Rate, Normal S1, Normal S2, No Murmurs Lungs: Clear to Auscultation Abdomen: Normal Bowel Sounds, Soft, No Tenderness, No Hepatospenomegaly Neurological: Normal Speech, Strength at 5/5 X4 Ext, Normal Tone, Sensation Intact Extremities: No Edema Current Medications: Current Medications Sig/Rubin Start time Last Medication Dose Route Stop Time Status Admin Acetaminophen 650 MG Q6P PRN 05/30 1415 AC PO Acetaminophen 1,000 MG Q6P PRN 05/30 1415 AC IV Amlodipine Besylate 10 MG DAILY 05/31 1000 AC 05/31 PO 0815 Apixaban 5 MG BID 05/30 2200 AC 05/31 PO 0816 Aspirin Buffered 81 MG DAILY 05/31 1000 DC 05/31 PO 0816 Atorvastatin Calcium 40 MG 1700 05/30 1700 AC 05/30 PO 1614 Budesonide/ 2 PUF BID 05/30 2200 AC 05/31 Formoterol Fumarate INH 0821 Calcium Gluconate 1 GM ONCE ONE 05/30 1300 DC 05/30 Sodium Chloride 100 ML IV 05/30 1359 1410 Clonazepam 0.5 MG 05/31 2200 AC PO 06/07 2159 Clonazepam 0.5 MG DAILY 05/31 1000 DC PO 06/07 0959 Clopidogrel Bisulfate 75 MG DAILY 05/31 1344 AC PO Diltiazem HCl 180 MG 17005/31 1700 DC PO Diltiazem HCl 180 MG 1700 05/31 1700 AC PO Fenofibrate 145 MG 1700 05/31 1700 AC PO Furosemide 40 MG DAILY 05/31 1000 AC 05/31 PO 0816 Gabapentin 200 MG Q8 05/30 1616 DC 05/30 PO 1703 Insulin Aspart 0 TIDAC/HS 05/30 1700 AC 05/31 SC 1243 Insulin Detemir 60 UNITS BID 05/30 2200 AC 05/31 SC 0813 Insulin Human Regular 180 UNITS 0805/31 0800 CAN SC Insulin Human Regular 120 UNITS 05/30 2200 CAN SC Isosorbide 30 MG DAILY 05/31 1000 AC 05/31 Mononitrate PO 0816 Losartan Potassium 50 MG DAILY 05/31 1000 CAN PO Metoprolol Tartrate 25 MG BID 05/30 2200 AC 05/31 PO 0816 Nicotinic Acid 750 MG DAILY 05/31 1000 AC 05/31 PO 0815 Nitroglycerin 0.4 MG DAILY NEEDED PRN 05/30 1515 AC TOP Omeprazole 40 MG DAILY AC 05/31 0700 AC 05/31 PO 0634 Oxycodone/ 1 TAB Q6P PRN 05/30 1615 AC 05/31 Acetaminophen PO 0818 Oxycodone/ 1 TAB ONCE ONE 05/30 1530 DC 05/30 Acetaminophen PO 05/30 1531 1522 Oxycodone/ 0 .STK-MED ONE 05/30 1525 DC Acetaminophen PO Pentoxifylline 400 MG BID 05/30 2200 AC 05/31 PO 0816 Polyethylene Glycol 17 GM AT BEDTIME PRN 05/30 1415 AC PO Pregabalin 25 MG BID 05/30 2200 AC 05/31 PO 0816 Senna/Docusate Sodium 1 TAB AT BEDTIME PRN 05/30 1415 AC PO Sodium Chloride 1,000 ML ONCE ONE 05/30 2000 DC IV 05/31 0559 Sodium Polystyrene 60 ML ONCE ONE 05/31 1015 DC 05/31 Sulfonate PO 05/31 1016 1241 Ticagrelor 60 MG BID 05/30 1515 DC 05/31 PO 0830 Tiotropium [place] 2 PUF DAILY 05/31 1000 CAN INH Last 24 Hrs of Lab/Maximo Results Last 24 Hrs of Labs/Mics: Laboratory Tests 05/31/17 0633: Anion Gap 14, Estimated GFR 36 L, BUN/Creatinine Ratio 22.7 05/31/17 0015: Troponin I < 0.01 05/30/17 1758: Anion Gap 17 H, Estimated GFR 36 L, BUN/Creatinine Ratio 23.3, Troponin I < 0.01 Orders ECHO Findings: Normal left ventricular ejection fraction estimated at 55-60%. Assessment/Plan Assessment: Patient is a 54-year-old woman with possible history of CAD, hypertension, hyperlipidemia, myocardial infarction, [place] STENTS (hx of CAD s/p cardiac stents in [address] [facility]), repeat [place] at Dec 2014 went to [facility], PVD status post right lower extremity stenting , diabetes, atrial fibrillation, chronic kidney disease, obstructive sleep apnea on CPAP was sent to [facility] by her nurse with a blood pressure recording of 140/40 admitted to telemetry for further evaluation and management. Assessment and plan 1.Hyperkalemia 2. COPD 3. Coronary artery disease 4. Peripheral vascular disease 5. Diabetes/hypertension/hyperlipidemia 6. Atrial fibrillation 7. Chronic kidney disease 1. Hyperkalemia Patient had a potassium level of 6.1 upon admission. Hyperlipidemia being treated with calcium gluconate/Kayexalate/insulin at ER. Repeat potassium today morning is 5.6. We will give 1 dose of Kayexalate 60 mg. We will repeat electrolytes, at present there is no EKG changes. we will discontinue losartan which might be causing her hyperkalemia. 2. COPD She is not in exacerbation. He should quit smoking a year ago. We will continue albuterol and Symbicort. 3. Coronary artery disease No chest pain since admission. The troponins are negative so far. Cardiology consulted who suggested to discontinue Deandra and aspirin given her remote history of stent done many years ago. We will started on Plavix per cardiology. 4. Diabetes Patient is on regular insulin 180 units in the morning and 120 units in the evening. Endocrine consult was obtained who suggested to start on Levemir and NovoLog sliding scale insulin. Upon discharge patient wished to continue her usual insulin Humulin R U500 pen, but the dose can be adjusted to 120 units in the morning and 120 units at bedtime. This was discussed with the patient. Patient [id number]. 5. Atrial fibrillation Patient is on Eliquis. Patient is in sinus rhythm now. We will continue the same. 6. Peripheral vascular disease Patient is taking Lyrica 25 mg twice a day, pentoxifylline ER 400 mg twice a day and Percocet 325 every 6 when necessary. Patient said she has an appointment with the pain management clinic in [facility]. We will continue the same medication. Diet-diabetic diet Code-full code Plan-treat hyperkalemia and continue the same management. Problem List: 1. Hyperkalemia Pain Ratin Pain Location: none Pain Goal: Remain pain free Pain Plan: tylenol Tomorrow's Labs & Rationales: leann Barakat MD,Mina 05/31/17 1301: Attending MD Review Statement Attending Statement Attending MD Statement: examined this patient, discuss w/resident/PA/VIBRATION TECHNICIAN, agreed w/resident/PA/VIBRATION TECHNICIAN, reviewed EMR data (avail), discussed with nursing, discussed with case mgmt, amended to note Attending Assessment/Plan: Patient seen and examined. Resting comfortably and was in acute distress. No issues overnight. No events on cardiac monitor. She denies chest pain or shortness of breath. Denies palpitations. Blood pressure today has been in the 120s. Blood glucose levels noted. On examination lungs are clear bilaterally. Heart sounds are irregular. Abdomen soft and nontender. She has trace peripheral edema. Recommendations: -Potassium level is improved but still elevated. Administer a dose of Kayexalate today -Continue to hold her ARB. Monitor blood pressure closely of this medication. -Cardiology follow-up appreciated.. Discontinue Brilinta and start plavix. Discontinue ASA. -Endocrinolgy consultation for in-patient insulin management noted. Please discuss further with endocrinology service regarding patient decreasing her home dose of RU 500 insulin particularly with her history of poorly controlled diabetes evidenced by her elevated A1c level. - Anticipate discharge home tomorrow if her potassium level continues to improve. If she continues to be hyperkalemic she will require evaluation by the nephrology service.
--- NOTE | 2017-05-31 07:34 | PN- Student ---
Subjective Subjective: FULL STUDENT NOTE 56 yo F HD 2 for hyperkalemia. PMHx of CHF, PATRICIA on CPAP, asthma, CAD (s/p stent 2010 and 2014), PVD, HTN, HLD, DM, CKD. Presented to ED last night with CC of palpiations, SOB, and because her home health aide stated she looked "off" and her BP was abnormal (140/42 and 158/50). Her glucose was 380 at home. States she is compliant on her medication but did recently miss a dose of isosorbide that has since been resolved. Labs showed Hyperkalemia at 6.1 wtih troponin and lactic acid WNL. Last tuesday, she experienced chest pain that was resolved with nitroglycerin (3 doses). However, no chest pain was experienced during this current episode. Patient states she slept well last night, however did have an episode of loose stool that she believes to be secondary to her gabapentin dose (which has since been discontinued). Otherwise, she denies presence of headaches, dizziness, change in appetite, n/v, SOB, chest pain, or stomach pain. PMHx: * CHF * PATRICIA on CPAP * Asthma * CAD * PVD * HTN * HLD * DM2 * CKD PSH: * C/S * Coronary stents (2010 and 2014) FHx: * Mother: Leukemia and HTN * Father: CVD SH: * 42 pack year hx of smoking but has quit for the past year * Denies ETOH and recreational drug use Allergies: Tramadol (nausea) Objective Objective: Vital Signs Date Time Temp Pulse Resp B/P B/P Pulse O2 O2 Flow FiO2 Mean Ox Delivery Rate 05/31 0035 59 95 05/31 0000 CPAP 05/30 2301 74 97 05/30 2200 97.7 70 18 162/68 96 Room Air 05/30 2138 80 168/50 05/30 1902 Room Air 05/30 1900 97.7 70 18 162/68 96 Room Air 05/30 1829 98.5 68 18 168/66 98 Room Air 05/30 1621 98.1 70 18 174/60 97 Room Air 05/30 1428 97.9 70 17 132/56 96 Room Air 05/30 1234 97.5 68 18 134/58 97 Room Air 05/30 1106 97.0 69 22 155/71 97 Room Air Intake & Output 05/31 0800 05/31 0000 05/30 1600 Intake Total 360 Output Total Balance 360 Intake, IV 10 Intake, Oral 350 Number 1 0 Bowel Movements Patient 244 lb 230 lb Weight Weight Bed scale Reported by Patient Measurement Method Appearance: A+O, no acute distress Cardiovascular: RRR, systolic murmur (2/6) heard best at the aortic auscultatory point Pulmonary: Clear to ausculatation, no presence of wheezie, rhonci, or stridor. No accessory muscle of respiration present Abdomen/GI: Normoactive bowel sounds, soft to palpation, no ridigity or rebound tenderness Extremities: 2+ distal pulses, calves are soft to palpation, no edema or erythema Current Medications Sig/Rubin Start time Last Medication Dose Route Stop Time Status Admin Acetaminophen 650 MG Q6P PRN 05/30 1415 AC PO Acetaminophen 1,000 MG Q6P PRN 05/30 1415 AC IV Amlodipine Besylate 10 MG DAILY 05/31 1000 AC 05/31 PO 0815 Apixaban 5 MG BID 05/30 2200 AC 05/31 PO 0816 Aspirin Buffered 81 MG DAILY 05/31 1000 DC 05/31 PO 0816 Atorvastatin Calcium 40 MG 1700 05/30 1700 AC 05/30 PO 1614 Budesonide/ 2 PUF BID 05/30 2200 AC 05/31 Formoterol Fumarate INH 0821 Calcium Gluconate 1 GM ONCE ONE 05/30 1300 DC 05/30 Sodium Chloride 100 ML IV 05/30 1359 1410 Clonazepam 0.5 MG 05/31 2200 AC PO 06/07 2159 Clonazepam 0.5 MG DAILY 05/31 1000 DC PO 06/07 0959 Clopidogrel Bisulfate 75 MG DAILY 05/31 1344 UNVr PO Diltiazem HCl 180 MG 05/31 1700 DC PO Diltiazem HCl 180 MG 1700 05/31 1700 AC PO Fenofibrate 145 MG 05/31 1700 AC PO Furosemide 40 MG DAILY 05/31 1000 AC 05/31 PO 0816 Gabapentin 200 MG Q8 05/30 1616 DC 05/30 PO 1703 Insulin Aspart 0 TIDAC/HS 05/30 1700 AC 05/31 SC 1243 Insulin Detemir 60 UNITS BID 05/30 2200 AC 05/31 SC 0813 Insulin Human Regular 180 UNITS 0805/31 0800 CAN SC Insulin Human Regular 120 UNITS 220/22 2200 CAN SC Isosorbide 30 MG DAILY 05/31 1000 AC 05/31 Mononitrate PO 0816 Losartan Potassium 50 MG DAILY 05/31 1000 CAN PO Metoprolol Tartrate 25 MG BID 05/30 2199 AC 05/31 PO 0816 Nicotinic Acid 750 MG DAILY 05/31 1000 AC 05/31 PO 0815 Nitroglycerin 0.4 MG DAILY NEEDED PRN 05/30 1515 AC TOP Omeprazole 40 MG DAILY AC 05/31 0700 AC 05/31 PO 0634 Oxycodone/ 1 TAB Q6P PRN 05/30 1615 AC 05/31 Acetaminophen PO 0818 Oxycodone/ 1 TAB ONCE ONE 05/30 1530 DC 05/30 Acetaminophen PO 05/30 1531 1522 Oxycodone/ 0 .STK-MED ONE 05/30 1525 DC Acetaminophen PO Pentoxifylline 400 MG BID 05/30 2199 AC 05/31 PO 0816 Polyethylene Glycol 17 GM AT BEDTIME PRN 05/30 1415 AC PO Pregabalin 25 MG BID 05/30 2199 AC 05/31 PO 0816 Senna/Docusate Sodium 1 TAB AT BEDTIME PRN 05/30 1415 AC PO Sodium Chloride 1,000 ML ONCE ONE 05/30 2000 DC IV 05/31 0559 Sodium Polystyrene 60 ML ONCE ONE 05/31 1015 DC 05/31 Sulfonate PO 05/31 1016 1241 Ticagrelor 60 MG BID 05/30 1515 DC 05/31 PO 0830 Tiotropium [place] 2 PUF DAILY 05/31 1000 CAN INH Results Results: Laboratory Tests 05/31/17 0633: Anion Gap 14, Estimated GFR 36 L, BUN/Creatinine Ratio 22.7 05/31/17 0015: Troponin I < 0.01 05/30/17 1758: Anion Gap 17 H, Estimated GFR 36 L, BUN/Creatinine Ratio 23.3, Troponin I < 0.01 05/30/17 1340: Lactic Acid 1.2, Ptj-H-Zjiqbtniwhm Pept 528 H 05/31/17 0015: Troponin I < 0.01 05/30/17 1758: Anion Gap 17 H, Estimated GFR 36 L, BUN/Creatinine Ratio 23.3, Troponin I < 0.01 05/30/17 1340: Lactic Acid 1.2, Zia-V-Apbclompdlh Pept 528 H 05/30/17 1214: Anion Gap 18 H, Estimated GFR 42 L, BUN/Creatinine Ratio 30.0 H, Glucose 318 H, Hemoglobin A1c Pending, Calcium 10.0, Magnesium 1.7, Total Bilirubin 0.3, AST 27, ALT 35, Alkaline Phosphatase 56, Troponin I < 0.01, Total Protein 7.5, Albumin 4.3, Globulin 3.2, Albumin/Globulin Ratio 1.3, TSH 2.650, Free T4 0.99, CBC w Diff NO MAN DIFF REQ, RBC 3.47 L, MCV 84.8, MCH 28.5, RDW 14.2, MPV 9.1, Gran % 66.2, Lymphocytes % 22.9, Monocytes % 6.8, Eosinophils % 2.9, Basophils % 1.2, Absolute Granulocytes 4.6, Absolute Lymphocytes 1.6, Absolute Monocytes 0.5 , Absolute Eosinophils 0.2, Absolute Basophils 0.1, PUBS MCHC 33.6, Acetone Level NEGATIVE Imaging 1. CXR (05/30/17) * Enlarged cardiac silhouette and central vascular congestion and perihilar opacities , consistent with congestive heart failure. * Linear subsegmental atelectasis in the left mid and lower lung 2. CT Runoff angiogram ((03/08/17) * No evidence of significant aortoiliac inflow disease. * Mild distal superficial femoral artery disease bilaterally. Patent popliteal arteries bilaterally. * Bilateral tibial artery disease as described above, more advanced on the right side compared to the left. 3. Echo (09/12/16) 1. This was a technically difficult examination. 2. Mild aortic stenosis is present with minimal aortic insufficiency. 3. Mitral leaflet thickening is present with mild mitral insufficiency and mild left atrial enlargement. 4. A very small pericardial effusion is present. 5. The left ventricular chamber size and systolic function appear normal with mild concentric hypertrophy present. 6. Mild to moderate tricuspid insufficiency is present with no evidence of pulmonary hypertension. 4. Nuclear Stress Test (10/01/16): Small region of reversible ischemia is present in the apical anterior wall. No other perfusion abnormalities are noted. Left ventricular wall motion and ejection fraction are normal. 5. Cardiac Catheterization (11/17/16): Heavily calcified coronaries. 30-40% left main. 10-20% ostial LAD. 40% ostial left circumflex. 40% PDA Assessment/Plan Assessment: 56 yo F HD 2 for hyperkalemia. PMHx of CHF, PATRICIA on CPAP, asthma, CAD (s/p stent 2010 and 2014), PVD, HTN, HLD, DM, CKD. Plan: 1. Hyperkalemia (K+ = 6.1) * Calcium gluconate: 1 gm IV given in ED * Will monitor K+ levels (6.1 --> 5.4 --> 5.6) * Insulin given to shift potassium intracellularly * Kayexalate 60 mg PO given this morning * Hold losartan until K+ under control * Repeat BMP tomorrow morning * Consider discharge for tomorrow if K+ continues to trend downwards 2. Manage Chronic Conditions: COPD: * Symbicort 2 puffs BID Inhale HTN: * Amlodipine Besylate 10 MG PO DAILY * Diltiazem HCl (Diltiazem 24HR ER) 180 MG CAP.ER.24H 1 CAP PO DAILY * Isosorbide Mononitrate (Isosorbide Mononitrate ER) 30 MG TAB.ER.24H 1 TAB PO daily * Metoprolol Tartrate 25 MG TABLET 1 TAB PO BID BP Afib: Discontinue Brilinta and start plavix. Discontinue ASA. Per cardiology consult * Apixaban (Eliquis) 5 MG PO BID * Aspirin (Ecotrin*) 81 MG TABLET. 1 TAB PO DAILY Greysox * Plavix Anxiety * Clonazepam (Klonopin) 0.5 MG PO daily HLD * Fenofibrate 145 MG CAPSULE. PO QPM * Atorvastatin 40 MG PO daily CHF * Furosemide 40 MG TABLET 1 TAB PO DAILY FLUID * Nitroglycerin (Nitrostat) 0.3 MG TAB.SUBL 0.4 MG SL Q 5 MINUTES X 3 DOSE PRN CHEST PAIN DM * Levemir 60 units BID SC * Novolog TIDAC/HS on sliding scale GERD * Omeprazole 40 MG PO BID Neuropathic Pain/Pain Management * Pregabalin 25 mg BID PO * Percocet 5/325 1 tab q6hr PRN * Acetominophen 1 g q6h PRN IV PVD * Pentoxifylline 400 mg BID PO Constipation: * Senna Docusate 1 tab PO HS * Miralax 17gm qHS Other: * Niacin 750 mg PO
[2017-05-31 07:39] VITALS: BP 126/56
--- NOTE | 2017-05-31 09:27 | PN- Diabetes ---
Assessment/Plan Assessment: Patient is a 54-year-old woman with history of diabetes type 2, hypertension, hyperlipidemia, myocardial infarction with STENTS placement, PVD status post right lower extremity stenting , atrial fibrillation, chronic kidney disease, obstructive sleep apnea on CPAP, was sent to [facility] ER after she had chest pain. Patient also complains of palpitation on and off for the past 3 weeks. with regards to diabetes, she was on Humulin R U500 pen 180 units in the morning and 120 units at bedtime at home. In hospital, she was placed on Levemir 60 units twice a day, Novolog coverage before meals ( 12 units when her FSG is between 80 and 150; 15 units when her FSG is between 151-200, etc) and Novolog coverage at bedtime. Her FSGs were 140, 178, 170 and 120. Plan: 1. continue the current insulin regimen for now; 2. monitor FSGs and electrolytes. 3. if she is medically stable for discharge, patient still prefers going back to Humulin R U500 pen as she doesn't want to take multiple injections. However, I have recommended decreasing the dosage to 120 units before breakfast and 120 units before dinner. 4. continue f/u with her physician after discharge. Subjective Subjective: she feels well this morning. Objective Last 24 Hrs of Vital Signs/I&O Vital Signs Date Time Temp Pulse Resp B/P B/P Pulse O2 O2 Flow FiO2 Mean Ox Delivery Rate 05/31 0815 67 126/56 05/31 0739 97.6 67 18 126/56 96 Room Air 05/31 0035 59 95 05/31 0000 CPAP 05/30 2301 74 97 05/30 2200 97.7 70 18 162/68 96 Room Air 05/30 2138 80 168/50 05/30 1902 Room Air 05/30 1900 97.7 70 18 162/68 96 Room Air 05/30 1829 98.5 68 18 168/66 98 Room Air 05/30 1621 98.1 70 18 174/60 97 Room Air 05/30 1428 97.9 70 17 132/56 96 Room Air 05/30 1234 97.5 68 18 134/58 97 Room Air 05/30 1106 97.0 69 22 155/71 97 Room Air Intake & Output 05/31 1600 05/31 0800 05/31 0000 Intake Total 360 Output Total Balance 360 Intake, IV 10 Intake, Oral 350 Number 1 0 Bowel Movements Patient 244 lb Weight Weight Bed scale Measurement Method Findings Pertinent Lab/Maximo Results: Laboratory Tests 05/31 05/31 05/30 05/30 0633 0015 1758 1340 Chemistry Sodium (137 - 145 mmol/L) 146 H 146 H Potassium (3.5 - 5.1 mmol/L) 5.6 H 5.4 H Chloride (98 - 107 mmol/L) 111 H 111 H Carbon Dioxide (22 - 30 mmol/L) 20 L 18 L Anion Gap (5 - 16) 14 17 H BUN (7 - 17 mg/dL) 34 H 35 H Creatinine (0.5 - 1.0 mg/dL) 1.5 H 1.5 H Estimated GFR (>60 ml/min) 36 L 36 L BUN/Creatinine Ratio (7 - 25 %) 22.7 23.3 Lactic Acid (0.7 - 2.1 mmol/L) 1.2 Troponin I (< 0.11 ng/ml) < 0.01 < 0.01 Eml-V-Fijciakptdo Pept (<125 pg/mL) 528 H 05/30 1214 Chemistry Sodium (137 - 145 mmol/L) 145 Potassium (3.5 - 5.1 mmol/L) 6.1 *H Chloride (98 - 107 mmol/L) 112 H Carbon Dioxide (22 - 30 mmol/L) 16 L Anion Gap (5 - 16) 18 H BUN (7 - 17 mg/dL) 39 H Creatinine (0.5 - 1.0 mg/dL) 1.3 H Estimated GFR (>60 ml/min) 42 L BUN/Creatinine Ratio (7 - 25 %) 30.0 H Glucose (65 - 99 mg/dL) 318 H Hemoglobin A1c (4.2 - 5.8 %) Pending Calcium (8.4 - 10.2 mg/dL) 10.0 Magnesium (1.6 - 2.3 mg/dL) 1.7 Total Bilirubin (0.2 - 1.3 mg/dL) 0.3 AST (14 - 36 U/L) 27 ALT (9 - 52 U/L) 35 Alkaline Phosphatase (<127 U/L) 56 Troponin I (< 0.11 ng/ml) < 0.01 Total Protein (6.3 - 8.2 g/dL) 7.5 Albumin (3.5 - 5.0 g/dL) 4.3 Globulin (1.9 - 4.2 gm/dL) 3.2 Albumin/Globulin Ratio (1.1 - 2.2 %) 1.3 TSH (0.270 - 4.200 uIU/mL) 2.650 Free T4 (0.64 - 1.79 ng/dL) 0.99 Hematology CBC w Diff NO MAN DIFF REQ WBC (4.8 - 10.8 /CUMM) 6.9 RBC (4.20 - 5.40 /CUMM) 3.47 L Hgb (12.0 - 16.0 G/DL) 9.9 L Hct (37 - 47 %) 29.4 L MCV (81.0 - 99.0 FL) 84.8 MCH (27.0 - 31.0 PG) 28.5 RDW (11.5 - 14.5 %) 14.2 Plt Count (130 - 400 /CUMM) 246 MPV (7.4 - 10.4 FL) 9.1 Gran % (42.2 - 75.2 %) 66.2 Lymphocytes % (20.5 - 51.1 %) 22.9 Monocytes % (1.7 - 9.3 %) 6.8 Eosinophils % (0 - 5 %) 2.9 Basophils % (0.0 - 2.0 %) 1.2 Absolute Granulocytes (1.4 - 6.5 /CUMM) 4.6 Absolute Lymphocytes (1.2 - 3.4 /CUMM) 1.6 Absolute Monocytes (0.10 - 0.60 /CUMM) 0.5 Absolute Eosinophils (0.0 - 0.7 /CUMM) 0.2 Absolute Basophils (0.0 - 0.2 /CUMM) 0.1 PUBS MCHC (33.0 - 37.0 G/DL) 33.6 Toxicology Acetone Level (NEGATIVE) NEGATIVE
--- NOTE | 2017-05-31 11:32 | PN- Cardiology ---
Subjective Subjective: The patient reports that she is feeling today. No chest pain. No palpitations. No shortness of breath. No diaphoresis. Objective Vital Signs and I&Os Vital Signs Date Time Temp Pulse Resp B/P B/P Pulse O2 O2 Flow FiO2 Mean Ox Delivery Rate 05/31 0815 67 126/56 05/31 0739 97.6 67 18 126/56 96 Room Air 05/31 0035 59 95 05/31 0000 CPAP 05/30 2301 74 97 05/30 2200 97.7 70 18 162/68 96 Room Air 05/30 2138 80 168/50 05/30 1902 Room Air 05/30 1900 97.7 70 18 162/68 96 Room Air 05/30 1829 98.5 68 18 168/66 98 Room Air 05/30 1621 98.1 70 18 174/60 97 Room Air 05/30 1428 97.9 70 17 132/56 96 Room Air 05/30 1234 97.5 68 18 134/58 97 Room Air Intake & Output 05/31 1600 05/31 0800 05/31 0000 05/30 1600 05/30 0800 05/30 0000 Intake Total 360 Output Total Balance 360 Intake, IV 10 Intake, Oral 350 Number 1 0 Bowel Movements Patient 244 lb 230 lb Weight Weight Bed scale Reported by Patient Measurement Method Physical Exam: Gen: The patient is in no acute distress HEENT: Normal nose, ears, and oropharynx. Pupils equal bilaterally. Conjunctiva normal. Neck: Supple with no JVD, no masses, and no thyromegaly Lungs: Clear to auscultation with normal respiratory effort Heart: RRR, S1, S2, 1/6 systolic murmur. No peripheral edema, 2+ pulses in the lower extremities bilaterally Abdomen: Soft, nontender, no masses. No hepatomegaly. No splenomegaly Extremities: No clubbing or cyanosis. Normal muscle strength in the upper and lower extremities Skin: Normal skin turgor with no skin ulcers or lesions noted. Neuro: Cranial nerves intact. Sensation intact Current Medications: Current Medications Sig/Rubin Start time Last Medication Dose Route Stop Time Status Admin Acetaminophen 650 MG Q6P PRN 05/30 1415 AC PO Acetaminophen 1,000 MG Q6P PRN 05/30 1415 AC IV Amlodipine Besylate 10 MG DAILY 05/31 1000 AC 05/31 PO 0815 Apixaban 5 MG BID 05/30 2200 AC 05/31 PO 0816 Aspirin Buffered 81 MG DAILY 05/31 1000 AC 05/31 PO 0816 Atorvastatin Calcium 40 MG 1700 05/30 1700 AC 05/30 PO 1614 Budesonide/ 2 PUF BID 05/30 2200 AC 05/31 Formoterol Fumarate INH 0821 Calcium Gluconate 0 .STK-MED ONE 05/30 1324 DC IV Calcium Gluconate 1 GM ONCE ONE 05/30 1300 DC 05/30 Sodium Chloride 100 ML IV 05/30 1359 1410 Clonazepam 0.5 MG 05/31 2200 AC PO 06/07 2159 Clonazepam 0.5 MG DAILY 05/31 1000 DC PO 06/07 0959 Diltiazem HCl 180 MG 17005/31 1700 DC PO Diltiazem HCl 180 MG 17005/31 1700 AC PO Fenofibrate 145 MG 17005/31 1700 AC PO Furosemide 40 MG DAILY 05/31 1000 AC 05/31 PO 0816 Gabapentin 200 MG Q8 05/30 1616 DC 05/30 PO 1703 Insulin Aspart 0 TIDAC/HS 05/30 1700 AC 05/31 SC 0814 Insulin Detemir 60 UNITS BID 05/30 2200 AC 05/31 SC 0813 Insulin Human Regular 180 UNITS 0805/31 0800 CAN SC Insulin Human Regular 120 UNITS 05/30 2200 CAN SC Insulin Human Regular 10 UNITS ONCE ONE 05/30 1315 DC 05/30 TX 05/30 1316 1410 Isosorbide 30 MG DAILY 05/31 1000 AC 05/31 Mononitrate PO 0816 Losartan Potassium 50 MG DAILY 05/31 1000 CAN PO Metoprolol Tartrate 25 MG BID 05/30 2200 AC 05/31 PO 0816 Nicotinic Acid 750 MG DAILY 05/31 1000 AC 05/31 PO 0815 Nitroglycerin 0.4 MG DAILY NEEDED PRN 05/30 1515 AC TOP Omeprazole 40 MG DAILY AC 05/31 0700 AC 05/31 PO 0634 Oxycodone/ 1 TAB Q6P PRN 05/30 1615 AC 05/31 Acetaminophen PO 0818 Oxycodone/ 1 TAB ONCE ONE 05/30 1530 DC 05/30 Acetaminophen PO 05/30 1531 1522 Oxycodone/ 0 .STK-MED ONE 05/30 1525 DC Acetaminophen PO Pentoxifylline 400 MG BID 05/30 2199 AC 05/31 PO 0816 Polyethylene Glycol 17 GM AT BEDTIME PRN 05/30 1415 AC PO Pregabalin 25 MG BID 05/30 2199 AC 05/31 PO 0816 Senna/Docusate Sodium 1 TAB AT BEDTIME PRN 05/30 1415 AC PO Sodium Chloride 1,000 ML ONCE ONE 05/30 2000 DC IV 05/31 0559 Sodium Polystyrene 60 ML ONCE ONE 05/31 1015 DC Sulfonate PO 05/31 1016 Ticagrelor 60 MG BID 05/30 1515 AC 05/31 PO 0830 Tiotropium [place] 2 PUF DAILY 05/31 1000 CAN INH Results Last 48 Hrs of Labs/Mics: Laboratory Tests 05/31/17 0633: Anion Gap 14, Estimated GFR 36 L, BUN/Creatinine Ratio 22.7 05/31/17 0015: Troponin I < 0.01 05/30/17 1758: Anion Gap 17 H, Estimated GFR 36 L, BUN/Creatinine Ratio 23.3, Troponin I < 0.01 05/30/17 1340: Lactic Acid 1.2, Ilv-Y-Ivqvbrfyite Pept 528 H 05/30/17 1214: Anion Gap 18 H, Estimated GFR 42 L, BUN/Creatinine Ratio 30.0 H, Glucose 318 H, Hemoglobin A1c 9.6 H, Calcium 10.0, Magnesium 1.7, Total Bilirubin 0.3, AST 27, ALT 35, Alkaline Phosphatase 56, Troponin I < 0.01, Total Protein 7.5, Albumin 4.3, Globulin 3.2, Albumin/Globulin Ratio 1.3, TSH 2.650, Free T4 0.99, CBC w Diff NO MAN DIFF REQ, RBC 3.47 L, MCV 84.8, MCH 28.5, RDW 14.2, MPV 9.1, Gran % 66.2, Lymphocytes % 22.9, Monocytes % 6.8, Eosinophils % 2.9, Basophils % 1.2, Absolute Granulocytes 4.6, Absolute Lymphocytes 1.6, Absolute Monocytes 0.5 , Absolute Eosinophils 0.2, Absolute Basophils 0.1, PUBS MCHC 33.6, Acetone Level NEGATIVE Assessment/Plan Assessment/Plan Assessment: 1. CAD, status post stents 2. Peripheral arterial disease 3. History of paroxysmal atrial fibrillation 4. Chest pain 1 week ago, ruled out for myocardial infarctions 5. Hyperglycemia 6. Hypokalemia Plan: * Repeat Kayexalate for hyperkalemia * Continue Eliquis * She has been on telemetry fluid therapy in addition to anticoagulation because of her history of complex intervention with overlapping stents. Options discussed with Dr. Rodas and with interventionalist. At this time we recommend changing from Brilinta to Plavix, continuing Eliquis, and discontinuing aspirin at this time given that she is multiple years out from stent placement. Continue telemetry? Yes
[2017-05-31 14:37] VITALS: BP 120/56
[2017-05-31 22:00] VITALS: BP 162/78
[2017-06-01 06:00] VITALS: BP 136/58
--- NOTE | 2017-06-01 06:36 | PN- Housestaff ---
[place] BARRIOS,Beverly 06/01/17 0635: Subjective Follow-up For: Hyperkalemia Complaints: no complaints Tele-Events Since Last Visit: Normal sinus rhythm heart rate 75 Subjective: I saw the patient at bedside. She was lying in her bed comfortably. No overnight events. She offers no complaints. She denies chest pain, chest pressure, nausea, vomiting, diarrhea, constipation, shortness of breath. Review of Systems Constitutional: Reports: no symptoms. Cardiovascular: Reports: no symptoms. Respiratory: Reports: no symptoms. Gastrointestinal: Reports: no symptoms. Genitourinary: Reports: no symptoms. Musculoskeletal: Reports: no symptoms. Objective Last 24 Hrs of Vital Signs/I&O Vital Signs Date Time Temp Pulse Resp B/P B/P Pulse O2 O2 Flow FiO2 Mean Ox Delivery Rate 06/01 09 56 136/58 06/01 0912 56 136/58 06/01 0911 56 136/58 06/01 0600 98.5 56 18 136/58 94 06/01 0000 CPAP 05/31 2200 98.1 64 18 162/78 95 Room Air 05/31 2140 67 156/78 05/31 1437 97.8 62 16 120/56 97 Intake & Output 06/01 1600 06/01 0800 06/01 0000 Intake Total 100 800 Output Total Balance 100 800 Intake, Oral 100 800 Physical Exam General Appearance: Alert, Oriented X3, Cooperative, No Acute Distress Cardiovascular: Regular Rate, Normal S1, Normal S2 Lungs: Clear to Auscultation, Normal Air Movement Abdomen: Normal Bowel Sounds, Soft, No Tenderness Neurological: Normal Speech, Strength at 5/5 X4 Ext, Normal Tone, Sensation Intact Extremities: No Edema, Normal Pulses Current Medications: Current Medications Sig/Rubin Start time Last Medication Dose Route Stop Time Status Admin Acetaminophen 650 MG .STK-MED ONE 05/31 1524 DC PO 05/31 1525 Acetaminophen 650 MG Q6P PRN 05/30 1415 AC 06/01 PO 0626 Acetaminophen 1,000 MG Q6P PRN 05/30 1415 AC IV Amlodipine Besylate 10 MG DAILY 05/31 1000 AC 06/01 PO 0911 Apixaban 5 MG BID 05/30 2200 AC 06/01 PO 0912 Aspirin Buffered 81 MG DAILY 05/31 1000 DC 05/31 PO 0816 Atorvastatin Calcium 40 MG 1700 05/30 1700 AC 05/31 PO 1657 Budesonide/ 2 PUF BID 05/30 2200 AC 06/01 Formoterol Fumarate INH 0909 Clonazepam 0.5 MG 05/31 AC 05/31 PO 06/07 2159 2136 Clopidogrel Bisulfate 75 MG DAILY 05/31 1344 AC 06/01 PO 0912 Diltiazem HCl 180 MG 05/31 1700 AC 05/31 PO 1657 Fenofibrate 145 MG 05/31 1700 AC 05/31 PO 1657 Furosemide 40 MG DAILY 05/31 1000 AC 06/01 PO 0912 Insulin Aspart 0 TIDAC/HS 05/30 1700 AC 06/01 SC 1224 Insulin Detemir 70 UNITS BID 06/01 1000 AC 06/01 SC 0910 Insulin Detemir 60 UNITS BID 05/30 2200 DC 05/31 SC 2136 Isosorbide 30 MG DAILY 05/31 1000 AC 06/01 Mononitrate PO 0912 Metoprolol Tartrate 25 MG BID 05/30 2199 AC 06/01 PO 0912 Nicotinic Acid 750 MG DAILY 05/31 1000 AC 05/31 PO 0815 Nitroglycerin 0.4 MG DAILY NEEDED PRN 05/30 1515 AC TOP Omeprazole 40 MG DAILY AC 05/31 0700 AC 06/01 PO 0626 Oxycodone/ 1 TAB Q6P PRN 05/30 1615 AC 06/01 Acetaminophen PO 0911 Pentoxifylline 400 MG BID 05/30 2199 AC 06/01 PO 0911 Polyethylene Glycol 17 GM AT BEDTIME PRN 05/30 1415 PO Pregabalin 25 MG BID 05/30 2199 AC 06/01 PO 0911 Senna/Docusate Sodium 1 TAB AT BEDTIME PRN 05/30 1415 AC PO Sodium Polystyrene 60 ML ONCE ONE 06/01 1115 DC 06/01 Sulfonate PO 06/01 1116 1201 Ticagrelor 60 MG BID 05/30 1515 AK 05/31 PO 0830 Last 24 Hrs of Lab/Maximo Results Last 24 Hrs of Labs/Mics: Laboratory Tests 06/01/17 0925: Anion Gap 13, Estimated GFR 39 L, BUN/Creatinine Ratio 29.3 H Assessment/Plan Assessment: Patient is a 54-year-old woman with possible history of CAD, hypertension, hyperlipidemia, myocardial infarction, NE W STENTS (hx of CAD s/p cardiac stents in 2010 at [facility]), repeat NE at Dec 2014 went to [facility], PVD status post right lower extremity stenting , diabetes, atrial fibrillation, chronic kidney disease, obstructive sleep apnea on CPAP was sent to [place] ER by her nurse with a blood pressure recording of 140/40 admitted to telemetry for further evaluation and management. Assessment and plan 1.Hyperkalemia 2. COPD 3. Coronary artery disease 4. Peripheral vascular disease 5. Diabetes/hypertension/hyperlipidemia 6. Atrial fibrillation 7. Chronic kidney disease 1. Hyperkalemia Patient had a potassium level of 6.1 upon admission. Hyperkalemia treated with calcium gluconate/Kayexalate/insulin at the ER. Repeat potassium today 5.4 with no EKG changes. We'll give 60 mg of Kayexalate and requested to repeat labs within 1-2 weeks at her primary care physician office. Losartan held in view of hyperkalemia 2. COPD She is not in exacerbation. He should quit smoking a year ago. We will continue albuterol and Symbicort. 3. Coronary artery disease No chest pain since admission. The troponins are negative so far. Cardiology consulted who suggested to discontinue Deandra and aspirin given her remote history of stent done many years ago. We will started on Plavix per cardiology. 4. Diabetes Patient is on regular insulin 180 units in the morning and 120 units in the evening at home. She'll be discharge to home with her Humulin RU 500 insulin 120 in the morning and 120 at bedtime as per endocrinology. This was discussed with the patient. Patient [id number]. 5. Atrial fibrillation Patient is on Eliquis. Patient is in sinus rhythm now. We will continue the same. 6. Peripheral vascular disease Patient is taking Lyrica 25 mg twice a day, pentoxifylline ER 400 mg twice a day and Percocet 325 every 6 when necessary. Patient said she has an appointment with the pain management clinic in [facility]. We will continue the same medication. Diet-diabetic diet Code-full code Plan-treat hyperkalemia and discharge her today. Problem List: 1. Diabetes mellitus 2. Hypercholesterolemia 3. Hyperkalemia Pain Ratin Pain Location: none Pain Goal: Remain pain free Pain Plan: tylenol Tomorrow's Labs & Rationales: none Yuval BARRIOS,Mina 06/01/17 1153: Attending MD Review Statement Attending Statement Attending MD Statement: examined this patient, discuss w/resident/PA/[employer], agreed w/resident/PA/[employer], reviewed EMR data (avail), discussed with nursing, discussed with case mgmt, amended to note Attending Assessment/Plan: Patient seen and examined. Resting comfortably and not in any acute distress. No issues overnight. No new complaints this morning. Denies chest pain or shortness of breath. Denies palpitations. On examination heart sounds are regular. Lungs are clear to auscultation bilaterally. Laboratory data shows a creatinine level is stable. Potassium level continues to improve and is down to 5.4 today. Hemoglobin level is essentially stable. Recommendations: -Patient is medically stable to be discharged today. -She will be given a dose of Kayexalate today. -We will hold her losartan upon discharge. -She is to have repeat lab work next week with her primary care provider. -Her blood pressure has been in the 120s during the day and was 160 at the end of the day yesterday on diltiazem 180 mg daily, Norvasc 10 mg daily, Lasix 40 mg daily and metoprolol 25 mg orally twice daily. No new regimen has been added to her medications right now. She is to follow-up with her primary care provider next week. This has been explained in detail to the and she verbalized understanding. She has visiting nurses that follow at home twice a week we will measure her blood pressure. -Followed by the endocrinology service appreciated. Recommendations for her insulin regimen noted. Patient will be following up with Dr. chan in the outpatient setting. -I did speak in detail with her primary care provider Lorie Glaser APRN regarding the plan of care.
--- NOTE | 2017-06-01 08:57 | Patient Discharge Instructions ---
Discharge Instructions General Discharge Information You were seen/treated for: Hyperkalemia Watch for these problems: In case of chest pain, chest pressure, dizziness, lightheadedness, shortness of breath please go to the nearest ER. Special Instructions: These follow-up with your primary care provider within 1-2 weeks of discharge and let them know about your recent admission at [facility]. Please return of blood pressure log/charting for a week when you see your primary care physician. Please discuss with your primary care physician or sericulturist regarding your blood pressure medication--losartan. Please follow-up with your sericulturist within 1-2 weeks of discharge and let them know about your recent admission at [facility]. Please discuss with your sericulturist regarding restarting losartan. Please be aware that brillinta and aspirin was stopped. And you were started on Plavix. Please follow-up with endocrinology for diabetes. Please be aware that your insulin regimen has been changed. Please take medication as directed. Diet Continue normal diet: No Recommended Diet: Diabetic Activity Full Activity/No Limits: No Activity Self Limited: Yes Acute Coronary Syndrome Inclusion Criteria At DC or during hospital stay patient has or had the following: ACS DIAGNOSIS No Discharge Core Measures Meds if any: Prescribed or Continued at Discharge Meds if any: NOT Prescribed or Continued at Discharge Congestive Heart Failure Inclusion Criteria At DC or during hospital stay patient has or had the following: CHF DIAGNOSIS No Discharge Core Measures Meds if any: Prescribed or Continued at Discharge Meds if any: NOT Prescribed or Continued at Discharge Cerebrovascular accident Inclusion Criteria At DC or during hospital stay patient has or had the following: CVA/TIA Diagnosis No Discharge Core Measures Meds if any: Prescribed or Continued at Discharge Meds if any: NOT Prescribed or Continued at Discharge Venous thromboembolism Inclusion Criteria VTE Diagnosis No VTE Type NONE VTE Confirmed by (Test) NONE Discharge Core Measures - Per Current guidelines, there needs to be overlap - treatment for the first 5 days of Warfarin therapy. - If discharged on Warfarin prior to 5 days of - overlap therapy, the patient will need to be - assessed for post discharge needs including - *Post discharge parental anticoagulation - *Warfarin and/or parental anticoagulation education - *Follow up date to check INR post discharge At least 5 days overlap therapy as Inpatient No Meds if any: Prescribed or Continued at Discharge Note: Overlap Therapy is Warfarin and Anticoagulant Meds if any: NOT Prescribed or Continued at Discharge
[2017-06-01] MEDS ORDERED: PLAVIX75 M1 PO ×2 (09:01→14:30)
[2017-06-01] MEDS ORDERED: HUMULIN R500 UNIT/2 SC (09:01)
--- NOTE | 2017-06-01 09:05 | PN- Student ---
Subjective Subjective: 56 yo F HD 3 for hyperkalemia. PMHx of CHF, PATRICIA on CPAP, asthma, CAD (s/p stent 2010 and 2014), PVD, HTN, HLD, DM, CKD. Presented to ED last night with CC of palpiations, SOB, and because her home health aide stated she looked "off" and her BP was abnormal (140/42 and 158/50). Patient states she slept well last night but experienced nausea without vomitting in addition to headache. Patient continues to spontaneously void. Denies presence of dizziness, SOB, chest pain, abdominal pain, or calf pain. Objective Objective: Vital Signs Date Time Temp Pulse Resp B/P B/P Pulse O2 O2 Flow FiO2 Mean Ox Delivery Rate 06/01 0600 98.5 56 18 136/58 94 06/01 0000 CPAP 05/31 2199 98.1 64 18 162/78 95 Room Air 05/31 2140 67 156/78 05/31 1437 97.8 62 16 120/56 97 Intake & Output 06/01 1600 06/01 0800 06/01 0000 Intake Total 100 800 Output Total Balance 100 800 Intake, Oral 100 800 Appearance: alert and oriented, in no acute distress Cardiovascular: RRR, systolic murmur 2/6 Pulmonary: clear to auscultation, no adventitious sounds present. No accessory muscles of respiration in use Abdomen/GI: protuberant abdomen normoactive bowel sounds, soft to palpation but no TTP or rigidity Extremities: 1+ pitting edema in legs, 2+ distal pulses, no erythema or TTP of calves Current Medications Sig/Rubin Start time Last Medication Dose Route Stop Time Status Admin Acetaminophen 650 MG .STK-MED ONE 05/31 1524 DC PO 05/31 1525 Acetaminophen 650 MG Q6P PRN 05/30 1415 AC 06/01 PO 0626 Acetaminophen 1,000 MG Q6P PRN 05/30 1415 AC IV Amlodipine Besylate 10 MG DAILY 05/31 1000 AC 06/01 PO 0911 Apixaban 5 MG BID 05/30 2199 AC 06/01 PO 0912 Aspirin Buffered 81 MG DAILY 05/31 1000 DC 05/31 PO 0816 Atorvastatin Calcium 40 MG 1700 05/30 1700 AC 05/31 PO 1657 Budesonide/ 2 PUF BID 05/30 2199 AC 06/01 Formoterol Fumarate INH 0909 Clonazepam 0.5 MG 05/31 AC 05/31 PO 06/07 2159 2136 Clonazepam 0.5 MG DAILY 05/31 1000 DC PO 06/07 0959 Clopidogrel Bisulfate 75 MG DAILY 05/31 1344 AC 06/01 PO 0912 Diltiazem HCl 180 MG 05/31 1700 AC 05/31 PO 1657 Fenofibrate 145 MG 17005/31 1700 AC 05/31 PO 1657 Furosemide 40 MG DAILY 05/31 1000 AC 06/01 PO 0912 Insulin Aspart 0 TIDAC/HS 05/30 1700 AC 06/01 SC 0840 Insulin Detemir 70 UNITS BID 06/01 1000 AC 06/01 SC 0910 Insulin Detemir 60 UNITS BID 05/30 2200 DC 05/31 SC 2136 Isosorbide 30 MG DAILY 05/31 1000 AC 06/01 Mononitrate PO 0912 Metoprolol Tartrate 25 MG BID 05/30 220 AC 06/01 PO 0912 Nicotinic Acid 750 MG DAILY 05/31 1000 AC 05/31 PO 0815 Nitroglycerin 0.4 MG DAILY NEEDED PRN 05/30 1515 AC TOP Omeprazole 40 MG DAILY AC 05/31 0700 AC 06/01 PO 0626 Oxycodone/ 1 TAB Q6P PRN 05/30 1615 AC 06/01 Acetaminophen PO 0911 Pentoxifylline 400 MG BID 05/30 2199 AC 06/01 PO 0911 Polyethylene Glycol 17 GM AT BEDTIME PRN 05/30 1415 AC PO Pregabalin 25 MG BID 05/30 2199 AC 06/01 PO 0911 Senna/Docusate Sodium 1 TAB AT BEDTIME PRN 05/30 1415 PO Sodium Polystyrene 60 ML ONCE ONE 05/31 1015 DC 05/31 Sulfonate PO 05/31 1016 1241 Ticagrelor 60 MG BID 05/30 1515 DC 05/31 PO 0830 Results Results: Laboratory Tests Laboratory Tests 06/01/17 0925: Anion Gap 13, Estimated GFR 39 L, BUN/Creatinine Ratio 29.3 H 05/31/17 0633: Anion Gap 14, Estimated GFR 36 L, BUN/Creatinine Ratio 22.7 05/31/17 0015: Troponin I < 0.01 05/30/17 1758: Anion Gap 17 H, Estimated GFR 36 L, BUN/Creatinine Ratio 23.3, Troponin I < 0.01 05/30/17 1340: Lactic Acid 1.2, Ynj-Z-Aapuqzfmihv Pept 528 H 05/30/17 1214: Anion Gap 18 H, Estimated GFR 42 L, BUN/Creatinine Ratio 30.0 H, Glucose 318 H, Hemoglobin A1c 9.6 H, Calcium 10.0, Magnesium 1.7, Total Bilirubin 0.3, AST 27, ALT 35, Alkaline Phosphatase 56, Troponin I < 0.01, Total Protein 7.5, Albumin 4.3, Globulin 3.2, Albumin/Globulin Ratio 1.3, TSH 2.650, Free T4 0.99, CBC w Diff NO MAN DIFF REQ, RBC 3.47 L, MCV 84.8, MCH 28.5, RDW 14.2, MPV 9.1, Gran % 66.2, Lymphocytes % 22.9, Monocytes % 6.8, Eosinophils % 2.9, Basophils % 1.2, Absolute Granulocytes 4.6, Absolute Lymphocytes 1.6, Absolute Monocytes 0.5 , Absolute Eosinophils 0.2, Absolute Basophils 0.1, PUBS MCHC 33.6, Acetone Level NEGATIVE Assessment/Plan Assessment: 56 yo F HD 3 for hyperkalemia. PMHx of CHF, PATRICIA on CPAP, asthma, CAD (s/p stent 2010 and 2014), PVD, HTN, HLD, DM, CKD. Plan: 1. Hyperkalemia (K+ = 6.1) * Received Calcium gluconate: 1 gm IV; insulin in the ED (05/30) * Will monitor K+ levels (6.1 --> 5.4 --> 5.6 --> 5.4) * Kayexalate 60 mg PO given yesterday morning (05/31) * Hold losartan until K+ under control * Consider discharge if K+ continues downward trend (5.4 on 06/01) * Patient had questions about hyperkalemia, literature was provided to the patient for better understanding of her condition. 2 Manage Chronic Conditions: COPD: * Symbicort 2 puffs BID Inhale HTN: * Amlodipine Besylate 10 MG PO DAILY * Diltiazem HCl 180 MG CAP.ER.24H 1 CAP PO DAILY * Isosorbide Mononitrate (Isosorbide Mononitrate ER) 30 MG TAB.ER.24H 1 TAB PO daily * Metoprolol Tartrate 25 MG TABLET 1 TAB PO BID BP Afib: Discontinue Brilinta and start plavix. Discontinue ASA. Per cardiology consult * Apixaban (Eliquis) 5 MG PO BID * Plavix 75 mg PO daily Anxiety * Clonazepam (Klonopin) 0.5 MG PO daily HLD * Fenofibrate 145 MG CAPSULE.DR PO QPM * Atorvastatin 40 MG PO daily CHF * Furosemide 40 MG TABLET 1 TAB PO DAILY FLUID * Nitroglycerin (Nitrostat) 0.3 MG TAB.SUBL 0.4 MG SL Q 5 MINUTES X 3 DOSE PRN CHEST PAIN DM * Levemir 60 units BID SC * Novolog TIDAC/HS on sliding scale GERD * Omeprazole 40 MG PO BID Neuropathic Pain/Pain Management * Pregabalin 25 mg BID PO * Percocet 5/325 1 tab q6hr PRN * Acetominophen 1 g q6h PRN IV PVD * Pentoxifylline 400 mg BID PO Constipation: * Senna Docusate 1 tab PO HS * Miralax 17gm qHS Other: * Niacin 750 mg PO
[2017-06-01 09:12] VITALS: BP 136/58
--- NOTE | 2017-06-01 11:23 | Discharge Summary ---
Visit Information Visit Dates Admission Date: 05/30/17 Discharge Date: 06/01/17 Hospital Course Course Attending Physician: Mina Barakat MD Primary Care Physician: Lorie Glaser APRN Hospital Course: Patient is a 54-year-old woman with possible history of CAD, hypertension, hyperlipidemia, myocardial infarction, AR W STENTS (hx of CAD s/p cardiac stents in [address] [facility]), repeat AR at Dec 2014 went to [facility], PVD status post right lower extremity stenting , diabetes, atrial fibrillation, chronic kidney disease, obstructive sleep apnea on CPAP was sent to [facility] by her nurse with a blood pressure recording of 140/40. Apparently patient was in usual state of health until 2 days ago, following which she had 10 x 10 chest pain with no radiation relieved by 3 Tabs nitroglycerin. Patient also complained of palpitation on and off for the past 3 weeks. She denied chest pain, chest pressure, fever, chills, nausea, vomiting, abdominal pain, decreased urine output, pedal edema, hematuria, bloody bowel movement. patient was admitted in [facility] in September 2016 for chest pain syndrome and was evaluated by Dr. Rodas. She had an echo which showed an ejection fraction of 55-60%, underwent a nuclear stress test which was normal. She denied any recent admission in other hospitals. Had a flu shot this season. She has never had mammograms/colonoscopy in the past. Her last visit to her gun fitter was in February 2017. Hospital course Patient was admitted to telemetry in view of hyperkalemia treatment. Patient was treated with calcium gluconate/Kayexalate/insulin. Upon admission potassium level was 6.1. Daily electrolytes were followed up. Patient's losartan was discontinued in view of hyperkalemia. Patient was advised to follow up with her gun fitter/primary care physician in restarting her losartan. Patient was also followed up by the gun fitter who suggested to discontinue brillinta, aspirin and started on Plavix given her remote history of stents many years ago. Patient was on high dose of Humulin R insulin at home. Hence endocrinology was consulted who suggested to start on Levemir and NovoLog sliding scale insuli during this admission. She was discharged home with same Humulin R insulin but the dose was changed to 120 units in the morning and 120 units at bedtime. Patient agreed to change his insulin. Rest of her home medications were continued during this admission. Patient was advised to follow-up with the gun fitter, primary care physician and fish hatchery worker. On discharge, the potassium level was 5.4. Imaging May 30 1. Enlarged cardiac silhouette and central vascular congestion and perihilar opacities are seen, consistent with congestive heart failure. Clinical correlation requested. 2. Superimposed right hilar and lower paratracheal adenopathy is suspected as was seen on prior CT scan from 09/10/2016. 3. Linear subsegmental atelectasis in the left mid and lower lung. Complications: none Allergies: Coded Allergies: tramadol (NAUSEA 09/10/16) Significant Procedures: none Disposition Summary Disposition Principal Diagnosis: Hyperkalemia Additional Diagnosis: none Discharge Disposition: home or self care Discharge Instructions General Discharge Information Code Status: Full Code Patient's Diet: Heart healthy diet Patient's Activity: Activity as tolerated Follow-Up Instructions/Appts: Please follow up with the primary care provider within one to 2 weeks of discharge Please follow up with fish hatchery worker within 1-2 weeks of discharge. please follow with the gun fitter within 1-2 weeks of discharge. Medications at Discharge Discharge Medications: Stop taking the following medications: Losartan Potassium (Cozaar) 50 MG TABLET ORAL DAILY Aspirin (Ecotrin*) 81 MG TABLET.DR ORAL DAILY Ticagrelor (Brilinta) 60 MG TABLET ORAL TWICE DAILY Qty = 60 Continue taking these medications: Metoprolol Tartrate (Metoprolol Tartrate) 25 MG TABLET 1 Tablet ORAL TWICE DAILY Comments: Last Taken:06/01/17 Time:9AM Rosuvastatin Calcium (Crestor) 40 MG TABLET 1 Tablet ORAL DAILY Comments: LIPITOR ADMINISTERED Last Taken:05/31/17 Time:5PM Fenofibric Acid (Trilipix) 135 MG CAPSULE.DR 1 Capsule ORAL Every night Comments: Last Taken:05/31/17 Time:5PM Isosorbide Mononitrate (Isosorbide Mononitrate ER) 30 MG TAB.ER.24H 1 Tablet ORAL DAILY Comments: Last Taken:10/01/16 Time:1000 Pantoprazole Sodium (Protonix) 40 MG TABLET.DR 1 Tablet ORAL TWICE DAILY Comments: PRILOSC ADMINISTERED Last Taken:06/01/17 Time:7AM Nitroglycerin (Nitrostat) 0.3 MG TAB.SUBL 0.4 Milligram SUBLINGUAL EVERY 5 MINUTES X 3 DOSES as needed for CHEST PAIN Days = 7 Comments: given 09/12/16 @ 0945 am Albuterol Sulfate (Proair Hfa) 90 MCG HFA.AER.AD 2 Puff Inhale through mouth EVERY 4-6 HOURS NEEDED as needed for ASTHMA Comments: NOT TAKEN Apixaban (Eliquis) 5 MG TABLET 5 Milligram ORAL TWICE DAILY Qty = 30 Comments: Last Taken:06/01/17 Time:9AM Diltiazem HCl (Diltiazem 24HR ER) 180 MG CAP.ER.24H 1 Capsule ORAL DAILY Qty = 30 Comments: Last Taken:06/01/17 Time:9AM Clonazepam (Klonopin) 0.5 MG TABLET 1 Tablet ORAL DAILY Qty = 5 Comments: Last Taken:05/31/17 Time:5PM Amlodipine Besylate (Amlodipine Besylate) 10 MG TABLET 1 Tablet ORAL DAILY Comments: Last Taken:06/01/17 Time:9AM Tiotropium Foley (Spiriva) 18 MCG CAP.W.DEV 2 Puff Inhale through mouth DAILY Days = 30 Comments: NOT TAKEN Insulin Regular, Human (Humulin R U-500 Kwikpen) 500/ML (3) INSULN.PEN 120 Units Inject into fatty tissue Every night Comments: LEVEMIR ADMINISTERED Furosemide (Furosemide) 40 MG TABLET 1 Tablet ORAL DAILY Days = 30 Comments: Last Taken:06/01/17 Time:0900 Start taking the following new medications: Clopidogrel Bisulfate (Plavix) 75 MG TABLET 75 Milligram ORAL DAILY Qty = 30 No Refills Instructions: . Comments: Last Taken:06/01/17 Time:9AM The following medications have been changed: Old: Insulin Regular, Human (Humulin R U-500 Kwikpen) 500/ML (3) INSULN.PEN 180 Units Inject into fatty tissue Every Morning Qty = 18 New: Insulin Regular, Human (Humulin R U-500 Kwikpen) 500/ML (3) INSULN.PEN 120 Units Inject into fatty tissue Every Morning Qty = 18 Comments: LEVEMIR ADMINISTERED Last Taken:06/01/17 Time:9AM Copies To: Lorie Glaser APRN Attending MD Review Statement Documenting Attending: Mina Barakat MD Other Findings: Discharged in stable condition.
--- NOTE | 2017-06-01 13:47 | PN- Cardiology ---
Subjective Subjective: Stable, resting comfortably. No cardiac symptoms. Objective Vital Signs and I&Os Vital Signs Date Time Temp Pulse Resp B/P B/P Pulse O2 O2 Flow FiO2 Mean Ox Delivery Rate 06/01 0912 56 136/58 06/01 0912 56 136/58 06/01 0911 56 136/58 06/01 0600 98.5 56 18 136/58 94 06/01 0000 CPAP 05/31 2200 98.1 64 18 162/78 95 Room Air 05/31 2140 67 156/78 05/31 1437 97.8 62 16 120/56 97 Intake & Output 06/01 1600 06/01 0800 06/01 0000 05/31 1600 05/31 0800 05/31 0000 Intake Total 100 800 600 360 Output Total Balance 100 800 600 360 Intake, IV 10 Intake, Oral 100 800 600 350 Number 1 0 Bowel Movements Patient 244 lb Weight Weight Bed scale Measurement Method Current Medications: Current Medications Sig/Rubin Start time Last Medication Dose Route Stop Time Status Admin Acetaminophen 650 MG .STK-MED ONE 05/31 1524 DC PO 05/31 1525 Acetaminophen 650 MG Q6P PRN 05/30 1415 AC 06/01 PO 0626 Acetaminophen 1,000 MG Q6P PRN 05/30 1415 AC IV Amlodipine Besylate 10 MG DAILY 05/31 1000 AC 06/01 PO 0911 Apixaban 5 MG BID 05/30 2200 AC 06/01 PO 0912 Atorvastatin Calcium 40 MG 05/30 1700 AC 05/31 PO 1657 Budesonide/ 2 PUF BID 05/30 2200 AC 06/01 Formoterol Fumarate INH 0909 Clonazepam 0.5 MG 05/31 2200 AC 05/31 PO 06/07 2159 2136 Clopidogrel Bisulfate 75 MG DAILY 05/31 1344 AC 06/01 PO 0912 Diltiazem HCl 180 MG 05/31 1700 AC 05/31 PO 1657 Fenofibrate 145 MG 05/31 1700 AC 05/31 PO 1657 Furosemide 40 MG DAILY 05/31 1000 AC 06/01 PO 0912 Insulin Aspart 0 TIDAC/HS 05/30 1700 AC 06/01 SC 1224 Insulin Detemir 70 UNITS BID 06/01 1000 AC 06/01 SC 0910 Insulin Detemir 60 UNITS BID 05/30 2200 DC 05/31 SC 2136 Isosorbide 30 MG DAILY 05/31 1000 AC 06/01 Mononitrate PO 0912 Metoprolol Tartrate 25 MG BID 05/30 2199 AC 06/01 PO 0912 Nicotinic Acid 750 MG DAILY 05/31 1000 AC 05/31 PO 0815 Nitroglycerin 0.4 MG DAILY NEEDED PRN 05/30 1515 AC TOP Omeprazole 40 MG DAILY AC 05/31 0700 AC 06/01 PO 0626 Oxycodone/ 1 TAB Q6P PRN 05/30 1615 AC 06/01 Acetaminophen PO 0911 Pentoxifylline 400 MG BID 05/30 2199 AC 06/01 PO 0911 Polyethylene Glycol 17 GM AT BEDTIME PRN 05/30 1415 AC PO Pregabalin 25 MG BID 05/30 2199 AC 06/01 PO 0911 Senna/Docusate Sodium 1 TAB AT BEDTIME PRN 05/30 1415 AC PO Sodium Polystyrene 60 ML ONCE ONE 06/01 1115 DC 06/01 Sulfonate PO 06/01 1116 1201 Results Last 48 Hrs of Labs/Mics: Laboratory Tests 06/01/17 0925: Anion Gap 13, Estimated GFR 39 L, BUN/Creatinine Ratio 29.3 H 05/31/17 0633: Anion Gap 14, Estimated GFR 36 L, BUN/Creatinine Ratio 22.7 05/31/17 0015: Troponin I < 0.01 05/30/17 1758: Anion Gap 17 H, Estimated GFR 36 L, BUN/Creatinine Ratio 23.3, Troponin I < 0.01 Assessment/Plan Assessment/Plan Assessment: 1. CAD, status post stents 2. Peripheral arterial disease 3. History of paroxysmal atrial fibrillation 4. Chest pain 1 week ago, ruled out for myocardial infarctions 5. Hyperglycemia 6. Hypokalemia Plan: * Follow-up labs noted * Continue Eliquis * As discussed, continue oral anticoagulation and Plavix. Aspirin on hold. * Follow-up with me in the office in 2 weeks.
--- NOTE | 2017-06-01 17:15 | PN- Diabetes ---
Assessment/Plan Assessment: Patient is a 54-year-old woman with history of diabetes type 2, hypertension, hyperlipidemia, myocardial infarction with STENTS placement, PVD status post right lower extremity stenting , atrial fibrillation, chronic kidney disease, obstructive sleep apnea on CPAP, was sent to [facility] after she had chest pain. Patient also complains of palpitation on and off for the past 3 weeks. with regards to diabetes, she was on Humulin R U500 pen 180 units in the morning and 120 units at bedtime at home. In hospital, she was placed on Levemir 60 units twice a day, Novolog coverage before meals ( 12 units when her FSG is between 80 and 150; 15 units when her FSG is between 151-200, etc) and Novolog coverage at bedtime. Her FSGs were 122, 169, 230, 224 and 223. Plan: 1. increase Levemir to 70 units twice a day; 2. continue the current Novolog coverage before meals and Novolog coverage at bedtime in hospital; 3. if she is medically stable for discharge, the discharge plan for diabetes will be Humulin R U500 pen 120 units before breakfast and 120 units before dinner; f/u with her oil fire specialist for f/u after discharge. Subjective Subjective: She feels well and most likely she will go home today. Objective Last 24 Hrs of Vital Signs/I&O Vital Signs Date Time Temp Pulse Resp B/P B/P Pulse O2 O2 Flow FiO2 Mean Ox Delivery Rate 06/01 0912 56 136/58 06/01 0912 56 136/58 06/01 0911 56 136/58 06/01 0600 98.5 56 18 136/58 94 06/01 0000 CPAP 05/31 2200 98.1 64 18 162/78 95 Room Air 05/31 2140 67 156/78 Intake & Output 06/01 1600 06/01 0800 06/01 0000 Intake Total 600 100 800 Output Total Balance 600 100 800 Intake, Oral 600 100 800 Findings Pertinent Lab/Maximo Results: Laboratory Tests 06/01 924 Chemistry Sodium (137 - 145 mmol/L) 137 Potassium (3.5 - 5.1 mmol/L) 5.4 H Chloride (98 - 107 mmol/L) 106 Carbon Dioxide (22 - 30 mmol/L) 18 L Anion Gap (5 - 16) 13 BUN (7 - 17 mg/dL) 41 H Creatinine (0.5 - 1.0 mg/dL) 1.4 H Estimated GFR (>60 ml/min) 39 L BUN/Creatinine Ratio (7 - 25 %) 29.3 H
== END 2017-06-01 14:40 | disposition home health service (06) | DRG 425 ==
LOC: ERH 10:59 → 1NO 14:06 → ERHI 14:06 → ENRESERV 17:02 → ENTRNSPT 18:29 → EDTRNSPTSTS 18:33 → CMPTRNSPT 18:41 → 1NO 18:48 → ENPENDDIS 06-01 13:08 → 1NO 06-01 14:40 → ENTRNSPT 06-01 14:41 → EDTRNSPT 06-01 14:50 → EDTRNSPTSTS 06-01 14:50 → CMPTRNSPT 06-01 15:16
PROVIDERS: Physician Assistant
DX: E87.5 Hyperkalemia (principal); Z79.4 Long term (current) use of insulin; I12.9 Hypertensive chronic kidney disease with stage 1 through stage 4 chronic kidney disease, or unspecified chronic kidney disease; E11.22 Type 2 diabetes mellitus with diabetic chronic kidney disease; N18.3 Chronic kidney disease, stage 3 (moderate); Z87.891 Personal history of nicotine dependence; E66.9 Obesity, unspecified; Z68.41 Body mass index [BMI] 40.0-44.9, adult; Z79.01 Long term (current) use of anticoagulants; K29.70 Gastritis, unspecified, without bleeding; F41.9 Anxiety disorder, unspecified; G47.33 Obstructive sleep apnea (adult) (pediatric); Z79.82 Long term (current) use of aspirin; I25.10 Atherosclerotic heart disease of native coronary artery without angina pectoris; E11.319 Type 2 diabetes mellitus with unspecified diabetic retinopathy without macular edema; E11.51 Type 2 diabetes mellitus with diabetic peripheral angiopathy without gangrene; I48.0 Paroxysmal atrial fibrillation; J44.9 Chronic obstructive pulmonary disease, unspecified; Z95.5 Presence of coronary angioplasty implant and graft; I25.2 Old myocardial infarction; E78.5 Hyperlipidemia, unspecified
CPT/HCPCS: 1NSP; 36415; 71046; 82436; 93005; 93010; 96365; 99291; J0131; J0610; J3490

== ENCOUNTER 2017-08-05 11:37 | Emergency (ER) | payer OTHER, MEDICARE ==
[~2017-08-05] VITALS: Ht 157.5 cm; Wt 111.1 kg
[~2017-08-05 11:37] MED LIST changes: +PLAVIX75 M1 PO
--- NOTE | 2017-08-05 11:45 | ED DYSPNEA/ASTHMA COMPLAINT ---
History of Present Illness General Chief Complaint: Lower Extremity Problems Stated Complaint: SWELLING TO ARLYN EXTREMITIES Source: patient, old records Exam Limitations: no limitations Vital Signs & Intake/Output Vital Signs & Intake/Output Vital Signs Date Time Temp Pulse Resp B/P B/P Pulse O2 O2 Flow FiO2 Mean Ox Delivery Rate 08/05 1415 98.1 66 22 155/67 94 Room Air 08/05 1238 97 Room Air 08/05 1140 97.2 74 20 160/72 95 Room Air Room Air Allergies Coded Allergies: tramadol (NAUSEA 08/05/17) Reconcile Medications Albuterol Sulfate (Proair Hfa) 90 MCG HFA.AER.AD 2 PUF INH Q4-6 PRN PRN ASTHMA (Reported) Amlodipine Besylate 10 MG TABLET 1 TAB PO DAILY BP (Reported) Apixaban (Eliquis) 5 MG TABLET 5 MG PO BID Afib Clonazepam (Klonopin) 0.5 MG TABLET 1 TAB PO DAILY Insomnia/Anxiety Clopidogrel Bisulfate (Plavix) 75 MG TABLET 75 MG PO DAILY heart . Diltiazem HCl (Diltiazem 24HR ER) 180 MG CAP.ER.24H 1 CAP PO DAILY HEART ( Reported) Fenofibric Acid (Trilipix) 135 MG CAPSULE.DR 1 CAP PO QPM CHOLESTEROL ( Reported) Fluticasone/Vilanterol (Breo Ellipta 100-25 Mcg INH) 100 MCG-25 MCG/DOSE BLST.W.DEV 1 INH PO DAILY SHORTNESS OF BREATH (Reported) Furosemide 40 MG TABLET 1 TAB PO DAILY FLUID Hydrocodone/Acetaminophen (Hydrocodon-Acetaminophen 5-325) 5 MG-325 MG TABLET 1 TAB PO DAILY PAIN (Reported) Insulin Regular, Human (Humulin R U-500 Kwikpen) 500/ML (3) INSULN.PEN 120 U SC QPM DM (Reported) Insulin Regular, Human (Humulin R U-500 Kwikpen) 500/ML (3) INSULN.PEN 120 UNITS SC QAM DM Isosorbide Mononitrate (Isosorbide Mononitrate ER) 30 MG TAB.ER.24H 1 TAB PO DAILY HEART (Reported) Metoprolol Tartrate 25 MG TABLET 1 TAB PO BID BP (Reported) Nitroglycerin (Nitrostat) 0.3 MG TAB.SUBL 0.4 MG SL Q 5 MINUTES X 3 DOSE PRN CHEST PAIN Oxycodone HCl/Acetaminophen (Percocet 5-325 MG Tablet) 5 MG-325 MG TABLET 0.5 TAB PO QPM PAIN (Reported) Pantoprazole Sodium (Protonix) 40 MG TABLET.DR 1 TAB PO BID GI (Reported) Rosuvastatin Calcium (Crestor) 40 MG TABLET 1 TAB PO DAILY CHOLESTEROL ( Reported) Triage Note: PT TO ED FOR C/C OF BILATERAL LOWER EXT EDEMA WITH SOME ASSOCIATED SOB (WORSE WITH EXERTION). PT RECEIVED IV LASIX ON TUESDAY AT [facility]. Triage Nurses Notes Reviewed? yes Onset: Gradual Duration: week(s):, constant, getting worse Timing: recent history Severity: moderate Prior Episodes/Possible Cause: occasional episodes Associated Symptoms: exertional dyspnea HPI: 57 year old female with history of CAD, hypertension, hyperlipidemia, myocardial infarction, OK W STENTS (hx of CAD s/p cardiac stents in 2010 at [facility]), repeat OK at Dec 2014, PVD status post right lower extremity stenting , diabetes, atrial fibrillation on elliquis, chronic kidney disease, obstructive sleep apnea on CPAP presents to the ER for evaluation complaining of a several day history of progressively worsening bilateral lower extremity swelling. She takes Lasix 40 mg once a day and went to the CHF clinic every other week her last visit was 3 days ago which time she was given an injection of Lasix. Her electroencephalograph technologist is Dr. Rodas. She had an outpatient x-ray performed 3 days ago however does not know the results. She reports intermittent exertional dyspnea none at rest. No cough fever chills chest pain abdominal pain or swelling urinary retention or arm swelling she's been compliant with all her other medications. (Farzana FITZPATRICK,Medardo) Past History Travel History Traveled to [place] past 21 day No Medical History Any Pertinent Medical History? see below for history Neurological: NONE EENT: NONE Cardiovascular: CAD, hypertension, hyperlipidemia, myocardial infarction, [place] W STENTS Respiratory: obstructive sleep apnea, pneumonia Gastrointestinal: MILD GASTRITIS Hepatic: NONE Renal: chronic kidney disease Musculoskeletal: NONE Psychiatric: anxiety Endocrine: diabetes Cancer(s): NONE RANGE MASTER/Reproductive: NONE Other Medical Hx: Diabetic retinopathy History of MRSA: No History of VRE: No History of CDIFF: No Influenza Vaccine: 05/18/17 Surgical History Surgical History: CARDIAC STENTS Psychosocial History Who do you live with Patient/Self Services at Home Nursing What is your primary language Angolan Tobacco Use: Quit >30 days ago ETOH Use: denies use Illicit Drug Use: denies illicit drug use Family History Family History, If Any: MOTHER FH: hypertension Hx Contributory? No (Medardo Ashton) Review of Systems Review of Systems Constitutional: Reports: see HPI. Comments Review of systems: See HPI, All other systems negative. Constitutional, no chills no fever, HEENT: no sore throat no congestion Cardiovascular: No chest pain , no palpitation Skin: no rashes, no change in skin Respiratory: dyspnea no cough no sputum no hemoptysis GI: No nausea no vomiting, : No dysuria Muscle skeletal: No joint pain, no back pain Neurologic: , no headache Heme/endocrine: No bruising Immunology: No lymphadenopathy (Medardo Ashton) Physical Exam Physical Exam General Appearance: well developed/nourished, alert Respiratory: normal breath sounds, chest non-tender, no respiratory distress Comments: Well-developed well-nourished person in no acute distress HEENT: Normal EENT exam; PERRL, EOMI. HEAD is atraumatic. moist mucous membranes. Neck: Supple, normal range of motion Back: Full range of motion Cardiovascular: Regular rate and rhythms no murmurs rubs or gallops, normal JVP Respiratory: Chest nontender.There were no bony deformities, no asymmetry. No respiratory distress. Patient speaking in full complete sentences. Breath sounds clear to auscultation bilaterally: NO W/R/R Abdomen: Soft, nontender nondistended, Extremity: 2+ pitting le edema, full range of motion of extremities, normal and equal DP pulses bilaterally, 5 out of 5 strength noted to bilateral upper and lower extremities Neuro: Alert oriented x3, motor sensory normal, There were no obvious focal neurologic abnormalities. Skin: No appreciable rash on exposed skin, skin is warm and dry. Psych: Mood and affect is normal, memory and judgment is normal. Core Measures ACS in differential dx? Yes CVA/TIA Diagnosis No Sepsis Present: No Sepsis Focused Exam Completed? No (Medardo Ashton) Progress Differential Diagnosis: asthma, AMI, CHF, COPD, pulmonary embolism, dvt, electrolyte abnormalyt, acute kidney injury Plan of Care: Orders Procedure Date/time Status Regular Diet 08/05 L Active Telemetry/Data Analysis Assistant 08/05 115 Active TROPONIN LEVEL 08/05 1159 Complete COMPREHENSIVE METABOLIC PANEL 08/05 1159 Complete CBC WITHOUT DIFFERENTIAL 08/05 1159 Complete B-TYPE NATRIURETIC PEP (BNP) 08/05 1159 Complete EKG 08/05 1144 Active Laboratory Tests 08/05/17 1253: Anion Gap 12, Estimated GFR 46 L, BUN/Creatinine Ratio 25.0, Glucose 350 H, Calcium 9.3, Total Bilirubin 0.4, AST 18, ALT 31, Alkaline Phosphatase 76, Troponin I < 0.01, Tfy-D-Cluitcnhskx Pept 377 H, Total Protein 6.8, Albumin 3.5 , Globulin 3.3, Albumin/Globulin Ratio 1.1, CBC w Diff NO MAN DIFF REQ, RBC 3.61 L, MCV 83.7, MCH 28.0, MCHC 33.5, RDW 15.6 H, MPV 10.1, Gran % 69.0, Lymphocytes % 21.9, Monocytes % 6.0, Eosinophils % 2.8, Basophils % 0.3, Absolute Granulocytes 5.1, Absolute Lymphocytes 1.6, Absolute Monocytes 0.4, Absolute Eosinophils 0.2, Absolute Basophils 0 Labs ordered old records reviewed patient had x-ray performed of the chest 3 days ago findings are below. While I was speaking with the patient I was looking on the x-ray of her outpatient x-ray from 3 days ago which time the patient attempted by herself to get up and get her purse at which time she fell. She did not hit her head, I witnessed the fall she did not lose consciousness. Patient with assistance was able to sit up and sit on the stretcher. At this time she denies headache neck back arm or leg injury from the fall she is declining anything for pain discussed the plan of care ultrasound labs ordered. CASE D/W DR Desai agrees with plan I discussed the case with Dr. Rodas advised to interchange her dose of Lasix 60 mg one day 40 mg the next and have her follow up with him on Tuesday. I discussed with the patient at length plan of care my discussion with Dr. Rodas she feels well and feels comfortable with discharge she again denies any injury from her fall here in the emergency room she denies pain I advised need to keep legs elevated and plan with medications return precautions were discussed at length she feels comfortable with this plan PATIENT: EDUARD ALBERT PRESENT AGE: 57 PATIENT ACCOUNT NO: [id number] : 60 LOCATION: [facility] ORDERING PHYSICIAN: Lorie Glaser APRN SERVICE DATE: 08/02/17 EXAM TYPE: RAD - X[facility]-CHEST XRAY, TWO VIEWS EXAMINATION: XR CHEST 2 VIEWS CLINICAL INFORMATION: Cough; history of COPD and congestive heart failure. COMPARISON: Prior chest radiographs, most recently 05/30/2017; CTA dated 03/08/2017. TECHNIQUE: Frontal and lateral views of the chest were obtained. FINDINGS: The heart, great vessels, pulmonary vasculature and mediastinum are normal. A right pericardial fat pad is again seen. The lungs show no focal infiltrate, effusion or pneumothorax. There is mild bilateral bronchiolar wall thickening. There is no acute osseous abnormality. There is multi-level marked thoracolumbar spondylosis. IMPRESSION: 1. No focal infiltrate or congestive heart failure are seen. 2. There is mild bilateral bronchiolar wall thickening, consistent with acute bronchiolitis or reactive airways disease. Please correlate clinically. DICTATED BY: Thomas Kimball MD DATE/TIME DICTATED:08/02/171223 WRAPPER CASHIER:HELGA DATE/TIME TRANSCRIBED:08/02/171223 CONFIDENTIAL, DO NOT COPY WITHOUT APPROPRIATE AUTHORIZATION. <Electronically signed in Other Vendor System> SIGNED BY: Thomas Kimball MD 08/02/17 1247 Diagnostic Imaging: Viewed by Me: Ultrasound. Discussed w/RAD: Ultrasound. Radiology Impression: PATIENT: EDUARD ALBERT PRESENT AGE: 57 PATIENT ACCOUNT NO: [id number] : 60 LOCATION: [facility] ORDERING PHYSICIAN: Medardo FITZPATRICK SERVICE DATE: 08/05/17 EXAM TYPE: US - US-EXT BILAT VENOUS DOPPLER EXAMINATION: US TRIPLEX OF LOWER EXTREMITIES, BILATERAL CLINICAL INFORMATION: Lower extremity swelling, pain. COMPARISON: Left lower extremity ultrasound 10/04/2012 TECHNIQUE: Color-flow triplex imaging with spectral analysis and compression Doppler were performed on the lower extremities. FINDINGS: Respiratory variation, normal compression and augmented flow are noted throughout the lower extremities. The visualized common femoral vein, superficial femoral vein, profunda femoral vein, popliteal vein and midcalf peroneal and posterior tibial venous segments show no evidence of deep venous thrombosis. There is no Mantilla's cyst. IMPRESSION: Normal triplex scan without evidence of deep venous thrombosis involving the lower extremities. DICTATED BY: John Schumacher MD DATE/TIME DICTATED:08/05/171243 WRAPPER CASHIER:HELGA DATE/TIME TRANSCRIBED:08/05/171243 CONFIDENTIAL, DO NOT COPY WITHOUT APPROPRIATE AUTHORIZATION. <Electronically signed in Other Vendor System> SIGNED BY: John Schumacher MD 08/05/171247 Initial ED EKG: normal intervals, normal p-waves, normal QRS complex, normal sinus rhythm Prior EKG: unchanged Rhythm Strip: normal sinus rhythm (Medardo Ashton) Departure Departure Time of Disposition: 1408 Disposition: HOME OR SELF CARE Condition: Stable Clinical Impression Primary Impression: Leg edema Referrals: Lorie Glaser APRN (PCP/Family) Kathy Rodas MD Additional Instructions: Follow-up with your electroencephalograph technologist Dr. Rodas on Tuesday as well as your primary care physician. As discussed interchange your dose of Lasix-you received 60mg today, take 40mg on tuesday, 60mg on tuesday, 40mg on tuesday etc. Keep your legs elevated. return with any concerns Departure Forms: Customer Survey General Discharge Information (Medardo Ashton) PA/CD STORAGE AND MATERIALS MAKE UP HELPER Co-Sign Statement Statement: ED Attending supervision documentation- I saw and evaluated the patient. I have also reviewed all the pertinent lab results and diagnostic results. I agree with the findings and the plan of care as documented in the PA's/CD STORAGE AND MATERIALS MAKE UP HELPER's documentation. x I have reviewed the ED Record and agree with the PA's/CD STORAGE AND MATERIALS MAKE UP HELPER's documentation. [] Additions or exceptions (if any) to the PAs/CD STORAGE AND MATERIALS MAKE UP HELPER's note and plan are summarized below: [] (Hernandez BARRIOS,Navi) Critical Care Note Critical Care Note Critical Care Time: non-applicable (Medardo Ashton)
--- NOTE | 2017-08-05 12:48 | ULTRASOUND REPORT ---
EXAMINATION: US TRIPLEX OF LOWER EXTREMITIES, BILATERAL CLINICAL INFORMATION: Lower extremity swelling, pain. COMPARISON: Left lower extremity ultrasound 10/04/2012 TECHNIQUE: Color-flow triplex imaging with spectral analysis and compression Doppler were performed on the lower extremities. FINDINGS: Respiratory variation, normal compression and augmented flow are noted throughout the lower extremities. The visualized common femoral vein, superficial femoral vein, profunda femoral vein, popliteal vein and midcalf peroneal and posterior tibial venous segments show no evidence of deep venous thrombosis. There is no Mantilla's cyst. IMPRESSION: Normal triplex scan without evidence of deep venous thrombosis involving the lower extremities.
[2017-08-05 13:13] LABS: ABSOLUTE BASOPHIL COUNT 0 /CUMM (0.0-0.2); ABSOLUTE EOSINOPHIL COUNT 0.2 /CUMM (0.0-0.7); ABSOLUTE GRANULOCYTE CT 5.1 /CUMM (1.4-6.5); ABSOLUTE LYMPH COUNT 1.6 /CUMM (1.2-3.4); ABSOLUTE MONOCYTE COUNT 0.4 /CUMM (0.10-0.60); BASOPHIL % 0.3 % (0.0-2.0); EOSINOPHIL % 2.8 % (0-5); HEMATOCRIT 30.2 % (37-47); MEAN CORPUSCULAR HGB CONC 33.5 G/DL (33.0-37.0); MEAN CORPUSCULAR VOLUME 83.7 FL (81.0-99.0); MEAN PLATELET VOLUME 10.1 FL (7.4-10.4); PLATELET COUNT 196 /CUMM (130-400); RBC DISTRIBUTION WIDTH 15.6 % (11.5-14.5); RED BLOOD CELL CT 3.61 /CUMM (4.20-5.40); WHITE BLOOD CELL COUNT 7.4 /CUMM (4.8-10.8)
[2017-08-05] MEDS ORDERED: HYDROCODON-ACE1 EAC2 PO (13:26)
[2017-08-05] MEDS ORDERED: PERCOCET 5-3251 EACH PO (13:27)
[2017-08-05] MEDS ORDERED: BREO ELLIPTA 11 EACH PO (13:29)
[2017-08-05 14:15] VITALS: BP 155/67
== END 2017-08-05 14:34 ==
LOC: ERH 11:37
PROVIDERS: Physician Assistant Medical
DX: R60.0 Localized edema (principal)
CPT/HCPCS: 93005; 93010; 93970